=== PATIENT | male | born 1940 | race Caucasian/White ===

== ENCOUNTER → 2016-05-24 | Outpatient (CLI) | payer MEDICARE ==
--- NOTE | 2016-05-24 11:02 | XR ---
EXAMINATION TYPE: XR abdomen 1V DATE OF EXAM: 05/24/2016 10:37 AM CLINICAL HISTORY: Hematuria, kidney stones left side suspected. TECHNIQUE: 2 supine KUB images of the abdomen are obtained. COMPARISON: None. FINDINGS: There is 3-5 small calculi suspected in the left kidney measuring 4 mm or smaller in size. There are 5-10 larger calculi in the right kidney with a elongated calculus measuring 2.5 cm on long axis present. Right-sided phleboliths are noted. Overlying fecal material makes evaluation suboptimal . Scattered calcified nodules are granulomas are seen in both lung bases. There is multilevel spurring in the spine. 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 IMPRESSION: Bilateral nephrolithiasis, right worse than left in size and number, consider CT correlation. 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
== END | disposition home or self-care (01) ==
LOC: RADXRMAIN 10:11
PROVIDERS: ATTEND Urology
DX: N20.0 Calculus of kidney (principal)
CPT/HCPCS: 74000

== ENCOUNTER 2016-10-12 10:42 | Day surgery (SDC) | payer MEDICARE ==
[2016-10-08 11:07] VITALS: BMI 24.3
[~2016-10-12 10:42] MED LIST: ALPRAZolam 0.25 MG TAB PO PRN; ALPRAZolam 0.5 MG TAB PO PRN; ASPIRIN 325 MG TAB PO STA; ATORVASTATIN 80 MG TAB PO STA; NITROGLYCERIN SL TABS 0.4 MG TAB SUBLINGUAL PRN; SODIUM CHLORIDE 0.9% 1,000 ML in EMPTY BAG 1 BAG IV ONE
[2016-10-12 11:27] VITALS: RESP 16; TEMP 97.6
[2016-10-12 11:30] LABS: Anion Gap 13 mmol/L; Blood Urea Nitrogen 26 mg/dL (9-20); Calcium 9.8 mg/dL (8.4-10.2); Carbon Dioxide 23 mmol/L (22-30); Chloride 111 mmol/L (98-107); Glucose 131 mg/dL (74-99); Non-African American GFR(MDRD) >60 (>60 ml/min/1.73 sqM); Potassium 4.5 mmol/L (3.5-5.1); Sodium 147 mmol/L (137-145)
[2016-10-12 11:46] LABS: Basophils % (A) 0 %; CH 31.3; Eosinophils % (A) 0 %; HCT 44.5 % (39.0-53.0); HDW 2.75; HGB 16.1 gm/dL (13.0-17.5); Luc # (Auto) 0.14; Luc % (Auto) 1; Lymphocytes # (A) 2.6 k/uL (1.0-4.8); Lymphocytes % (A) 17 %; MCH 32.5 pg (25.0-35.0); MCHC 36.3 g/dL (31.0-37.0); MCV 89.6 fL (80.0-100.0); Mean Platelet Volume 7.6; Monocytes # (A) 0.6 k/uL (0-1.0); Monocytes % (A) 4 %; Neutrophils # (A) 11.6 k/uL (1.3-7.7); Neutrophils % (A) 77 %; RBC 4.97 m/uL (4.30-5.90); RDW 12.9 % (11.5-15.5); WBC (Perox) 15.72
[2016-10-12] MEDS ORDERED: MIDAZOLAM 2 MG/2 ML VIAL ONE (11:54)
[2016-10-12] MEDS ORDERED: LIDOCAINE 2% INJ 20 MG/ML (20 ML MDV) ONE (11:54)
[2016-10-12] MEDS ORDERED: fentaNYL (PF) 50 MCG/ML 2 ML AMP IV ONE (11:56)
[2016-10-12] MEDS ORDERED: fentaNYL (PF) 50 MCG/ML 2 ML AMP ONE (11:57)
[2016-10-12] MEDS ORDERED: MIDAZOLAM 2 MG/2 ML VIAL IV ONE (11:58)
[2016-10-12] MEDS ORDERED: LIDOCAINE 2% INJ 20 MG/ML SQ ONE (12:01)
[2016-10-12] MEDS ORDERED: IOHEXOL 350 MG/ML 125ML BOTTLE INJ ONE (12:23)
[2016-10-12] MEDS ORDERED: RX INFO: IV CONTRAST WAS GIVEN 1 EACH MISC MISCELLANE PRN (12:36)
[2016-10-12] MEDS ORDERED: SODIUM CHLORIDE 0.9% 1,000 ML IV SCH (12:45)
[2016-10-12] MEDS ORDERED: HYDROcodone/APAP 10-325MG 1 EACH TAB PO ONE (15:15)
[2016-10-12] MEDS ORDERED: HYDROcodone/APAP 10-325MG 1 EACH TAB ONE (15:16)
[2016-10-12 17:23] VITALS: BP 148/82; PULSE 6
--- NOTE | 2016-10-13 10:17 | PCN ---
CARDIAC CATHETERIZATION REPORT Mr. Casarez was referred for cardiac catheterization by Dr. Ramos because of the cardiomyopathy to rule out any underlying significant ischemic heart disease. Patient also has multiple PVCs. PROCEDURE: The right groin was prepped and draped in the usual manner and the skin was infiltrated with 2% Xylocaine. The right femoral artery was entered using Seldinger technique and the #6 Icelandic sheath was placed in. Selective coronary angiography was then performed in multiple projections and the left ventriculography was performed in 30-degree PRETTY projection. The patient tolerated the procedure well. HEMODYNAMICS: The left ventricular end-diastolic pressure is 20 to 24 mmHg prior to angiography. No gradient is noted across the aortic valve. SELECTIVE CORONARY ANGIOGRAPHY Left main coronary artery is normal and patent. LAD is a good caliber blood vessel. There is evidence of calcification noted in the LAD. It gives rise to good size diagonal branch. LAD and its branches are normal. Circumflex coronary artery is small and nondominant. Right coronary artery is mildly diseased without any hemodynamically significant stenosis. Left ventriculography reveals global hypokinesia with an ejection fraction of 30 %. FINAL IMPRESSION: This patient has some coronary artery calcification without any hemodynamically significant stenosis. Left ventriculography reveals ejection fraction of 30% suggestive of nonischemic cardiomyopathy. RECOMMENDATIONS: Maximum medical therapy. MTDD
== END 2016-10-12 17:23 | disposition home or self-care (01) ==
LOC: CATHCVL 10:42
PROVIDERS: ATTEND Internal Medicine Cardiovascular Disease
DX: I25.10 Atherosclerotic heart disease of native coronary artery without angina pectoris (principal); I42.0 Dilated cardiomyopathy; I49.3 Ventricular premature depolarization; R94.39 Abnormal result of other cardiovascular function study; Z79.1 Long term (current) use of non-steroidal anti-inflammatories (NSAID); Z79.82 Long term (current) use of aspirin; Z79.891 Long term (current) use of opiate analgesic; Z79.899 Other long term (current) drug therapy; Z87.891 Personal history of nicotine dependence
CPT/HCPCS: 93458; 80048; 85025; C1760; C1894; C1769; J2001; J2250; J3010; Q9967

== ENCOUNTER → 2016-12-30 | Outpatient (CLI) | payer MEDICARE | END | disposition home or self-care (01) | LOC: LABPAT 15:20 | PROVIDERS: ATTEND Orthopaedic Surgery | DX: Z01.812 Encounter for preprocedural laboratory examination (principal) | CPT/HCPCS: 87070 ==

== ENCOUNTER → 2017-01-17 | Outpatient (CLI) | payer MEDICARE | END | disposition home or self-care (01) | LOC: LABWHC1 08:50 | PROVIDERS: ATTEND Orthopaedic Surgery | DX: Z01.812 Encounter for preprocedural laboratory examination (principal) | CPT/HCPCS: 86850; 86900; 86901 ==

== ENCOUNTER 2017-01-24 07:47 | Inpatient (IN) | payer MEDICARE ==
--- NOTE | 2017-01-23 11:10 | HP ---
HISTORY AND PHYSICAL Surgery is scheduled for 01/24/2017 HISTORY: Bryan Casarez is a 76-year-old patient seen with symptomatic left hip osteoarthritis. After options regarding treatment were discussed with him he elected proceed with direct anterior left total hip arthroplasty. Consent regarding the procedure was obtained. Medical clearance was provided by Dr. York. PAST MEDICAL HISTORY: Osteoarthritis. PAST SURGICAL HISTORY: Cholecystectomy, herniorrhaphy, lumbar laminectomy. DAILY MEDICATIONS: 1. Ibuprofen. 2. Bishop. ALLERGIES: None reported. SOCIAL HISTORY: Patient denies current tobacco use. PHYSICAL EXAMINATION: Evaluation of the left hip there is very limited range of motion with pain, diffuse tenderness about the hip girdle. Positive hip impingement sign. Straight leg raise is negative. Distal neurovascular exam is intact. Left hip radiographs reveal severe osteoarthritic changes. IMPRESSION: Left hip osteoarthritis. PLAN: Direct anterior left total hip arthroplasty. Surgery is 01/24/2017. MMODL / IJN: [id number] /
[~2017-01-24 07:47] MED LIST changes: +ACETAMINOPHEN TAB 500 MG TAB PO ONE; -ALPRAZolam 0.25 MG TAB PO PRN; -ALPRAZolam 0.5 MG TAB PO PRN; -ASPIRIN 325 MG TAB PO STA; -ATORVASTATIN 80 MG TAB PO STA; +HYDROmorphone 0.5 MG/0.5 ML SYRINGE IVP PRN; +LACTATED RINGERS 1,000 ML IV SCH; +MELOXICAM 7.5 MG TAB PO ONE; +MIDAZOLAM 2 MG/2 ML VIAL IV PRN; -NITROGLYCERIN SL TABS 0.4 MG TAB SUBLINGUAL PRN; +ONDANSETRON 4 MG/2 ML VIAL IVP ONE; -SODIUM CHLORIDE 0.9% 1,000 ML in EMPTY BAG 1 BAG IV ONE; +TRANEXAMIC ACID 1,000 MG in SODIUM CHLORIDE 0.9% 100 ML IVPB ONE; +ceFAZolin 2 GM in SODIUM CHLORIDE 0.9% 100 ML IVPB ONE
[2017-01-24] MEDS: DEXAMETHASONE SOD PHOSPHATE 10 MG/ML 1 ML VIAL IV ONE ×2 (08:44→08:45)
[2017-01-24] MEDS ORDERED: ROPIVACAINE 246.25 MG, EPINEPHrine 0.5 MG, KETOROLAC 30 MG, cloNIDine HCL/PF 80 MCG, WA... MISCELLANE ONE ×5 (09:25)
[2017-01-24] MEDS ORDERED: PROPOFOL 10 MG/ML 20 ML VIAL IV ONE (10:12)
[2017-01-24] MEDS ORDERED: TRANEXAMIC ACID 1,000 MG/10 ML VIAL ONE (10:12)
[2017-01-24] MEDS ORDERED: KETAMINE 10 MG/ML 20 ML VIAL ONE (10:12)
[2017-01-24] MEDS ORDERED: fentaNYL (PF) 50 MCG/ML 2 ML AMP ONE (10:12)
[2017-01-24] MEDS ORDERED: SODIUM CHLORIDE 0.9% 100 ML BAG ONE (10:12)
[2017-01-24] MEDS ORDERED: MIDAZOLAM 2 MG/2 ML VIAL ONE (10:12)
[2017-01-24] MEDS ORDERED: diphenhydrAMINE 50 MG/ML 1 ML VIAL ONE (10:12)
[2017-01-24] MEDS ORDERED: GLYCOPYRROLATE 0.2 MG/ML 2 ML VIAL ONE (10:12)
[2017-01-24] MEDS ORDERED: ceFAZolin 3,000 MG in SODIUM CHLORIDE 0.9% IRRIGATIO 3,000 ML IRRIGATION ONE (10:16)
[2017-01-24] MEDS ORDERED: LACTATED RINGERS 1,000 ML IV ONE (11:30)
[2017-01-24] MEDS ORDERED: HYDROcodone/APAP 7.5-325MG 1 EACH TAB PO PRN (12:21)
[2017-01-24] MEDS ORDERED: NALOXONE 0.4 MG/ML 1 ML VIAL IV PRN (12:21)
[2017-01-24] MEDS ORDERED: HYDROmorphone 0.5 MG/0.5 ML SYRINGE IVP PRN ×3 (12:21)
[2017-01-24] MEDS ORDERED: hydrOXYzine PAMOATE 25 MG CAP PO PRN (12:21)
[2017-01-24] MEDS ORDERED: ONDANSETRON 4 MG/2 ML VIAL IVP PRN (12:21)
--- NOTE | 2017-01-24 12:21 | P.OP ---
Date of Procedure: 01/24/17 Preoperative Diagnosis: Left hip osteoarthritis Postoperative Diagnosis: Left hip osteoarthritis Procedure(s) Performed: Direct anterior left total hip arthroplasty Implants: 1. Depuy Corail press-fit femoral stem KA size 15 standard collar 2. Depuy pinnacle 64 mm press-fit acetabular shell 3. Depuy pinnacle polyethylene acetabular liner neutral 36 mm ID 64 mm OD 4. Depuy metallic femoral head 36 mm -2 Anesthesia: local, spinal Surgeon: Paras Echols Bindery Cutter Operator #1: Arthur Mcgregor Estimated Blood Loss (ml): 800 Pathology: other (Femoral head) Condition: stable Disposition: PACU Indications for Procedure: 76-year-old patient seen with symptomatic left hip osteoarthritis. After treatment options were discussed, he elected to proceed with total hip arthroplasty. Operative Findings: See description of procedure Description of Procedure: The patient was taken to the operative suite. Patient underwent a spinal anesthetic by the department of anesthesia. Patient was then transferred to the Coleman table. Patient was given preoperative IV antibiotics and TXA. Both lower extremities were placed in standard leg spars. The hip was then prepped and draped in the normal sterile orthopedic fashion. A standard anterior incision was made beginning 3 cm lateral and 1 cm distal to the ASIS extending 10 cm. Dissection was then carried down through the subcutaneous soft tissues down to the fascia overlying the tensor fascia denise. An incision was now made through the fascia. Careful dissection was taken down exposing the tensor fascia denise muscle. A Cobra retractor was now placed along the medial femoral neck and a second one along the lateral femoral neck. The venous circumflex vessels were now identified, cauterized and clipped. We identified the anterior hip capsule. An incision was made through the hip capsule along the lateral border. Tag sutures were then placed along the anterior capsule and lateral capsule. We then performed a capsulotomy. Retractors were now placed around the femoral neck itself. A Cobra retractor was now placed along the anterior acetabulum. Good exposure was now noted of the femoral head/neck complex. Residual labrum was debrided out. We placed the extremity into 3 turns of fine traction. We were then able to introduce a skid in between the femoral head and acetabulum. A placed a awl into the femoral head. We took 2 turns of traction off the extremity. Rotation was now released. The femoral head was then dislocated without difficulty. Additional releasing was performed of the capsule. The head was then reduced. All traction was released. A femoral neck cut was now made with a sagittal saw. It was completed with an osteotome at the lateral neck area. The femoral head was now removed without difficulty. There was advanced osteoarthritis noted both the femoral head and acetabulum. The extremity was now rotated to 60 of external rotation. It was locked in position. Residual labrum was now debrided out. Serial reaming was performed of the acetabulum. Once we reached the appropriate size and a trial was position and fit nicely. The appropriate size was now chosen opened and made available. The wound was irrigated with pulse lavage mechanical irrigation. It was introduced into the acetabulum without difficulty. The C-arm/fluoroscopy was now brought into the operative field. We made sure we had a true AP pelvic view. We now under direct C-arm/ fluoroscopy introduced into the acetabular component with appropriate version and inclination. It was well seated and stable. The C-arm was pulled back. An appropriate liner was introduced and clicked into position. It was felt to be stable. At this point retractors were removed. The extremity was now placed into 125 external rotation with no traction. The leg was now dropped to the ground and adducted. Appropriate retractors were now positioned along the proximal femur. We also placed our femoral look into position. Additional capsular releasing was performed to gain access to the proximal femur. We now used a box osteotome. A canal finder was now utilized. Serial broaching was now performed until we reached the appropriate size with good overall rotational stability. Appropriate calcar planing was performed. A trial head/ neck was placed into position. The hip was now reduced. The C-arm/fluoroscopy was brought back into the operative field. A spot film was obtained of the nonoperative hip. A spot film was obtained of the trial components. Overlays were performed, we noted good overall alignment and positioning for determining leg length. The C-arm/fluoroscopy was pulled back. Retractors were repositioned and the hip was dislocated. The leg was again taken down to the ground and adducted. Appropriate retractors were repositioned as well as the femoral hook. All trial components were removed. The femoral implant was opened along with the femoral head. The wound was irrigated with pulse lavage mechanical irrigation. The deep soft tissues were infiltrated local analgesic. The femoral implant was introduced with good purchase and fixation noted. The femoral head was introduced with good positioning and fixation noted. Retractors were now removed. The hip was now reduced. There appeared be good positioning of the hip. A spot film was obtained document that. A second gram of TXA was given. Bipolar cautery had been utilized intermittently through the procedure for hemostasis. The wound was irrigated copiously with pulse lavage mechanical irrigation. The fascia was repaired with Vicryl suture. The subcutaneous soft tissues were repaired in layers with Vicryl suture. The skin was approximated with pernio/Dermabond. Sterile dressings were applied. Patient was then awakened, transferred to a bed and taken to recovery in stable condition. Jeremiah FONSECA assisted with the procedure.
--- NOTE | 2017-01-24 12:35 | FL ---
Fluoroscopy HISTORY: Hip replacement 23 seconds fluoroscopy time supplied to the referring clinician. 1 intraoperative C-arm image docume nts the procedure. See dictated report from orthopedic surgery.
--- NOTE | 2017-01-24 12:37 | XR ---
Limited left hip HISTORY: Hip replacement Intraoperative C-arm image documents the procedure.
[2017-01-24 13:11] VITALS: RESP 16
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
[2017-01-24] MEDS: traMADol 50 MG TAB PO SCH ×3 (15:58→21:05)
[2017-01-24] MEDS: HYDROcodone/APAP 7.5-325MG 1 EACH TAB PO PRN ×2 (15:59→23:52)
[2017-01-24] MEDS: SODIUM CHLORIDE 0.9% 1,000 ML IV SCH (16:03)
[2017-01-24 16:25] VITALS: BMI 24.9
[2017-01-24] MEDS: ceFAZolin 2 GM in SODIUM CHLORIDE 0.9% 100 ML IVPB SCH ×2 (18:55→23:52)
[2017-01-24] MEDS ORDERED: METOPROLOL SUCCINATE (ER) 50 MG TAB.ER.24H PO SCH (21:00)
[2017-01-24] MEDS ORDERED: SENNOSIDES-DOCUSATE SODIUM 1 EACH TAB PO SCH (21:00)
[2017-01-24] MEDS ORDERED: METOPROLOL SUCCINATE (ER) 25 MG TAB.ER.24H PO SCH (21:00)
[2017-01-25] MEDS: HYDROcodone/APAP 7.5-325MG 1 EACH TAB PO PRN ×2 (05:15→11:44)
[2017-01-25 07:17] LABS: Basophils % (A) 0 %; CH 32.1; CHCM 34.6; Eosinophils # (A) 0.1 k/uL (0-0.7); Eosinophils % (A) 0 %; HCT 34.1 % (39.0-53.0); HDW 2.79; HGB 11.2 gm/dL (13.0-17.5); Luc % (Auto) 2; Lymphocytes # (A) 2.5 k/uL (1.0-4.8); Lymphocytes % (A) 19 %; MCH 30.8 pg (25.0-35.0); MCV 93.3 fL (80.0-100.0); Monocytes % (A) 7 %; Neutrophils # (A) 9.7 k/uL (1.3-7.7); Neutrophils % (A) 72 %; RBC 3.65 m/uL (4.30-5.90); RDW 13.7 % (11.5-15.5); WBC 13.4 k/uL (3.8-10.6); WBC (Perox) 14.06
[2017-01-25 07:47] LABS: ALT 21 U/L (21-72); AST 26 U/L (17-59); Alkaline Phosphatase 95 U/L (38-126); Anion Gap 7 mmol/L; Blood Urea Nitrogen 21 mg/dL (9-20); Calcium 8.4 mg/dL (8.4-10.2); Carbon Dioxide 21 mmol/L (22-30); Chloride 111 mmol/L (98-107); Glucose 118 mg/dL (74-99); Non-African American GFR(MDRD) >60 (>60 ml/min/1.73 sqM); Potassium 4.2 mmol/L (3.5-5.1); Sodium 139 mmol/L (137-145); Total Bilirubin 0.4 mg/dL (0.2-1.3); Total Protein 5.6 g/dL (6.3-8.2)
[2017-01-25] MEDS: SODIUM CHLORIDE 0.9% 1,000 ML IV SCH (08:45)
[2017-01-25] MEDS: traMADol 50 MG TAB PO SCH ×2 (08:52→12:36)
[2017-01-25] MEDS ORDERED: FAMOTIDINE 20 MG TAB PO SCH (09:00)
[2017-01-25] MEDS ORDERED: ENOXAPARIN 40 MG/0.4 ML SYRINGE SQ SCH (09:00)
[2017-01-25] MEDS ORDERED: MELOXICAM 7.5 MG TAB PO SCH (09:00)
[2017-01-25 10:07] VITALS: BP 127/71; PULSE 78; TEMP 98
--- NOTE | 2017-01-25 11:46 | P.PN ---
Subjective Progress Note Date: 01/25/17 This is a 76-year-old male, patient of Dr. York. He has a known past medical history of hypertension, chronic back pain with previous back surgery and osteoarthritis. Patient underwent a left total hip arthroplasty today with Dr. Echols. He tolerated surgery well with no complications Estimated blood loss 800 mL. Patient sitting in bed comfortably. Pain is tolerable. He denies any chest pain or shortness of breath. Denies any nausea or vomiting. He had a bowel movement prior to surgery. And Connolly catheter is currently in place. We have been consulted for medical management. Patient seen by Dr. York recently in his office at that time the Cozaar was discontinued and patient was told to continue his metoprolol 50 mg at bedtime. 01/25/2017 patient is doing well. Pain is controlled. He has been up and ambulating with physical therapy. He denies any chest pain or shortness breath. Denies any nausea or vomiting. No bowel movement reported yet. Connolly catheter just removed awaiting patient to be up to void. They're anticipating discharge today. Objective - Vital Signs Vital signs: Vital Signs Temp 98.0 F 01/25/17 08:00 Pulse 78 01/25/17 08:00 Resp 16 01/25/17 08:00 BP 127/71 01/25/17 08:00 Pulse Ox 97 01/25/17 08:00 Intake & Output 01/24/17 01/25/17 01/25/17 18:59 06:59 18:59 Intake Total 1601 600 Output Total 975 700 300 Balance 626 -100 -300 Weight 90.718 kg Intake: IV 1601 Intake, IV Titration 600 Amount Sodium Chloride 0.9% 1, 600 000 ml @ 50 mls/hr IV . Q20H [facility] Rx#:[id number] Output: Urine 175 700 300 Uretheral (Connolly) 700 300 Estimated Blood Loss 800 Other: Voiding Method Indwelling Catheter Indwelling Catheter Indwelling Catheter - Exam Head normocephalic Neck supple Lungs clear to auscultation bilaterally no wheezing or crackles Heart regular rate and rhythm S1-S2, no rub or gallop Abdomen is soft nontender nondistended positive bowel sounds no hepatosplenomegaly Extremities no edema. Dressing clean dry and intact on the left hip. Patient is able to wiggle his toes. Neuro alert and orientated to 3 - Labs CBC & Chem 7: 01/25/17 06:56 01/25/17 06:56 Labs: Abnormal Lab Results - Last 24 Hours (Table) 01/25/17 01/25/17 Range/Units 06:56 06:56 WBC 13.4 H (3.8-10.6) k/uL RBC 3.65 L (4.30-5.90) m/uL Hgb 11.2 L (13.0-17.5) gm/dL Hct 34.1 L (39.0-53.0) % Neutrophils # 9.7 H (1.3-7.7) k/uL Chloride 111 H (98-107) mmol/L Carbon Dioxide 21 L (22-30) mmol/L BUN 21 H (9-20) mg/dL Glucose 118 H (74-99) mg/dL Total Protein 5.6 L (6.3-8.2) g/dL Albumin 3.1 L (3.5-5.0) g/dL Assessment and Plan Plan: 1. Osteoarthritis status post left total hip arthroplasty: On Lovenox for DVT prophylaxis. Discharged DVT prophylaxis per orthopedic protocol. Continue current pain control and physical therapy 2. Essential hypertension: Resume metoprolol 50 mg at bedtime 3. Chronic back pain with previous back surgery. Continue with current pain medication 4. Leukocytosis: Likely reactive from surgery. Patient has no evidence of acute infection. No evidence of cellulitis at the incision site. Patient did receive IV steroids during surgery Patient is medically stable for discharge. We'll follow up with Dr. York in 1 week I performed an examination of the patient and discussed their management with the physician Switch Cleaner. I have reviewed the Physician Switch Cleaner's notes and agree with the documented findings and plan of care
--- NOTE | 2017-01-25 12:42 | P.PN ---
Subjective Progress Note Date: 01/25/17 Principal diagnosis: Status post left total hip arthroplasty Patient seen today resting in his hospital bed, his is present at bedside. Patient doing very well at this point, pain is well-controlled. Exam related well with therapy. He denies any chest pain, shortness of breath, fever or chills, nausea vomiting. Objective - Vital Signs Vital signs: Vital Signs Temp 98.0 F 01/25/17 08:00 Pulse 78 01/25/17 08:00 Resp 16 01/25/17 08:00 BP 127/71 01/25/17 08:00 Pulse Ox 97 01/25/17 08:00 Intake & Output 01/24/17 01/25/17 01/25/17 18:59 06:59 18:59 Intake Total 1601 600 Output Total 975 700 300 Balance 626 -100 -300 Weight 90.718 kg Intake: IV 1601 Intake, IV Titration 600 Amount Sodium Chloride 0.9% 1, 600 000 ml @ 50 mls/hr IV . Q20H [facility] Rx#:[id number] Output: Urine 175 700 300 Uretheral (Connolly) 700 300 Estimated Blood Loss 800 Other: Voiding Method Indwelling Catheter Indwelling Catheter Indwelling Catheter - Exam Left lower extremity: Incision is clean, dry, and intact. The prineo tape is in good condition. There is minimal soft tissue swelling and ecchymosis surrounding the medial and lateral aspects of the incision. Calf is soft, no tenderness with palpation. Plantar flexion, dorsiflexion, EHL, FHL are intact. Sensory exam to light touch throughout the extremity is intact, dorsal pedis pulses 2+. - Labs CBC & Chem 7: 01/25/17 06:56 01/25/17 06:56 Labs: Abnormal Lab Results - Last 24 Hours (Table) 01/25/17 01/25/17 Range/Units 06:56 06:56 WBC 13.4 H (3.8-10.6) k/uL RBC 3.65 L (4.30-5.90) m/uL Hgb 11.2 L (13.0-17.5) gm/dL Hct 34.1 L (39.0-53.0) % Neutrophils # 9.7 H (1.3-7.7) k/uL Chloride 111 H (98-107) mmol/L Carbon Dioxide 21 L (22-30) mmol/L BUN 21 H (9-20) mg/dL Glucose 118 H (74-99) mg/dL Total Protein 5.6 L (6.3-8.2) g/dL Albumin 3.1 L (3.5-5.0) g/dL Assessment and Plan Plan: Assessment: 1. Postop day #1 status post left total hip arthroplasty Plan: 1. Pain control, we'll discharge home on oral medication 2. Daily dressing changes/ice and elevate 3. Therapy and nursing after discharge 4. GI and DVT prophylaxis, we'll discharge home on aspirin 325 mg twice a day 5. Medical recommendations 6. Wound care instructions were discussed 7. Patient will be discharged home today Time with Patient: Less than 30
--- NOTE | 2017-01-25 12:43 | P.DS ---
Providers Date of admission: 01/24/17 07:47 Expected date of discharge: 01/25/17 Attending physician: Paras Echols Consults: 01/24/17 12:21 Consult Physician Routine Consulting Provider: Tj Sampson Consult Reason/Comments: Medical management Do you want consulting provider notified?: Yes Primary care physician: [place] [facility] Course: Date of admission: 01/24/2017 Date of discharge: 01/25/2017 Admission diagnosis: Status post left total hip arthroplasty Discharge diagnosis: Same Attending physician: Dr. Echols Surgical procedures: Left total hip arthroplasty Brief history: Patient is a 76-year-old male with a history of progressive primary left posterior arthritis. At this point patient has failed conservative treatment measures and has opted to proceed with a elective left total hip arthroplasty. Hospital course: Details of patient's surgery can be found in operative report. Patient tolerated the procedure well and was subsequently transported to orthopedic floor. Patient's orthopeidc and medical care was provided daily. Patient had daily laboratory tests performed for evaluation of overall blood counts. Patient had daily physical therapy to include strengthening range of motion as well as education with walker ambulation. Patient was treated with Lovenox for their postoperative DVT prophylaxis during their inpatient stay. Patient was noted to have a relatively uneventful postoperative course. Patient reported satisfactory pain control with oral pain medications by postoperative day 0. Patient showed satisfactory progress with physical therapy. Patient moved steadily through the program and had no difficulty meeting the goals by postoperative day 1. Given patient's otherwise satisfactory course and having met physical therapy goals, plan is to discharge patient home on postoperative day 1. Discharge condition/disposition: Patient will be discharged home in stable condition. Discharge medications: Instructions are given on resumption of patient's normal daily medications per primary care recommendation, in addition patient will be prescribed Colace 100 mg, aspirin 325 mg. Discharge instructions: 1. Wound care and infection precautions, keep incision dry and covered while showering, no lotions, creams, moisturizers. No soaking, tubs, pools, hottubs. Do not scrub over the incision. 2. Weight-bear as tolerated with walker / cane until follow-up. 3. Ice and elevate when necessary. Do not exceed 20 minutes per hour with ice pack. 4. Utilize compression sleeve until seen at first follow up appointment. 5. Visiting nursing care. 6. Home physical therapy. 7. Pain meds and anticoagulants per prescription. 8. Pain medication has potential to cause constipation. Increase oral fluid and fiber intake. Contact primary care provider if you have not had a bowel movement within 48 hours after discharge 9. No anti-inflammatory medication until discussed at first post operative visit, this including Motrin, Aleve, Mobic, Diclofenac. 10. Follow up in office at 2 weeks postop with Jeremiah Mcgregor PA-C 11. Follow up with your primary care doctor 7-10 days after discharge. 12. Contact [facility] with any questions, . Procedures: Left total hip arthroplasty Patient Condition at Discharge: Good Plan - Discharge Summary New Discharge Prescriptions: New Aspirin 325 mg PO BID #60 tab Docusate [Colace] 100 mg PO DAILY #30 capsule Continue Metoprolol Succinate [Toprol XL] 25 mg PO HS No Action HYDROcodone/APAP 10-325MG [[place] 10-325] 1 tab PO Q6H PRN PRN Reason: Pain Discharge Medication List HYDROcodone/APAP 10-325MG [[place] 10-325] 1 tab PO Q6H PRN 09/09/15 [History] Metoprolol Succinate [Toprol XL] 25 mg PO HS 01/14/17 [History] Aspirin 325 mg PO BID #60 tab 01/25/17 [Rx] Docusate [Colace] 100 mg PO DAILY #30 capsule 01/25/17 [Rx] Follow up Appointment(s)/Referral(s): Stephanie York DO [Primary Care Provider] - 1 Week Arthur Mcgregor PAC [PHYSICIAN MUSIC LEADER] - 1 Week CLARISSA Visiting Nurse, [NON-STAFF] - Patient Instructions/Handouts: Total Hip Replacement (DC) Activity/Diet/Wound Care/Special Instructions: Orthopedic Discharge Instructions: 1. Wound care and infection precautions, keep incision dry and covered while showering, no lotions, creams, moisturizers. No soaking, pools, hot tubs. Do not scrub over incision. 2. Weight-bear as tolerated with walker / cane until follow-up. 3. Ice and elevate when necessary. Do not exceed 20 minutes per hour with ice pack. 4. Utilize compression sleeve until seen at first follow up appointment. 5. Visiting nursing care. 6. Home physical therapy. 7. Pain meds and anticoagulants per prescription. 8. Pain medication has potential to cause constipation. Increase oral fluid and fiber intake. Contact primary care provider if you have not had a bowel movement within 48 hours after discharge. 9. No anti-inflammatory medication until discussed at first post operative visit, this including Motrin, Aleve, Mobic, Diclofenac 10. Follow up in office at 2 weeks postop with Jeremiah Mcgregor PA-C 11. Follow up with your primary care doctor 7-10 days after discharge. 12. Contact [facility] with any questions, . Discharge Disposition: HOME WITH HOME HEALTH SERVICES
== END 2017-01-25 14:45 | disposition home health service (06) | DRG 470 ==
LOC: 2ORMAIN 07:47 → 3SUR 12:37
PROVIDERS: ADMIT Orthopaedic Surgery; ATTEND Orthopaedic Surgery
PROC: 0SRB02A Replacement of Left Hip Joint with Metal on Polyethylene Synthetic Substitute, Uncemented, Open Approach (ICD-10-PCS; principal; 2017-01-24 10:15)
DX: M16.12 Unilateral primary osteoarthritis, left hip (principal); I10 Essential (primary) hypertension; E78.5 Hyperlipidemia, unspecified; Z79.899 Other long term (current) drug therapy; Z87.891 Personal history of nicotine dependence; M54.9 Dorsalgia, unspecified; G89.29 Other chronic pain; Z79.1 Long term (current) use of non-steroidal anti-inflammatories (NSAID); Z79.891 Long term (current) use of opiate analgesic; Z85.46 Personal history of malignant neoplasm of prostate; Z87.442 Personal history of urinary calculi
CPT/HCPCS: 73501; 80053; 85025; 86850; 86900; 86901; 88300

== ENCOUNTER 2017-01-30 15:50 | Inpatient (IN) | payer MEDICARE ==
--- NOTE | 2017-01-30 16:39 | XR ---
EXAMINATION TYPE: XR Hip Complete LT DATE OF EXAM: 01/30/2017 CLINICAL HISTORY: Left hip replacements surgery 6 days ago with pain and swelling. TECHNIQUE: AP and frog-leg views of left hip are obtained. COMPARISON: None. FINDINGS: Metallic hardware from total left hip arthroplasty is seen and appears satisfactory in alig nment and position. There is evidence of recent surgery with some residual subcutaneous gas noted la terally. IMPRESSION: No acute periprosthetic fracture or dislocation is evident.
[2017-01-30] MEDS ORDERED: MORPHINE SULFATE 2 MG/ML SYRINGE IV STA (16:49)
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
--- NOTE | 2017-01-30 17:41 | US ---
EXAMINATION TYPE: US venous doppler duplex LE LT DATE OF EXAM: 01/30/2017 5:33 PM COMPARISON: NONE CLINICAL HISTORY: Pt had hip replaced Tuesday and has been having pain and swelling since Tuesday. SIDE PERFORMED: Left TECHNIQUE: The lower extremity deep venous system is examined utilizing real time linear array sonog aung with graded compression, doppler sonography and color-flow sonography. VESSELS IMAGED: External Iliac Vein (EIV) Common Femoral Vein Deep Femoral Vein Greater Saphenous Vein * Femoral Vein Popliteal Vein Small Saphenous Vein * Proximal Calf Veins (* superficial vessels) Left Leg: Negative for DVT Grayscale, color doppler, spectral doppler imaging performed of the deep veins of the lower left lowe r extremity. There is normal flow, compressibility, vascular waveforms. IMPRESSION: No ultrasound evidence for acute DVT in the left lower extremity.
[2017-01-30] MEDS ORDERED: MORPHINE SULFATE 2 MG/ML SYRINGE IVP ONE ×2 (19:11)
[2017-01-30 19:19] LABS: Basophils # (A) 0.1 k/uL (0-0.2); Basophils % (A) 1 %; CH 31.1; CHCM 34.4; Eosinophils # (A) 0.4 k/uL (0-0.7); Eosinophils % (A) 4 %; HCT 35.6 % (39.0-53.0); HDW 3.18; HGB 12.1 gm/dL (13.0-17.5); Luc # (Auto) 0.27; Luc % (Auto) 3; Lymphocytes # (A) 2.3 k/uL (1.0-4.8); Lymphocytes % (A) 24 %; MCH 30.8 pg (25.0-35.0); MCHC 33.9 g/dL (31.0-37.0); MCV 90.7 fL (80.0-100.0); Mean Platelet Volume 7.1; Monocytes # (A) 0.7 k/uL (0-1.0); Monocytes % (A) 7 %; Neutrophils # (A) 5.7 k/uL (1.3-7.7); Neutrophils % (A) 61 %; RBC 3.93 m/uL (4.30-5.90); RDW 13.2 % (11.5-15.5); WBC 9.4 k/uL (3.8-10.6); WBC (Perox) 8.89
[2017-01-30] MEDS ORDERED: NALOXONE 0.4 MG/ML 1 ML VIAL IV PRN (19:25)
[2017-01-30 22:22] VITALS: BMI 25.6
[2017-01-31] MEDS: MORPHINE SULFATE 2 MG/ML SYRINGE IV PRN ×3 (00:13→12:04)
[2017-01-31] MEDS: ONDANSETRON 4 MG/2 ML VIAL IVP PRN ×2 (00:20→12:06)
[2017-01-31] MEDS ORDERED: HYDROcodone/APAP 10-325MG 1 EACH TAB PO PRN (16:27)
[2017-01-31] MEDS ORDERED: ACETAMINOPHEN TAB 325 MG TAB PO PRN (16:27)
[2017-01-31] MEDS ORDERED: HYDROmorphone 1 MG/ML 1 ML SYRINGE IM PRN (16:41)
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
[2017-01-31] MEDS: LACTATED RINGERS 1,000 ML IV SCH (16:44)
[2017-01-31] MEDS: hydrOXYzine PAMOATE 25 MG CAP PO PRN ×2 (16:52→22:32)
[2017-01-31] MEDS: HYDROcodone/APAP 10-325MG 1 EACH TAB PO PRN ×2 (16:52→22:31)
[2017-01-31] MEDS: METOPROLOL SUCCINATE (ER) 25 MG TAB.ER.24H PO SCH (17:41)
[2017-01-31] MEDS: SENNOSIDES-DOCUSATE SODIUM 1 EACH TAB PO SCH (20:09)
[2017-02-01] MEDS: HYDROcodone/APAP 10-325MG 1 EACH TAB PO PRN ×4 (03:38→20:03)
[2017-02-01] MEDS: hydrOXYzine PAMOATE 25 MG CAP PO PRN ×5 (03:38→23:05)
[2017-02-01] MEDS: FAMOTIDINE 20 MG TAB PO SCH (07:55)
[2017-02-01] MEDS: METOPROLOL SUCCINATE (ER) 25 MG TAB.ER.24H PO SCH (07:55)
[2017-02-01 07:57] LABS: Basophils # (A) 0.1 k/uL (0-0.2); Basophils % (A) 1 %; CH 31.3; CHCM 33.6; Eosinophils # (A) 0.3 k/uL (0-0.7); Eosinophils % (A) 4 %; HCT 34.5 % (39.0-53.0); HGB 11.2 gm/dL (13.0-17.5); Luc # (Auto) 0.19; Luc % (Auto) 2; Lymphocytes # (A) 1.8 k/uL (1.0-4.8); Lymphocytes % (A) 21 %; MCH 30.3 pg (25.0-35.0); MCHC 32.3 g/dL (31.0-37.0); MCV 93.7 fL (80.0-100.0); Monocytes # (A) 0.5 k/uL (0-1.0); Monocytes % (A) 6 %; Neutrophils # (A) 5.8 k/uL (1.3-7.7); Neutrophils % (A) 67 %; RBC 3.68 m/uL (4.30-5.90); RDW 13.4 % (11.5-15.5); WBC 8.7 k/uL (3.8-10.6)
--- NOTE | 2017-02-01 09:47 | CT ---
EXAMINATION TYPE: CT hip LT wo con DATE OF EXAM: 02/01/2017 COMPARISON: NONE HISTORY: Lt hip pain CT DLP: 721.9 mGycm Automated exposure control for dose reduction was used. FINDINGS: Postsurgical change involving the left hip results in severe soft tissue artifact. Visualized portion s of the pubic rami appear intact. Metallic artifact obscures the soft tissues adjacent to the prosth eses. There does appear to be soft tissue emphysema and small amount of edema or hematoma overlying t he likely surgical site.. Joint space and. Joint space cannot be seen due to the amount of artifact. There is air within the bladder and there appears to be prostate calcifications. IMPRESSION: MARKEDLY LIMITED EXAM DEMONSTRATES SOFT TISSUE EDEMA AND EMPHYSEMA LIKELY RELATED TO PREVIOUS RECENT SURGERY CORRELATE CLINICALLY FOR CONFIRMATION. METAL ARTIFACT OBSCURES THE REGION OF THE LEFT HIP. INCIDENTAL NOTE IS MADE OF AIR WITHIN THE BLADDER WHICH MAY BE RELATED TO HOLGUIN CATHETER INSERTION CO RRELATE CLINICALLY OTHERWISE CONSIDER INFECTIOUS ETIOLOGY..
[2017-02-01] MEDS ORDERED: LACTULOSE 20 GM/30 ML CUP PO ONE (11:14)
[2017-02-01] MEDS ORDERED: methylPREDNISolone SOD SUCCI 125 MG/2 ML VIAL IV STA (11:17)
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
[2017-02-01] MEDS: LACTATED RINGERS 1,000 ML IV SCH (11:55)
[2017-02-01 12:41] LABS: Erythrocyte Sedimentation Rate 34 mm/hr (0-15)
--- NOTE | 2017-02-01 14:24 | P.PN ---
Subjective Progress Note Date: 02/01/17 Principal diagnosis: Left hip pain Patient is seen today resting in his hospital bed, his is present at bedside. Patient notes no significant improvement in his hip pain through the night. We did add a higher oral dose pain medication. Patient had got up with physical therapy and attempted in the walking yesterday. Patient's been evaluated by internal medicine today also. He denies any headaches, lightheadedness, chest pain, shortness of breath, abdominal discomfort, fever chills. He does continue to complain of pain occasionally in the left hip region, he describes more the sharp pain in the left lower leg, along the IT band closer to the left knee. He also complains of some discomfort in the left foot. Objective - Vital Signs Vital signs: Vital Signs Temp 97.1 F L 02/01/17 07:34 Pulse 72 02/01/17 07:34 Resp 17 02/01/17 08:41 BP 125/70 02/01/17 07:34 Pulse Ox 98 02/01/17 07:34 Intake & Output 01/31/17 02/01/17 02/01/17 18:59 06:59 18:59 Intake Total 300 Output Total 650 Balance -350 Intake: Intake, IV Titration 300 Amount Lactated Ringers 1,000 ml 300 @ 30 mls/hr IV .Q24H [facility] Rx#:[id number] Output: Urine 650 Other: Voiding Method Urinal Urinal # Voids 1 1 1 - Exam Left lower extremity: Incision is clean, dry and intact. Minimal ecchymosis present on the medial and lateral aspects of the incision. There is mild soft tissue swelling in the hip region more on the lateral aspect. Logroll maneuver reproduces very minimal pain in the left hip. Hip flexion along with rotation reproduces more pain in the posterior aspect of the leg. He has a very significant area of point tenderness noted at the distal IT band of the left side. No effusion present over the knee. Plantar flexion, dorsiflexion, EHL, FHL are intact, there is weakness with plantar flexion. calf is soft, no tenderness with palpation. Dorsalis pedis pulses 2+. - Labs CBC & Chem 7: 02/01/17 06:54 Labs: Abnormal Lab Results - Last 24 Hours (Table) 02/01/17 02/01/17 Range/Units 06:54 06:54 RBC 3.68 L (4.30-5.90) m/uL Hgb 11.2 L (13.0-17.5) gm/dL Hct 34.5 L (39.0-53.0) % ESR 34 H (0-15) mm/hr C-Reactive Protein 36.5 H (<10.0) mg/L Microbiology - Last 24 Hours (Table) 01/30/17 17:00 Blood Culture - Preliminary Blood No Growth after 24 hours Assessment and Plan Plan: Imaging: Computed tomography scan of the left hip was ordered, no obvious fractures or dislocations were present. Left total hip prosthesis remains intact Assessment: 1. Left hip pain with possible early prosthesis loosening 2. Recent left total hip arthroplasty (01/24/2017) Plan: Labs that were drawn early this morning revealed no obvious infective process. We decided to place the patient on an IV steroid taper, began with 125 mg IV piggyback and then 60 mg IV every 8 hours through the night. Depending on the patient's symptoms tomorrow, we will continue with further workup recommendations Pain control Medical recommendations GI and DVT prophylaxis, subcu medication at this time Physical therapy evaluation and treatment Weight-bear as tolerated, utilize walker Daily dressing changes Further recommendations follow Time with Patient: Less than 30
[2017-02-01] MEDS: methylPREDNISolone SOD SUCCI 125 MG/2 ML VIAL IV SCH ×2 (17:04→23:07)
[2017-02-01] MEDS: SENNOSIDES-DOCUSATE SODIUM 1 EACH TAB PO SCH (20:05)
[2017-02-01] MEDS: MAGNESIUM HYDROXIDE 2,400 MG/10 ML CUP PO PRN (23:05)
[2017-02-02] MEDS: HYDROcodone/APAP 10-325MG 1 EACH TAB PO PRN ×3 (02:42→15:31)
[2017-02-02] MEDS ORDERED: ENOXAPARIN 40 MG/0.4 ML SYRINGE SQ SCH (09:00)
[2017-02-02] MEDS ORDERED: NON-FORMULARY DRUG (Potassium [Potassium] 99 MG) PO SCH (09:00)
[2017-02-02] MEDS: FAMOTIDINE 20 MG TAB PO SCH (09:13)
[2017-02-02] MEDS: METOPROLOL SUCCINATE (ER) 25 MG TAB.ER.24H PO SCH (09:13)
[2017-02-02] MEDS: hydrOXYzine PAMOATE 25 MG CAP PO PRN ×2 (09:14→15:32)
[2017-02-02] MEDS: methylPREDNISolone SOD SUCCI 125 MG/2 ML VIAL IV SCH ×3 (09:14→23:52)
[2017-02-02] MEDS: MAGNESIUM HYDROXIDE 2,400 MG/10 ML CUP PO PRN (11:53)
--- NOTE | 2017-02-02 12:06 | P.PN ---
Subjective Progress Note Date: 02/02/17 Principal diagnosis: Left hip pain Patient is seen today resting in his hospital bed, his is present at bedside. He denies any headaches, lightheadedness, chest pain, shortness of breath, abdominal discomfort, fever chills. Patient continues to have discomfort surrounding the left hip region. He states that the pain in the lower leg, distal to the knee and the foot has improved since starting the stairs yesterday. Objective - Vital Signs Vital signs: Vital Signs Temp 97.8 F 02/02/17 09:07 Pulse 84 02/02/17 07:36 Resp 16 02/02/17 08:00 BP 140/81 02/02/17 07:36 Pulse Ox 95 02/02/17 07:36 Intake & Output 02/01/17 02/02/17 02/02/17 18:59 06:59 18:59 Intake Total 1380 Output Total 675 Balance 705 Intake: Intake, IV Titration 480 Amount Lactated Ringers 1,000 ml 480 @ 30 mls/hr IV .Q24H [facility] Rx#:[id number] Oral 900 Output: Urine 675 Other: Voiding Method Urinal Urinal # Voids 1 3 # Bowel Movements 0 - Exam Left lower extremity: Incision is clean, dry and intact. Minimal ecchymosis present on the medial and lateral aspects of the incision. There is mild soft tissue swelling in the hip region more on the lateral aspect. Logroll maneuver reproduces very minimal pain in the left hip. Hip flexion along with rotation reproduces more pain in the posterior aspect of the leg. No effusion present over the knee. Plantar flexion, dorsiflexion, EHL, FHL are intact, there is weakness with plantar flexion. calf is soft, no tenderness with palpation. Dorsalis pedis pulses 2+. - Labs CBC & Chem 7: 02/01/17 06:54 Labs: Abnormal Lab Results - Last 24 Hours (Table) 02/01/17 Range/Units 06:54 ESR 34 H (0-15) mm/hr Microbiology - Last 24 Hours (Table) 01/30/17 17:00 Blood Culture - Preliminary Blood No Growth after 48 hours Assessment and Plan Plan: Assessment: 1. Left hip pain with possible early prosthesis loosening 2. 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 Recent left total hip arthroplasty (01/24/2017) Plan: No significant improvement with regards to the pain in the left hip. After starting the IV steroids. Patient's radicular symptoms seem to have improved. We will give the patient a full 24 hours on the IV steroids, plan for recheck in the morning. Tentatively we are scheduled for a I&D procedure with possible polyethylene liner exchange versus revision left total hip arthroplasty on 02/03. We were able to discuss the case, including current treatment options with the patient and the family at bedside today Pain control Nothing by mouth after midnight Medical recommendations GI and DVT prophylaxis, subcu medication at this time Physical therapy evaluation and treatment Weight-bear as tolerated, utilize walker Daily dressing changes Further recommendations follow Time with Patient: Less than 30
[2017-02-02] MEDS ORDERED: LACTULOSE 20 GM/30 ML CUP PO ONE (17:21)
--- NOTE | 2017-02-02 17:21 | P.PN ---
Subjective Progress Note Date: 02/02/17 this is a 76-year-old male, patient of Dr. York. He has a known past medical history of hypertension and chronic back pain with previous back surgeries. had a recent left total hip arthroplasty on 01/24/2017. He was discharged home. Patient's reports that about a day or 2 after surgery patient was having difficulty ambulating and having extreme pain. They tried the visiting home nurse recommendations however patient's pain continued become very severe. Patient then came into the hospital yesterday was admitted to the orthopedic service. x-ray of the left hip shows no acute fracture or dislocation.computed tomography scan of the left hip showed soft tissue edema and emphysema likely related to the previous recent surgery. Patient has pain and swelling in that left hip. Also has pain into the left calf down to the left foot. patient denies any fever, chills, sweats. Denies any chest pain or shortness of breath. Denies any nausea or vomiting. Does report constipation states last bowel movement was about 7 days ago. Denies any significant abdominal pain. Denies any difficulty or burning with urination. Patient denies any drainage from the incision site on his left hip. patient does report burning sensation down the left leg. On 02/02/2017 patient is alert and oriented 3 he is still complaining of pain in his left hip area he is complaining of feeling hot flashes with the steroid dose, he is complaining of constipation otherwise he denies any complaints, there is no fever or chills no headache no dizziness no chest pain or shortness of breath no cough no nausea or vomiting no abdominal pain and no urinary symptoms Objective - Vital Signs Vital signs: Vital Signs Temp 97.9 F 02/02/17 15:22 Pulse 97 02/02/17 15:22 Resp 16 02/02/17 15:22 BP 131/74 02/02/17 15:22 Pulse Ox 97 02/02/17 15:22 Intake & Output 02/01/17 02/02/17 02/02/17 18:59 06:59 18:59 Intake Total 1380 240 Output Total 675 Balance 705 240 Intake: IV 240 Lactated Ringers 1,000 ml 240 @ 30 mls/hr IV .Q24H [facility] Rx#:[id number] Intake, IV Titration 480 Amount Lactated Ringers 1,000 ml 480 @ 30 mls/hr IV .Q24H [facility] Rx#:[id number] Oral 900 Output: Urine 675 Other: Voiding Method Urinal Urinal # Voids 1 3 2 # Bowel Movements 0 - Exam In general patient is alert and oriented 3 HEENT head normocephalic and atraumatic Neck is supple no JVD no goiter no lymphadenopathy Chest exam reveals a few scattered crackles bilaterally no wheezing Cardiac exam reveals regular heart sounds S1 and S2 no gallops no murmurs Abdomen is soft nontender no organomegaly with normal bowel sounds Extremity exam reveals no edema no cyanosis or clubbing - Labs CBC & Chem 7: 02/01/17 06:54 Labs: Microbiology - Last 24 Hours (Table) 01/30/17 17:00 Blood Culture - Preliminary Blood No Growth after 48 hours Assessment and Plan Plan: 1. Left hip pain with pain and burning sensation radiating down the left leg to the left foot. Discussed case with orthopedics. They did complete a computed tomography scan of the hip showing soft tissue swelling and emphysematous changes likely related to his recent surgery. Orthopedics have started patient on IV steroids possible nerve involvement. Continue with current pain medications. CRP is also elevated.venous Doppler negative for DVT , management per orthopedic surgery 2. Constipation: Continue stool softener we'll add lactulose 3. Essential hypertension continue metoprolol 4. History of chronic back pain and previous back surgery GI prophylaxis Pepcid and DVT prophylaxis Lovenox
[2017-02-02] MEDS: LACTATED RINGERS 1,000 ML IV SCH (17:33)
[2017-02-02] MEDS: SENNOSIDES-DOCUSATE SODIUM 1 EACH TAB PO SCH (20:02)
[2017-02-02] MEDS: HYDROmorphone 1 MG/ML 1 ML SYRINGE IVP PRN ×2 (20:03→23:55)
[2017-02-03] MEDS: HYDROmorphone 1 MG/ML 1 ML SYRINGE IVP PRN ×3 (05:03→11:37)
[2017-02-03] MEDS: LACTATED RINGERS 1,000 ML IV SCH ×4 (06:50→17:22)
[2017-02-03 07:15] LABS: Basophils % (A) 0 %; CH 30.9; CHCM 33.3; Eosinophils % (A) 0 %; HCT 35.1 % (39.0-53.0); HGB 11.6 gm/dL (13.0-17.5); Luc # (Auto) 0.06; Luc % (Auto) 0; Lymphocytes # (A) 1.4 k/uL (1.0-4.8); Lymphocytes % (A) 8 %; MCH 30.8 pg (25.0-35.0); MCV 93.3 fL (80.0-100.0); Mean Platelet Volume 7.1; Monocytes # (A) 0.7 k/uL (0-1.0); Monocytes % (A) 4 %; Neutrophils # (A) 14.4 k/uL (1.3-7.7); Neutrophils % (A) 87 %; RBC 3.76 m/uL (4.30-5.90); RDW 13.4 % (11.5-15.5); WBC 16.5 k/uL (3.8-10.6)
[2017-02-03 07:40] LABS: ALT 28 U/L (21-72); AST 18 U/L (17-59); Alkaline Phosphatase 93 U/L (38-126); Anion Gap 10 mmol/L; Blood Urea Nitrogen 28 mg/dL (9-20); Calcium 9.1 mg/dL (8.4-10.2); Carbon Dioxide 24 mmol/L (22-30); Chloride 108 mmol/L (98-107); Glucose 209 mg/dL (74-99); Non-African American GFR(MDRD) >60 (>60 ml/min/1.73 sqM); Potassium 4.6 mmol/L (3.5-5.1); Sodium 142 mmol/L (137-145); Total Bilirubin 0.5 mg/dL (0.2-1.3); Total Protein 6.4 g/dL (6.3-8.2)
[2017-02-03] MEDS: METOPROLOL SUCCINATE (ER) 25 MG TAB.ER.24H PO SCH (08:29)
[2017-02-03] MEDS: methylPREDNISolone SOD SUCCI 125 MG/2 ML VIAL IV SCH (08:30)
--- NOTE | 2017-02-03 10:50 | P.PN ---
Subjective Progress Note Date: 02/03/17 this is a 76-year-old male, patient of Dr. York. He has a known past medical history of hypertension and chronic back pain with previous back surgeries. had a recent left total hip arthroplasty on 01/24/2017. He was discharged home. Patient's reports that about a day or 2 after surgery patient was having difficulty ambulating and having extreme pain. They tried the visiting home nurse recommendations however patient's pain continued become very severe. Patient then came into the hospital yesterday was admitted to the orthopedic service. x-ray of the left hip shows no acute fracture or dislocation.computed tomography scan of the left hip showed soft tissue edema and emphysema likely related to the previous recent surgery. Patient has pain and swelling in that left hip. Also has pain into the left calf down to the left foot. 02/03/2017 patient scheduled for or today. Still complaining of left leg pain. Patient still having some burning sensation in the lower part of the left leg. And sharp stabbing pains in the thigh area. He denies any chest pain or shortness breath. Denies any nausea or vomiting. Denies any cough or urinary symptoms. Denies any fever chills or sweats. He did have a small bowel movement this morning. He tries up at 16.5. But he has been receiving IV steroids Objective - Vital Signs Vital signs: Vital Signs Temp 98.5 F 02/03/17 07:08 Pulse 77 02/03/17 07:08 Resp 16 02/03/17 07:08 BP 148/85 02/03/17 07:08 Pulse Ox 95 02/03/17 07:08 Intake & Output 02/02/17 02/03/17 02/03/17 18:59 06:59 18:59 Intake Total 240 480 Output Total 600 Balance 240 -120 Intake: IV 240 Lactated Ringers 1,000 ml 240 @ 30 mls/hr IV .Q24H [facility] Rx#:[id number] Oral 480 Output: Urine 600 Other: Voiding Method Urinal # Voids 2 - Exam Head normocephalic Neck supple Lungs clear to auscultation bilaterally no wheezing or crackles Heart regular rate and rhythm S1-S2, no rub or gallop Abdomen is soft nontender nondistended positive bowel sounds no hepatosplenomegaly Extremities swelling noted around the left hip incision site nontender with palpation. No evidence of cellulitis or drainage from the incision. Some mild bruising noted around incision. Patient is tender with complete palpation of the leg behind the calf all he down into his foot. He does report some sensation loss on that left leg. Dorsalis pedis pulses +2. Neuro alert and orientated to 3 - Labs CBC & Chem 7: 02/03/17 07:03 02/03/17 07:03 Labs: Abnormal Lab Results - Last 24 Hours (Table) 02/03/17 02/03/17 Range/Units 07:03 07:03 WBC 16.5 H (3.8-10.6) k/uL RBC 3.76 L (4.30-5.90) m/uL Hgb 11.6 L (13.0-17.5) gm/dL Hct 35.1 L (39.0-53.0) % Neutrophils # 14.4 H (1.3-7.7) k/uL Chloride 108 H (98-107) mmol/L BUN 28 H (9-20) mg/dL Glucose 209 H (74-99) mg/dL Microbiology - Last 24 Hours (Table) 01/30/17 17:00 Blood Culture - Preliminary Blood No Growth after 72 hours Assessment and Plan Plan: 1. Left hip pain with pain and burning sensation radiating down the left leg to the left foot. Discussed case with orthopedics. They did complete a computed tomography scan of the hip showing soft tissue swelling and emphysematous changes likely related to his recent surgery. Orthopedics have started patient on IV steroids possible nerve involvement. Continue with current pain medications. CRP is also elevated.venous Doppler negative for DVT. Patient scheduled for OR today he had blood cultures remain negative 2. Constipation: Had small bowel movement 3. Essential hypertension continue metoprolol 4. History of chronic back pain and previous back surgery 5. Leukocytosis: Possibly related to IV steroids. Continue to monitor GI prophylaxis Pepcid and DVT prophylaxis Lovenox I performed an examination of the patient and discussed their management with the physician Scallop Dredger. I have reviewed the Physician Scallop Dredger's notes and agree with the documented findings and plan of care
[2017-02-03] MEDS: FAMOTIDINE 20 MG TAB PO SCH (10:55)
[2017-02-03] MEDS: ONDANSETRON 4 MG/2 ML VIAL IVP PRN (13:05)
[2017-02-03] MEDS ORDERED: IV FLUID CONTINUATION 800 ML IV ONE (13:19)
--- NOTE | 2017-02-03 13:55 | P.PN ---
Progress Note - Text Progress Note Date: 02/03/17 Patient continues to complain of pain in the left hip girdle. Patient reports that his symptoms have not improved he notes pain with any attempted rotation of the hip. Incision appears well-healed. There is diffuse tenderness around the hip girdle. There is no obvious erythema. There is no drainage. There continues to be significant tenderness to palpation around the hip girdle as well as along the iliotibial band proximally. There is significant pain with attempted logrolling of the hip. Impression: Left hip pain with history of recent total hip arthroplasty and possibility of infective process versus early component failure Plan: I discussed his issue in detail with both the patient and his and family members. He does not seem to be improving. I discussed at this point the recommendation for incision, irrigation debridement with possible revision. I reviewed the procedure, risks, complications and recovery of in simple layman's terms with both the patient has family. They were agreeable, consent was obtained.
[2017-02-03] MEDS ORDERED: LIDOCAINE 1% INJ 10MG/ML (20 ML MDV) ONE (14:26)
[2017-02-03] MEDS ORDERED: PROPOFOL 10 MG/ML 20 ML VIAL IV ONE (14:26)
[2017-02-03] MEDS ORDERED: SUCCINYLCHOLINE CHLORIDE 100 MG/5 ML SYR IV ONE (14:26)
[2017-02-03] MEDS ORDERED: MIDAZOLAM 2 MG/2 ML VIAL ONE (14:26)
[2017-02-03] MEDS ORDERED: TRANEXAMIC ACID 1,000 MG/10 ML VIAL ONE (14:26)
[2017-02-03] MEDS ORDERED: fentaNYL (PF) 50 MCG/ML 2 ML AMP ONE (14:26)
[2017-02-03] MEDS ORDERED: SODIUM CHLORIDE 0.9% 100 ML BAG ONE (14:26)
[2017-02-03] MEDS ORDERED: SODIUM CHLORIDE 0.9% 50 ML with ceFAZolin 2,000 MG IV ONE ×2 (14:51)
[2017-02-03] MEDS ORDERED: TRANEXAMIC ACID 1,000 MG in SODIUM CHLORIDE 0.9% 100 ML IVPB ONE ×4 (15:30)
[2017-02-03] MEDS ORDERED: TOBRAMYCIN SULFATE 1.2 GM VIAL MISCELLANE ONE (15:30)
[2017-02-03] MEDS ORDERED: ceFAZolin 3,000 MG in SODIUM CHLORIDE 0.9% IRRIGATIO 3,000 ML IRRIGATION ONE (15:39)
[2017-02-03] MEDS ORDERED: HYDROcodone/APAP 7.5-325MG 1 EACH TAB PO PRN (16:25)
[2017-02-03] MEDS ORDERED: HYDROmorphone 0.5 MG/0.5 ML SYRINGE IVP PRN ×2 (16:25)
[2017-02-03] MEDS ORDERED: NALOXONE 0.4 MG/ML 1 ML VIAL IV PRN (16:25)
--- NOTE | 2017-02-03 16:25 | P.OP ---
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 Corail size 18 KA standard collar revision press-fit femoral stem 2. Biolox ceramic femoral head +1.536 mm Anesthesia: EMILEE Surgeon: Paras Echols Retail Salesworker #1: Arthur Mcgregor Estimated Blood Loss (ml): 500 Pathology: none sent Condition: stable Disposition: PACU Indications for Procedure: 76 -year-old patient seen with left hip pain after having undergone total hip arthroplasty. This pain was not improving and we discussed exploration with possible revision total hip arthroplasty. I reviewed the procedure, risks, complications and recovery. Patient was agreeable, consent was obtained. Operative Findings: See description of procedure Description of Procedure: The patient was taken to the operative suite. The patient underwent a general anesthetic by the department of anesthesia. He was transferred to the [place] table. The lower extremities were placed in standard spars. The left hip area was then prepped and draped in the normal sterile orthopedic fashion. An incision was made sharply through skin. Dissection was taken down to subcu soft tissues to the fascia. I immediately noted complete tearing of the fascial repair. The patient was given 1 g TXA. There was blood throughout the area of the iliotibial band tracking distally approximately [address] down the thigh. We opened up the area and placed 2 cobra retractors and evacuated some hematoma within the joint. Cultures were obtained superficially and we did give the patient at this 0.2 g of Kefzol IV. At this point I could not visualize any obvious fractures. The hip was reduced. I now dislocated the hip. A waist a femoral bone hook in position after achieving 125 external rotation. I now lowered the extremity and adductor the extremity. This exposed the femoral head and femur. It appeared stable but on further exploration there was some micromotion rotationally noted of the femur. At this point the femoral head and femur were removed without difficulty. I do not appreciate any fractures through the proximal femur. I took deep cultures. There was no evidence clinically of any infective process at all. I now brought the leg back up x-ray rotated to 60 and placed in traction to evaluate the acetabulum. We thoroughly evaluated the acetabulum and the component was solid with no movement at all. The acetabular shell was solid with no movement at all. I felt that the problem at this point was loosening of the femoral component. We now again we rotated the femur 125 degrees. The bone hook was placed under the proximal femur it was lowered and placed underneath the other summary. We now irrigated the wound out copiously with 3 L of pulse lavage Irrigation. I used Irrisept. I now began serial broaching in a house H actually able to work up to a size 18. I reamed distally for a revision component. I placed a trial size 18 Cor[address] revision component in place. I placed a trial 1.5 36mm head in position. I reduced the hip. We noted good positioning of the components. The C-arm was brought into the operative field carefully evaluating the components. Alignment appeared excellent and leg lengths appear to be grossly equal. At this point the C-arm was pulled back. The hip was dislocated. We again took the leg down underneath the other extremity with appropriate bone hook and retractors. All trial components removed. We again irrigated the wound out copiously. I now introduced our femoral component tapping it down with good fixation noted. There was good rotational stability. It appeared well fixated and well position. We now tapped and are +1.5 ceramic femoral head 36 mm. The hip was then reduced. C- arm was brought into the operative field again confirming good alignment of the components. Spot films were obtained intraoperatively to document that. C-arm was pulled back. We again used Irricept followed by pulse lavage mechanical irrigation. The fascia was repaired with #1 Vicryl. The subcu soft tissues were repaired in layers with 2-0 Vicryl. We used a running subcuticular closure of 30 strata fix followed by pernio and Dermabond. A drain had been placed and correct his Hemovac suction this point. Sterile dressings were applied. The patient was awakened, transferred to a bed and recovery stable condition. Jeremiah FONSECA assisted procedure.
--- NOTE | 2017-02-03 16:30 | FL ---
EXAMINATION TYPE: FL guidance operating room, XR Hip Limited LT DATE OF EXAM: 02/03/2017 COMPARISON: NONE HISTORY: 76-year-old male left hip replacement, anterior approach FINDINGS: Images demonstrating left hip total arthroplasty. FLUOROSCOPY Fluoroscopy time of 7 seconds was used during anterior left hip replacement. 2 image/s document/s th e procedure. IMPRESSION: Intraoperative fluoroscopy as above.
[2017-02-03] MEDS ORDERED: HYDROmorphone 1 MG/ML 1 ML SYRINGE IVP ONE ×6 (16:47→18:02)
[2017-02-03] MEDS ORDERED: LACTATED RINGERS 1,000 ML IV ONE ×2 (17:22)
[2017-02-03] MEDS: HYDROcodone/APAP 7.5-325MG 1 EACH TAB PO PRN (18:43)
[2017-02-03] MEDS: SENNOSIDES-DOCUSATE SODIUM 1 EACH TAB PO SCH (20:18)
[2017-02-03] MEDS: traMADol 50 MG TAB PO SCH ×2 (20:18→23:12)
[2017-02-03] MEDS: ceFAZolin 2 GM in SODIUM CHLORIDE 0.9% 100 ML IVPB SCH (23:11)
[2017-02-04] MEDS: LACTATED RINGERS 1,000 ML IV SCH (03:09)
[2017-02-04] MEDS: HYDROcodone/APAP 7.5-325MG 1 EACH TAB PO PRN ×3 (03:10→19:01)
[2017-02-04] MEDS: hydrOXYzine PAMOATE 25 MG CAP PO PRN ×3 (03:10→19:02)
[2017-02-04] MEDS: HYDROmorphone 0.5 MG/0.5 ML SYRINGE IVP PRN (05:26)
[2017-02-04] MEDS: ONDANSETRON 4 MG/2 ML VIAL IVP PRN (07:00)
[2017-02-04] MEDS: ceFAZolin 2 GM in SODIUM CHLORIDE 0.9% 100 ML IVPB SCH (07:20)
[2017-02-04 07:44] LABS: Basophils % (A) 0 %; CH 32.2; CHCM 33.4; Eosinophils % (A) 0 %; HCT 31.5 % (39.0-53.0); HDW 2.92; HGB 10.3 gm/dL (13.0-17.5); Luc # (Auto) 0.14; Luc % (Auto) 1; Lymphocytes # (A) 2.7 k/uL (1.0-4.8); Lymphocytes % (A) 21 %; MCH 31.6 pg (25.0-35.0); MCHC 32.6 g/dL (31.0-37.0); Mean Platelet Volume 7.7; Monocytes # (A) 0.8 k/uL (0-1.0); Monocytes % (A) 6 %; Neutrophils % (A) 71 %; RBC 3.25 m/uL (4.30-5.90); RDW 14.5 % (11.5-15.5); WBC 12.7 k/uL (3.8-10.6); WBC (Perox) 12.87
[2017-02-04 08:01] LABS: ALT 29 U/L (21-72); AST 24 U/L (17-59); Alkaline Phosphatase 86 U/L (38-126); Anion Gap 7 mmol/L; Blood Urea Nitrogen 27 mg/dL (9-20); Calcium 8.6 mg/dL (8.4-10.2); Carbon Dioxide 27 mmol/L (22-30); Chloride 104 mmol/L (98-107); Glucose 138 mg/dL (74-99); Non-African American GFR(MDRD) >60 (>60 ml/min/1.73 sqM); Potassium 4.7 mmol/L (3.5-5.1); Sodium 138 mmol/L (137-145); Total Bilirubin 0.5 mg/dL (0.2-1.3); Total Protein 5.7 g/dL (6.3-8.2)
[2017-02-04] MEDS: ENOXAPARIN 40 MG/0.4 ML SYRINGE SQ SCH (08:03)
[2017-02-04] MEDS: METOPROLOL SUCCINATE (ER) 25 MG TAB.ER.24H PO SCH (08:03)
[2017-02-04] MEDS: FAMOTIDINE 20 MG TAB PO SCH (08:03)
[2017-02-04] MEDS: traMADol 50 MG TAB PO SCH ×4 (08:04→21:11)
[2017-02-04] MEDS: MELOXICAM 7.5 MG TAB PO SCH (08:04)
[2017-02-04] MEDS: MAGNESIUM HYDROXIDE 2,400 MG/10 ML CUP PO PRN (09:23)
--- NOTE | 2017-02-04 11:48 | P.PN ---
Subjective Progress Note Date: 02/04/17 Principal diagnosis: Status post revision left total hip arthroplasty femoral component Patient is seen today resting in his hospital bed. Patient appears comfortable. Patient's pain is controlled. He states that the left leg is feeling a lot better than it did before surgery. He denies any fevers or chills. He denies any headaches, lightheadedness, chest pain or shortness of breath. Objective - Vital Signs Vital signs: Vital Signs Temp 97.5 F L 02/04/17 07:18 Pulse 74 02/04/17 07:18 Resp 16 02/04/17 08:00 BP 149/79 02/04/17 07:19 Pulse Ox 99 02/04/17 07:18 Intake & Output 02/03/17 02/04/17 02/04/17 18:59 06:59 18:59 Intake Total 2490 750 Output Total 850 1250 500 Balance 1640 -500 -500 Intake: IV 2490 210 Lactated Ringers 1,000 ml 240 210 @ 30 mls/hr IV .Q24H [facility] Rx#:[id number] Intake, IV Titration 100 Amount ceFAZolin 2 gm In Sodium 100 Chloride 0.9% 100 ml @ 100 mls/hr IVPB Q8HR [facility] Rx#:[id number] Oral 440 Output: Drainage 250 Left Hip 250 Urine 350 1000 500 Uretheral ([place]) 1000 500 Estimated Blood Loss 500 Other: Voiding Method Toilet Indwelling Catheter Indwelling Catheter Urinal # Voids 2 - Exam Left lower extremity: Incision is clean, dry and intact. There is notable drainage on the bandage from the drain site. Minimal soft tissue swelling present in the left hip region. Tenderness noted along the distal IT band has improved. No effusion present on the left. Plantar flexion, dorsiflexion, EHL, FHL are intact. Dorsal pedis pulses 2+ - Labs CBC & Chem 7: 02/04/17 07:08 02/04/17 07:08 Labs: Abnormal Lab Results - Last 24 Hours (Table) 02/04/17 02/04/17 Range/Units 07:08 07:08 WBC 12.7 H (3.8-10.6) k/uL RBC 3.25 L (4.30-5.90) m/uL Hgb 10.3 L (13.0-17.5) gm/dL Hct 31.5 L (39.0-53.0) % Neutrophils # 9.0 H (1.3-7.7) k/uL BUN 27 H (9-20) mg/dL Glucose 138 H (74-99) mg/dL Total Protein 5.7 L (6.3-8.2) g/dL Albumin 3.3 L (3.5-5.0) g/dL Microbiology - Last 24 Hours (Table) 02/03/17 16:00 Gram Stain - Preliminary Hip - Left Wound Culture - Preliminary 02/03/17 16:00 Gram Stain - Preliminary Hip - Left Wound Culture - Preliminary 02/03/17 16:00 Anaerobic Culture - Preliminary Hip - Left 02/03/17 16:00 Anaerobic Culture - Preliminary Hip - Left 01/30/17 17:00 Blood Culture - Preliminary Blood No Growth after 96 hours Assessment and Plan Plan: Assessment: 1. Postop day 1 status post left total hip arthroplasty revision femoral component Plan: 1. Pain control, continue use of oral medication 2. Toe-touch weightbearing, utilize walker 3. Daily dressing changes/ice the hip region 4. Medical recommendations 5. GI and DVT prophylaxis, continue subcu medication 6. Likely will keep patient that the weekend with anticipated discharge home on 02/07/2017 Time with Patient: Less than 30
--- NOTE | 2017-02-04 12:38 | P.PN ---
Subjective Progress Note Date: 02/04/17 this is a 76-year-old male, patient of Dr. York. He has a known past medical history of hypertension and chronic back pain with previous back surgeries. had a recent left total hip arthroplasty on 01/24/2017. He was discharged home. Patient's reports that about a day or 2 after surgery patient was having difficulty ambulating and having extreme pain. They tried the visiting home nurse recommendations however patient's pain continued become very severe. Patient then came into the hospital yesterday was admitted to the orthopedic service. x-ray of the left hip shows no acute fracture or dislocation.computed tomography scan of the left hip showed soft tissue edema and emphysema likely related to the previous recent surgery. Patient has pain and swelling in that left hip. Also has pain into the left calf down to the left foot. 02/03/2017 patient scheduled for or today. Still complaining of left leg pain. Patient still having some burning sensation in the lower part of the left leg. And sharp stabbing pains in the thigh area. He denies any chest pain or shortness breath. Denies any nausea or vomiting. Denies any cough or urinary symptoms. Denies any fever chills or sweats. He did have a small bowel movement this morning. He tries up at 16.5. But he has been receiving IV steroids 02/04/17 patient's pain has shown improvement. He has worked with physical therapy. He was able to ambulate. Reports that his pain is tolerable. He denies any chest pain or shortness of breath. Any nausea or vomiting. For catheter just removed this morning. He is passing gas no bowel movement. This post revision of left total hip arthroplasty femoral component only Objective - Vital Signs Vital signs: Vital Signs Temp 97.5 F L 02/04/17 07:18 Pulse 74 02/04/17 07:18 Resp 16 02/04/17 08:00 BP 149/79 02/04/17 07:19 Pulse Ox 99 02/04/17 07:18 Intake & Output 02/03/17 02/04/17 02/04/17 18:59 06:59 18:59 Intake Total 2490 750 Output Total 850 1250 500 Balance 1640 -500 -500 Intake: IV 2490 210 Lactated Ringers 1,000 ml 240 210 @ 30 mls/hr IV .Q24H [facility] Rx#:[id number] Intake, IV Titration 100 Amount ceFAZolin 2 gm In Sodium 100 Chloride 0.9% 100 ml @ 100 mls/hr IVPB Q8HR [facility] Rx#:[id number] Oral 440 Output: Drainage 250 Left Hip 250 Urine 350 1000 500 Uretheral ([place]) 1000 500 Estimated Blood Loss 500 Other: Voiding Method Toilet Indwelling Catheter Indwelling Catheter Urinal # Voids 2 - Exam Head normocephalic Neck supple Lungs clear to auscultation bilaterally no wheezing or crackles Heart regular rate and rhythm S1-S2, no rub or gallop Abdomen is soft nontender nondistended positive bowel sounds no hepatosplenomegaly Extremities decrease in swelling. Incision site clean dry and intact. Patient has patient has left tenderness with palpation of the leg. Neuro alert and orientated to 3 - Labs CBC & Chem 7: 02/04/17 07:08 02/04/17 07:08 Labs: Abnormal Lab Results - Last 24 Hours (Table) 02/04/17 02/04/17 Range/Units 07:08 07:08 WBC 12.7 H (3.8-10.6) k/uL RBC 3.25 L (4.30-5.90) m/uL Hgb 10.3 L (13.0-17.5) gm/dL Hct 31.5 L (39.0-53.0) % Neutrophils # 9.0 H (1.3-7.7) k/uL BUN 27 H (9-20) mg/dL Glucose 138 H (74-99) mg/dL Total Protein 5.7 L (6.3-8.2) g/dL Albumin 3.3 L (3.5-5.0) g/dL Microbiology - Last 24 Hours (Table) 02/03/17 16:00 Gram Stain - Preliminary Hip - Left Wound Culture - Preliminary 02/03/17 16:00 Gram Stain - Preliminary Hip - Left Wound Culture - Preliminary 02/03/17 16:00 Anaerobic Culture - Preliminary Hip - Left 02/03/17 16:00 Anaerobic Culture - Preliminary Hip - Left 01/30/17 17:00 Blood Culture - Preliminary Blood No Growth after 96 hours Assessment and Plan Plan: 1. Left hip pain with recent left total hip arthroplasty. Loose femoral component of the left hip status post revision of left total hip arthroplasty and hematoma evacuation. Estimated blood loss 500 ml. Pain has shown improvement 2. Constipation: Had small bowel movement 3. Essential hypertension continue metoprolol 4. History of chronic back pain and previous back surgery 5. Leukocytosis: IV steroids. White count is trending down. IV steroids discontinued after surgery. 6. Acute blood loss anemia as expected after surgery. start ferrous sulfate 325 mg twice a day GI prophylaxis Pepcid and DVT prophylaxis Lovenox I performed an examination of the patient and discussed their management with the physician Asphalt Plant Worker. I have reviewed the Physician Asphalt Plant Worker's notes and agree with the documented findings and plan of care
--- NOTE | 2017-02-04 16:17 | CDI ---
In responding to this query, please exercise your independent professional judgment. The [facility] Coding Staff and Clinical Documentation Specialists appreciate your assistance in clarifying documentation, maintaining compliance with coding guidelines, accurately documenting patients condition and capturing severity of illness. The fact that a question is asked does not imply that any particular answer is desired or expected. Communication forms are a method of clarifying documentation and are not made part of the Legal Health Record. Thank you in advance for your clarification. Last Revision, May 2016 Eugene Salazar [address] [place] [address] Documentation Clarification Form Date: 02/04/2017 4:02:00 PM From: Emily Symone Admit Date: 02/02/2017 8:06:00 AM Patient Name: Bryan Casarez Visit Number: [id number] Discharge Date: Dr. Paras Echols/Arthur Mcgregor PA-C Left hip pain with loose femoral component is documented in the operative note on 02/03/17. Patients Admitting Diagnosis: left hip pain with history of total hip arthroplasty Post-Operative Diagnosis: Loose femoral component left hip Procedure performed: Revision left total hip arthroplasty femoral component only History/Risk Factors: Osteoarthritis, Clinical Indicators: Status post hip replacement present with complaint of increased left-sided hip pain, swelling and pain since surgery, he denies any injury or trauma. Treatment: Dilaudid IV PRN Revision left total hip arthroplasty In order to accurately reflect this patients severity of illness, please clarify if the post-operative diagnosis is: An expected post-procedural or post-surgical condition Integral to the procedure Inherent to the procedure An unexpected post-procedural or post-surgical condition, related to surgical care, or other medical conditions (specify) Other, please specify Unable to determine Please document in your progress notes and discharge summary in order to capture severity of illness and risk of mortality. Include clinical findings that support your diagnosis. FYI: Press F11 to launch patient chart MTDD
[2017-02-04] MEDS: SENNOSIDES-DOCUSATE SODIUM 1 EACH TAB PO SCH (21:11)
[2017-02-04] MEDS: FERROUS SULFATE 325 MG TAB PO SCH (21:11)
[2017-02-05] MEDS: hydrOXYzine PAMOATE 25 MG CAP PO PRN ×4 (00:50→18:36)
[2017-02-05] MEDS: HYDROcodone/APAP 7.5-325MG 1 EACH TAB PO PRN ×4 (00:51→18:36)
[2017-02-05 06:59] LABS: Basophils % (A) 0 %; CH 30.7; CHCM 33.3; Eosinophils # (A) 0.4 k/uL (0-0.7); Eosinophils % (A) 3 %; HCT 34.1 % (39.0-53.0); HDW 3.06; HGB 11.1 gm/dL (13.0-17.5); Luc % (Auto) 1; Lymphocytes # (A) 2.6 k/uL (1.0-4.8); Lymphocytes % (A) 24 %; MCH 30.1 pg (25.0-35.0); MCHC 32.4 g/dL (31.0-37.0); MCV 92.9 fL (80.0-100.0); Mean Platelet Volume 6.9; Monocytes # (A) 0.7 k/uL (0-1.0); Monocytes % (A) 7 %; Neutrophils # (A) 7.1 k/uL (1.3-7.7); Neutrophils % (A) 65 %; RBC 3.67 m/uL (4.30-5.90); RDW 13.4 % (11.5-15.5); WBC (Perox) 10.38
[2017-02-05 07:09] LABS: ALT 24 U/L (21-72); AST 21 U/L (17-59); Alkaline Phosphatase 89 U/L (38-126); Anion Gap 6 mmol/L; Blood Urea Nitrogen 19 mg/dL (9-20); Calcium 8.4 mg/dL (8.4-10.2); Carbon Dioxide 29 mmol/L (22-30); Chloride 104 mmol/L (98-107); Glucose 122 mg/dL (74-99); Non-African American GFR(MDRD) >60 (>60 ml/min/1.73 sqM); Potassium 4.2 mmol/L (3.5-5.1); Sodium 139 mmol/L (137-145); Total Bilirubin 0.7 mg/dL (0.2-1.3); Total Protein 5.5 g/dL (6.3-8.2)
[2017-02-05] MEDS: ENOXAPARIN 40 MG/0.4 ML SYRINGE SQ SCH (07:31)
[2017-02-05] MEDS: FERROUS SULFATE 325 MG TAB PO SCH ×2 (07:32→20:29)
[2017-02-05] MEDS: MELOXICAM 7.5 MG TAB PO SCH (07:32)
[2017-02-05] MEDS: FAMOTIDINE 20 MG TAB PO SCH (07:32)
[2017-02-05] MEDS: METOPROLOL SUCCINATE (ER) 25 MG TAB.ER.24H PO SCH (07:33)
[2017-02-05] MEDS: traMADol 50 MG TAB PO SCH ×4 (07:38→23:15)
[2017-02-05] MEDS: MAGNESIUM HYDROXIDE 2,400 MG/10 ML CUP PO PRN (07:38)
--- NOTE | 2017-02-05 09:57 | P.PN ---
Subjective Progress Note Date: 02/05/17 Principal diagnosis: Status post revision left total hip arthroplasty femoral component Patient is seen today resting in his hospital bed. Patient appears comfortable. Patient's pain is controlled. He denies any fevers or chills. He denies any headaches, lightheadedness, chest pain or shortness of breath. Objective - Vital Signs Vital signs: Vital Signs Temp 98.2 F 02/05/17 07:00 Pulse 82 02/05/17 07:00 Resp 17 02/05/17 07:00 BP 146/83 02/05/17 07:00 Pulse Ox 97 02/05/17 07:00 Intake & Output 02/04/17 02/05/17 02/05/17 18:59 06:59 18:59 Intake Total 240 Output Total 800 1475 Balance -560 -1475 Intake: IV 240 Lactated Ringers 1,000 ml 240 @ 30 mls/hr IV .Q24H [facility] Rx#:[id number] Output: Urine 800 1475 Uretheral ([place]) 500 Other: Voiding Method Indwelling Catheter Urinal Urinal # Voids 1 - Exam Left lower extremity: Incision is clean, dry and intact. Minimal soft tissue swelling present in the left hip region. Tenderness noted along the distal IT band has improved. No effusion present on the left. Plantar flexion, dorsiflexion, EHL, FHL are intact. Dorsal pedis pulses 2+ - Labs CBC & Chem 7: 02/05/17 06:19 02/05/17 06:19 Labs: Abnormal Lab Results - Last 24 Hours (Table) 02/05/17 02/05/17 Range/Units 06:19 06:19 WBC 11.0 H (3.8-10.6) k/uL RBC 3.67 L (4.30-5.90) m/uL Hgb 11.1 L (13.0-17.5) gm/dL Hct 34.1 L (39.0-53.0) % Glucose 122 H (74-99) mg/dL Total Protein 5.5 L (6.3-8.2) g/dL Albumin 3.1 L (3.5-5.0) g/dL Microbiology - Last 24 Hours (Table) 01/30/17 17:00 Blood Culture - Preliminary Blood No Growth after 120 hours 02/03/17 16:00 Gram Stain - Preliminary Hip - Left Wound Culture - Preliminary 02/03/17 16:00 Gram Stain - Preliminary Hip - Left Wound Culture - Preliminary Assessment and Plan Plan: Assessment: 1. Postop day #2 status post left total hip arthroplasty revision femoral component from unexpected postsurgical condition Plan: 1. Pain control, continue use of oral medication 2. Toe-touch weightbearing, utilize walker 3. Daily dressing changes/ice the hip region 4. Medical recommendations 5. GI and DVT prophylaxis, continue subcu medication 6. Likely discharge to home tomorrow Time with Patient: Less than 30
[2017-02-05] MEDS ORDERED: MAGNESIUM HYDROXIDE 2,400 MG/10 ML CUP PO PRN (14:50)
--- NOTE | 2017-02-05 14:50 | P.PN ---
Subjective Progress Note Date: 02/05/17 this is a 76-year-old male, patient of Dr. York. He has a known past medical history of hypertension and chronic back pain with previous back surgeries. had a recent left total hip arthroplasty on 01/24/2017. He was discharged home. Patient's reports that about a day or 2 after surgery patient was having difficulty ambulating and having extreme pain. They tried the visiting home nurse recommendations however patient's pain continued become very severe. Patient then came into the hospital yesterday was admitted to the orthopedic service. x-ray of the left hip shows no acute fracture or dislocation.computed tomography scan of the left hip showed soft tissue edema and emphysema likely related to the previous recent surgery. Patient has pain and swelling in that left hip. Also has pain into the left calf down to the left foot. patient denies any fever, chills, sweats. Denies any chest pain or shortness of breath. Denies any nausea or vomiting. Does report constipation states last bowel movement was about 7 days ago. Denies any significant abdominal pain. Denies any difficulty or burning with urination. Patient denies any drainage from the incision site on his left hip. patient does report burning sensation down the left leg. On 02/05/2017 patient is alert and oriented still complaining of pain in his left hip area also complaining of back pain and complaining of constipation otherwise denies any other complaints there is no fever or chills no headache no dizziness no chest pain or shortness of breath no nausea or vomiting no abdominal pain and no urinary symptoms. Objective - Vital Signs Vital signs: Vital Signs Temp 98.2 F 02/05/17 07:00 Pulse 82 02/05/17 07:00 Resp 17 02/05/17 07:00 BP 146/83 02/05/17 07:00 Pulse Ox 97 02/05/17 07:00 Intake & Output 02/04/17 02/05/17 02/05/17 18:59 06:59 18:59 Intake Total 240 Output Total 800 1475 Balance -560 -1475 Intake: IV 240 Lactated Ringers 1,000 ml 240 @ 30 mls/hr IV .Q24H [facility] Rx#:[id number] Output: Urine 800 1475 Uretheral ([place]) 500 Other: Voiding Method Indwelling Catheter Urinal Urinal # Voids 1 1 - Exam In general patient is alert and oriented 3 HEENT head normocephalic and atraumatic Neck is supple no JVD no goiter no lymphadenopathy Chest exam reveals a few scattered crackles bilaterally no wheezing Cardiac exam reveals regular heart sounds S1 and S2 no gallops no murmurs Abdomen is soft nontender no organomegaly with normal bowel sounds Extremity exam reveals no edema no cyanosis or clubbing - Labs CBC & Chem 7: 02/05/17 06:19 02/05/17 06:19 Labs: Abnormal Lab Results - Last 24 Hours (Table) 02/05/17 02/05/17 Range/Units 06:19 06:19 WBC 11.0 H (3.8-10.6) k/uL RBC 3.67 L (4.30-5.90) m/uL Hgb 11.1 L (13.0-17.5) gm/dL Hct 34.1 L (39.0-53.0) % Glucose 122 H (74-99) mg/dL Total Protein 5.5 L (6.3-8.2) g/dL Albumin 3.1 L (3.5-5.0) g/dL Microbiology - Last 24 Hours (Table) 01/30/17 17:00 Blood Culture - Preliminary Blood No Growth after 120 hours 02/03/17 16:00 Gram Stain - Preliminary Hip - Left Wound Culture - Preliminary 02/03/17 16:00 Gram Stain - Preliminary Hip - Left Wound Culture - Preliminary Assessment and Plan Plan: 1. Left hip pain with pain and burning sensation radiating down the left leg to the left foot. Discussed case with orthopedics. They did complete a computed tomography scan of the hip showing soft tissue swelling and emphysematous changes likely related to his recent surgery. Orthopedics have started patient on IV steroids possible nerve involvement. Continue with current pain medications. CRP is also elevated.venous Doppler negative for DVT , management per orthopedic surgery 2. Constipation: Continue stool softener we'll add lactulose 3. Essential hypertension continue metoprolol 4. History of chronic back pain and previous back surgery 5. GI prophylaxis Pepcid and DVT prophylaxis Lovenox 6. anemia patient is maintained on iron supplements
[2017-02-05] MEDS: ONDANSETRON 4 MG/2 ML VIAL IVP PRN (18:06)
[2017-02-05] MEDS: HYDROmorphone 0.5 MG/0.5 ML SYRINGE IVP PRN (18:17)
[2017-02-05] MEDS: SENNOSIDES-DOCUSATE SODIUM 1 EACH TAB PO SCH (20:29)
[2017-02-06] MEDS: HYDROcodone/APAP 7.5-325MG 1 EACH TAB PO PRN ×2 (01:57→10:46)
[2017-02-06] MEDS: ONDANSETRON 4 MG/2 ML VIAL IVP PRN ×2 (01:57→23:05)
[2017-02-06] MEDS: HYDROmorphone 0.5 MG/0.5 ML SYRINGE IVP PRN (04:50)
[2017-02-06 07:14] LABS: Basophils % (A) 0 %; CH 31.2; CHCM 32.9; Eosinophils # (A) 0.4 k/uL (0-0.7); Eosinophils % (A) 4 %; HCT 35.4 % (39.0-53.0); HDW 3.07; HGB 11.3 gm/dL (13.0-17.5); Luc # (Auto) 0.09; Luc % (Auto) 1; Lymphocytes % (A) 19 %; MCH 30.4 pg (25.0-35.0); MCHC 31.8 g/dL (31.0-37.0); MCV 95.5 fL (80.0-100.0); Mean Platelet Volume 6.7; Monocytes # (A) 0.6 k/uL (0-1.0); Monocytes % (A) 6 %; Neutrophils # (A) 7.1 k/uL (1.3-7.7); Neutrophils % (A) 70 %; RBC 3.71 m/uL (4.30-5.90); RDW 13.7 % (11.5-15.5); WBC 10.2 k/uL (3.8-10.6); WBC (Perox) 10.34
[2017-02-06 07:37] LABS: ALT 24 U/L (21-72); AST 19 U/L (17-59); Alkaline Phosphatase 89 U/L (38-126); Anion Gap 6 mmol/L; Blood Urea Nitrogen 19 mg/dL (9-20); Calcium 8.5 mg/dL (8.4-10.2); Carbon Dioxide 31 mmol/L (22-30); Chloride 104 mmol/L (98-107); Glucose 128 mg/dL (74-99); Non-African American GFR(MDRD) >60 (>60 ml/min/1.73 sqM); Potassium 4.7 mmol/L (3.5-5.1); Sodium 141 mmol/L (137-145); Total Bilirubin 0.6 mg/dL (0.2-1.3); Total Protein 5.6 g/dL (6.3-8.2)
[2017-02-06] MEDS: traMADol 50 MG TAB PO SCH ×4 (08:14→21:36)
[2017-02-06] MEDS: FAMOTIDINE 20 MG TAB PO SCH (08:15)
[2017-02-06] MEDS: FERROUS SULFATE 325 MG TAB PO SCH ×2 (08:15→21:36)
[2017-02-06] MEDS: MELOXICAM 7.5 MG TAB PO SCH (08:15)
[2017-02-06] MEDS: ENOXAPARIN 40 MG/0.4 ML SYRINGE SQ SCH (08:15)
[2017-02-06] MEDS: MAGNESIUM HYDROXIDE 2,400 MG/10 ML CUP PO PRN (08:15)
[2017-02-06] MEDS: METOPROLOL SUCCINATE (ER) 25 MG TAB.ER.24H PO SCH (08:15)
[2017-02-06] MEDS: LACTATED RINGERS 1,000 ML IV SCH (09:21)
[2017-02-06] MEDS: hydrOXYzine PAMOATE 25 MG CAP PO PRN ×3 (10:46→23:04)
--- NOTE | 2017-02-06 11:45 | P.PN ---
Progress Note - Text Patient is seen lying in bed. Patient continues to report pain in the left hip girdle area radiating all the way down the leg into the calf with some burning sensation in the lower extremity. Patient also reports some left-sided low back pain. Patient reports that his symptoms feel better when he is up and ambulating. Patient reports he has not had a bowel movement since admission. His left hip incision appears well-healed. Gentle logrolling causes no pain. He does have diffuse tenderness along the lateral thigh area as well as the lateral leg area. Homans and Fidel are both negative. His distal neurovascular exam appears intact. His white count has normalized with probable elevation secondary to steroids. Impression: 1. Status post revision left total hip arthroplasty involving the femoral component 2. Left lower extremity radiculopathy Plan: 1. Continue progressive ambulation with physical therapytoe-touch weightbearing left lower extremity 2. Continue medical management 3. Continue pain management
[2017-02-06] MEDS ORDERED: HYDROcodone/APAP 10-325MG 1 EACH TAB PO PRN (11:49)
[2017-02-06] MEDS ORDERED: LACTULOSE 20 GM/30 ML CUP PO ONE (13:25)
--- NOTE | 2017-02-06 13:25 | P.PN ---
Subjective this is a 76-year-old male, patient of Dr. York. He has a known past medical history of hypertension and chronic back pain with previous back surgeries. had a recent left total hip arthroplasty on 01/24/2017. He was discharged home. Patient's reports that about a day or 2 after surgery patient was having difficulty ambulating and having extreme pain. They tried the visiting home nurse recommendations however patient's pain continued become very severe. Patient then came into the hospital yesterday was admitted to the orthopedic service. x-ray of the left hip shows no acute fracture or dislocation.computed tomography scan of the left hip showed soft tissue edema and emphysema likely related to the previous recent surgery. Patient has pain and swelling in that left hip. Also has pain into the left calf down to the left foot. patient denies any fever, chills, sweats. Denies any chest pain or shortness of breath. Denies any nausea or vomiting. Does report constipation states last bowel movement was about 7 days ago. Denies any significant abdominal pain. Denies any difficulty or burning with urination. Patient denies any drainage from the incision site on his left hip. patient does report burning sensation down the left leg. On 02/05/2017 patient is alert and oriented still complaining of pain in his left hip area also complaining of back pain and complaining of constipation otherwise denies any other complaints there is no fever or chills no headache no dizziness no chest pain or shortness of breath no nausea or vomiting no abdominal pain and no urinary symptoms. On 02/06/2017 patient is alert and oriented 3 he reports significant improvement in his pain since yesterday he is still complaining of constipation otherwise he denies any other complaints there is no chest pain or shortness of breath no nausea or vomiting no abdominal pain and no urinary symptoms Objective - Vital Signs Vital signs: Vital Signs Temp 98.1 F 02/06/17 07:33 Pulse 81 02/06/17 07:33 Resp 16 02/06/17 07:45 BP 144/84 02/06/17 07:33 Pulse Ox 100 02/06/17 07:33 Intake & Output 02/05/17 02/06/17 02/06/17 18:59 06:59 18:59 Output Total 700 Balance -700 Output: Urine 700 Other: Voiding Method Urinal Urinal # Voids 1 4 1 - Exam In general patient is alert and oriented 3 HEENT head normocephalic and atraumatic Neck is supple no JVD no goiter no lymphadenopathy Chest exam reveals a few scattered crackles bilaterally no wheezing Cardiac exam reveals regular heart sounds S1 and S2 no gallops no murmurs Abdomen is soft nontender no organomegaly with normal bowel sounds Extremity exam reveals no edema no cyanosis or clubbing - Labs CBC & Chem 7: 02/06/17 06:22 02/06/17 06:22 Labs: Abnormal Lab Results - Last 24 Hours (Table) 02/06/17 02/06/17 Range/Units 06:22 06:22 RBC 3.71 L (4.30-5.90) m/uL Hgb 11.3 L (13.0-17.5) gm/dL Hct 35.4 L (39.0-53.0) % Carbon Dioxide 31 H (22-30) mmol/L Glucose 128 H (74-99) mg/dL Total Protein 5.6 L (6.3-8.2) g/dL Albumin 3.1 L (3.5-5.0) g/dL Microbiology - Last 24 Hours (Table) 02/03/17 16:00 Anaerobic Culture - Preliminary Hip - Left 02/03/17 16:00 Anaerobic Culture - Preliminary Hip - Left 01/30/17 17:00 Blood Culture - Final Blood No Growth after 144 hours 02/03/17 16:00 Gram Stain - Final Hip - Left Wound Culture - Final 02/03/17 16:00 Gram Stain - Final Hip - Left Wound Culture - Final Assessment and Plan Plan: 1. Left hip pain with pain and burning sensation radiating down the left leg to the left foot. Discussed case with orthopedics. They did complete a computed tomography scan of the hip showing soft tissue swelling and emphysematous changes likely related to his recent surgery. Orthopedics have started patient on IV steroids possible nerve involvement. Continue with current pain medications. CRP is also elevated.venous Doppler negative for DVT , management per orthopedic surgery 2. Constipation: Continue stool softener we'll add lactulose 3. Essential hypertension continue metoprolol 4. History of chronic back pain and previous back surgery 5. GI prophylaxis Pepcid and DVT prophylaxis Lovenox 6. anemia patient is maintained on iron supplements On tin U was current management possible discharge to home tomorrow
[2017-02-06] MEDS: HYDROcodone/APAP 10-325MG 1 EACH TAB PO PRN ×2 (16:29→23:04)
[2017-02-06 19:46] VITALS: RESP 16
[2017-02-06] MEDS: SENNOSIDES-DOCUSATE SODIUM 1 EACH TAB PO SCH (21:35)
[2017-02-07] MEDS: HYDROcodone/APAP 10-325MG 1 EACH TAB PO PRN ×2 (04:45→10:53)
[2017-02-07] MEDS: hydrOXYzine PAMOATE 25 MG CAP PO PRN ×2 (04:46→10:53)
[2017-02-07 07:47] VITALS: BP 143/78; PULSE 69; TEMP 98.2
[2017-02-07] MEDS: ENOXAPARIN 40 MG/0.4 ML SYRINGE SQ SCH (08:11)
[2017-02-07] MEDS: FAMOTIDINE 20 MG TAB PO SCH (08:12)
[2017-02-07] MEDS: FERROUS SULFATE 325 MG TAB PO SCH (08:12)
[2017-02-07] MEDS: traMADol 50 MG TAB PO SCH ×2 (08:12→12:20)
[2017-02-07] MEDS: MELOXICAM 7.5 MG TAB PO SCH (08:12)
[2017-02-07] MEDS: METOPROLOL SUCCINATE (ER) 25 MG TAB.ER.24H PO SCH (08:12)
--- NOTE | 2017-02-07 10:10 | P.PN ---
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 Patient appears comfortable. Patient's pain is controlled. He denies any fevers or chills. He denies any headaches, lightheadedness, chest pain or shortness of breath. Objective - Vital Signs Vital signs: Vital Signs Temp 98.2 F 02/07/17 07:00 Pulse 69 02/07/17 07:00 Resp 16 02/07/17 07:00 BP 143/78 02/07/17 07:00 Pulse Ox 98 02/07/17 07:00 Intake & Output 02/06/17 02/07/17 02/07/17 18:59 06:59 18:59 Intake Total 200 Output Total 1 Balance -1 200 Intake: IV 0 Lactated Ringers 1,000 ml 0 @ 30 mls/hr IV .Q24H KI Rx#:[id number] Oral 200 Output: Stool 1 Other: Voiding Method Urinal Toilet Toilet # Voids 1 4 # Bowel Movements 3 - Exam Left lower extremity: Incision is clean, dry and intact. Minimal soft tissue swelling present in the left hip region. Tenderness noted along the distal IT band has improved. No effusion present on the left. Plantar flexion, dorsiflexion, EHL, FHL are intact. Dorsal pedis pulses 2+ - Labs CBC & Chem 7: 02/06/17 06:22 02/06/17 06:22 Assessment and Plan Plan: Assessment: 1. Postop day #4 status post left total hip arthroplasty revision femoral component from unexpected postsurgical condition Plan: 1. Pain control, continue use of oral medication 2. Toe-touch weightbearing, utilize walker 3. Daily dressing changes/ice the hip region 4. Medical recommendations 5. GI and DVT prophylaxis, continue subcu medication 6. We'll discharge home today Time with Patient: Less than 30
--- NOTE | 2017-02-07 10:18 | P.DS ---
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 Echols Surgical procedures: Left total hip arthroplasty revision femoral component only Brief history: Patient is a 76-year-old male who initially presented to the hospital 01/30/2017 with regards to increasing pain in his left hip. Patient underwent a left total hip arthroplasty by Dr. Echols on 01/24/2017. Patient had done. Well initially postoperatively, he was discharged home on postop day 1. By Tuesday of that week, he had noticed increasing pain. By , it had worsened slightly canted the hospital. Patient was initially in the observation unit for initial workup. There is concerns of a possible infection versus exacerbation of chronic low back pain versus hardware failure. Patient was then taken to surgery on 02/03/2017, there is no source of infection, cultures were taken at surgery we received those final cultures showing no infection. We did find the femoral component to be loose and, this was removed and a larger femoral implant was then placed. Hospital course: Details of patient's surgery can be found in operative report. Patient tolerated the procedure well and was subsequently transported to orthopedic floor. Patient's orthopeidc and medical care was provided daily. Patient had daily laboratory tests performed for evaluation of overall blood counts. Patient had daily physical therapy to include strengthening range of motion as well as education with walker ambulation. Patient was treated with Lovenox for their postoperative DVT prophylaxis during their inpatient stay. Patient was noted to have a relatively uneventful postoperative course. Patient reported satisfactory pain control with oral pain medications by postoperative day 0. Patient showed satisfactory progress with physical therapy. Patient moved steadily through the program and had no difficulty meeting the goals by postoperative day 4. Given patient's otherwise satisfactory course and having met physical therapy goals, plan is to discharge patient home on postoperative day 4. Discharge condition/disposition: Patient will be discharged home in stable condition. Discharge medications: Instructions are given on resumption of patient's normal daily medications per primary care recommendation, in addition patient will be prescribed Argonia 10 mg/325 mg, Ultram 50mg, Vistaril 25mg. Discharge instructions: 1. Wound care and infection precautions, keep incision dry and covered while showering, no lotions, creams, moisturizers. No soaking, tubs, pools, hottubs. Do not scrub over the incision. 2. Weight-bear as tolerated with walker / cane until follow-up. 3. Ice and elevate when necessary. Do not exceed 20 minutes per hour with ice pack. 4. Utilize compression sleeve until seen at first follow up appointment. 5. Visiting nursing care. 6. Home physical therapy 7. Pain meds and anticoagulants per prescription. 8. Pain medication has potential to cause constipation. Increase oral fluid and fiber intake. Contact primary care provider if you have not had a bowel movement within 48 hours after discharge 9. No anti-inflammatory medication until discussed at first post operative visit, this including Motrin, Aleve, Mobic, Diclofenac, Aspirin. 10. Follow up in office at 2 weeks postop with Jeremiah Mcgregor PA-C 11. Follow up with your primary care doctor 7-10 days after discharge. 12. Contact [facility] with any questions, . Procedures: Revision left total hip arthroplasty femoral component Patient Condition at Discharge: Stable Plan - Discharge Summary New Discharge Prescriptions: New Hydrocodone/Acetaminophen [Argonia 10-325] 1 each PO Q6H PRN #60 tab PRN Reason: Pain hydrOXYzine PAMOATE [Vistaril] 25 mg PO Q6HR #60 capsule traMADol HCl [Ultram] 50 mg PO Q6H PRN #40 tab PRN Reason: Pain Continue Metoprolol Succinate (ER) [Toprol XL] 25 mg PO DAILY Docusate [Colace] 200 mg PO BID Aspirin 325 mg PO DAILY Potassium 99 mg PO DAILY Discharge Medication List Aspirin 325 mg PO DAILY 01/30/17 [History] Docusate [Colace] 200 mg PO BID 01/30/17 [History] Metoprolol Succinate (ER) [Toprol XL] 25 mg PO DAILY 01/30/17 [History] Potassium 99 mg PO DAILY 01/30/17 [History] Hydrocodone/Acetaminophen [Argonia 10-325] 1 each PO Q6H PRN #60 tab 02/07/17 [Rx] hydrOXYzine PAMOATE [Vistaril] 25 mg PO Q6HR #60 capsule 02/07/17 [Rx] traMADol HCl [Ultram] 50 mg PO Q6H PRN #40 tab 02/07/17 [Rx] Follow up Appointment(s)/Referral(s): Stephanie York DO [Primary Care Provider] - 02/10/17 3:00 pm Arthur Mcgregor PAC [PHYSICIAN [employer]ER] - 02/23/17 1:50 pm [facility] Visiting Nurse, [NON-STAFF] - Activity/Diet/Wound Care/Special Instructions: Orthopedic Discharge Instructions: 1. Wound care and infection precautions, keep incision dry and covered while showering, no lotions, creams, moisturizers. No soaking, pools, hot tubs. Do not scrub over incision. 2. Weight-bear as tolerated with walker / cane until follow-up. 3. Ice and elevate when necessary. Do not exceed 20 minutes per hour with ice pack. 4. Utilize compression sleeve until seen at first follow up appointment. 5. Visiting nursing care. 6. Home physical therapy. 7. Pain meds and anticoagulants per prescription. 8. Pain medication has potential to cause constipation. Increase oral fluid and fiber intake. Contact primary care provider if you have not had a bowel movement within 48 hours after discharge. 9. No anti-inflammatory medication until discussed at first post operative visit, this including Motrin, Aleve, Mobic, Diclofenac 10. Follow up in office at 2 weeks postop with Jeremiah Mcgregor PA-C 11. Follow up with your primary care doctor 7-10 days after discharge. 12. Contact [facility] with any questions, . Discharge Disposition: HOME WITH HOME HEALTH SERVICES
--- NOTE | 2017-02-07 12:28 | P.PN ---
Subjective Progress Note Date: 02/07/17 this is a 76-year-old male, patient of Dr. York. He has a known past medical history of hypertension and chronic back pain with previous back surgeries. had a recent left total hip arthroplasty on 01/24/2017. He was discharged home. Patient's reports that about a day or 2 after surgery patient was having difficulty ambulating and having extreme pain. They tried the visiting home nurse recommendations however patient's pain continued become very severe. Patient then came into the hospital yesterday was admitted to the orthopedic service. x-ray of the left hip shows no acute fracture or dislocation.computed tomography scan of the left hip showed soft tissue edema and emphysema likely related to the previous recent surgery. Patient has pain and swelling in that left hip. Also has pain into the left calf down to the left foot. 02/03/2017 patient scheduled for or today. Still complaining of left leg pain. Patient still having some burning sensation in the lower part of the left leg. And sharp stabbing pains in the thigh area. He denies any chest pain or shortness breath. Denies any nausea or vomiting. Denies any cough or urinary symptoms. Denies any fever chills or sweats. He did have a small bowel movement this morning. He tries up at 16.5. But he has been receiving IV steroids 02/04/17 patient's pain has shown improvement. He has worked with physical therapy. He was able to ambulate. Reports that his pain is tolerable. He denies any chest pain or shortness of breath. Any nausea or vomiting. For catheter just removed this morning. He is passing gas no bowel movement. This post revision of left total hip arthroplasty femoral component only 02/07/2017 patient complained of the episode of right-sided chest pain that is more towards the back. Symptoms did improve with rubbing the back. However he did become short of breath and sweaty. EKG completed showing a normal sinus rhythm with PVCs. Troponin was negative. Symptoms resolved and he has had no further episodes. Patient was seen by orthopedics this morning and they're planning discharge today to home. Patient denies any nausea vomiting. He did have a bowel movement. Denies any urinary symptoms. Objective - Vital Signs Vital signs: Vital Signs Temp 98.2 F 02/07/17 07:00 Pulse 69 02/07/17 07:00 Resp 16 02/07/17 07:00 BP 143/78 02/07/17 07:00 Pulse Ox 98 02/07/17 07:00 Intake & Output 02/06/17 02/07/17 02/07/17 18:59 06:59 18:59 Intake Total 200 Output Total 1 Balance -1 200 Intake: IV 0 Lactated Ringers 1,000 ml 0 @ 30 mls/hr IV .Q24H KI Rx#:[id number] Oral 200 Output: Stool 1 Other: Voiding Method Urinal Toilet Toilet # Voids 1 4 # Bowel Movements 3 - Exam Head normocephalic Neck supple Lungs clear to auscultation bilaterally no wheezing or crackles Heart regular rate and rhythm S1-S2, no rub or gallop Abdomen is soft nontender nondistended positive bowel sounds no hepatosplenomegaly Extremities no edema Neuro alert and orientated to 3 - Labs CBC & Chem 7: 02/06/17 06:22 02/06/17 06:22 Assessment and Plan Plan: 1. Left hip pain with recent left total hip arthroplasty. Loose femoral component of the left hip status post revision of left total hip arthroplasty and hematoma evacuation. Estimated blood loss 500 ml. Pain has shown improvement 2. Constipation: Had small bowel movement 3. Essential hypertension continue metoprolol 4. History of chronic back pain and previous back surgery 5. Leukocytosis: IV steroids. White count is trending down. IV steroids discontinued after surgery. 6. Acute blood loss anemia as expected after surgery. start ferrous sulfate 325 mg twice a day. Hemoglobin is now at 11.3. No need first ferrous sulfate at time of discharge. Plus patient has been having issues with constipation. 7. Episode of chest pain: MD ruled out. Troponins was negative. EKG showed normal sinus rhythm with PVC. Patient's symptoms were mostly related to his back. Symptoms improved after a back massage Patient is medical stable for discharge. He's to continue his home medications. Follow up with his PCP in 1 week. GI prophylaxis Pepcid and DVT prophylaxis Lovenox I performed an examination of the patient and discussed their management with the physician [employer]. I have reviewed the Physician [employer]'s notes and agree with the documented findings and plan of care
== END 2017-02-07 12:45 | disposition home health service (06) | DRG 467 ==
LOC: EC 15:50 → 3SUR 19:25 → OBSVTOIN 02-02 08:06
PROVIDERS: ADMIT Orthopaedic Surgery; ATTEND Orthopaedic Surgery
PROC: 0SPS0JZ Removal of Synthetic Substitute from Left Hip Joint, Femoral Surface, Open Approach (ICD-10-PCS; 2017-02-03)
PROC: 0SRS03A Replacement of Left Hip Joint, Femoral Surface with Ceramic Synthetic Substitute, Uncemented, Open Approach (ICD-10-PCS; principal; 2017-02-03 14:20)
DX: T84.031A Mechanical loosening of internal left hip prosthetic joint, initial encounter (principal); D62 Acute posthemorrhagic anemia; I10 Essential (primary) hypertension; E78.5 Hyperlipidemia, unspecified; R07.89 Other chest pain; T38.0X5A Adverse effect of glucocorticoids and synthetic analogues, initial encounter; D72.829 Elevated white blood cell count, unspecified; G89.18 Other acute postprocedural pain; I49.3 Ventricular premature depolarization; K59.00 Constipation, unspecified; M54.10 Radiculopathy, site unspecified; N40.0 Benign prostatic hyperplasia without lower urinary tract symptoms; F12.90 Cannabis use, unspecified, uncomplicated; K21.9 Gastro-esophageal reflux disease without esophagitis; G89.29 Other chronic pain; H26.9 Unspecified cataract; M19.90 Unspecified osteoarthritis, unspecified site; M54.5 Low back pain; Z79.82 Long term (current) use of aspirin; Z79.899 Other long term (current) drug therapy; Z87.891 Personal history of nicotine dependence; Y79.2 Prosthetic and other implants, materials and accessory orthopedic devices associated with adverse incidents; Y92.9 Unspecified place or not applicable
CPT/HCPCS: 36415; 73501; 73502; 80053; 84484; 85025; 85652; 86140; 86850; 86900; 86901; 87040; 87070; 87075; 87205; 93005; 96374; 96376; 99285

== ENCOUNTER 2017-02-18 19:23 | Inpatient (IN) | payer MEDICARE ==
[2017-02-18 20:22] LABS: Basophils # (A) 0.1 k/uL (0-0.2); Basophils % (A) 1 %; CH 31.4; CHCM 34.5; Eosinophils # (A) 0.1 k/uL (0-0.7); Eosinophils % (A) 1 %; HCT 40.3 % (39.0-53.0); HDW 3.37; HGB 13.5 gm/dL (13.0-17.5); Luc # (Auto) 0.11; Luc % (Auto) 2; Lymphocytes # (A) 1.3 k/uL (1.0-4.8); Lymphocytes % (A) 18 %; MCH 30.5 pg (25.0-35.0); MCHC 33.4 g/dL (31.0-37.0); MCV 91.4 fL (80.0-100.0); Mean Platelet Volume 7.2; Monocytes # (A) 0.5 k/uL (0-1.0); Monocytes % (A) 7 %; Neutrophils % (A) 71 %; RBC 4.41 m/uL (4.30-5.90); RDW 13.6 % (11.5-15.5); WBC 7.1 k/uL (3.8-10.6); WBC (Perox) 6.65
--- NOTE | 2017-02-18 20:47 | XR ---
EXAMINATION TYPE: XR KUB DATE OF EXAM: 02/18/2017 COMPARISON: 05/24/2016 HISTORY: Abdominal pain TECHNIQUE: 2 views FINDINGS: There is no sign of intestinal obstruction or pneumoperitoneum. Fecal pattern is normal. Th ere are apparent multiple calcifications over the right kidney. There is no sign of a mass. There are probably some small calcifications in lower pole of the left kidney. 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 IMPRESSION: Multiple renal calculi mainly on the right side. Nonacute abdomen. No change compared to old exam.
[2017-02-18 20:52] LABS: ALT 28 U/L (21-72); AST 22 U/L (17-59); Alkaline Phosphatase 232 U/L (38-126); Amylase <30 U/L (30-110); Anion Gap 10 mmol/L; Blood Urea Nitrogen 11 mg/dL (9-20); Calcium 9.3 mg/dL (8.4-10.2); Carbon Dioxide 22 mmol/L (22-30); Chloride 109 mmol/L (98-107); Glucose 123 mg/dL (74-99); Non-African American GFR(MDRD) >60 (>60 ml/min/1.73 sqM); Sodium 141 mmol/L (137-145); Total Bilirubin 0.7 mg/dL (0.2-1.3); Total Protein 6.7 g/dL (6.3-8.2)
[2017-02-18 20:53] LABS: Potassium 2.9 mmol/L (3.5-5.1)
[2017-02-18] MEDS ORDERED: POTASSIUM CHLORIDE ER 20 MEQ TAB.ER PO STA (21:56)
[2017-02-18] MEDS ORDERED: HYDROmorphone 1 MG/ML 1 ML SYRINGE IVP STA (22:17)
[2017-02-18] MEDS ORDERED: RX INFO: IV CONTRAST WAS GIVEN 1 EACH MISC MISCELLANE PRN (22:17)
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
[2017-02-19] MEDS ORDERED: NALOXONE 0.4 MG/ML 1 ML VIAL IV PRN (00:35)
[2017-02-19] MEDS ORDERED: ONDANSETRON 4 MG/2 ML VIAL IVP PRN (00:35)
[2017-02-19] MEDS: SODIUM CHLORIDE 0.9% 1,000 ML IV SCH (00:50)
[2017-02-19] MEDS: HYDROmorphone 0.5 MG/0.5 ML SYRINGE IVP PRN ×6 (00:52→22:09)
[2017-02-19 06:12] LABS: Appearance,Urine Clear (Clear); Bilirubin,Urine Negative (Negative); Glucose,Urine (UA) Negative (Negative); Ketones,Urine Negative (Negative); Leukocyte Esterase,Urine Negative (Negative); Mucus,Urine Rare /hpf; Nitrite,Urine Negative (Negative); Particle Count 1840; Protein,Urine 1+ (Negative); RBC,Urine 5 /hpf (0-5); Specific Gravity,Urine >1.050 (1.001-1.035); Squamous Epithelial Cell,Urine <1 /hpf (0-4); UA Billing (MACRO vs. MICRO) MICRO; Urobilinogen,Urine <2.0 mg/dL (<2.0); WBC,Urine 2 /hpf (0-5)
[2017-02-19 08:15] LABS: CH 31.1; CHCM 33.4; HCT 35.9 % (39.0-53.0); HDW 3.38; HGB 11.8 gm/dL (13.0-17.5); MCH 30.7 pg (25.0-35.0); MCHC 32.8 g/dL (31.0-37.0); MCV 93.7 fL (80.0-100.0); Mean Platelet Volume 7.3; RBC 3.83 m/uL (4.30-5.90); RDW 13.8 % (11.5-15.5); WBC 5.6 k/uL (3.8-10.6)
[2017-02-19 08:27] LABS: Anion Gap 10 mmol/L; Blood Urea Nitrogen 14 mg/dL (9-20); Calcium 8.5 mg/dL (8.4-10.2); Carbon Dioxide 24 mmol/L (22-30); Chloride 110 mmol/L (98-107); Glucose 105 mg/dL (74-99); Non-African American GFR(MDRD) >60 (>60 ml/min/1.73 sqM); Potassium 3.3 mmol/L (3.5-5.1); Sodium 144 mmol/L (137-145)
[2017-02-19] MEDS ORDERED: Potassium Replacement Protocol 1 EACH MISC MISCELLANE PRN (09:45)
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
[2017-02-19] MEDS ORDERED: MAGNESIUM CITRATE 296 ML BOTTLE PO ONE (10:15)
[2017-02-19] MEDS: POTASSIUM CHLORIDE 10 MEQ, LIDOCAINE 2% INJ 10 MG in SODIUM CHLORIDE 0.9% 100 ML IV SCH ×2 (11:36→13:17)
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
[2017-02-19] MEDS: LACTULOSE 20 GM/30 ML CUP PO SCH (20:38)
[2017-02-20] MEDS: POTASSIUM CHLORIDE 10 MEQ, LIDOCAINE 2% INJ 10 MG in SODIUM CHLORIDE 0.9% 100 ML IVPB SCH ×6 (01:02→17:58)
[2017-02-20] MEDS: HYDROmorphone 0.5 MG/0.5 ML SYRINGE IVP PRN (02:30)
[2017-02-20 03:54] LABS: Basophils % (A) 0 %; CH 31.2; CHCM 33.3; Eosinophils # (A) 0.1 k/uL (0-0.7); Eosinophils % (A) 1 %; HCT 38.3 % (39.0-53.0); HDW 3.32; HGB 12.5 gm/dL (13.0-17.5); Luc # (Auto) 0.11; Luc % (Auto) 2; Lymphocytes # (A) 1.5 k/uL (1.0-4.8); Lymphocytes % (A) 21 %; MCH 30.8 pg (25.0-35.0); MCHC 32.7 g/dL (31.0-37.0); MCV 94.4 fL (80.0-100.0); Monocytes # (A) 0.6 k/uL (0-1.0); Monocytes % (A) 8 %; Neutrophils % (A) 69 %; RBC 4.06 m/uL (4.30-5.90); RDW 13.8 % (11.5-15.5); WBC 7.3 k/uL (3.8-10.6); WBC (Perox) 6.97
[2017-02-20 03:55] LABS: Anion Gap 11 mmol/L; Blood Urea Nitrogen 12 mg/dL (9-20); Calcium 8.7 mg/dL (8.4-10.2); Carbon Dioxide 21 mmol/L (22-30); Chloride 108 mmol/L (98-107); Glucose 109 mg/dL (74-99); Non-African American GFR(MDRD) >60 (>60 ml/min/1.73 sqM); Potassium 3.4 mmol/L (3.5-5.1); Sodium 140 mmol/L (137-145)
[2017-02-20] MEDS: HYDROmorphone 1 MG/ML 1 ML SYRINGE IVP PRN ×6 (06:07→21:27)
--- NOTE | 2017-02-20 07:42 | XR ---
EXAMINATION TYPE: XR abdomen 2V , 2 VIEWS DATE OF EXAM ORDERED: 02/20/2017 HISTORY: Follow-up abdominal pain. COMPARISON: Previous study dated 02/18/[address] scan of the abdomen of the same date. FINDINGS: There are innumerable granulomata at the lung bases. The abdominal gas pattern is nonspecific with nondistended loops of small large and small bowel throu ghout the abdomen. There are multiple air-fluid levels. There is no evidence of free air. The patient 's renal calculi are obscured on this study. Note is made of a left hip arthroplasty. There are severe degenerative changes in the right hip. IMPRESSION: 1. FINDINGS MOST CONSISTENT WITH GENERALIZED ILEUS. 2. KNOWN RENAL CALCULI ARE NOT DEMONSTRATED ON THIS STUDY. 3. EXTENSIVE GRANULOMATOUS CHANGES WITHIN THE LUNGS.
[2017-02-20] MEDS: LACTULOSE 20 GM/30 ML CUP PO SCH ×2 (08:41→20:24)
--- NOTE | 2017-02-20 09:36 | P.PN ---
Subjective Progress Note Date: 02/20/17 Principal diagnosis: Abdominal pain Patient is feeling better this morning. Apparently last night he was having pain that was in the right flank and right mid abdomen. No hematuria. Multiple loose stools since yesterday. His appetite is improving. Denies rectal bleeding or melena. The is present today. Apparently his last colonoscopy was [address] Cornelius. That was normal. Objective - Vital Signs Vital signs: Vital Signs Temp 97.6 F 02/20/17 07:00 Pulse 70 02/20/17 07:42 Resp 14 02/20/17 07:00 BP 180/86 02/20/17 07:00 Pulse Ox 96 02/20/17 07:00 Intake & Output 02/19/17 02/20/17 02/20/17 19:59 06:59 18:59 Output Total Balance Weight Output: Urine Other: Voiding Method Toilet # Voids # Bowel Movements - Exam Abdomen: Soft, minimal lower abdominal tenderness, no rebound or guarding - Labs CBC & Chem 7: 02/20/17 03:24 02/20/17 03:24 Labs: Abnormal Lab Results - Last 24 Hours (Table) 02/19/17 02/20/17 02/20/17 Range/Units 19:56 03:24 03:24 RBC 4.06 L (4.30-5.90) m/uL Hgb 12.5 L (13.0-17.5) gm/dL Hct 38.3 L (39.0-53.0) % Potassium 3.2 L 3.4 L (3.5-5.1) mmol/L Chloride 108 H (98-107) mmol/L Carbon Dioxide 21 L (22-30) mmol/L Glucose 109 H (74-99) mg/dL Microbiology - Last 24 Hours (Table) 02/19/17 15:45 Stool Culture - Preliminary Stool Assessment and Plan (1) Abdominal pain Narrative/Plan: Increase diet. Continue stool softeners. Etiology the patient's pain at this time remains unclear. Current Visit: Yes Status: Acute Code(s): R10.9 - UNSPECIFIED ABDOMINAL PAIN SNOMED Code(s): 69132086
--- NOTE | 2017-02-20 14:51 | P.PN ---
Subjective Progress Note Date: 02/20/17 Bryan Casarez is a 76 year-old male patient presents to emergency department for complaints of constipation and abdominal pain. The patient states that he has been passing only minimal amounts of liquid stool over the last 9 days. Patient states that he was in to see his primary care physician yesterday who did do an x-ray of his abdomen and told that he was quite constipated. She did give him movantic and encouraged him to do enemas at home however this has not helped. Patient states he has been taking dulcolax over the counter and he did two enemas today without relief of symptoms. Patient states that his abdominal pain comes in waves, feels cramp- like, and becomes severe at times. states that patient sweats and has cried when the pain is at its peak. Patient states that he has been nauseated and did vomit a few times over the last few days. States he has no appetite. He denies any fever or chills. He denies any difficulty urinating. Patient denies any recent rash, shortness breath, chest pain, back pain, numbness, tingling, dizziness, weakness, hematuria, dysuria, urinary urgency, urinary frequency, headache, visual changes , or any other complaints. 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 labs on presentation revealed evidence of hypo-kalemia was potassium of 2.9 also evidence of elevated alkaline phosphatase at 232 Objective - Vital Signs Vital signs: Vital Signs Temp 97.6 F 02/20/17 07:00 Pulse 70 02/20/17 07:42 Resp 14 02/20/17 07:00 BP 180/86 02/20/17 07:00 Pulse Ox 96 02/20/17 07:00 Intake & Output 02/19/17 02/20/17 02/20/17 19:59 06:59 18:59 Intake Total 1000 Output Total Balance 1000 Weight Intake: Intake, IV Titration 600 Amount Potassium Chloride 10 meq 100 Lidocaine 2% Inj 10 mg In Sodium Chloride 0.9% 100 ml @ 100 mls/hr IVPB Q1HR [facility] Rx#:[id number] Potassium Chloride 10 meq 100 Lidocaine 2% Inj 10 mg In Sodium Chloride 0.9% 100 ml @ 100 mls/hr IVPB Q1HR [facility] Rx#:[id number] Sodium Chloride 0.9% 1, 400 000 ml @ 50 mls/hr IV . Q20H [facility] Rx#:[id number] Oral 400 Output: Urine Other: Voiding Method Toilet # Voids 1 # Bowel Movements - Exam In general patient is alert and oriented 3 HEENT head normocephalic and atraumatic Neck is supple no JVD no goiter no lymphadenopathy Chest exam reveals a few scattered rhonchi no wheezing Cardiac exam reveals regular heart sounds S1 and S2 no gallops no murmurs Abdomen is soft with diffuse tenderness no organomegaly, with normal bowel sounds Extremity exam reveals no edema no cyanosis or clubbing - Labs CBC & Chem 7: 02/20/17 03:24 02/20/17 11:59 Labs: Abnormal Lab Results - Last 24 Hours (Table) 02/19/17 02/20/17 02/20/17 Range/Units 19:56 03:24 03:24 RBC 4.06 L (4.30-5.90) m/uL Hgb 12.5 L (13.0-17.5) gm/dL Hct 38.3 L (39.0-53.0) % Potassium 3.2 L 3.4 L (3.5-5.1) mmol/L Chloride 108 H (98-107) mmol/L Carbon Dioxide 21 L (22-30) mmol/L Glucose 109 H (74-99) mg/dL 02/20/17 Range/Units 11:59 RBC (4.30-5.90) m/uL Hgb (13.0-17.5) gm/dL Hct (39.0-53.0) % Potassium 3.2 L (3.5-5.1) mmol/L Chloride (98-107) mmol/L Carbon Dioxide (22-30) mmol/L Glucose (74-99) mg/dL Microbiology - Last 24 Hours (Table) 02/19/17 15:45 Stool Culture - Preliminary Stool Assessment and Plan Plan: #1 Generalized abdominal pain #2 constipation #3 recent admission for 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 diff toxins Continue with IV fluids continue with lactulose Continue was potassium replacement per protocol Will follow in a.m.
[2017-02-20] MEDS: METOPROLOL SUCCINATE (ER) 25 MG TAB.ER.24H PO SCH (17:58)
[2017-02-20] MEDS: ASPIRIN 325 MG TAB PO SCH (17:58)
[2017-02-20] MEDS: SODIUM CHLORIDE 0.9% 1,000 ML IV SCH (18:13)
[2017-02-21] MEDS: HYDROmorphone 1 MG/ML 1 ML SYRINGE IVP PRN ×2 (03:04→07:52)
[2017-02-21 06:31] LABS: Basophils % (A) 0 %; CH 30.8; CHCM 33.4; Eosinophils # (A) 0.1 k/uL (0-0.7); Eosinophils % (A) 1 %; HCT 35.6 % (39.0-53.0); HDW 3.39; HGB 11.5 gm/dL (13.0-17.5); Luc # (Auto) 0.09; Luc % (Auto) 1; Lymphocytes # (A) 1.5 k/uL (1.0-4.8); Lymphocytes % (A) 21 %; MCH 30.1 pg (25.0-35.0); MCHC 32.4 g/dL (31.0-37.0); MCV 92.8 fL (80.0-100.0); Mean Platelet Volume 7.5; Monocytes # (A) 0.6 k/uL (0-1.0); Monocytes % (A) 8 %; Neutrophils # (A) 4.9 k/uL (1.3-7.7); Neutrophils % (A) 69 %; RBC 3.83 m/uL (4.30-5.90); RDW 13.7 % (11.5-15.5); WBC 7.1 k/uL (3.8-10.6); WBC (Perox) 7.41
[2017-02-21 06:50] LABS: ALT 29 U/L (21-72); AST 19 U/L (17-59); Alkaline Phosphatase 178 U/L (38-126); Anion Gap 8 mmol/L; Blood Urea Nitrogen 7 mg/dL (9-20); Calcium 8.3 mg/dL (8.4-10.2); Carbon Dioxide 23 mmol/L (22-30); Chloride 107 mmol/L (98-107); Glucose 107 mg/dL (74-99); Non-African American GFR(MDRD) >60 (>60 ml/min/1.73 sqM); Potassium 3.7 mmol/L (3.5-5.1); Sodium 138 mmol/L (137-145); Total Bilirubin 0.5 mg/dL (0.2-1.3); Total Protein 5.3 g/dL (6.3-8.2)
[2017-02-21] MEDS: LACTULOSE 20 GM/30 ML CUP PO SCH ×3 (07:46→20:05)
[2017-02-21] MEDS: ASPIRIN 325 MG TAB PO SCH (07:46)
[2017-02-21] MEDS: METOPROLOL SUCCINATE (ER) 25 MG TAB.ER.24H PO SCH (07:46)
[2017-02-21] MEDS ORDERED: POTASSIUM CHLORIDE ER 20 MEQ TAB.ER PO ONE ×2 (08:00→20:01)
[2017-02-21] MEDS ORDERED: HYDROcodone/APAP 7.5-325MG 1 EACH TAB PO PRN (09:35)
--- NOTE | 2017-02-21 09:57 | P.PN ---
<Aura Gentile M - Last Filed: 02/21/17 09:28> Subjective Progress Note Date: 02/21/17 76 year old male seen and examined at bedside patient continues to report having intermittent episodes of "abdominal cramping comes in waves reports nausea sensation with no active emesis. Patient states the pain starts in the right lower abdomen radiates across the abdominal wall Patient states has had several watery liquid stool no blood noted patient states the pain has been ongoing for the last several weeks comes in waves Patient reports of difficulty urinating no difficulty. Objective - Vital Signs Vital signs: Vital Signs Temp 98.2 F 02/21/17 02:15 Pulse 85 02/21/17 07:00 Resp 16 02/21/17 07:00 BP 121/75 02/21/17 07:00 Pulse Ox 97 02/21/17 07:00 Intake & Output 02/20/17 02/21/17 02/21/17 18:59 06:59 18:59 Intake Total 1000 2440 Output Total 1200 800 Balance -200 1640 Weight 96.162 kg Intake: Intake, IV Titration 600 1000 Amount Potassium Chloride 10 meq 100 Lidocaine 2% Inj 10 mg In Sodium Chloride 0.9% 100 ml @ 100 mls/hr IVPB Q1HR [facility] Rx#:[id number] Potassium Chloride 10 meq 100 200 Lidocaine 2% Inj 10 mg In Sodium Chloride 0.9% 100 ml @ 100 mls/hr IVPB Q1HR [facility] Rx#:[id number] Sodium Chloride 0.9% 1, 400 800 000 ml @ 50 mls/hr IV . Q20H [facility] Rx#:[id number] Oral 400 1440 Output: Urine 400 Stool 800 800 Other: Voiding Method Toilet Toilet # Voids 1 3 # Bowel Movements 2 - Exam GENERAL APPEARANCE: 76-year-old male patient is alert, oriented, in no acute distress. VITAL SIGNS: Reviewed HEENT: Head is normocephalic and atraumatic. Pupils are equal and reactive. The nares are patent. Oropharynx is clear without lesions. NECK: Supple without lymphadenopathy. Traches midline. HEART: S1, S2. Regular rate and rhythm. Denying chest pain LUNGS: No crackles or wheezes are heard. Adequate air movement bilaterally sats on room air 97% ABDOMEN: Soft, nontender, nondistended states having right flank pain radiating across the abdominal wall frequent watery stools. No peritoneal signs. No palpable organomegaly or masses. No facial grimacing with palpitation to the abdominal wall EXTREMITIES: Normal skin color and turgor. No cyanosis, rash, ulceration, clubbing or edema. Radial pedal pulses are 2/4 bilaterally. NEUROLOGICAL: No focal deficits. Strength and sensation are grossly intact. - Labs CBC & Chem 7: 02/21/17 06:06 02/21/17 06:06 Labs: Abnormal Lab Results - Last 24 Hours (Table) 02/20/17 02/21/17 02/21/17 Range/Units 11:59 06:06 06:06 RBC 3.83 L (4.30-5.90) m/uL Hgb 11.5 L (13.0-17.5) gm/dL Hct 35.6 L (39.0-53.0) % Potassium 3.2 L (3.5-5.1) mmol/L BUN 7 L (9-20) mg/dL Glucose 107 H (74-99) mg/dL Calcium 8.3 L (8.4-10.2) mg/dL Alkaline Phosphatase 178 H (38-126) U/L Total Protein 5.3 L (6.3-8.2) g/dL Albumin 2.9 L (3.5-5.0) g/dL Assessment and Plan Assessment: Assessment and plan Abdominal pain present on admission unclear etiology Continue stool softeners as ordered Increase diet The above impression and plan of care have been discussed and directed by signing physician. Aura Gentile nurse practitioner acting as scribe for signing physician. <Saúl Sandhu - Last Filed: 02/21/17 18:15> Objective - Vital Signs Vital signs: Vital Signs Temp 98.1 F 02/21/17 14:49 Pulse 76 02/21/17 16:00 Resp 16 02/21/17 16:00 BP 150/84 02/21/17 14:49 Pulse Ox 97 02/21/17 07:00 Intake & Output 02/20/17 02/21/17 02/21/17 18:59 06:59 18:59 Intake Total 1000 2440 500 Output Total 1200 800 Balance -200 1640 500 Weight 96.162 kg Intake: IV 500 Sodium Chloride 0.9% 1, 500 000 ml @ 50 mls/hr IV . Q20H [facility] Rx#:[id number] Intake, IV Titration 600 1000 Amount Potassium Chloride 10 meq 100 Lidocaine 2% Inj 10 mg In Sodium Chloride 0.9% 100 ml @ 100 mls/hr IVPB Q1HR [facility] Rx#:[id number] Potassium Chloride 10 meq 100 200 Lidocaine 2% Inj 10 mg In Sodium Chloride 0.9% 100 ml @ 100 mls/hr IVPB Q1HR [facility] Rx#:[id number] Sodium Chloride 0.9% 1, 400 800 000 ml @ 50 mls/hr IV . Q20H [facility] Rx#:[id number] Oral 400 1440 Output: Urine 400 Stool 800 800 Other: Voiding Method Toilet Toilet Toilet # Voids 1 3 3 # Bowel Movements 2 - Labs CBC & Chem 7: 02/21/17 06:06 02/21/17 15:04 Labs: Abnormal Lab Results - Last 24 Hours (Table) 02/21/17 02/21/17 02/21/17 Range/Units 06:06 06:06 15:04 RBC 3.83 L (4.30-5.90) m/uL Hgb 11.5 L (13.0-17.5) gm/dL Hct 35.6 L (39.0-53.0) % Chloride 108 H (98-107) mmol/L BUN 7 L 7 L (9-20) mg/dL Creatinine 0.63 L (0.66-1.25) mg/dL Glucose 107 H 113 H (74-99) mg/dL Calcium 8.3 L (8.4-10.2) mg/dL Alkaline Phosphatase 178 H (38-126) U/L Total Protein 5.3 L (6.3-8.2) g/dL Albumin 2.9 L (3.5-5.0) g/dL Assessment and Plan Assessment: As above. Patient's pain is improved. The pain was in the right flank is resolved. Patient now only has pain in the right upper quadrant which he says is more chronic in nature. He is tolerating his full liquid diet. He wants to go home at this point. His stools are soft in nature. Will advance diet. Anticipate discharge tomorrow. (1) Abdominal pain Current Visit: Yes Status: Acute Code(s): R10.9 - UNSPECIFIED ABDOMINAL PAIN SNOMED Code(s): 95238745
--- NOTE | 2017-02-21 10:16 | P.PN ---
Subjective Progress Note Date: 02/21/17 Bryan Casarez is a 76 year-old male patient presents to emergency department for complaints of constipation and abdominal pain. The patient states that he has been passing only minimal amounts of liquid stool over the last 9 days. Patient states that he was in to see his primary care physician yesterday who did do an x-ray of his abdomen and told that he was quite constipated. She did give him movantic and encouraged him to do enemas at home however this has not helped. Patient states he has been taking dulcolax over the counter and he did two enemas today without relief of symptoms. Patient states that his abdominal pain comes in waves, feels cramp- like, and becomes severe at times. states that patient sweats and has cried when the pain is at its peak. Patient states that he has been nauseated and did vomit a few times over the last few days. States he has no appetite. He denies any fever or chills. He denies any difficulty urinating. Patient denies any recent rash, shortness breath, chest pain, back pain, numbness, tingling, dizziness, weakness, hematuria, dysuria, urinary urgency, urinary frequency, headache, visual changes , or any other complaints. 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 labs on presentation revealed evidence of hypo-kalemia was potassium of 2.9 also evidence of elevated alkaline phosphatase at 232 02/21/2017 patient still reporting abdominal pain. Pain starting in the right lower quadrant radiating up the right side. He reports that the sharp pain. Sometimes is also on the left. Occasional waves of nausea. No actual vomiting. He is having liquidy stools no blood. Denies any difficulty with urinating or any burning with urination. Surgery is following. They've added MiraLAX and stool softeners area patient is also on lactulose. Did receive an enema in the emergency room. IV Dilaudid discontinued today Objective - Vital Signs Vital signs: Vital Signs Temp 98.2 F 02/21/17 02:15 Pulse 85 02/21/17 07:00 Resp 16 02/21/17 07:00 BP 121/75 02/21/17 07:00 Pulse Ox 97 02/21/17 07:00 Intake & Output 02/20/17 02/21/17 02/21/17 18:59 06:59 18:59 Intake Total 1000 2440 Output Total 1200 800 Balance -200 1640 Weight 96.162 kg Intake: Intake, IV Titration 600 1000 Amount Potassium Chloride 10 meq 100 Lidocaine 2% Inj 10 mg In Sodium Chloride 0.9% 100 ml @ 100 mls/hr IVPB Q1HR [facility] Rx#:[id number] Potassium Chloride 10 meq 100 200 Lidocaine 2% Inj 10 mg In Sodium Chloride 0.9% 100 ml @ 100 mls/hr IVPB Q1HR [facility] Rx#:[id number] Sodium Chloride 0.9% 1, 400 800 000 ml @ 50 mls/hr IV . Q20H [facility] Rx#:[id number] Oral 400 1440 Output: Urine 400 Stool 800 800 Other: Voiding Method Toilet Toilet # Voids 1 3 # Bowel Movements 2 - Exam Head normocephalic Neck supple Lungs clear to auscultation bilaterally no wheezing or crackles Heart regular rate and rhythm S1-S2, no rub or gallop Abdomen is soft nontender nondistended positive bowel sounds no hepatosplenomegaly area no facial grimacing with palpation Extremities no edema Neuro alert and orientated to 3 - Labs CBC & Chem 7: 02/21/17 06:06 02/21/17 06:06 Labs: Abnormal Lab Results - Last 24 Hours (Table) 02/20/17 02/21/17 02/21/17 Range/Units 11:59 06:06 06:06 RBC 3.83 L (4.30-5.90) m/uL Hgb 11.5 L (13.0-17.5) gm/dL Hct 35.6 L (39.0-53.0) % Potassium 3.2 L (3.5-5.1) mmol/L BUN 7 L (9-20) mg/dL Glucose 107 H (74-99) mg/dL Calcium 8.3 L (8.4-10.2) mg/dL Alkaline Phosphatase 178 H (38-126) U/L Total Protein 5.3 L (6.3-8.2) g/dL Albumin 2.9 L (3.5-5.0) g/dL Assessment and Plan Plan: 1. Abdominal pain: Exact etiology unclear hospital related to ileus and constipation. Patient now having liquidy stools. Stool for C. diff is negative. Stool cultures pending. Abdominal x-ray showing ileus. Did have a computed tomography scan of the abdomen on admission showing a nonobstructive renal calculi. Mild colonic diverticulosis. 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 Continue Colace, lactulose and MiraLAX 2. Hypokalemia resolved 3. Hypertension: Continue metoprolol 4. Chronic back pain 5. 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 I have reviewed the Physician Rn Heart's notes and agree with the documented findings and plan of care
[2017-02-21] MEDS: NON-FORMULARY DRUG (Naloxegol Oxalate [Movantik] 25 MG) PO SCH (11:45)
[2017-02-21] MEDS: DOCUSATE 100 MG CAP PO SCH ×2 (12:19→20:04)
[2017-02-21] MEDS: HEPARIN SODIUM,PORCINE 5,000 UNIT/ML 1 ML VIAL SQ SCH ×3 (12:19→23:30)
[2017-02-21] MEDS: POLYETHYLENE GLYCOL 3350 17 GM POWD.PACK PO SCH (12:19)
[2017-02-21 15:27] LABS: Anion Gap 7 mmol/L; Blood Urea Nitrogen 7 mg/dL (9-20); Calcium 8.6 mg/dL (8.4-10.2); Carbon Dioxide 24 mmol/L (22-30); Chloride 108 mmol/L (98-107); Glucose 113 mg/dL (74-99); Non-African American GFR(MDRD) >60 (>60 ml/min/1.73 sqM); Potassium 3.9 mmol/L (3.5-5.1); Sodium 139 mmol/L (137-145)
[2017-02-21] MEDS: SODIUM CHLORIDE 0.9% 1,000 ML IV SCH ×2 (16:36→16:37)
[2017-02-21] MEDS: FAMOTIDINE 20 MG TAB PO SCH (20:04)
[2017-02-22 06:59] VITALS: BP 149/89; PULSE 70; RESP 14; TEMP 98.1
[2017-02-22 07:24] LABS: Basophils % (A) 0 %; CHCM 33.1; Eosinophils # (A) 0.1 k/uL (0-0.7); Eosinophils % (A) 2 %; HCT 36.5 % (39.0-53.0); HDW 3.32; HGB 11.6 gm/dL (13.0-17.5); Luc # (Auto) 0.08; Luc % (Auto) 2; Lymphocytes # (A) 1.7 k/uL (1.0-4.8); Lymphocytes % (A) 32 %; MCH 29.9 pg (25.0-35.0); MCHC 31.8 g/dL (31.0-37.0); MCV 94.2 fL (80.0-100.0); Mean Platelet Volume 6.9; Monocytes # (A) 0.3 k/uL (0-1.0); Monocytes % (A) 6 %; Neutrophils # (A) 3.1 k/uL (1.3-7.7); Neutrophils % (A) 59 %; RBC 3.87 m/uL (4.30-5.90); RDW 13.6 % (11.5-15.5); WBC 5.3 k/uL (3.8-10.6); WBC (Perox) 5.54
[2017-02-22] MEDS: ASPIRIN 325 MG TAB PO SCH (09:28)
[2017-02-22] MEDS: METOPROLOL SUCCINATE (ER) 25 MG TAB.ER.24H PO SCH (09:28)
[2017-02-22] MEDS: HEPARIN SODIUM,PORCINE 5,000 UNIT/ML 1 ML VIAL SQ SCH (09:28)
[2017-02-22] MEDS: FAMOTIDINE 20 MG TAB PO SCH (09:28)
[2017-02-22] MEDS: DOCUSATE 100 MG CAP PO SCH (09:30)
[2017-02-22] MEDS ORDERED: LIDOCAINE 1% INJ 10MG/ML (20 ML MDV) ONE (09:33)
[2017-02-22] MEDS: SODIUM CHLORIDE 0.9% 1,000 ML IV SCH (09:34)
[2017-02-22] MEDS: LACTULOSE 20 GM/30 ML CUP PO SCH (09:35)
[2017-02-22] MEDS: NON-FORMULARY DRUG (Naloxegol Oxalate [Movantik] 25 MG) PO SCH (09:35)
[2017-02-22] MEDS: POLYETHYLENE GLYCOL 3350 17 GM POWD.PACK PO SCH (09:35)
--- NOTE | 2017-02-22 10:28 | P.DS ---
Providers Date of admission: 02/21/17 10:59 Expected date of discharge: 02/22/17 Attending physician: Tj Sampson Consults: 02/19/17 00:35 Consult Physician Stat Consulting Provider: Saúl Sandhu Reason/Comments: Abdominal Pain Do you want consulting provider notified?: Yes Primary care physician: [facility] Course: Discharge diagnosis 1. Abdominal pain: Exact etiology unclear hospital related to ileus and constipation. Patient now having liquidy stools. Stool for C. diff is negative. Stool cultures pending. Abdominal x-ray showing ileus. Did have a computed tomography scan of the abdomen on admission showing a nonobstructive renal calculi. Mild colonic diverticulosis. 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 Continue Colace, lactulose and MiraLAX 2. Hypokalemia resolved 3. Hypertension: Continue metoprolol 4. Chronic back pain 5. 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 Will have patient follow-up with endocrinology outpatient. Hospital course Bryan Casarez is a 76 year-old male patient presents to emergency department for complaints of constipation and abdominal pain. The patient states that he has been passing only minimal amounts of liquid stool over the last 9 days. Patient states that he was in to see his primary care physician yesterday who did do an x-ray of his abdomen and told that he was quite constipated. She did give him movantic and encouraged him to do enemas at home however this has not helped. Patient states he has been taking dulcolax over the counter and he did two enemas today without relief of symptoms. Patient states that his abdominal pain comes in waves, feels cramp- like, and becomes severe at times. states that patient sweats and has cried when the pain is at its peak. Patient states that he has been nauseated and did vomit a few times over the last few days. States he has no appetite. He denies any fever or chills. He denies any difficulty urinating. Patient denies any recent rash, shortness breath, chest pain, back pain, numbness, tingling, dizziness, weakness, hematuria, dysuria, urinary urgency, urinary frequency, headache, visual changes , or any other complaints. 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 labs on presentation revealed evidence of hypo-kalemia was potassium of 2.9 also evidence of elevated alkaline phosphatase at 232 Patient seen by surgical service. They added Colace, lactulose and MiraLAX for his constipation. Abdominal x-ray had been showing ileus. With increased and this bowel regimen patient was able to have multiple stools. Bowel movements are becoming more formed. His abdominal pain has resolved. He's tolerated advancement of diet. And he is ready for discharge home today. Encouraged patient to continue the stool softener and MiraLAX. Encouraged him to drink any water and eat fruits and vegetables. Patient will follow-up with his PCP in 1 week. I performed an examination of the patient and discussed their management with the physician Manager Environmental Health And Safety. I have reviewed the Physician Manager Environmental Health And Safety's notes and agree with the documented findings and plan of care Patient Condition at Discharge: Stable Plan - Discharge Summary New Discharge Prescriptions: New Docusate [Colace] 100 mg PO BID #60 cap Polyethylene Glycol 3350 [Miralax] 17 gm PO DAILY #30 powd.pack Continue Metoprolol Succinate (ER) [Toprol XL] 25 mg PO DAILY Aspirin 325 mg PO DAILY Hydrocodone/Acetaminophen [Simms 10-325] 1 each PO Q6H PRN #60 tab PRN Reason: Pain Naloxegol Oxalate [Movantik] 25 mg PO DAILY Discharge Medication List Aspirin 325 mg PO DAILY 01/30/17 [History] Metoprolol Succinate (ER) [Toprol XL] 25 mg PO DAILY 01/30/17 [History] Hydrocodone/Acetaminophen [Simms 10-325] 1 each PO Q6H PRN #60 tab 02/07/17 [Rx] Naloxegol Oxalate [Movantik] 25 mg PO DAILY 02/18/17 [History] Docusate [Colace] 100 mg PO BID #60 cap 02/22/17 [Rx] Polyethylene Glycol 3350 [Miralax] 17 gm PO DAILY #30 powd.pack 02/22/17 [Rx] Follow up Appointment(s)/Referral(s): Stephanie York DO [Primary Care Provider] - 1 Week Bradford Riggins MD [REFERRING] - 2 Weeks Activity/Diet/Wound Care/Special Instructions: Diet: cardiac, high fiber Activity: as tolerated Discharge Disposition: HOME SELF-CARE
== END 2017-02-22 11:20 | disposition home or self-care (01) | DRG 392 ==
LOC: EC 19:23 → 3SUR 02-19 01:13 → OBSVTOIN 02-21 10:59
PROVIDERS: ADMIT Internal Medicine; ATTEND Internal Medicine
DX: K59.00 Constipation, unspecified (principal); K56.7 Ileus, unspecified; M88.88 Osteitis deformans of other bones; I10 Essential (primary) hypertension; E78.5 Hyperlipidemia, unspecified; E87.6 Hypokalemia; G89.29 Other chronic pain; K21.9 Gastro-esophageal reflux disease without esophagitis; K57.30 Diverticulosis of large intestine without perforation or abscess without bleeding; N20.0 Calculus of kidney; N40.0 Benign prostatic hyperplasia without lower urinary tract symptoms; Z79.82 Long term (current) use of aspirin; Z87.891 Personal history of nicotine dependence; Z96.642 Presence of left artificial hip joint
CPT/HCPCS: 36415; 74000; 74020; 74177; 80048; 80053; 81001; 82150; 83690; 84132; 85025; 85027; 87045; 87046; 87324; 96361; 96374; 96376; 99285

== ENCOUNTER → 2018-02-01 | Outpatient (CLI) | payer MEDICARE ==
--- NOTE | 2018-02-01 08:20 | MR ---
EXAMINATION TYPE: MR shoulder LT wo con DATE OF EXAM: 02/01/2018 COMPARISON: None HISTORY: Left shoulder pain TECHNIQUE: Multiplanar, multisequence imaging of the left shoulder is performed without contrast. FINDINGS: There is elevation of the humeral head relative to the glenoid and there is severe arthropathy of the AC joint. Extensive fluid in the subacromial subdeltoid bursa. Atrophy of the supraspinatus and infraspinatus m uscles noted. There is a complete tear of the rotator cuff tendon of the supraspinatus and infraspinatus tendons wi th retraction. Subscapularis tendon is seen distally at its insertion partial tear suggested. The bicipital tendon is seen within the bicipital groove and also noted to be intact with rotator int erval. Inferior glenohumeral ligament is intact. There is intrasubstance signal in the superior labrum sugge stive of tear. Benign-appearing cyst involving the humeral head. There is flattening of the superior lateral margin of the humeral head correlate for history of previ ous trauma or dislocation. Cystic change involving the glenoid likely is post arthritic and there is narrowing of the glenohumeral joint. Small joint effusion is seen. IMPRESSION: 1. Complete tear of the supraspinatus and infraspinatus tendons with retraction. Degree of muscular a trophy of both supraspinatus and infraspinatus muscles. 2. Partial tear insertion subscapularis tendon. 3. AC joint and glenohumeral joint significant arthropathy findings suggestive of superior labral tea r
== END ==
LOC: RADMRIMAIN 07:09
PROVIDERS: ATTEND Orthopaedic Surgery
DX: M75.122 Complete rotator cuff tear or rupture of left shoulder, not specified as traumatic (principal); M62.512 Muscle wasting and atrophy, not elsewhere classified, left shoulder; S46.812A Strain of other muscles, fascia and tendons at shoulder and upper arm level, left arm, initial encounter; M19.012 Primary osteoarthritis, left shoulder

== ENCOUNTER 2018-03-23 05:33 | Day surgery (SDC) | payer MEDICARE ==
[2018-03-22 09:33] VITALS: BMI 24.3
--- NOTE | 2018-03-22 16:57 | HP ---
HISTORY AND PHYSICAL DATE OF SURGERY: 03/23/2018 Bryan Casarez is a 77-year-old patient seen with progressive left shoulder pain. Treatment options were discussed. He elected to proceed with arthroscopy. Consent was obtained. Medical and cardiac clearances were obtained. PAST MEDICAL HISTORY: 1. Hypertension. 2. Coronary artery disease. PAST SURGICAL HISTORY: 1. Total hip arthroplasty. 2. Cholecystectomy. 3. Herniorrhaphy. 4. Back surgery. DAILY MEDICATIONS: 1. Aspirin. 2. Coreg. 3. Entresto. 4. Lexapro. 5. Stevinson. ALLERGIES: NONE REPORTED. SOCIAL HISTORY: Patient denies current tobacco use. PHYSICAL EVALUATION OF HIS LEFT SHOULDER: Flexion is 10 degrees, abduction 20 degrees, external rotation negative 20 degrees. Tenderness along the anterolateral acromion and rotator cuff insertion site. Impingement is positive at 50 degrees. Drop-arm sign is positive. Distal neurovascular exam is intact. RADIOGRAPHS: Radiographs of the left shoulder revealed a type 2 anterior acromion, acromioclavicular joint osteoarthritis and cystic changes of the greater tuberosity. Left shoulder MRI revealed a retracted rotator cuff tear as well as some glenohumeral joint osteoarthritis. IMPRESSION: 1. Left shoulder impingement with rotator cuff tear. 2. Left shoulder osteoarthritis. 3. Hypertension. 4. Chronic opioid use. PLAN: Left shoulder arthroscopy with subacromial decompression, possible arthroscopic rotator cuff repair and debridement. MMODL / IJN: [id number] /
[~2018-03-23 05:33] MED LIST changes: -ACETAMINOPHEN TAB 500 MG TAB PO ONE; -MELOXICAM 7.5 MG TAB PO ONE; -MIDAZOLAM 2 MG/2 ML VIAL IV PRN; +MORPHINE SULFATE 2 MG/ML SYRINGE IV PRN; -ONDANSETRON 4 MG/2 ML VIAL IVP ONE; -TRANEXAMIC ACID 1,000 MG in SODIUM CHLORIDE 0.9% 100 ML IVPB ONE; -ceFAZolin 2 GM in SODIUM CHLORIDE 0.9% 100 ML IVPB ONE; +ceFAZolin IN SWFI 2 GM/20 ML SYRINGE IVP ONE
[2018-03-23] MEDS ORDERED: MIDAZOLAM 2 MG/2 ML VIAL IVP ONE (07:08)
[2018-03-23] MEDS ORDERED: fentaNYL (PF) 50 MCG/ML 2 ML AMP IVP ONE (07:08)
[2018-03-23] MEDS ORDERED: ONDANSETRON 4 MG/2 ML VIAL IVP ONE (07:26)
[2018-03-23] MEDS ORDERED: DEXAMETHASONE SOD PHOS (MDV) 100 MG/10 ML VIAL IVP ONE (07:28)
[2018-03-23] MEDS ORDERED: ePHEDrine SULFATE/0.9% NACL/PF 50 MG/5 ML SYRINGE IV ONE (07:36)
[2018-03-23] MEDS ORDERED: PROPOFOL 10 MG/ML 20 ML VIAL IV ONE (07:36)
[2018-03-23] MEDS ORDERED: SUCCINYLCHOLINE CHLORIDE VIAL 200 MG/10 ML VIAL IV ONE (07:36)
[2018-03-23] MEDS ORDERED: LIDOCAINE 1% INJ 10MG/ML (20 ML MDV) ONE (07:36)
--- NOTE | 2018-03-23 08:31 | P.ONQ ---
Anesthesiology Proc Note - PNB - Peripheral Nerve Block Performed Left Interscalene Single Time Out Performed: Yes Indication: Acute Post-Operative Pain, Analgesia Specifically requested for management of pain by DrAdina: Paras Echols Sedation Type: Sedate with meaningful contact maintained Preparation: Sterile Prep Position: Supine Catheter: None Needle Types: Other (see comment) (Pajunk) Needle Size: 50mm (2") Needle Gauge: 21 Technique: Ultrasound Injectate: 0.5% Ropivacaine (see comment for volume) (20cc) Blood Aspirated: No Pain Paresthesia on Injection Noted: No Resistance on Injection: Normal Events: Uneventful and Well Tolerated
[2018-03-23] MEDS ORDERED: LACTATED RINGERS 1,000 ML IV ONE (09:43)
[2018-03-23 10:08] VITALS: TEMP 98.2
--- NOTE | 2018-03-23 10:08 | P.OP ---
Date of Procedure: 03/23/18 Preoperative Diagnosis: Left shoulder impingement Postoperative Diagnosis: 1. Left shoulder rotator cuff tear 2. Left shoulder impingement 3. Left shoulder acromioclavicular joint osteoarthritis 4. Left shoulder partial long head biceps tendon tear 5. Left shoulder superficial labral tear Procedure(s) Performed: 1. Left shoulder arthroscopic rotator cuff repair 2. Left shoulder arthroscopic subacromial decompression 3. Left shoulder arthroscopic Elizabeth procedure 4. Left shoulder arthroscopic biceps tenotomy 5. Left shoulder arthroscopic debridement labral tear Implants: 3Arthrex swivel lock anchors Anesthesia: GETA, regional (Interscalene block) Surgeon: Paras Echols Naturopath[facility] Oncology Provider #1: Arthur Mcgregor Estimated Blood Loss (ml): 8 Pathology: none sent Condition: stable Disposition: PACU Indications for Procedure: 77-year-old patient seen with progressive left shoulder pain. After treatment options were discussed, he elected to proceed with arthroscopy. Operative Findings: see description of procedure Description of Procedure: Patient underwent an interscalene block by department of anesthesia. The patient was then taken to the operative suite. The patient underwent a general anesthetic by the department of anesthesia. The patient was placed into a lateral position and secured. There was appropriate padding of the bony prominence. Left shoulder was then prepped and draped in normal sterile orthopedic fashion. We placed the extremity in 10 pounds of longitudinal traction. A posterior incision was now made for a posterior working portal site. The trocar and cannula were inserted into the glenohumeral joint. Arthroscopy was initiated. Spinal needle was now inserted anteriorly, to ascertain the anterior working portal site. An incision was now made in that area, a trocar was inserted followed by a probe. There was an obvious massive rotator cuff tear visualized from the glenohumeral joint. There was some partial tearing and hyperemia long head biceps tendon. There was superficial tearing of the anterior and superior labrum. There were grade 1/2 chondromalacia changes of the glenoid fossa. I performed an arthroscopic biceps tenotomy. I debrided the labral tears down to stable tissue. The residual labrum was stable. Instruments now removed from the glenohumeral joint. Utilizing the posterior working portal site, the trocar and cannula were inserted into the subacromial space. Arthroscopy initiated. I made an incision 2 fingerbreadths lateral to the acromion. I introduced my trocar followed by my ArthroCare ablator. I now began ablating thick subacromial bursal tissue, which exposed the undersurface of the anterior acromion. There was diminished subacromial space. There was a very prominent anterior acromion. A motorized bur was introduced and a subacromial decompression was performed. I also excised some osteophytes off the inferior aspect of the distal clavicle. The AC joint was visualized and noted to be fairly arthritic. The motorized bur was introduced in the anterior portal site and a Elizabeth procedure was performed without difficulty, decompressing the AC joint nicely. I turned my attention to the rotator cuff. There was a massive retracted rotator cuff tear. I could not pull it to the footprint. I now began meticulously releasing the tendon. After spending quite a bit of time working on a cells revealed to just make it over the area of the footprint. I now placed one single converging suture centrally. We now passed 6 everted mattress sutures getting good bites a tendon. We now pulled the tendon over the footprint mechanical just barely make it. We punched the central hole and then passed the suture centrally throughout anchor eyelet. The eye was introduced into our pre-punch hole. I held then in position along the branch tension the sutures and introduced anchor. Residual suture limbs were clipped. We performed this process anteriorly and posterior was well. We had a reasonable repair. It was again just barely on the footprint. I injected 1 mL Renue intra-articular. Instruments now removed from the portal sites. All portal sites were approximated with nylon suture. Sterile dressings were applied followed by a shoulder immobilizer. Arthur FONSECA assisted in this complex case. The patient was awakened, transferred to a bed, and taken to recovery in stable condition.
[2018-03-23 11:51] VITALS: BP 145/84; PULSE 75; RESP 20
== END 2018-03-23 12:17 | disposition home or self-care (01) ==
LOC: OR 05:33
PROVIDERS: ATTEND Orthopaedic Surgery
DX: S46.012A Strain of muscle(s) and tendon(s) of the rotator cuff of left shoulder, initial encounter (principal); M75.42 Impingement syndrome of left shoulder; S46.112A Strain of muscle, fascia and tendon of long head of biceps, left arm, initial encounter; S43.492A Other sprain of left shoulder joint, initial encounter; M94.212 Chondromalacia, left shoulder; M19.012 Primary osteoarthritis, left shoulder; I10 Essential (primary) hypertension; I48.91 Unspecified atrial fibrillation; I77.810 Thoracic aortic ectasia; I42.0 Dilated cardiomyopathy; I25.10 Atherosclerotic heart disease of native coronary artery without angina pectoris; G47.33 Obstructive sleep apnea (adult) (pediatric); E78.5 Hyperlipidemia, unspecified; K92.2 Gastrointestinal hemorrhage, unspecified; N40.0 Benign prostatic hyperplasia without lower urinary tract symptoms; K21.9 Gastro-esophageal reflux disease without esophagitis; Z79.891 Long term (current) use of opiate analgesic; Z79.82 Long term (current) use of aspirin; Z98.1 Arthrodesis status; Z96.649 Presence of unspecified artificial hip joint; Z79.899 Other long term (current) drug therapy; Z87.891 Personal history of nicotine dependence; V89.9XXA Person injured in unspecified vehicle accident, initial encounter
CPT/HCPCS: 29827; 29824; 29826; 64415; C1713 ×2; C1765; J2250; J0330; J2405; J2001; J3010; J1100; J2704; J0690

== ENCOUNTER 2020-10-01 07:27 | Inpatient (IN) | payer MEDICARE ==
[2020-10-01] MEDS ORDERED: SODIUM CHLORIDE 0.9% 1,000 ML IV STA ×2 (07:47→09:27)
[2020-10-01] MEDS ORDERED: ONDANSETRON 4 MG/2 ML VIAL IVP STA (07:47)
[2020-10-01] MEDS ORDERED: PANTOPRAZOLE 40 MG/10 ML VIAL IVP STA (07:47)
[2020-10-01] MEDS ORDERED: MORPHINE SULFATE 4 MG/ML SYRINGE IV STA (07:47)
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
[2020-10-01 08:54] LABS: Basophils % (A) 0 %; Eosinophils # (A) 0.1 k/uL (0-0.7); Eosinophils % (A) 0 %; HCT 51.6 % (39.0-53.0); HGB 18.3 gm/dL (13.0-17.5); Lymphocytes # (A) 1.9 k/uL (1.0-4.8); Lymphocytes % (A) 9 %; MCH 32.3 pg (25.0-35.0); MCHC 35.5 g/dL (31.0-37.0); Mean Platelet Volume 7.7; Monocytes # (A) 1.2 k/uL (0-1.0); Monocytes % (A) 6 %; Neutrophils # (A) 17.2 k/uL (1.3-7.7); Neutrophils % (A) 84 %; Platelet Count 234 k/uL (150-450); RBC 5.67 m/uL (4.30-5.90); RDW 12.3 % (11.5-15.5); WBC 20.4 k/uL (3.8-10.6)
[2020-10-01 09:15] LABS: Albumin 5.5 g/dL (3.5-5.0); Calcium 11.2 mg/dL (8.4-10.2); Potassium 3.6 mmol/L (3.5-5.1); Total Bilirubin 1.4 mg/dL (0.2-1.3); Total Protein 8.9 g/dL (6.3-8.2)
[2020-10-01 09:42] LABS: INR 1.1 (<1.2); Partial Thromboplastin Time 23.5 sec (22.0-30.0); Prothrombin Time 11.2 sec (9.0-12.0)
--- NOTE | 2020-10-01 10:19 | CT ---
EXAMINATION TYPE: CT abdomen pelvis w con DATE OF EXAM: 10/01/2020 COMPARISON: CT abdomen and pelvis February 18, 2017 HISTORY: Nausea, vomiting, dark vomit CT DLP: 933.5 mGycm, Automated Exposure Control for Dose Reduction was Utilized. CONTRAST: CT scan of the abdomen and pelvis is performed with oral and with IV Contrast, patient injected with 80 mL of Isovue 300. FINDINGS: LUNG BASES: There are scattered calcified subcentimeter nodules or benign granulomas in the bilateral lung bases. LIVER/GB: Cholecystectomy clips are redemonstrated. Liver is diffusely low dense consistent with diff use fatty infiltration. PANCREAS: Pancreas is severely atrophic except for the head region similar to prior. SPLEEN: No significant abnormality is seen. ADRENALS: No significant abnormality is seen. KIDNEYS: There is worsening calcific burden in the lower pole right kidney. There is large 2.6 cm ca lculus in the right renal pelvis extending to the mid to lower pole calyces on image 59. There are mu ltiple lobulated calculi in the lower pole calyces on the right of varying size and shape. There are 3 calculi lower pole left kidney measuring up to 8 mm in size long axis . There is symmetric cortical medullary uptake seen bilaterally. Excretion identified in the left kidney. No definitive excretion in the right kidney. There is persistent partially exophytic thin-walled 5.2 cm cyst anteriorly upper pole right kidney. There are scattered benign subcentimeter and just over 1.0 cm thin-walled cysts i n both kidneys. There is new moderate upper pole pyelocaliectasis on the right. No left-sided hydrone phrosis. No hydroureter bilaterally. No intraluminal calculi in the bladder. BOWEL: Moderate distention of stomach with air-fluid level. Moderate distention of portions of the du odenal sweep near second and third portion junction. Proximal jejunal loops are not dilated. There is transition into fluid prominent than fluid dilated small bowel loops in the lower abdomen with air-f luid levels. Bowel loops dilated up to 3.8 cm. Some ileal loops in the right lower quadrant are decom pressed. Normal-appearing appendix coronal image 53 from cecum. Fecal material seen in nondistended c olon along the periphery. Diverticula in the left and sigmoid colon. No CT evidence for acute diverti culitis. Abrupt transition from dilated small bowel is felt present in the upper to mid pelvis just r ight of midline seen axial image 74 corresponding to sagittal image 62. Transition best seen on coron al image 49. Focal adhesions at this level strongly suspected. PROSTATE/SEMINAL VESICLES: Suboptimally evaluated due to metallic hip. Likely within normal limits wi th left-sided calcifications. Adjacent right-sided pelvic phleboliths noted. LYMPH NODES: No greater than 1cm abdominal or pelvic lymph nodes are appreciated. OSSEOUS STRUCTURES: Metallic artifact from left hip arthroplasty causes streak artifact limiting eval uation of pelvic structures. Multilevel spurring in the spine. Marked disc space narrowing lumbosacra l junction. Alignment is straightened. Multilevel facet arthropathy causes spinal canal stenosis L4-L 5 and L5-S1 levels. Abnormal bony density extends from inferior sternal in the anterior abdominal wal l midline up to level of umbilicus similar to prior, suspected dystrophic calcification or ossificati on. Advanced degenerative change right hip joint with marked joint space loss, there is [id number] appearance with extensive subchondral cystic change and severe spurring. There is some interval progr ession from prior CT noted. There is persistent sclerosis and fusion of the right sacroiliac joint, t here is abnormal appearance to the right iliac bone with cortical thickening and prominence raising c oncern for underlying Paget's disease. Correlate clinically. OTHER: Mild to moderate calcified plaque in ectatic abdominal aorta extends into iliac branch vessels . 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 IMPRESSION: 1. There is mid to distal small bowel obstruction with transition point in the proximal to mid ileal loops in the upper to mid pelvis just right of midline as detailed above. 2. Worsening calcific burden in both kidneys are prominent in the right kidney with dominant 2.6 cm c alculus without causing moderate to severe upper pole obstructive hydronephrosis or pelvic dilatation .
[2020-10-01] MEDS ORDERED: MORPHINE SULFATE 4 MG/ML SYRINGE IV PRN (10:36)
[2020-10-01] MEDS ORDERED: NALOXONE 0.4 MG/ML 1 ML VIAL IV PRN (10:36)
[2020-10-01] MEDS ORDERED: METOCLOPRAMIDE 5 MG/ML 2 ML VIAL IVP STA (10:40)
[2020-10-01] MEDS: SODIUM CHLORIDE 0.9% 1,000 ML IV SCH ×2 (11:40→20:43)
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
[2020-10-01] MEDS: HYDROmorphone 1 MG/ML 1 ML SYRINGE IVP PRN ×2 (17:14→21:00)
[2020-10-01] MEDS: ONDANSETRON 4 MG/2 ML VIAL IVP PRN (17:14)
[2020-10-01 17:32] LABS: Appearance,Urine Clear (Clear); Bilirubin,Urine Negative (Negative); Blood,Urine Moderate (Negative); Color,Urine Yellow; Glucose,Urine (UA) Negative (Negative); Ketones,Urine Trace (Negative); Leukocyte Esterase,Urine Small (Negative); Mucus,Urine Rare /hpf; Nitrite,Urine Negative (Negative); Protein,Urine 1+ (Negative); RBC,Urine 61 /hpf (0-5); Squamous Epithelial Cell,Urine <1 /hpf (0-4); Urobilinogen,Urine <2.0 mg/dL (<2.0); WBC,Urine 6 /hpf (0-5)
[2020-10-01 18:06] LABS: Specific Gravity,Urine >1.050 (1.001-1.035)
[2020-10-01] MEDS ORDERED: HYDROcodone/APAP 10-325MG 1 EACH TAB PO PRN (23:37)
[2020-10-02] MEDS: HYDROmorphone 1 MG/ML 1 ML SYRINGE IVP PRN ×4 (03:47→20:50)
[2020-10-02] MEDS: ONDANSETRON 4 MG/2 ML VIAL IVP PRN ×3 (03:47→20:51)
[2020-10-02] MEDS: SODIUM CHLORIDE 0.9% 1,000 ML IV SCH ×2 (05:40→13:28)
[2020-10-02 06:19] LABS: Basophils # (A) 0.1 k/uL (0-0.2); Basophils % (A) 1 %; Eosinophils # (A) 0.1 k/uL (0-0.7); Eosinophils % (A) 2 %; HCT 41.7 % (39.0-53.0); Lymphocytes # (A) 1.7 k/uL (1.0-4.8); Lymphocytes % (A) 19 %; MCH 32.7 pg (25.0-35.0); MCV 93.6 fL (80.0-100.0); Mean Platelet Volume 7.7; Monocytes # (A) 0.7 k/uL (0-1.0); Monocytes % (A) 8 %; Neutrophils # (A) 6.2 k/uL (1.3-7.7); Neutrophils % (A) 70 %; Platelet Count 169 k/uL (150-450); RBC 4.45 m/uL (4.30-5.90); RDW 12.6 % (11.5-15.5); WBC 8.8 k/uL (3.8-10.6)
[2020-10-02 06:23] LABS: African American GFR (CKD) >90 (>60 ml/min/1.73 sqM); Anion Gap 4 mmol/L; Blood Urea Nitrogen 32 mg/dL (9-20); Calcium 8.6 mg/dL (8.4-10.2); Carbon Dioxide 37 mmol/L (22-30); Chloride 105 mmol/L (98-107); Glucose 127 mg/dL (74-99); Non-African American GFR(CKD) 84 (>60 ml/min/1.73 sqM); Potassium 3.8 mmol/L (3.5-5.1); Sodium 146 mmol/L (137-145)
[2020-10-02 06:24] LABS: INR 1.1 (<1.2); Prothrombin Time 11.6 sec (9.0-12.0)
[2020-10-02 06:48] LABS: HGB 14.6 gm/dL (13.0-17.5)
[2020-10-02] MEDS: PANTOPRAZOLE 40 MG/10 ML VIAL IV SCH (07:51)
--- NOTE | 2020-10-02 12:46 | P.PN ---
Subjective Progress Note Date: 10/02/20 CHIEF COMPLAINT: Small bowel obstruction HISTORY OF PRESENT ILLNESS: Patient still complaining of abdominal pain. He reports a slight decrease in the pain since admission. He is requiring the IV pain medication. He remains nothing by mouth. He denies any bowel movement or flatus. He has had no further vomiting since being moved up to the floor. Afebrile WBC 20.4 down to 8.8, Hgb 14.6 platelets 169 sodium 146 creatinine has come down to 0.81 Patient seen and examined with Dr. vernon PHYSICAL EXAM: VITAL SIGNS: Reviewed. GENERAL: Well-developed in no acute distress. HEENT: No sclera icterus. Extraocular movements grossly intact. Moist buccal mucosa. Head is atraumatic, normocephalic. ABDOMEN: Soft. Nondistended. Diffuse tenderness but mostly up in the upper abdomen. Old mid abdominal incision scar NEUROLOGIC: Alert and oriented. Cranial nerves II through XII grossly intact. ASSESSMENT: 1. Mid to distal small bowel obstruction 2. History of prior small bowel obstruction treated conservatively 3. History of cholecystectomy 4. History of incisional hernia repair 5. History of pancreatic surgery PLAN: -Recommend treating small bowel obstruction conservatively. No surgical intervention planned for today -Keep patient nothing by mouth except for ice chips -Continue IV fluids -Continue pain medication as needed -Continue Zofran as needed -Encourage patient to ambulate and increase activity -GI prophylaxis Protonix and DVT prophylaxis subcu heparin Physician Sign Builder note has been reviewed by physician. Signing provider agrees with the documented findings, assessment, and plan of care. Objective - Vital Signs Vital signs: Vital Signs Temp 97.5 F L 10/02/20 11:33 Pulse 68 10/02/20 11:33 Resp 14 10/02/20 11:33 BP 142/73 10/02/20 11:33 Pulse Ox 95 10/02/20 11:33 Intake & Output 10/01/20 10/02/20 10/02/20 18:59 06:59 18:59 Output Total 300 Balance -300 Weight 86.183 kg Output: Urine 300 Other: Voiding Method Urinal # Voids 2 - Labs CBC & Chem 7: 10/02/20 05:28 10/02/20 05:28 Labs: Abnormal Lab Results - Last 24 Hours (Table) 06/16/21 06/16/21 06/17/21 Range/Units 15:17 17:10 05:28 Sodium 146 H (137-145) mmol/L Carbon Dioxide 37 H (22-30) mmol/L BUN 32 H (9-20) mg/dL Glucose 127 H (74-99) mg/dL Plasma Lactic Acid Pablo 2.1 H* (0.7-2.0) mmol/L Ur Specific [place] >1.050 H (1.001-1.035) Urine Protein 1+ H (Negative) Urine Ketones Trace H (Negative) Urine Blood Moderate H (Negative) Ur Leukocyte Esterase Small H (Negative) Urine RBC 61 H (0-5) /hpf Urine WBC 6 H (0-5) /hpf Urine Mucus Rare H (None) /hpf
[2020-10-02 14:13] VITALS: BMI 23.7
[2020-10-02] MEDS: HEPARIN SODIUM,PORCINE/PF 5,000 UNIT/0.5 ML SYRINGE SQ SCH (20:46)
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
[2020-10-03] MEDS: HYDROmorphone 1 MG/ML 1 ML SYRINGE IVP PRN ×6 (02:09→20:48)
[2020-10-03] MEDS: SODIUM CHLORIDE 0.9% 1,000 ML IV SCH ×2 (04:22→15:09)
[2020-10-03] MEDS: ONDANSETRON 4 MG/2 ML VIAL IVP PRN (05:31)
[2020-10-03] MEDS: HEPARIN SODIUM,PORCINE/PF 5,000 UNIT/0.5 ML SYRINGE SQ SCH ×2 (08:13→20:49)
[2020-10-03] MEDS: PANTOPRAZOLE 40 MG/10 ML VIAL IV SCH (08:13)
[2020-10-03 09:26] LABS: African American GFR (CKD) 97.8 (60.0-200.0); Anion Gap 9.5 mmol/L (4.00-12.00); BUN/Creat Ratio 36.25 Ratio (12.00-20.00); Calcium 8.2 mg/dL (8.7-10.3); Carbon Dioxide 28.5 mmol/L (21.6-31.8); Non-African American GFR(CKD) 84.4 (60.0-200.0); Potassium 3.4 mmol/L (3.5-5.5)
[2020-10-03] MEDS ORDERED: POTASSIUM CHLORIDE ER 20 MEQ TAB.ER PO STA (11:13)
--- NOTE | 2020-10-03 11:18 | P.PN ---
Subjective Progress Note Date: 10/03/20 CHIEF COMPLAINT: Small bowel obstruction HISTORY OF PRESENT ILLNESS: Patient is complaining of abdominal pain. He reports that he does not feel well. He has had a slight decrease in the pain since admission. He is requiring the IV pain medication. He is nothing by mouth except for ice chips and popsicles. Patient educated to take this and sparingly. He reports is very small amount of gas. Denies any BM. Denies any vomiting. Afebrile WBC normalized yesterday sodium 145 potassium 3.4 creatinine 0.8 Patient seen and examined with Dr. vernon PHYSICAL EXAM: VITAL SIGNS: Reviewed. GENERAL: Well-developed in no acute distress. HEENT: No sclera icterus. Extraocular movements grossly intact. Moist buccal mucosa. Head is atraumatic, normocephalic. ABDOMEN: Soft. Nondistended. Diffuse tenderness but mostly up in the upper abdomen. Old mid abdominal incision scar NEUROLOGIC: Alert and oriented. Cranial nerves II through XII grossly intact. ASSESSMENT: 1. Mid to distal small bowel obstruction 2. History of prior small bowel obstruction treated conservatively 3. History of cholecystectomy 4. History of incisional hernia repair 5. History of pancreatic surgery 6. Hypokalemia PLAN: -Replace patient's potassium -Recommend treating small bowel obstruction conservatively. -Keep patient nothing by mouth except for ice chips and popsicles -Continue IV fluids -Continue pain medication as needed -Continue Zofran as needed -Encourage patient to ambulate and increase activity -GI prophylaxis Protonix and DVT prophylaxis subcu heparin Physician [employer]ground Equipment Erector note has been reviewed by physician. Signing provider agrees with the documented findings, assessment, and plan of care. Objective - Vital Signs Vital signs: Vital Signs Temp 98.0 F 10/03/20 04:26 Pulse 65 10/03/20 04:26 Resp 20 10/03/20 04:26 BP 165/86 10/03/20 04:26 Pulse Ox 97 10/03/20 04:26 Intake & Output 10/02/20 10/03/20 10/03/20 18:59 06:59 18:59 Intake Total 1000 Output Total 350 700 Balance -350 300 Weight 86.183 kg Intake: Intake, IV Titration 1000 Amount Sodium Chloride 0.9% 1, 1000 000 ml @ 100 mls/hr IV . Q10H [facility] Rx#:[id number] Output: Urine 350 700 Other: Voiding Method Urinal - Labs CBC & Chem 7: 10/02/20 05:28 10/03/20 06:10 Labs: Abnormal Lab Results - Last 24 Hours (Table) 10/03/20 Range/Units 06:10 Potassium 3.4 L (3.5-5.5) mmol/L BUN 29.0 H (9.0-27.0) mg/dL BUN/Creatinine Ratio 36.25 H (12.00-20.00) Ratio Calcium 8.2 L (8.7-10.3) mg/dL
[2020-10-03] MEDS ORDERED: Potassium Replacement Protocol 1 EACH MISC MISCELLANE PRN (12:00)
--- NOTE | 2020-10-03 12:07 | P.PN ---
Subjective Progress Note Date: 10/03/20 Bryan Casarez is an 80 yo M with PMH of multiple previous abdominal surgeries, previous small bowel obstruction treated conservatively, peptic ulcer disease with GI bleed, prior history of alcoholism, chronic back pain who presented with a 2 day history of upper abdominal pain with nausea and vomiting. He experience dark tarry vomit and has not had a BM or passed flatus in 2 days. He denies any fever, chills or sweats. Computed tomography scan abdomen and pelvis shows a mid to distal small bowel obstruction with transition point in the proximal to mid ileal loops in the upper and mid pelvis just right of midline. 10/03/2020 Maintained on IV fluid hydration. Continues on conservative treatment as per surgery. Reports positive flatus. Denies abdominal pain, reports tenderness. Tolerating ice chips. No nausea, no vomiting. Ambulating in room, tolerating exertion well. Afebrile, WBC within normal limits as of yesterday. Potassium 3.4, creatinine 0.8. Objective - Vital Signs Vital signs: Vital Signs Temp 98.0 F 10/03/20 04:26 Pulse 65 10/03/20 04:26 Resp 20 10/03/20 04:26 BP 165/86 10/03/20 04:26 Pulse Ox 97 10/03/20 04:26 Intake & Output 10/02/20 10/03/20 10/03/20 18:59 06:59 18:59 Intake Total 1000 Output Total 350 700 Balance -350 300 Weight 86.183 kg Intake: Intake, IV Titration 1000 Amount Sodium Chloride 0.9% 1, 1000 000 ml @ 100 mls/hr IV . Q10H [facility] Rx#:[id number] Output: Urine 350 700 Other: Voiding Method Urinal - Exam General: Sitting up in bed, NAD. Vitals reviewed Eyes: PERRL, EOMI, conjunctiva normal HENT: normocephalic, mucus membranes moist Neck: supple, no JVD Lungs: normal respiratory effort, no wheezes or rales CV: Regular rate and rhythm, no murmur. Peripheral pulses 2+ Abdomen: soft, less Distended. Diffuse tenderness Skin: warm and dry. Neuro: A&Ox3, normal mood and affect - Labs CBC & Chem 7: 10/02/20 05:28 10/03/20 06:10 Labs: Abnormal Lab Results - Last 24 Hours (Table) 10/03/20 Range/Units 06:10 Potassium 3.4 L (3.5-5.5) mmol/L BUN 29.0 H (9.0-27.0) mg/dL BUN/Creatinine Ratio 36.25 H (12.00-20.00) Ratio Calcium 8.2 L (8.7-10.3) mg/dL Assessment and Plan Assessment: (1) Intra-abdominal adhesions Current Visit: Yes Status: Acute Code(s): K66.0 - PERITONEAL ADHESIONS (POSTPROCEDURAL) (POSTINFECTION) SNOMED Code(s): 522103241 (2) Nausea & vomiting Current Visit: Yes Status: Acute Code(s): R11.2 - NAUSEA WITH VOMITING, UNSPECIFIED SNOMED Code(s): 60796752 (3) Small bowel obstruction Current Visit: Yes Status: Acute Code(s): K56.609 - UNSP INTESTNL OBST, UNSP TO PARTIAL VERSUS COMPLETE OBST SNOMED Code(s): 180735313 (4) Abdominal pain Current Visit: No Status: Acute Code(s): R10.9 - UNSPECIFIED ABDOMINAL PAIN SNOMED Code(s): 92533233 (5) Gastritis Current Visit: Yes Status: Acute Code(s): K29.70 - GASTRITIS, UNSPECIFIED, WITHOUT BLEEDING SNOMED Code(s): 9070743 (6) chronic back pain Plan: Continue on current medication regime ,monitoring and symptomatic treatment. Potassium replacement ordered. Conservative treatment as per surgery. Maintain IV fluid hydration. Increase activity as tolerated. Close monitoring of electrolytes, renal function with repeat labs ordered for a.m. The impression and plan of care has been dictated as directed. : I performed a history and examination of this patient, discussed the same with the dictator. I agree with the dictator's note ,documented as a scribe. Any additional findings or plans will be noted.
[2020-10-04] MEDS: SODIUM CHLORIDE 0.9% 1,000 ML IV SCH ×3 (01:09→19:27)
[2020-10-04] MEDS: HYDROmorphone 1 MG/ML 1 ML SYRINGE IVP PRN ×3 (02:21→19:24)
[2020-10-04] MEDS: PANTOPRAZOLE 40 MG/10 ML VIAL IV SCH (07:45)
[2020-10-04] MEDS: HEPARIN SODIUM,PORCINE/PF 5,000 UNIT/0.5 ML SYRINGE SQ SCH ×2 (07:45→20:54)
[2020-10-04 10:08] LABS: African American GFR (CKD) 103.3 (60.0-200.0); Anion Gap 10.3 mmol/L (4.00-12.00); BUN/Creat Ratio 32.86 Ratio (12.00-20.00); Carbon Dioxide 24.7 mmol/L (21.6-31.8); Non-African American GFR(CKD) 89.1 (60.0-200.0); Potassium 3.5 mmol/L (3.5-5.5)
--- NOTE | 2020-10-04 13:06 | P.PN ---
Subjective Progress Note Date: 10/04/20 CHIEF COMPLAINT: Small bowel obstruction HISTORY OF PRESENT ILLNESS: The patient is a 80-year-old male with history of multiple abdominal surgeries presents with bowel obstruction. 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 He is passing some flatus. He reports pain medications barely help. He is resting comfortably in bed. ROS: No fevers or chills. No new chest pain. No productive sputum PHYSICAL EXAM: VITAL SIGNS: Reviewed CONSTITUTIONAL: Well developed and in no acute distress. EYES: Conjuctivae without sclera icterus. Extraocular movements grossly intact. HEAD, EARS, NOSE, THROAT: Moist buccal mucosa. Head is atraumatic, normocephalic. Hears conversational speech. No nasal drainage. Has poor dentition. NECK: No thyroidomegaly. RESPIRATORY: Non-labored respirations and equal bilateral excursions. CARDIOVASCULAR: Palpable 2+ radial pulses. ABDOMEN: Moderate abdominal scarring MUSCULOSKELETAL: No clubbing. No cyanosis. NEUROLOGIC: Cranial nerves II through XII grossly intact. No focal or lateralizing signs. PSYCH: Appropriate affect. Alert and oriented to person, place and time. CLINICAL LABS: Reviewed. Sodium potassium within normal limits. STUDIES: CT of the abdomen pelvis independently reviewed by me demonstrating mildly dilated small bowel loops with dilated stomach on computed tomography sc an present on admission. Surgical changes along the abdominal wall identified. This is my independent interpretation. RADIOLOGY: CT of the abdomen and pelvis demonstrating small bowel obstruction w ith transition point ASSESSMENT: 1. Small bowel obstruction due to adhesions PLAN: 1. Continue conservative management with popsicles and ice chips 2. May benefit from esophageal dilation for stricture Objective - Vital Signs Vital signs: Vital Signs Temp 98.4 F 10/04/20 11:38 Pulse 47 L 10/04/20 11:38 Resp 16 10/04/20 11:38 BP 169/74 10/04/20 11:38 Pulse Ox 96 10/04/20 11:38 Intake & Output 10/03/20 10/04/20 10/04/20 18:59 06:59 18:59 Output Total 325 Balance -325 Weight 86.183 kg Output: Urine 325 Other: Voiding Method Urinal Urinal - Labs CBC & Chem 7: 10/02/20 05:28 10/04/20 04:20 Labs: Abnormal Lab Results - Last 24 Hours (Table) 10/04/20 Range/Units 04:20 Chloride 110 H (96-109) mmol/L BUN/Creatinine Ratio 32.86 H (12.00-20.00) Ratio Calcium 8.0 L (8.7-10.3) mg/dL
[2020-10-04 14:41] LABS: Glucose,Whole Blood 95 mg/dL (75-99)
[2020-10-04] MEDS: amLODIPine 5 MG TAB PO SCH (21:18)
[2020-10-05] MEDS: HYDROmorphone 1 MG/ML 1 ML SYRINGE IVP PRN ×5 (00:07→21:37)
--- NOTE | 2020-10-05 02:37 | PN ---
PROGRESS NOTE DATE OF SERVICE: 10/04/2020 I am covering for Dr. York. HISTORY OF PRESENT ILLNESS: This 80-year-old gentleman was admitted with multiple medical problems, admitted with small-bowel obstruction possibly secondary to adhesions. Surgery is following the patient closely with conservative line of management. No chest pain. No palpitations. No fever. PHYSICAL EXAMINATION: Alert and oriented x3. Pulse 72, blood pressure 159/86, respiration 17, temperature 98 degrees, pulse ox 97% on room air. HEENT: Conjunctivae normal. Oral mucosa moist. NECK: No jugular venous distention. No lymph node enlargement. CARDIOVASCULAR: S1, S2, muffled. No S3, no S4, RESPIRATORY: Diminished breath sounds at the bases. A few scattered rhonchi and crackles. ABDOMEN: Soft, nontender. LEGS: No edema, no swelling. NERVOUS SYSTEM: No focal deficits. LAB: CBC within normal, sodium 140, potassium 3.4. Other labs are noted. ASSESSMENT: 1. Acute small-bowel obstruction possibly secondary to adhesions on conservative line of management. 2. Nausea and vomiting. 3. History of gastritis. 4. Hypertension. 5. Hypokalemia. 6. Hypernatremia. 7. Hypocalcemia. 8. History of GERD. 9. History of DJD. 10.History of cardiomyopathy. 11.History of PVCs. 12.History of diverticular disease. 13.History of obstructive sleep apnea. 14.History of back surgery. 15.History of cardiac catheterization. 16.History of pancreatic surgery in [place]. 17.History of spinal surgery. 18.Depression. 19.NO CODE, NO CPR, NO VENT. RECOMMENDATIONS AND DISCUSSION: In this 80-year-old gentleman who presented with multiple complex medical issues, we will monitor the patient closely, continue the current management. We will continue with symptomatic and conservative line of management per Surgery. Add Norvasc to the current regimen for control of blood pressure. DVT prophylaxis. Further recommendations to follow. Repeat labs. MMODL / IJN: [id number] /
[2020-10-05] MEDS: SODIUM CHLORIDE 0.9% 1,000 ML IV SCH ×2 (05:38→12:06)
[2020-10-05] MEDS: HEPARIN SODIUM,PORCINE/PF 5,000 UNIT/0.5 ML SYRINGE SQ SCH ×2 (08:11→20:37)
[2020-10-05] MEDS: PANTOPRAZOLE 40 MG/10 ML VIAL IV SCH (08:11)
[2020-10-05] MEDS: amLODIPine 5 MG TAB PO SCH (08:11)
[2020-10-05] MEDS: ONDANSETRON 4 MG/2 ML VIAL IVP PRN (08:28)
--- NOTE | 2020-10-05 16:11 | P.PN ---
Subjective Progress Note Date: 10/05/20 CHIEF COMPLAINT: Small bowel obstruction HISTORY OF PRESENT ILLNESS: The patient is a 80-year-old male with history of multiple abdominal surgeries presents with bowel obstruction. He reports not passing flatus today. 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 He still reports abdominal pain. ROS: No fevers or chills. No new chest pain. No productive sputum PHYSICAL EXAM: VITAL SIGNS: Reviewed CONSTITUTIONAL: Well developed and in no acute distress. EYES: Conjuctivae without sclera icterus. Extraocular movements grossly intact. HEAD, EARS, NOSE, THROAT: Moist buccal mucosa. Head is atraumatic, normocephalic. Hears conversational speech. No nasal drainage. Has poor dentition. NECK: No thyroidomegaly. RESPIRATORY: Non-labored respirations and equal bilateral excursions. CARDIOVASCULAR: Palpable 2+ radial pulses. ABDOMEN: No peritonitis. Multiple abdominal scarring. MUSCULOSKELETAL: No clubbing. No cyanosis. Left hand with contracture. NEUROLOGIC: Cranial nerves II through XII grossly intact. No focal or lateralizing signs. PSYCH: Appropriate affect. Alert and oriented to person, place and time. CLINICAL LABS: No new labs ASSESSMENT: 1. Small bowel obstruction due to adhesions PLAN: 1. May benefit from soft tissue dilation to allow for placement of NG tube. 2. Will repeat abdominal x-rays. 3. May benefit from small bowel follow-through Objective - Vital Signs Vital signs: Vital Signs Temp 97.9 F 10/05/20 11:42 Pulse 66 10/05/20 11:42 Resp 16 10/05/20 11:42 BP 167/84 10/05/20 11:42 Pulse Ox 94 L 10/05/20 11:42 Intake & Output 10/04/20 10/05/20 10/05/20 18:59 06:59 18:59 Intake Total 1200 700 Output Total 400 Balance 1200 700 -400 Intake: Intake, IV Titration 1200 700 Amount Sodium Chloride 0.9% 1, 1200 700 000 ml @ 50 mls/hr IV . Q20H KI Rx#:[id number] Output: Urine 400 Other: Voiding Method Urinal Urinal # Voids 2 2 - Labs CBC & Chem 7: 10/02/20 05:28 10/04/20 04:20
--- NOTE | 2020-10-05 19:56 | PN ---
PROGRESS NOTE DATE OF SERVICE: 10/05/2020 I am covering for Dr. York. This 80-year-old gentleman who was admitted with acute small-bowel obstruction possibly secondary adhesions on conservative line of management. No chest pain. No palpitations. No fever. Surgery is following the patient closely. PHYSICAL EXAMINATION: Alert and oriented x3. Pulse 66, blood pressure 161/84, respiration is 16, temperature 97.9, pulse ox 94% on room air. HEENT: Conjunctivae normal. Oral mucosa moist. NECK: No jugular venous distention. No lymph node enlargement. CARDIOVASCULAR: S1, S2, muffled. No S3, no S4, RESPIRATORY: Diminished breath sounds at the bases. A few scattered rhonchi and crackles. ABDOMEN: Soft. Mild diffuse discomfort on palpation. LEGS: No edema, no swelling. NERVOUS SYSTEM: No focal deficits. LABS: Sodium 140, potassium 3.4. ASSESSMENT: 1. Acute small-bowel obstruction possibly secondary to adhesions on conservative line of management. 2. Nausea and vomiting. 3. Abdominal pain. 4. History of gastritis. 5. Hyponatremia. 6. Hypokalemia. 7. Hypertension. 8. Hypocalcemia. 9. History of GERD. 10.History of DJD. 11.History of cardiomyopathy. 12.History of PVCs. 13.History of diverticular disease. 14.History of obstructive sleep apnea. 15.History of back surgery. 16.History of cardiac catheterization. 17.History of pancreatic surgery at [place]. 18.History of spinal surgery. 19.Depression. 20.NO CODE, NO CPR, NO VENT. RECOMMENDATIONS AND DISCUSSION: I recommend to continue current medications, symptomatic treatment. Otherwise, at this time I would recommend continue with pain management, closely follow with Surgery and Dr. York will follow tomorrow. MMODL / IJN: [id number] /
[2020-10-06] MEDS: HYDROmorphone 1 MG/ML 1 ML SYRINGE IVP PRN ×5 (03:48→21:57)
[2020-10-06] MEDS: PANTOPRAZOLE 40 MG/10 ML VIAL IV SCH (07:33)
[2020-10-06] MEDS: amLODIPine 5 MG TAB PO SCH (07:34)
[2020-10-06] MEDS: HEPARIN SODIUM,PORCINE/PF 5,000 UNIT/0.5 ML SYRINGE SQ SCH (07:34)
[2020-10-06 10:13] LABS: African American GFR (CKD) >90 (>60 ml/min/1.73 sqM); Anion Gap 12 mmol/L; Blood Urea Nitrogen 17 mg/dL (9-20); Carbon Dioxide 22 mmol/L (22-30); Chloride 108 mmol/L (98-107); Glucose 78 mg/dL (74-99); Non-African American GFR(CKD) 90 (>60 ml/min/1.73 sqM); Potassium 3.6 mmol/L (3.5-5.1); Sodium 142 mmol/L (137-145)
[2020-10-06] MEDS: DEXTROSE 5%-0.45% NACL 1,000 ML IV SCH ×2 (12:44→19:59)
[2020-10-06] MEDS ORDERED: IV FLUID CONTINUATION 800 ML IV ONE (14:24)
[2020-10-06] MEDS ORDERED: fentaNYL (PF) 50 MCG/ML 2 ML AMP ONE (15:11)
[2020-10-06] MEDS ORDERED: HEPARIN SODIUM,PORCINE 5,000 UNIT/ML 1 ML VIAL ONE (15:11)
[2020-10-06] MEDS ORDERED: MORPHINE SULFATE (PF) 0.3 MG/0.3 ML SYR ONE (15:11)
[2020-10-06] MEDS ORDERED: PROPOFOL 10 MG/ML 20 ML VIAL IV ONE (15:11)
[2020-10-06] MEDS ORDERED: ROCURONIUM 10 MG/ML (5 ML VIAL) IV ONE (15:11)
[2020-10-06] MEDS ORDERED: NEOSTIGMINE 1 MG/ML 10 ML VIAL ONE (15:11)
[2020-10-06] MEDS ORDERED: LIDOCAINE 1% INJ 10MG/ML (20 ML MDV) ONE (15:11)
[2020-10-06] MEDS ORDERED: GLYCOPYRROLATE 0.2 MG/ML 2 ML VIAL ONE (15:11)
[2020-10-06] MEDS ORDERED: SUCCINYLCHOLINE CHLORIDE 100 MG/5 ML SYR IV ONE (15:11)
[2020-10-06] MEDS ORDERED: SODIUM CHLORIDE 0.9% 100 ML with ceFAZolin 2,000 MG IV ONE ×2 (15:48)
--- NOTE | 2020-10-06 16:35 | P.PN ---
Subjective Progress Note Date: 10/06/20 Bryan Casarez is an 80 yo M with PMH of multiple previous abdominal surgeries, previous small bowel obstruction treated conservatively, peptic ulcer disease with GI bleed, prior history of alcoholism, chronic back pain who presented with a 2 day history of upper abdominal pain with nausea and vomiting. He experience dark tarry vomit and has not had a BM or passed flatus in 2 days. He denies any fever, chills or sweats. Computed tomography scan abdomen and pelvis shows a mid to distal small bowel obstruction with transition point in the proximal to mid ileal loops in the upper and mid pelvis just right of midline. 10/03/2020 Maintained on IV fluid hydration. Continues on conservative treatment as per surgery. Reports positive flatus. Denies abdominal pain, reports tenderness. Tolerating ice chips. No nausea, no vomiting. Ambulating in room, tolerating exertion well. Afebrile, WBC within normal limits as of yesterday. Potassium 3.4, creatinine 0.8. 10/06/2020 continues on IV fluid hydration. Complains of persistent significant pain , no nausea or vomiting. No bowel movement. Passed minimal amount of flatus last night.scheduled for small bowel follow-through with possible expl oratory laparotomy today as per surgery. Denies chest pain, palpitations or shortness of breath. Afebrile. Objective - Vital Signs Vital signs: Vital Signs Temp 97.7 F 10/06/20 14:36 Pulse 74 10/06/20 14:36 Resp 14 10/06/20 11:37 BP 150/84 10/06/20 14:36 Pulse Ox 97 10/06/20 14:36 Intake & Output 10/05/20 10/06/20 10/06/20 18:59 06:59 18:59 Intake Total 0 700 200 Output Total 1600 400 350 Balance -1600 300 -150 Weight 86.183 kg Intake: IV 200 Intake, IV Titration 600 Amount Sodium Chloride 0.9% 1, 600 000 ml @ 125 mls/hr IV . Q8H KI Rx#:[id number] Oral 0 100 Output: Urine 1600 400 350 Other: Voiding Method Urinal Urinal Urinal # Voids 1 - Exam General: Sitting up in bed, NAD. Vitals reviewed Eyes: PERRL, EOMI, conjunctiva normal HENT: normocephalic, mucus membranes moist Neck: supple, no JVD Lungs: normal respiratory effort, no wheezes or rales CV: Regular rate and rhythm, no murmur. Peripheral pulses 2+ Abdomen: soft, Distended. Diffuse tenderness Skin: warm and dry. Neuro: A&Ox3, normal mood and affect - Labs CBC & Chem 7: 10/02/20 05:28 10/06/20 09:41 Labs: Abnormal Lab Results - Last 24 Hours (Table) 10/06/20 Range/Units 09:41 Chloride 108 H (98-107) mmol/L Calcium 8.0 L (8.4-10.2) mg/dL Assessment and Plan Assessment: (1) Intra-abdominal adhesions Current Visit: Yes Status: Acute Code(s): K66.0 - PERITONEAL ADHESIONS (POSTPROCEDURAL) (POSTINFECTION) SNOMED Code(s): 972195932 (2) Nausea & vomiting Current Visit: Yes Status: Acute Code(s): R11.2 - NAUSEA WITH VOMITING, UNSPECIFIED SNOMED Code(s): 82336481 (3) Acute Small bowel obstruction secondary to adhesions Current Visit: Yes Status: Acute Code(s): K56.609 - UNSP INTESTNL OBST, UNSP TO PARTIAL VERSUS COMPLETE OBST SNOMED Code(s): 964843627 (4) Abdominal pain Current Visit: No Status: Acute Code(s): R10.9 - UNSPECIFIED ABDOMINAL PAIN SNOMED Code(s): 05086208 (5) Gastritis Current Visit: Yes Status: Acute Code(s): K29.70 - GASTRITIS, UNSPECIFIED, WITHOUT BLEEDING SNOMED Code(s): 7174387 (6) chronic back pain Plan: Continue on current medication regime ,monitoring and symptomatic treatment. Maintained on conservative treatment as per surgery. Patient reports continued persistent pain-not improved. Follow-through, potential exploratory laparotomy as per surgery. Maintain IV fluid hydration. We will adjust IV fluids to D5 with 0.45% saline as patient has had no nutrition, and await surgeries further recommendations. The impression and plan of care has been dictated as directed. : I performed a history and examination of this patient, discussed the same with the dictator. I agree with the dictator's note ,documented as a scribe. Any additional findings or plans will be noted.
[2020-10-06] MEDS ORDERED: LACTATED RINGERS 1,000 ML IV ONE ×3 (16:38→18:00)
[2020-10-06] MEDS ORDERED: NALOXONE 0.4 MG/ML 1 ML VIAL IV PRN (17:01)
[2020-10-06] MEDS ORDERED: ONDANSETRON 4 MG/2 ML VIAL IVP ONE (17:14)
[2020-10-06] MEDS: HYDROmorphone 0.5 MG/0.5 ML SYRINGE IVP ONE ×2 (17:15→17:27)
[2020-10-06] MEDS: HYDROmorphone 1 MG/ML 1 ML SYRINGE IVP ONE ×2 (17:34→17:39)
[2020-10-06] MEDS ORDERED: HYDROmorphone 1 MG/ML 1 ML SYRINGE IVP STA (23:21)
[2020-10-06] MEDS ORDERED: PROMETHAZINE 25 MG TAB PO STA (23:22)
[2020-10-07] MEDS: HYDROmorphone 1 MG/ML 1 ML SYRINGE IVP PRN ×6 (02:30→20:57)
[2020-10-07 06:08] LABS: Basophils % (A) 0 %; Eosinophils % (A) 0 %; HCT 46.2 % (39.0-53.0); HGB 15.3 gm/dL (13.0-17.5); Lymphocytes # (A) 1.1 k/uL (1.0-4.8); Lymphocytes % (A) 7 %; MCH 30.5 pg (25.0-35.0); MCHC 33.1 g/dL (31.0-37.0); MCV 92.2 fL (80.0-100.0); Mean Platelet Volume 7.3; Monocytes # (A) 0.8 k/uL (0-1.0); Monocytes % (A) 5 %; Neutrophils # (A) 13.6 k/uL (1.3-7.7); Neutrophils % (A) 87 %; Platelet Count 230 k/uL (150-450); RBC 5.01 m/uL (4.30-5.90); RDW 13.2 % (11.5-15.5); WBC 15.6 k/uL (3.8-10.6)
[2020-10-07] MEDS: DEXTROSE 5%-0.45% NACL 1,000 ML IV SCH ×3 (06:17→23:19)
[2020-10-07] MEDS: PANTOPRAZOLE 40 MG/10 ML VIAL IV SCH (07:35)
[2020-10-07] MEDS: ENOXAPARIN 40 MG/0.4 ML SYRINGE SQ SCH (07:36)
[2020-10-07] MEDS: amLODIPine 5 MG TAB PO SCH (07:36)
[2020-10-07] MEDS ORDERED: ACETAMINOPHEN IV (For NPO) 1,000 MG in EMPTY BAG 1 BAG IVPB PRN (09:30)
--- NOTE | 2020-10-07 11:11 | P.PN ---
Subjective Progress Note Date: 10/07/20 CHIEF COMPLAINT: Small bowel obstruction HISTORY OF PRESENT ILLNESS: Patient is status post exploratory laparotomy with small bowel resection for small bowel obstruction. Postop day #1. He is complaining of abdominal pain. He denies any nausea or vomiting. Denies any flatus or BM. Afebrile. He had been tachycardic with a heart rate of 118. Heart rate at 5 AM was 53. WBC is up to 15.6. CMP pending Patient is currently nothing by mouth. Patient seen and examined with Dr. vernon PHYSICAL EXAM: VITAL SIGNS: Reviewed. GENERAL: Well-developed in no acute distress. HEENT: No sclera icterus. Extraocular movements grossly intact. Moist buccal mucosa. Head is atraumatic, normocephalic. ABDOMEN: Soft. Nondistended. Diffuse tenderness but mostly up in the upper abdomen. Old mid abdominal incision scar NEUROLOGIC: Alert and oriented. Cranial nerves II through XII grossly intact. ASSESSMENT: 1. Small bowel obstruction status post exploratory laparotomy with small bowel resection 2. History of prior small bowel obstruction treated conservatively 3. History of cholecystectomy 4. History of incisional hernia repair 5. History of pancreatic surgery 6. Hypokalemia resolved PLAN: -Add scheduled IV Tylenol for pain. Add IV Dilaudid 0.5 every 2 hours as needed for pain in addition to Dilaudid 1 mg every 3 hours as needed. And add Toradol 15 mg IV every 6 -Start sips of clear liquids -Patient's urine is dark and concentrated will give a 1 L fluid bolus -Continue IV fluids -Continue pain medication as needed -Continue Zofran as needed -Encourage patient to ambulate -Encourage patient to use incentive spirometer -GI prophylaxis Protonix and DVT prophylaxis subcu heparin Physician Fusing Machine Operator note has been reviewed by physician. Signing provider agrees with the documented findings, assessment, and plan of care. Objective - Vital Signs Vital signs: Vital Signs Temp 98.6 F 10/07/20 05:40 Pulse 53 L 10/07/20 05:40 Resp 20 10/07/20 05:40 BP 140/74 10/07/20 05:40 Pulse Ox 96 10/07/20 05:40 Intake & Output 10/06/20 10/07/20 10/07/20 18:59 06:59 18:59 Intake Total 1600 0 Output Total 800 300 Balance 800 -300 Weight 86.183 kg Intake: IV 1600 Oral 0 0 Output: Urine 550 300 Estimated Blood Loss 250 Other: Voiding Method Urinal Indwelling Catheter Indwelling Catheter # Voids 3 - Labs CBC & Chem 7: 10/07/20 05:08 10/06/20 09:41 Labs: Abnormal Lab Results - Last 24 Hours (Table) 10/07/20 Range/Units 05:08 WBC 15.6 H (3.8-10.6) k/uL Neutrophils # 13.6 H (1.3-7.7) k/uL
[2020-10-07] MEDS ORDERED: SODIUM CHLORIDE 0.9% 1,000 ML IV ONE (12:27)
--- NOTE | 2020-10-07 12:30 | P.OP ---
Date of Procedure: 10/06/20 Preoperative Diagnosis: Small bowel obstruction Postoperative Diagnosis: Small bowel obstruction Abdominal wall calcified mass Procedure(s) Performed: Exploratory laparotomy Excision of calcified abdominal wall mass Lysis of adhesions Small bowel resection Anesthesia: EMILEE Surgeon: Chucky Martinez Estimated Blood Loss (ml): 100 Pathology: other (Small bowel, abdominal wall) Condition: stable Disposition: PACU Description of Procedure: The patient's placed on the operative table in the supine position. He received general anesthesia. His abdomen was prepped and draped in the usual sterile fashion. The patient a calcified abdominal wall mass located in the superior po rtion of his midline scar. The mass was lipoma. Using a left cautery the mass was dissected free and sent to pathology. The mass measured approximately 20 cm x 8 cm x 4 cm the inferior portion of the scar was then opened his left cautery. The Book[place] tract with wound. The patient had dilated proximal small bowel. There were some nondilated loops of small bowel the pelvis. There were adhesions causing obstruction. The adhesions were lysed. At this point at the transition zone was set perform a small bowel resection. The bowel was then transected proximally distally with a GI stapler. And then using a GONZALEZ and TA stapler [id number] functional end-to-end stapled vessels was created. 3-0 GI silk suture was used as a crotch stitch. The abdomen was areas of bleeding seen. The fascia closed with looped #1 PDS suture. Skin was closed linda. Patient top she will was sent to recovery room stable condition.
[2020-10-07] MEDS: ONDANSETRON 4 MG/2 ML VIAL IVP PRN (13:39)
[2020-10-07] MEDS: KETOROLAC 15 MG/ML 1 ML VIAL IVP SCH ×3 (13:39→23:20)
--- NOTE | 2020-10-07 14:16 | P.PN ---
Subjective Progress Note Date: 10/07/20 Bryan Casarez is an 80 yo M with PMH of multiple previous abdominal surgeries, previous small bowel obstruction treated conservatively, peptic ulcer disease with GI bleed, prior history of alcoholism, chronic back pain who presented with a 2 day history of upper abdominal pain with nausea and vomiting. He experience dark tarry vomit and has not had a BM or passed flatus in 2 days. He denies any fever, chills or sweats. Computed tomography scan abdomen and pelvis shows a mid to distal small bowel obstruction with transition point in the proximal to mid ileal loops in the upper and mid pelvis just right of midline. 10/03/2020 Maintained on IV fluid hydration. Continues on conservative treatment as per surgery. Reports positive flatus. Denies abdominal pain, reports tenderness. Tolerating ice chips. No nausea, no vomiting. Ambulating in room, tolerating exertion well. Afebrile, WBC within normal limits as of yesterday. Potassium 3.4, creatinine 0.8. 10/06/2020 continues on IV fluid hydration. Complains of persistent significant pain , no nausea or vomiting. No bowel movement. Passed minimal amount of flatus last night.scheduled for small bowel follow-through with possible expl oratory laparotomy today as per surgery. Denies chest pain, palpitations or shortness of breath. Afebrile. 10/07/2020 Status post exploratory laparotomy with small bowel resection, POD #1.complains of increased abdominal pain. During the night requiring additional Dilaudid as well as Phenergan. Denies flatus or bowel movement. Denies nausea or vomiting. Afebrile, WBC up to 15.6. Hemoglobin 15.3, platelets 230. CMP pending. Denies chest pain, palpitations. Denies shortness of breath. M aintaining O2 sats in the 90s on room air. Heart rate currently 53, tachycardic last night in the 1 teens. Objective - Vital Signs Vital signs: Vital Signs Temp 98.1 F 10/07/20 12:22 Pulse 53 L 10/07/20 12:22 Resp 14 10/07/20 12:22 BP 140/63 10/07/20 12:22 Pulse Ox 92 L 10/07/20 12:22 Intake & Output 10/06/20 10/07/20 10/07/20 18:59 06:59 18:59 Intake Total 1600 0 Output Total 800 300 Balance 800 -300 Weight 86.183 kg Intake: IV 1600 Oral 0 0 Output: Urine 550 300 Estimated Blood Loss 250 Other: Voiding Method Urinal Indwelling Catheter Indwelling Catheter # Voids 3 - Exam General: Sitting up in bed, NAD. Vitals reviewed Eyes: PERRL, EOMI, conjunctiva normal HENT: normocephalic, mucus membranes moist Neck: supple, no JVD Lungs: normal respiratory effort, no wheezes or rales CV: Regular rate and rhythm, no murmur. Peripheral pulses 2+ Abdomen: soft, Distended. Diffuse tenderness Skin: warm and dry. Neuro: A&Ox3, normal mood and affect - Labs CBC & Chem 7: 10/07/20 05:08 10/06/20 09:41 Labs: Abnormal Lab Results - Last 24 Hours (Table) 10/07/20 Range/Units 05:08 WBC 15.6 H (3.8-10.6) k/uL Neutrophils # 13.6 H (1.3-7.7) k/uL Assessment and Plan Assessment: (1) Intra-abdominal adhesions Current Visit: Yes Status: Acute Code(s): K66.0 - PERITONEAL ADHESIONS (POSTPROCEDURAL) (POSTINFECTION) SNOMED Code(s): 098964825 (2) Nausea & vomiting Current Visit: Yes Status: Acute Code(s): R11.2 - NAUSEA WITH VOMITING, UNSPECIFIED SNOMED Code(s): 77158157 (3) Acute Small bowel obstruction secondary to adhesions, status post exploratory laparotomy with small bowel resection, lysis of adhesions, excision of small abdominal mass, pathology pending. Current Visit: Yes Status: Acute Code(s): K56.609 - UNSP INTESTNL OBST, UNSP TO PARTIAL VERSUS COMPLETE OBST SNOMED Code(s): 367130612 (4) Abdominal pain Current Visit: No Status: Acute Code(s): R10.9 - UNSPECIFIED ABDOMINAL PAIN SNOMED Code(s): 21142346 (5) Gastritis Current Visit: Yes Status: Acute Code(s): K29.70 - GASTRITIS, UNSPECIFIED, WITHOUT BLEEDING SNOMED Code(s): 6025877 (6) chronic back pain Plan: Continue on current medication regime ,monitoring and symptomatic treatment. EKG when patient is tachycardic. Patient reports increased abdominal pain. Pain med regimen further adjusted as per surgery. Maintain IV fluid hydration. Aggressive pulmonary toileting with incentive spirometer reinforced.Diet advancement as per surgery. The impression and plan of care has been dictated as directed. : I performed a history and examination of this patient, discussed the same with the dictator. I agree with the dictator's note ,documented as a scribe. Any additional findings or plans will be noted.
[2020-10-07 16:42] LABS: African American GFR (CKD) 93.2 (60.0-200.0); Albumin 3.1 g/dL (3.80-4.90); Albumin/Globulin Ratio 1.72 (1.60-3.17); Anion Gap 15.5 mmol/L (4.00-12.00); BUN/Creat Ratio 21.11 Ratio (12.00-20.00); Carbon Dioxide 19.5 mmol/L (21.6-31.8); Globulin 1.8 g/dL (1.6-3.3); Non-African American GFR(CKD) 80.4 (60.0-200.0); Potassium 3.7 mmol/L (3.5-5.5); Total Bilirubin 0.7 mg/dL (0.3-1.2); Total Protein 4.9 g/dL (6.2-8.2)
[2020-10-07] MEDS: METOCLOPRAMIDE 5 MG/ML 2 ML VIAL IVP PRN (18:06)
[2020-10-08 05:57] LABS: Basophils % (A) 0 %; Eosinophils # (A) 0.1 k/uL (0-0.7); Eosinophils % (A) 0 %; HGB 13.5 gm/dL (13.0-17.5); Lymphocytes # (A) 1.6 k/uL (1.0-4.8); Lymphocytes % (A) 14 %; MCH 31.1 pg (25.0-35.0); MCHC 33.6 g/dL (31.0-37.0); MCV 92.6 fL (80.0-100.0); Mean Platelet Volume 7.6; Monocytes # (A) 0.6 k/uL (0-1.0); Monocytes % (A) 5 %; Neutrophils # (A) 9.4 k/uL (1.3-7.7); Neutrophils % (A) 79 %; Platelet Count 211 k/uL (150-450); RBC 4.32 m/uL (4.30-5.90); RDW 13.5 % (11.5-15.5); WBC 11.8 k/uL (3.8-10.6)
[2020-10-08] MEDS: KETOROLAC 15 MG/ML 1 ML VIAL IVP SCH ×4 (06:15→23:09)
[2020-10-08] MEDS: DEXTROSE 5%-0.45% NACL 1,000 ML IV SCH ×2 (07:43→15:52)
[2020-10-08] MEDS: ENOXAPARIN 40 MG/0.4 ML SYRINGE SQ SCH (07:43)
[2020-10-08] MEDS: PANTOPRAZOLE 40 MG TABLET PO SCH (07:43)
[2020-10-08] MEDS: amLODIPine 5 MG TAB PO SCH (07:43)
[2020-10-08] MEDS: HYDROmorphone 1 MG/ML 1 ML SYRINGE IVP PRN ×4 (08:19→23:10)
--- NOTE | 2020-10-08 11:03 | P.PN ---
Subjective Progress Note Date: 10/08/20 Bryan Casarez is an 80 yo M with PMH of multiple previous abdominal surgeries, previous small bowel obstruction treated conservatively, peptic ulcer disease with GI bleed, prior history of alcoholism, chronic back pain who presented with a 2 day history of upper abdominal pain with nausea and vomiting. He experience dark tarry vomit and has not had a BM or passed flatus in 2 days. He denies any fever, chills or sweats. Computed tomography scan abdomen and pelvis shows a mid to distal small bowel obstruction with transition point in the proximal to mid ileal loops in the upper and mid pelvis just right of midline. 10/03/2020 Maintained on IV fluid hydration. Continues on conservative treatment as per surgery. Reports positive flatus. Denies abdominal pain, reports tenderness. Tolerating ice chips. No nausea, no vomiting. Ambulating in room, tolerating exertion well. Afebrile, WBC within normal limits as of yesterday. Potassium 3.4, creatinine 0.8. 10/06/2020 continues on IV fluid hydration. Complains of persistent significant pain , no nausea or vomiting. No bowel movement. Passed minimal amount of flatus last night.scheduled for small bowel follow-through with possible expl oratory laparotomy today as per surgery. Denies chest pain, palpitations or shortness of breath. Afebrile. 10/07/2020 Status post exploratory laparotomy with small bowel resection, POD #1.complains of increased abdominal pain. During the night requiring additional Dilaudid as well as Phenergan. Denies flatus or bowel movement. Denies nausea or vomiting. Afebrile, WBC up to 15.6. Hemoglobin 15.3, platelets 230. CMP pending. Denies chest pain, palpitations. Denies shortness of breath. M aintaining O2 sats in the 90s on room air. Heart rate currently 53, tachycardic last night in the 1 teens. 10/08/2020 Reports pain better controlled. Afebrile, WBC is trending down, 11.8. Tolerating sips of clear liquid diet with no nausea or vomiting. Audible gurgling, reports he has not been out of bed since surgery. Maintaining O2 sats in the 90s on room air. Heart rates ranging from 45-53 in a patient with history of nonischemic cardiomyopathy. Last EF recorded at 30% in 2017. Denies chest pain, palpitations or shortness of breath. Hemoglobin 13.5, platelets 211. Objective - Vital Signs Vital signs: Vital Signs Temp 98.2 F 10/08/20 05:00 Pulse 49 L 10/08/20 05:00 Resp 20 10/08/20 05:00 BP 129/61 10/08/20 05:00 Pulse Ox 97 10/08/20 05:00 Intake & Output 10/07/20 10/08/20 10/08/20 18:59 06:59 18:59 Intake Total 1000 Output Total 400 Balance -400 1000 Intake: Intake, IV Titration 1000 Amount Dextrose 5%-0.45% NaCl 1, 1000 000 ml @ 125 mls/hr IV . Q8H [facility] Rx#:[id number] Output: Urine 400 Other: Voiding Method Indwelling Catheter Indwelling Catheter Indwelling Catheter - Exam General: Sitting up in bed, NAD. Vitals reviewed Eyes: PERRL, EOMI, conjunctiva normal HENT: normocephalic, mucus membranes moist Neck: supple, no JVD Lungs: normal respiratory effort, bibasilar crackles CV: Regular rate and rhythm, no murmur. Peripheral pulses 2+ Abdomen: soft, Distended. Diffuse tenderness improving Skin: warm and dry. Neuro: A&Ox3, normal mood and affect - Labs CBC & Chem 7: 10/08/20 05:22 10/07/20 05:08 Labs: Abnormal Lab Results - Last 24 Hours (Table) 10/07/20 10/08/20 Range/Units 05:08 05:22 WBC 11.8 H (3.8-10.6) k/uL Neutrophils # 9.4 H (1.3-7.7) k/uL Carbon Dioxide 19.5 L (21.6-31.8) mmol/L Anion Gap 15.50 H (4.00-12.00) mmol/L BUN/Creatinine Ratio 21.11 H (12.00-20.00) Ratio Glucose 246 H (70-110) mg/dL Calcium 8.0 L (8.7-10.3) mg/dL Total Protein 4.9 L (6.2-8.2) g/dL Albumin 3.10 L (3.80-4.90) g/dL Assessment and Plan Assessment: (1) Intra-abdominal adhesions Current Visit: Yes Status: Acute Code(s): K66.0 - PERITONEAL ADHESIONS (POSTPROCEDURAL) (POSTINFECTION) SNOMED Code(s): 405646860 (2) Nausea & vomiting Current Visit: Yes Status: Acute Code(s): R11.2 - NAUSEA WITH VOMITING, UNSPECIFIED SNOMED Code(s): 67122107 (3) Acute Small bowel obstruction secondary to adhesions, status post exploratory laparotomy with small bowel resection, lysis of adhesions, excision of small abdominal mass, pathology pending. Current Visit: Yes Status: Acute Code(s): K56.609 - UNSP INTESTNL OBST, UNSP TO PARTIAL VERSUS COMPLETE OBST SNOMED Code(s): 581300094 (4) Abdominal pain Current Visit: No Status: Acute Code(s): R10.9 - UNSPECIFIED ABDOMINAL PAIN SNOMED Code(s): 43942680 (5) Gastritis Current Visit: Yes Status: Acute Code(s): K29.70 - GASTRITIS, UNSPECIFIED, WITHOUT BLEEDING SNOMED Code(s): 5216435 (6) chronic back pain (7) atelectasis, chest x-ray pending (8) bradycardia, in a patient with history of nonischemic cardiomyopathy . EF 30% noted in 2017 .echo pending Plan: Continue on current medication regime ,monitoring and symptomatic treatment. Increase ambulation with assistance every shift. Up in chair for all meals. Chest x-ray and echo ordered. Aggressive pulmonary toileting with incentive spirometer reinforced.Diet advancement as per surgery. Plan of care discussed with RN. The impression and plan of care has been dictated as directed. : I performed a history and examination of this patient, discussed the same with the dictator. I agree with the dictator's note ,documented as a scribe. Any additional findings or plans will be noted.
--- NOTE | 2020-10-08 13:42 | P.PN ---
Subjective Progress Note Date: 10/08/20 CHIEF COMPLAINT: Small bowel obstruction HISTORY OF PRESENT ILLNESS: Patient is status post exploratory laparotomy with small bowel resection for small bowel obstruction. Postop day #2. He is complaining of abdominal pain but it is better controlled today. He denies any nausea or vomiting. Denies any flatus or BM. Patient reports he has not been out of bed. Afebrile. Patient did have bradycardia during the night as well as 45. Heart rate currently is 91. Medicine service is following. On room air satting at 92%. He is tolerating his sips of clears. White count has come down from 15.6-11.[address] Thomas is covering for Dr. Martinez PHYSICAL EXAM: VITAL SIGNS: Reviewed. GENERAL: Well-developed in no acute distress. HEENT: No sclera icterus. Extraocular movements grossly intact. Moist buccal mucosa. Head is atraumatic, normocephalic. ABDOMEN: Soft. Nondistended. Diffuse tenderness but mostly up in the upper abdomen. Old mid abdominal incision scar NEUROLOGIC: Alert and oriented. Cranial nerves II through XII grossly intact. ASSESSMENT: 1. Small bowel obstruction status post exploratory laparotomy with small bowel resection 2. History of prior small bowel obstruction treated conservatively 3. History of cholecystectomy 4. History of incisional hernia repair 5. History of pancreatic surgery 6. Hypokalemia resolved PLAN: -Continue pain medication as needed -Continue sips of clear liquids -Continue IV fluids -Continue Zofran as needed -Consult PT OT -Have patient up at bedside chair for meals -Encourage patient to ambulate -Encourage patient to use incentive spirometer -GI prophylaxis Protonix and DVT prophylaxis subcu heparin Physician Payroll Tax Specialist note has been reviewed by physician. Signing provider agrees with the documented findings, assessment, and plan of care. Objective - Vital Signs Vital signs: Vital Signs Temp 97.8 F 10/08/20 11:34 Pulse 91 10/08/20 11:34 Resp 20 10/08/20 11:34 BP 103/62 10/08/20 11:34 Pulse Ox 92 L 10/08/20 11:34 Intake & Output 10/07/20 10/08/20 10/08/20 18:59 06:59 18:59 Intake Total 1000 Output Total 400 Balance -400 1000 Weight 86.183 kg Intake: Intake, IV Titration 1000 Amount Dextrose 5%-0.45% NaCl 1, 1000 000 ml @ 125 mls/hr IV . Q8H [facility] Rx#:[id number] Output: Urine 400 Other: Voiding Method Indwelling Catheter Indwelling Catheter Indwelling Catheter - Labs CBC & Chem 7: 10/08/20 05:22 10/07/20 05:08 Labs: Abnormal Lab Results - Last 24 Hours (Table) 10/07/20 10/08/20 Range/Units 05:08 05:22 WBC 11.8 H (3.8-10.6) k/uL Neutrophils # 9.4 H (1.3-7.7) k/uL Carbon Dioxide 19.5 L (21.6-31.8) mmol/L Anion Gap 15.50 H (4.00-12.00) mmol/L BUN/Creatinine Ratio 21.11 H (12.00-20.00) Ratio Glucose 246 H (70-110) mg/dL Calcium 8.0 L (8.7-10.3) mg/dL Total Protein 4.9 L (6.2-8.2) g/dL Albumin 3.10 L (3.80-4.90) g/dL
[2020-10-08 13:48] LABS: Albumin 2.9 g/dL (3.80-4.90); Albumin/Globulin Ratio 1.81 (1.60-3.17); Anion Gap 5.2 mmol/L (4.00-12.00); Carbon Dioxide 23.8 mmol/L (21.6-31.8); Globulin 1.6 g/dL (1.6-3.3); Non-African American GFR(CKD) 70.8 (60.0-200.0); Potassium 3.6 mmol/L (3.5-5.5); Total Bilirubin 0.9 mg/dL (0.3-1.2); Total Protein 4.5 g/dL (6.2-8.2)
--- NOTE | 2020-10-08 14:12 | XR ---
EXAMINATION TYPE: XR chest 2V DATE OF EXAM: 10/08/2020 COMPARISON: CT abdomen and pelvis 10/01/2020 INDICATION: Bibasilar crackles postop TECHNIQUE: Frontal and lateral views of the chest are obtained. FINDINGS: The heart size is normal. The pulmonary vasculature is normal. Some mild atelectasis may be at the right base. Correlate with the ausculatory findings. There are multiple punctate densities scattered throughout the bilateral lungs can be compatible with granulomatous disease such as histoplasmosis. These appear to be calcified within the [id number] on the comparison CT of 10/01/2020. Follow-up is recommended in 3 months to evaluate for stability. Th is should be confirmed as stable over the course of 2 years. IMPRESSION: 1. No acute pulmonary process.
[2020-10-08] MEDS: HYDROmorphone 0.5 MG/0.5 ML SYRINGE IVP PRN (15:26)
[2020-10-09 04:12] LABS: Basophils % (A) 0 %; Eosinophils % (A) 0 %; HCT 33.4 % (39.0-53.0); HGB 11.9 gm/dL (13.0-17.5); Lymphocytes # (A) 0.9 k/uL (1.0-4.8); Lymphocytes % (A) 6 %; MCH 32.1 pg (25.0-35.0); MCHC 35.5 g/dL (31.0-37.0); MCV 90.5 fL (80.0-100.0); Mean Platelet Volume 7.5; Monocytes # (A) 0.5 k/uL (0-1.0); Monocytes % (A) 3 %; Neutrophils # (A) 14.7 k/uL (1.3-7.7); Neutrophils % (A) 91 %; Platelet Count 160 k/uL (150-450); RBC 3.69 m/uL (4.30-5.90); RDW 12.9 % (11.5-15.5); WBC 16.2 k/uL (3.8-10.6)
[2020-10-09] MEDS: DEXTROSE 5%-0.45% NACL 1,000 ML IV SCH ×3 (04:45→08:23)
[2020-10-09] MEDS: KETOROLAC 15 MG/ML 1 ML VIAL IVP SCH ×3 (06:01→17:32)
[2020-10-09] MEDS: HYDROmorphone 1 MG/ML 1 ML SYRINGE IVP PRN ×5 (06:04→22:28)
[2020-10-09] MEDS: ENOXAPARIN 40 MG/0.4 ML SYRINGE SQ SCH (08:24)
[2020-10-09] MEDS: PANTOPRAZOLE 40 MG TABLET PO SCH (08:24)
[2020-10-09] MEDS: ONDANSETRON 4 MG/2 ML VIAL IVP PRN ×2 (08:46→19:06)
[2020-10-09] MEDS: amLODIPine 5 MG TAB PO SCH (08:56)
[2020-10-09 09:45] LABS: African American GFR (CKD) 97.8 (60.0-200.0); Anion Gap 7.6 mmol/L (4.00-12.00); BUN/Creat Ratio 23.75 Ratio (12.00-20.00); Calcium 7.5 mg/dL (8.7-10.3); Carbon Dioxide 22.4 mmol/L (21.6-31.8); Non-African American GFR(CKD) 84.4 (60.0-200.0); Potassium 2.9 mmol/L (3.5-5.5)
--- NOTE | 2020-10-09 10:23 | ECHOF ---
Referral Reason:LV fx MEASUREMENTS -------- HEIGHT: 182.9 cm WEIGHT: 86.2 kg BP: RVIDd: 2.9 cm (< 3.3) IVSd: 1.4 cm (0.6 - 1.1) LVIDd: 4.7 cm (3.9 - 5.3) LVPWd: 1.6 cm (0.6 - 1.1) IVSs: 2.0 cm LVIDs: 2.7 cm LVPWs: 1.6 cm Ao Diam: 4.0 cm (2.0 - 3.7) AV Cusp: 2.0 cm (1.5 - 2.6) MV EXCURSION: 20.130 mm (> 18.000) MV EF SLOPE: 50 mm/s (70 - 150) EPSS: 0.6 cm MV E Aleksandr: 0.80 m/s MV DecT: 190 ms MV A Aleksandr: 1.01 m/s MV E/A Ratio: 0.79 RAP: 5.00 mmHg RVSP: 41.37 mmHg FINDINGS -------- Resting tachycardia (HR>100bpm). This was a technically good study. The left ventricular size is normal. There is mild concentric left ventricular hypertrophy. Overa ll left ventricular systolic function is normal with, an EF between 60 - 65 %. The right ventricle is normal in size. The left atrial size is normal. The right atrial size is normal. There is mild aortic valve sclerosis. There is no evidence of aortic regurgitation. Mild mitral regurgitation is present. Mild tricuspid regurgitation present. There is mild pulmonary hypertension. The right ventricular systolic pressure, as measured by Doppler, is 41.37mmHg. There is no pulmonic regurgitation present. There is no pericardial effusion. CONCLUSIONS -------- 1. The left ventricular size is normal. 2. There is mild concentric left ventricular hypertrophy. 3. Overall left ventricular systolic function is normal with, an EF between 60 - 65 %. 4. The right ventricle is normal in size. 5. The left atrial size is normal. 6. The right atrial size is normal. 7. There is mild aortic valve sclerosis. 8. Mild mitral regurgitation is present. 9. Mild tricuspid regurgitation present. 10. There is mild pulmonary hypertension. 11. The right ventricular systolic pressure, as measured by Doppler, is 41.37mmHg. 12. There is no pericardial effusion. LEAD JAVA PROGRAMMER: Luz Maria Arcos RDCS
[2020-10-09] MEDS: HYDROmorphone 0.5 MG/0.5 ML SYRINGE IVP PRN (10:45)
[2020-10-09] MEDS ORDERED: SODIUM CHLORIDE 0.9% 1,000 ML IV ONE (11:24)
--- NOTE | 2020-10-09 11:48 | P.PN ---
Subjective Progress Note Date: 10/09/20 CHIEF COMPLAINT: Small bowel obstruction HISTORY OF PRESENT ILLNESS: Patient is status post exploratory laparotomy with small bowel resection for small bowel obstruction. Postop day #3. Patient is complaining of increase in his abdominal pain. Reports that his pain is not controlled. Nursing staff unable to give the patient the IV Dilaudid as frequently as prescribed. He is on IV Dilaudid 1 mg every 3 hours as needed for pain with 0.5 mg every 2 hours as needed for breakthrough pain. Also on Toradol scheduled. Patient had a swallow evaluation and her speech therapy which showed incomplete or absent swallow. Patient to drink fluids during the speech evaluation and then proceeded to vomit them up. He had a chest x-ray which is negative. He is still no flatus or BM. White count is up to 16.2. Potassium 2.9. Repeat potassium 3.0 He is not able to ambulate as much as he should due to his arthritis pain and also having some dizziness. Urine is concentrated and dark. Patient had [address] Thomas is covering for Dr. Martinez PHYSICAL EXAM: VITAL SIGNS: Reviewed. GENERAL: Well-developed in no acute distress. HEENT: No sclera icterus. Extraocular movements grossly intact. Moist buccal mucosa. Head is atraumatic, normocephalic. ABDOMEN: Soft. Incisional dressing had shown some blood situation. Otherwise the incision is clean dry and intact. Patient does have abdominal tenderness around incision site. Abdomen is distended. NEUROLOGIC: Alert and oriented. Cranial nerves II through XII grossly intact. ASSESSMENT: 1. Small bowel obstruction status post exploratory laparotomy with small bowel resection 2. History of prior small bowel obstruction treated conservatively 3. History of cholecystectomy 4. History of incisional hernia repair 5. History of pancreatic surgery 6. Hypokalemia PLAN: -Consult pain service for pain management -Give patient 1 L fluid bolus for his concentrated urine -Keep patient nothing by mouth except for ice chips and popsicles -Change IV fluids to 0.9 normal saline with potassium at 125 mL per hour. Pot assium added to fluids to help with the hypokalemia -Continue pain medication as needed -Continue Zofran as needed -Consult PT OT -Have patient up at bedside chair for meals -Encourage patient to ambulate -Encourage patient to use incentive spirometer -GI prophylaxis Protonix and DVT prophylaxis subcu heparin Physician Wood Room Supervisor note has been reviewed by physician. Signing provider agrees with the documented findings, assessment, and plan of care. Objective - Vital Signs Vital signs: Vital Signs Temp 98.9 F 10/09/20 05:00 Pulse 89 10/09/20 05:00 Resp 18 10/09/20 05:00 BP 112/49 10/09/20 05:00 Pulse Ox 91 L 10/09/20 05:00 Intake & Output 10/08/20 10/09/20 10/09/20 18:59 06:59 18:59 Intake Total 1500 1000 Output Total 1000 Balance 1500 0 Weight 86.183 kg Intake: Intake, IV Titration 1500 1000 Amount Dextrose 5%-0.45% NaCl 1, 1500 1000 000 ml @ 125 mls/hr IV . Q8H [facility] Rx#:[id number] Output: Urine 1000 Other: Voiding Method Indwelling Catheter Indwelling Catheter Indwelling Catheter - Labs CBC & Chem 7: 10/09/20 03:21 10/09/20 03:21 Labs: Abnormal Lab Results - Last 24 Hours (Table) 10/08/20 10/09/20 10/09/20 Range/Units 05:22 03:21 03:21 WBC 16.2 H (3.8-10.6) k/uL RBC 3.69 L (4.30-5.90) m/uL Hgb 11.9 L (13.0-17.5) gm/dL Hct 33.4 L (39.0-53.0) % Neutrophils # 14.7 H (1.3-7.7) k/uL Lymphocytes # 0.9 L (1.0-4.8) k/uL Potassium 2.9 L (3.5-5.5) mmol/L Chloride 111 H (96-109) mmol/L BUN/Creatinine Ratio 22.00 H 23.75 H (12.00-20.00) Ratio Glucose 178 H 162 H (70-110) mg/dL Calcium 8.0 L 7.5 L (8.7-10.3) mg/dL Magnesium (1.6-2.3) mg/dL Total Protein 4.5 L (6.2-8.2) g/dL Albumin 2.90 L (3.80-4.90) g/dL 10/09/20 10/09/20 Range/Units 03:21 03:21 WBC (3.8-10.6) k/uL RBC (4.30-5.90) m/uL Hgb (13.0-17.5) gm/dL Hct (39.0-53.0) % Neutrophils # (1.3-7.7) k/uL Lymphocytes # (1.0-4.8) k/uL Potassium 3.0 L (3.5-5.5) mmol/L Chloride (96-109) mmol/L BUN/Creatinine Ratio (12.00-20.00) Ratio Glucose (70-110) mg/dL Calcium (8.7-10.3) mg/dL Magnesium 1.5 L (1.6-2.3) mg/dL Total Protein (6.2-8.2) g/dL Albumin (3.80-4.90) g/dL
[2020-10-09] MEDS: METOCLOPRAMIDE 5 MG/ML 2 ML VIAL IVP PRN (13:52)
[2020-10-09] MEDS: 0.9% NACL WITH KCL 20 MEQ/L 1,000 ML IV SCH ×2 (14:44→23:04)
[2020-10-09] MEDS: MAGNESIUM SULFATE-D5W PMX 1 GM in DEXTROSE/WATER 1 100ML.BAG IVPB SCH ×2 (14:44→17:35)
[2020-10-09] MEDS ORDERED: Magnesium Replacement Protocol 1 EACH MISC MISCELLANE PRN (15:34)
[2020-10-09] MEDS: POTASSIUM CHLORIDE 10 MEQ in WATER FOR INJECTION 1 100ML.BAG IVPB SCH ×6 (15:44→23:59)
--- NOTE | 2020-10-09 16:02 | P.PN ---
Subjective Progress Note Date: 10/09/20 Bryan Casarez is an 80 yo M with PMH of multiple previous abdominal surgeries, previous small bowel obstruction treated conservatively, peptic ulcer disease with GI bleed, prior history of alcoholism, chronic back pain who presented with a 2 day history of upper abdominal pain with nausea and vomiting. He experience dark tarry vomit and has not had a BM or passed flatus in 2 days. He denies any fever, chills or sweats. Computed tomography scan abdomen and pelvis shows a mid to distal small bowel obstruction with transition point in the proximal to mid ileal loops in the upper and mid pelvis just right of midline. 10/03/2020 Maintained on IV fluid hydration. Continues on conservative treatment as per surgery. Reports positive flatus. Denies abdominal pain, reports tenderness. Tolerating ice chips. No nausea, no vomiting. Ambulating in room, tolerating exertion well. Afebrile, WBC within normal limits as of yesterday. Potassium 3.4, creatinine 0.8. 10/06/2020 continues on IV fluid hydration. Complains of persistent significant pain , no nausea or vomiting. No bowel movement. Passed minimal amount of flatus last night.scheduled for small bowel follow-through with possible expl oratory laparotomy today as per surgery. Denies chest pain, palpitations or shortness of breath. Afebrile. 10/07/2020 Status post exploratory laparotomy with small bowel resection, POD #1.complains of increased abdominal pain. During the night requiring additional Dilaudid as well as Phenergan. Denies flatus or bowel movement. Denies nausea or vomiting. Afebrile, WBC up to 15.6. Hemoglobin 15.3, platelets 230. CMP pending. Denies chest pain, palpitations. Denies shortness of breath. M aintaining O2 sats in the 90s on room air. Heart rate currently 53, tachycardic last night in the 1 teens. 10/08/2020 Reports pain better controlled. Afebrile, WBC is trending down, 11.8. Tolerating sips of clear liquid diet with no nausea or vomiting. Audible gurgling, reports he has not been out of bed since surgery. Maintaining O2 sats in the 90s on room air. Heart rates ranging from 45-53 in a patient with history of nonischemic cardiomyopathy. Last EF recorded at 30% in 2017. Denies chest pain, palpitations or shortness of breath. Hemoglobin 13.5, platelets 211. 10/09/2020 reports ongoing abdominal pain with nausea and bloating. Denies passing flatus, but states occasional burping. Denies bowel movement. T-max 100.5, WBC increased to 16.2. Hemoglobin trending down, 11.9, platelets 160. Potassium 3, magnesium 1.5, supplements ordered for both. Denies chest pain, pa lpitations or shortness of breath. O2 saturation worsening on room air, maintaining O2 sats in the low 90s. Chest x-ray yesterday afternoon reporting no acute pulmonary process. Echo reporting mild concentric left ventricular hypertrophy, normal LV function, EF 60-65%, mild pulmonary hypertension. Yesterday evaluated by speech therapy reporting incomplete versus absent swallow, maintained on NPO status overnight with reevaluation this morning. Objective - Vital Signs Vital signs: Vital Signs Temp 98.9 F 10/09/20 05:00 Pulse 89 10/09/20 05:00 Resp 18 10/09/20 05:00 BP 112/49 10/09/20 05:00 Pulse Ox 91 L 10/09/20 05:00 Intake & Output 10/08/20 10/09/20 10/09/20 18:59 06:59 18:59 Intake Total 1500 1000 Output Total 1000 Balance 1500 0 Weight 86.183 kg Intake: Intake, IV Titration 1500 1000 Amount Dextrose 5%-0.45% NaCl 1, 1500 1000 000 ml @ 125 mls/hr IV . Q8H [facility] Rx#:[id number] Output: Urine 1000 Other: Voiding Method Indwelling Catheter Indwelling Catheter - Exam General: Sitting up in bed, NAD. Vitals reviewed Eyes: PERRL, EOMI, conjunctiva normal HENT: normocephalic, mucus membranes dry Neck: supple, no JVD Lungs: normal respiratory effort, bibasilar crackles CV: Regular rate and rhythm, no murmur. Peripheral pulses 2+ Abdomen: soft, Distended. Diffuse tenderness. Hypoactive bowel sounds Skin: warm and dry. Neuro: A&Ox3, normal mood and affect - Labs CBC & Chem 7: 10/09/20 03:21 10/09/20 03:21 Labs: Abnormal Lab Results - Last 24 Hours (Table) 10/08/20 10/09/20 10/09/20 Range/Units 05:22 03:21 03:21 WBC 16.2 H (3.8-10.6) k/uL RBC 3.69 L (4.30-5.90) m/uL Hgb 11.9 L (13.0-17.5) gm/dL Hct 33.4 L (39.0-53.0) % Neutrophils # 14.7 H (1.3-7.7) k/uL Lymphocytes # 0.9 L (1.0-4.8) k/uL Potassium 2.9 L (3.5-5.5) mmol/L Chloride 111 H (96-109) mmol/L BUN/Creatinine Ratio 22.00 H 23.75 H (12.00-20.00) Ratio Glucose 178 H 162 H (70-110) mg/dL Calcium 8.0 L 7.5 L (8.7-10.3) mg/dL Total Protein 4.5 L (6.2-8.2) g/dL Albumin 2.90 L (3.80-4.90) g/dL Assessment and Plan Assessment: (1) Intra-abdominal adhesions Current Visit: Yes Status: Acute Code(s): K66.0 - PERITONEAL ADHESIONS (POSTPROCEDURAL) (POSTINFECTION) SNOMED Code(s): 476060155 (2) Nausea & vomiting Current Visit: Yes Status: Acute Code(s): R11.2 - NAUSEA WITH VOMITING, UNSPECIFIED SNOMED Code(s): 76262118 (3) Acute Small bowel obstruction secondary to adhesions, status post exploratory laparotomy with small bowel resection, lysis of adhesions, excision of small abdominal mass, pathology pending. Current Visit: Yes Status: Acute Code(s): K56.609 - UNSP INTESTNL OBST, UNSP TO PARTIAL VERSUS COMPLETE OBST SNOMED Code(s): 248646166 (4) Abdominal pain Current Visit: No Status: Acute Code(s): R10.9 - UNSPECIFIED ABDOMINAL PAIN SNOMED Code(s): 02142130 (5) Gastritis Current Visit: Yes Status: Acute Code(s): K29.70 - GASTRITIS, UNSPECIFIED, WITHOUT BLEEDING SNOMED Code(s): 4317780 (6) chronic back pain (7) atelectasis, chest x-ray pending (8) bradycardia, in a patient with history of nonischemic cardiomyopathy . EF 30% noted in 2017 .echo now reporting significant improvement with normal LV function, EF 60-65%, mild pulmonary hypertension. Plan: Continue on current medication regime ,monitoring and symptomatic treatment. IV fluid hydration. Electrolyte replacement protocols for both potassium and magnesium ordered. Repeat potassium level at 1600 .T-max 100.5, blood cultures ordered. Calcitonin ordered. Will initiate Zosyn if calcitonin elevated , otherwise a dose of steroids.Aggressive pulmonary toileting with incentive spirometer reinforced.Pain Management as per surgery. Prognosis guarded given multiple medical issues. The impression and plan of care has been dictated as directed. : I performed a history and examination of this patient, discussed the same with the dictator. I agree with the dictator's note ,documented as a scribe. Any additional findings or plans will be noted.
[2020-10-09] MEDS: PIPERACILLIN-TAZOBACTAM 3.375 GM in SODIUM CHLORIDE 0.9% 100 ML IVPB SCH (18:20)
[2020-10-09] MEDS ORDERED: Potassium Replacement Protocol 1 EACH MISC MISCELLANE PRN (22:25)
[2020-10-10] MEDS: HYDROmorphone 1 MG/ML 1 ML SYRINGE IVP PRN ×5 (01:07→23:47)
[2020-10-10] MEDS: HYDROmorphone 0.5 MG/0.5 ML SYRINGE IVP PRN ×2 (03:19→21:27)
[2020-10-10] MEDS: 0.9% NACL WITH KCL 20 MEQ/L 1,000 ML IV SCH ×4 (03:22→19:57)
[2020-10-10] MEDS: KETOROLAC 15 MG/ML 1 ML VIAL IVP SCH ×3 (05:47→12:06)
[2020-10-10 06:24] LABS: Basophils # (A) 0.1 k/uL (0-0.2); Basophils % (A) 0 %; Eosinophils # (A) 0.2 k/uL (0-0.7); Eosinophils % (A) 1 %; HCT 31.9 % (39.0-53.0); HGB 11.2 gm/dL (13.0-17.5); Lymphocytes # (A) 1.4 k/uL (1.0-4.8); Lymphocytes % (A) 5 %; MCHC 35.1 g/dL (31.0-37.0); MCV 91.1 fL (80.0-100.0); Mean Platelet Volume 7.9; Monocytes # (A) 0.7 k/uL (0-1.0); Monocytes % (A) 3 %; Neutrophils # (A) 23.9 k/uL (1.3-7.7); Neutrophils % (A) 91 %; Platelet Count 158 k/uL (150-450); RDW 13.1 % (11.5-15.5); WBC 26.3 k/uL (3.8-10.6)
[2020-10-10 06:36] LABS: African American GFR (CKD) >90 (>60 ml/min/1.73 sqM); Anion Gap 4 mmol/L; Blood Urea Nitrogen 24 mg/dL (9-20); Calcium 8.2 mg/dL (8.4-10.2); Carbon Dioxide 26 mmol/L (22-30); Chloride 110 mmol/L (98-107); Glucose 108 mg/dL (74-99); Magnesium 2.2 mg/dL (1.6-2.3); Non-African American GFR(CKD) 85 (>60 ml/min/1.73 sqM); Potassium 3.5 mmol/L (3.5-5.1); Sodium 140 mmol/L (137-145)
[2020-10-10 06:41] LABS: INR 1.1 (<1.2); Prothrombin Time 11.7 sec (9.0-12.0)
[2020-10-10] MEDS: PANTOPRAZOLE 40 MG TABLET PO SCH (07:12)
[2020-10-10] MEDS: amLODIPine 5 MG TAB PO SCH (07:12)
[2020-10-10] MEDS: ENOXAPARIN 40 MG/0.4 ML SYRINGE SQ SCH (07:26)
[2020-10-10] MEDS: PIPERACILLIN-TAZOBACTAM 3.375 GM in SODIUM CHLORIDE 0.9% 100 ML IVPB SCH ×3 (07:27)
[2020-10-10 12:16] LABS: Ionized Calcium 5.3 mg/dL (4.5-5.3)
[2020-10-10 12:20] LABS: Albumin 2.3 g/dL (3.5-5.0); Phosphorus 1.7 mg/dL (2.5-4.5)
--- NOTE | 2020-10-10 15:29 | P.PN ---
Subjective Progress Note Date: 10/10/20 Bryan Casarez is an 80 yo M with PMH of multiple previous abdominal surgeries, previous small bowel obstruction treated conservatively, peptic ulcer disease with GI bleed, prior history of alcoholism, chronic back pain who presented with a 2 day history of upper abdominal pain with nausea and vomiting. He experience dark tarry vomit and has not had a BM or passed flatus in 2 days. He denies any fever, chills or sweats. Computed tomography scan abdomen and pelvis shows a mid to distal small bowel obstruction with transition point in the proximal to mid ileal loops in the upper and mid pelvis just right of midline. 10/03/2020 Maintained on IV fluid hydration. Continues on conservative treatment as per surgery. Reports positive flatus. Denies abdominal pain, reports tenderness. Tolerating ice chips. No nausea, no vomiting. Ambulating in room, tolerating exertion well. Afebrile, WBC within normal limits as of yesterday. Potassium 3.4, creatinine 0.8. 10/06/2020 continues on IV fluid hydration. Complains of persistent significant pain , no nausea or vomiting. No bowel movement. Passed minimal amount of flatus last night.scheduled for small bowel follow-through with possible expl oratory laparotomy today as per surgery. Denies chest pain, palpitations or shortness of breath. Afebrile. 10/07/2020 Status post exploratory laparotomy with small bowel resection, POD #1.complains of increased abdominal pain. During the night requiring additional Dilaudid as well as Phenergan. Denies flatus or bowel movement. Denies nausea or vomiting. Afebrile, WBC up to 15.6. Hemoglobin 15.3, platelets 230. CMP pending. Denies chest pain, palpitations. Denies shortness of breath. M aintaining O2 sats in the 90s on room air. Heart rate currently 53, tachycardic last night in the 1 teens. 10/08/2020 Reports pain better controlled. Afebrile, WBC is trending down, 11.8. Tolerating sips of clear liquid diet with no nausea or vomiting. Audible gurgling, reports he has not been out of bed since surgery. Maintaining O2 sats in the 90s on room air. Heart rates ranging from 45-53 in a patient with history of nonischemic cardiomyopathy. Last EF recorded at 30% in 2017. Denies chest pain, palpitations or shortness of breath. Hemoglobin 13.5, platelets 211. 10/09/2020 reports ongoing abdominal pain with nausea and bloating. Denies passing flatus, but states occasional burping. Denies bowel movement. T-max 100.5, WBC increased to 16.2. Hemoglobin trending down, 11.9, platelets 160. Potassium 3, magnesium 1.5, supplements ordered for both. Denies chest pain, pa lpitations or shortness of breath. O2 saturation worsening on room air, maintaining O2 sats in the low 90s. Chest x-ray yesterday afternoon reporting no acute pulmonary process. Echo reporting mild concentric left ventricular hypertrophy, normal LV function, EF 60-65%, mild pulmonary hypertension. Yesterday evaluated by speech therapy reporting incomplete versus absent swallow, maintained on NPO status overnight with reevaluation this morning. 10/10/2020 Scheduled for PICC line placement, TPN as per dietary. Denies flatus or bowel movement. Reports an occasional burping, ice chips and popsicles.T-max 100.5, WBC up to 26.3. Preliminary Blood cultures positive for Klebsiella oxytoca. Antibiotics adjusted, now on Rocephin. Positive pain, less tender. States Dilaudid only makes him loopy does not take his pain away. Reports he sat up in the chair yesterday. Minimal ambulation within room.Partial labs pending. Objective - Vital Signs Vital signs: Vital Signs Temp 98.2 F 10/10/20 12:10 Pulse 78 10/10/20 12:10 Resp 16 10/10/20 12:10 BP 121/70 10/10/20 12:10 Pulse Ox 97 10/10/20 12:10 Intake & Output 10/09/20 10/10/20 10/10/20 18:59 06:59 18:59 Intake Total 590 Output Total 600 600 Balance -600 -10 Weight 86.183 kg Intake: Oral 590 Output: Urine 600 600 Other: Voiding Method Indwelling Catheter Indwelling Catheter Indwelling Catheter - Exam General: Sitting up in bed, NAD. Vitals reviewed Eyes: PERRL, EOMI, conjunctiva normal HENT: normocephalic, mucus membranes dry Neck: supple, no JVD Lungs: normal respiratory effort, bibasilar crackles CV: Regular rate and rhythm, no murmur. Peripheral pulses 2+ Abdomen: soft, Distended. Diffuse tenderness, less. Hypoactive bowel sounds Skin: warm and dry. Neuro: A&Ox3, normal mood and affect - Labs CBC & Chem 7: 10/10/20 05:44 10/10/20 05:44 Labs: Abnormal Lab Results - Last 24 Hours (Table) 10/09/20 10/10/20 10/10/20 Range/Units 16:27 05:44 05:44 WBC 26.3 H (3.8-10.6) k/uL RBC 3.50 L (4.30-5.90) m/uL Hgb 11.2 L (13.0-17.5) gm/dL Hct 31.9 L (39.0-53.0) % Neutrophils # 23.9 H (1.3-7.7) k/uL Potassium 3.0 L (3.5-5.1) mmol/L Chloride 110 H (98-107) mmol/L BUN 24 H (9-20) mg/dL Glucose 108 H (74-99) mg/dL Calcium 8.2 L (8.4-10.2) mg/dL Phosphorus (2.5-4.5) mg/dL Albumin (3.5-5.0) g/dL 10/10/20 Range/Units 11:29 WBC (3.8-10.6) k/uL RBC (4.30-5.90) m/uL Hgb (13.0-17.5) gm/dL Hct (39.0-53.0) % Neutrophils # (1.3-7.7) k/uL Potassium (3.5-5.1) mmol/L Chloride (98-107) mmol/L BUN (9-20) mg/dL Glucose (74-99) mg/dL Calcium (8.4-10.2) mg/dL Phosphorus 1.7 L (2.5-4.5) mg/dL Albumin 2.3 L (3.5-5.0) g/dL Microbiology - Last 24 Hours (Table) 10/09/20 15:54 Blood Culture Gram Stain - Preliminary Blood Blood Culture - Preliminary Klebsiella oxytoca 10/09/20 15:54 Blood Culture - Final Blood Assessment and Plan Assessment: (1) Intra-abdominal adhesions Current Visit: Yes Status: Acute Code(s): K66.0 - PERITONEAL ADHESIONS (POSTPROCEDURAL) (POSTINFECTION) SNOMED Code(s): 217187305 (2)Bacteremia with preliminary blood cultures reporting Klebsiella oxytoca, post-op (3) Nausea & vomiting Current Visit: Yes Status: Acute Code(s): R11.2 - NAUSEA WITH VOMITING, UNSPECIFIED SNOMED Code(s): 81744370 (4) Acute Small bowel obstruction secondary to adhesions, status post exploratory laparotomy with small bowel resection, lysis of adhesions, excision of small abdominal mass, pathology pending. Current Visit: Yes Status: Acute Code(s): K56.609 - UNSP INTESTNL OBST, UNSP TO PARTIAL VERSUS COMPLETE OBST SNOMED Code(s): 101806014 (5) Abdominal pain Current Visit: No Status: Acute Code(s): R10.9 - UNSPECIFIED ABDOMINAL PAIN SNOMED Code(s): 88304956 (6) Gastritis Current Visit: Yes Status: Acute Code(s): K29.70 - GASTRITIS, UNSPECIFIED, WITHOUT BLEEDING SNOMED Code(s): 5712441 (7) chronic back pain (8) atelectasis, chest x-ray pending (9) bradycardia, in a patient with history of nonischemic cardiomyopathy . EF 30% noted in 2017 .echo now reporting significant improvement with normal LV function, EF 60-65%, mild pulmonary hypertension. Plan: Continue on current medication regime ,monitoring and symptomatic treatment. Maintain IV fluid hydration. Partial labs pending. Antibiotics changed to Rocephin , infectious disease consulted regarding bacteremia. Encouraged patient to increase ambulation, resistant.PT/OT .Aggressive pulmonary toileting with incentive spirometer reinforced.Pain Management as per pain management services. Prognosis guarded given multiple medical issues. The impression and plan of care has been dictated as directed. : I performed a history and examination of this patient, discussed the same with the dictator. I agree with the dictator's note ,documented as a scribe. Any additional findings or plans will be noted.
[2020-10-10] MEDS: POTASSIUM BICARBONATE/CIT AC 20 MEQ TABLET.EFF NG-TUBE SCH ×2 (16:56→18:05)
--- NOTE | 2020-10-10 18:09 | CONS ---
CONSULTATION DATE OF SERVICE: 10/10/2020 REASON FOR CONSULTATION: Klebsiella bacteremia. HISTORY OF PRESENT ILLNESS: The patient is an 80-year-old male who presented to the hospital about 10 days ago on 10/01/2020 for evaluation of abdominal pain, nausea and vomiting. His symptoms have been going on for 2 days before he presented to the hospital. The patient was evaluated by the ER physician. On arrival to the ER, the patient did have a CT of abdomen and pelvis with evidence of a small-bowel obstruction. Patient was treated conservatively and apparently did not have any improvement. Subsequently the patient was taken to the OR on October 06 in this patient status post exploratory laparotomy with revision with concern of an abdominal wall mass, lysis of adhesions and small-bowel resection. The patient has been afebrile through this hospital stay. However, the patient did spike a fever of 100-100.2 degrees Fahrenheit yesterday morning and yesterday afternoon. For which the patient did have blood cultures done, 1 of them is now showing Klebsiella. The patient was started on Rocephin. The patient also did have a white count which was 16.8 yesterday and is up to 26.3 today. Infectious Disease was consulted for further management of antibiotic therapy. The patient currently denies having any fever or any chills. The patient mentioned overall his abdominal pain has improved and he is able to tolerate some clear liquid diet without any nausea, no vomiting. The patient denies having any bowel movement since the surgery, though. The patient denies having any chest pain or shortness of breath or cough. The patient did have chronic indwelling Connolly catheter since admission, this is mostly morning for urine outflow on monitoring. The patient denies any urinary symptoms before presentation to the hospital. No UA has been done and the patient did have a chest x-ray completed on October 08 was negative for any acute pulmonary process. REVIEW OF SYSTEMS: Positive points have been mentioned in HPI. Rest of systems are negative. PAST MEDICAL HISTORY: Gastroesophageal reflux disease, GI bleed, hyperlipidemia, osteoarthritis, prostate disorder, sleep apnea. PAST SURGICAL HISTORY: Back surgery, cholecystectomy, heart catheterization, hernia repair and ORIF left elbow. SOCIAL HISTORY: Remote history of smoking. No drinking or drug use. FAMILY HISTORY: No pertinent findings noticed. ALLERGIES: No known drug allergies. MEDICATIONS: The patient is currently on Norvasc, Rocephin 2 grams daily. He is on Lovenox, Dilaudid, metoclopramide, Narcan, Zofran, Protonix, K-Lyte, and IV fluid. PHYSICAL EXAMINATION: Blood pressure 121/70 with a pulse of 78, temperature 98.2. He is 97% on room air. General description is an elderly male lying in bed in no distress. No tachypnea or accessory muscles of respiration use. HEENT: Examination shows slight pallor. No scleral icterus. Oral mucous membranes dry. NECK: Trachea central. No thyromegaly. LUNGS unlabored breathing, clear to auscultation anteriorly. No wheeze or crackles. HEART S1, S2. Regular rate and rhythm. ABDOMEN: Soft. Mildly distended. No guarding. No rigidity. EXTREMITIES: No edema of the feet. SKIN: No rash or mass palpable. NEUROLOGIC: The patient is awake, alert, oriented times three. Mood and affect normal. LABS: Hemoglobin 11.2, white count 6.3. The BUN of 24, creatinine 0.79. Blood culture done on the positive. Chest x-ray on October 08 was negative. DIAGNOSTIC IMPRESSION AND PLAN: Patient with Klebsiella bacteremia in this patient who presented to hospital about 10 days ago for nausea, vomiting secondary to small-bowel obstruction. This patient status post laparotomy, lysis of adhesions and small bowel resection. The patient currently did not have significant abdominal symptoms, rather feeling better with possible source catheter associated urinary tract infection. Chest x-ray was negative. PLAN: 1. Blood cultures repeat to document clearance of bacteremia. 2. Rocephin 2 g q.8h to continue. 3. Check urine culture. 4. Remove his Connolly catheter. 5. We will follow on his clinical condition and culture to further adjust medication if needed. Thank you for this consultation. Will follow this patient along with you. MMODL / IJN: [id number] / YASH
--- NOTE | 2020-10-10 19:33 | P.PN ---
Subjective Progress Note Date: 10/10/20 Principal diagnosis: He tolerated liquid diet. No flatus. He is not ambulating. He has occasional pain. Prior to current event, "I can eat anything!" Recommend ambulation. Advance of diet pending flatus. TPN on hold. Objective - Vital Signs Vital signs: Vital Signs Temp 98.2 F 10/10/20 12:10 Pulse 78 10/10/20 12:10 Resp 16 10/10/20 12:10 BP 121/70 10/10/20 12:10 Pulse Ox 97 10/10/20 12:10 Intake & Output 10/10/20 10/10/20 10/11/20 06:59 18:59 06:59 Intake Total 590 1500 Output Total 600 525 Balance -10 975 Weight 86.183 kg Intake: Intake, IV Titration 1500 Amount 0.9% NaCl with KCl 20 Meq 1500 /l 1,000 ml @ 125 mls/hr IV .Q8H [facility] Rx#:[id number] Oral 590 Output: Urine 600 525 Other: Voiding Method Indwelling Catheter Indwelling Catheter - Labs CBC & Chem 7: 10/10/20 05:44 10/10/20 05:44 Labs: Abnormal Lab Results - Last 24 Hours (Table) 10/10/20 10/10/20 10/10/20 Range/Units 05:44 05:44 11:29 WBC 26.3 H (3.8-10.6) k/uL RBC 3.50 L (4.30-5.90) m/uL Hgb 11.2 L (13.0-17.5) gm/dL Hct 31.9 L (39.0-53.0) % Neutrophils # 23.9 H (1.3-7.7) k/uL Chloride 110 H (98-107) mmol/L BUN 24 H (9-20) mg/dL Glucose 108 H (74-99) mg/dL Calcium 8.2 L (8.4-10.2) mg/dL Phosphorus 1.7 L (2.5-4.5) mg/dL Albumin 2.3 L (3.5-5.0) g/dL Microbiology - Last 24 Hours (Table) 10/09/20 15:54 Blood Culture Gram Stain - Preliminary Blood Blood Culture - Preliminary Klebsiella oxytoca 10/09/20 15:54 Blood Culture - Final Blood
[2020-10-10 20:56] LABS: Appearance,Urine Clear (Clear); Bacteria,Urine Rare /hpf; Bilirubin,Urine 1+ (Negative); Blood,Urine Small (Negative); Color,Urine Yellow; Glucose,Urine (UA) Negative (Negative); Ketones,Urine Negative (Negative); Leukocyte Esterase,Urine Large (Negative); Mucus,Urine Rare /hpf; Nitrite,Urine Negative (Negative); Protein,Urine Trace (Negative); RBC,Urine 16 /hpf (0-5); Specific Gravity,Urine 1.021 (1.001-1.035); Squamous Epithelial Cell,Urine <1 /hpf (0-4); WBC,Urine 28 /hpf (0-5)
[2020-10-11] MEDS: HYDROmorphone 1 MG/ML 1 ML SYRINGE IVP PRN ×4 (03:25→22:08)
[2020-10-11] MEDS: 0.9% NACL WITH KCL 20 MEQ/L 1,000 ML IV SCH ×2 (04:07→19:57)
[2020-10-11 05:46] LABS: Basophils % (A) 0 %; Eosinophils # (A) 0.3 k/uL (0-0.7); Eosinophils % (A) 2 %; HCT 32.4 % (39.0-53.0); Lymphocytes # (A) 1.6 k/uL (1.0-4.8); Lymphocytes % (A) 9 %; MCH 31.6 pg (25.0-35.0); MCHC 33.9 g/dL (31.0-37.0); MCV 93.1 fL (80.0-100.0); Mean Platelet Volume 7.7; Monocytes # (A) 0.7 k/uL (0-1.0); Monocytes % (A) 4 %; Neutrophils % (A) 84 %; Platelet Count 170 k/uL (150-450); RBC 3.48 m/uL (4.30-5.90); RDW 13.3 % (11.5-15.5); WBC 17.8 k/uL (3.8-10.6)
[2020-10-11 06:02] LABS: African American GFR (CKD) >90 (>60 ml/min/1.73 sqM); Anion Gap 5 mmol/L; Blood Urea Nitrogen 20 mg/dL (9-20); Carbon Dioxide 25 mmol/L (22-30); Chloride 111 mmol/L (98-107); Glucose 111 mg/dL (74-99); Non-African American GFR(CKD) 89 (>60 ml/min/1.73 sqM); Phosphorus 2.3 mg/dL (2.5-4.5); Potassium 3.7 mmol/L (3.5-5.1); Sodium 141 mmol/L (137-145)
[2020-10-11] MEDS: ENOXAPARIN 40 MG/0.4 ML SYRINGE SQ SCH (08:16)
[2020-10-11] MEDS: amLODIPine 5 MG TAB PO SCH (08:16)
[2020-10-11] MEDS: PANTOPRAZOLE 40 MG TABLET PO SCH (08:16)
[2020-10-11] MEDS ORDERED: Potassium Replacement Protocol 1 EACH MISC MISCELLANE PRN (13:23)
--- NOTE | 2020-10-11 13:53 | P.PN ---
Subjective Progress Note Date: 10/11/20 Principal diagnosis: No emesis. Tolerating clear liquid diet. He is yet to ambulate. No peritonitis. Abdominal pain is improving. He reports "I have rumbling in the stomach" for fl atus. Will advance to full liquid diet. Await bowel function. Objective - Vital Signs Vital signs: Vital Signs Temp 97.7 F 10/11/20 05:00 Pulse 78 10/11/20 08:00 Resp 16 10/11/20 08:00 BP 138/84 10/11/20 05:00 Pulse Ox 95 10/11/20 05:00 Intake & Output 10/10/20 10/11/20 10/11/20 18:59 06:59 18:59 Intake Total 1500 Output Total 525 350 250 Balance 975 -350 -250 Weight 86.183 kg Intake: Intake, IV Titration 1500 Amount 0.9% NaCl with KCl 20 Meq 1500 /l 1,000 ml @ 125 mls/hr IV .Q8H [facility] Rx#:[id number] Output: Urine 525 350 250 Other: Voiding Method Indwelling Catheter Urinal Urinal # Voids 1 1 - Labs CBC & Chem 7: 10/11/20 04:38 10/11/20 04:38 Labs: Abnormal Lab Results - Last 24 Hours (Table) 10/10/20 10/11/20 10/11/20 Range/Units 20:05 04:38 04:38 WBC 17.8 H (3.8-10.6) k/uL RBC 3.48 L (4.30-5.90) m/uL Hgb 11.0 L (13.0-17.5) gm/dL Hct 32.4 L (39.0-53.0) % Neutrophils # 15.0 H (1.3-7.7) k/uL Chloride 111 H (98-107) mmol/L Glucose 111 H (74-99) mg/dL Calcium 8.0 L (8.4-10.2) mg/dL Phosphorus 2.3 L (2.5-4.5) mg/dL C-Reactive Protein 18.0 H (<1.0) mg/dL Urine Protein Trace H (Negative) Urine Blood Small H (Negative) Urine Bilirubin 1+ H (Negative) Ur Leukocyte Esterase Large H (Negative) Urine RBC 16 H (0-5) /hpf Urine WBC 28 H (0-5) /hpf Urine Bacteria Rare H (None) /hpf Urine Mucus Rare H (None) /hpf Microbiology - Last 24 Hours (Table) 10/10/20 20:05 Urine Culture - Preliminary Urine,Voided 10/09/20 15:54 Blood Culture Gram Stain - Preliminary Blood Blood Culture - Preliminary Klebsiella oxytoca
[2020-10-11] MEDS ORDERED: POTASSIUM CHLORIDE ER 20 MEQ TAB.ER PO SCH (14:00)
[2020-10-11 14:44] LABS: Basophils # (A) 0.1 k/uL (0-0.2); Basophils % (A) 0 %; Eosinophils # (A) 0.3 k/uL (0-0.7); Eosinophils % (A) 2 %; HCT 33.3 % (39.0-53.0); HGB 11.7 gm/dL (13.0-17.5); Lymphocytes # (A) 1.5 k/uL (1.0-4.8); Lymphocytes % (A) 9 %; MCH 32.1 pg (25.0-35.0); MCV 91.5 fL (80.0-100.0); Mean Platelet Volume 7.4; Monocytes # (A) 0.7 k/uL (0-1.0); Monocytes % (A) 4 %; Neutrophils # (A) 13.6 k/uL (1.3-7.7); Neutrophils % (A) 84 %; Platelet Count 164 k/uL (150-450); RBC 3.64 m/uL (4.30-5.90); RDW 13.3 % (11.5-15.5); WBC 16.3 k/uL (3.8-10.6)
[2020-10-11] MEDS: ONDANSETRON 4 MG/2 ML VIAL IVP PRN (20:21)
--- NOTE | 2020-10-11 20:49 | PN ---
PROGRESS NOTE DATE OF SERVICE: 10/11/2020. I am covering for Dr. York. HISTORY: This 80-year-old gentleman who was admitted with acute small-bowel obstruction underwent exploratory laparotomy, excision of calcified abdominal wall mass and as well as lysis of adhesions, small bowel resection by Dr. Martinez. The patient is being closely monitored at this time. The patient also had a Klebsiella oxytoca sepsis also. Patient on antibiotics. No chest pain. No palpitations. No fever. PHYSICAL EXAMINATION: Alert and oriented x3. Pulse 77, blood pressure 150/82, respiration 18, temperature 98 degrees, pulse ox 98% on room air. HEENT: Conjunctivae normal. NECK: Supple. No JVD. CARDIOVASCULAR: S1 and S2 normal. LUNGS: Breath sounds diminished at the bases. Scattered rhonchi. ABDOMEN: Soft, status post surgery. EXTREMITIES: Legs are no edema. CENTRAL NERVOUS SYSTEM: No focal deficits. LABS: WBC 16.2, hemoglobin 11.7, sodium 141, potassium 3.7. Cultures are noted. ASSESSMENT: 1. Acute small-bowel obstruction status post exploratory laparotomy and lysis of adhesions, small bowel resection and excision of the calcified abdominal wall mass. 2. Klebsiella oxytoca sepsis. 3. Nausea and vomiting. 4. Abdominal pain. 5. History of gastritis. 6. Hyponatremia. 7. Hypokalemia. 8. Hypertension. 9. Hypocalcemia. 10.History of gastroesophageal reflux disease. 11.History of degenerative joint disease. 12.History of cardiomyopathy. 13.History of PVCs. 14.History of diverticular disease. 15.History of sleep apnea. 16.History of back surgery. 17.History of cardiac catheterization. 18.History of pancreatic surgery at [place]. 19.History of spinal surgery. 20.Depression. 21.No code no CPR no vent. RECOMMENDATIONS: Recommend to continue current management and symptomatic treatment. Continue with antibiotics. Will repeat blood cultures to ensure normalcy at this time, blood and urine cultures. Further recommendations to follow. MMODL / IJN: [id number] /
[2020-10-11] MEDS: HYDROmorphone 0.5 MG/0.5 ML SYRINGE IVP PRN (22:02)
[2020-10-11] MEDS: traZODone HCL 50 MG TAB PO SCH (22:41)
--- NOTE | 2020-10-12 02:16 | PN ---
PROGRESS NOTE DATE OF SERVICE: 10/11/2020. REASON FOR FOLLOWUP: Klebsiella bacteremia, possible urinary source. INTERVAL HISTORY: Patient is afebrile. The patient is breathing comfortably. Denies having any chest pain. No shortness of breath or cough. No abdominal pain. No nausea, vomiting. Connolly catheter has been discontinued and the patient is able to urinate, currently. EXAMINATION: Blood pressure 154/91 with a pulse of 80, temperature 98.5. He is 94% on room air. Description: Is an elderly male, up in the bed, in no distress. Respiratory system: Unlabored breathing, clear to auscultation anteriorly. Heart: S1, S2. Regular rate and rhythm. Abdomen: Soft, no tenderness. LABS: Hemoglobin 11.7, hematocrit 16.3, creatinine 0.70. DIAGNOSTIC IMPRESSION AND PLAN: Patient with Klebsiella bacteremia. Concern likely for catheter infection with culture pending. Patient responded to Rocephin, will continue while waiting for the sensitivity to finalize and monitor clinical course closely. MMODL / IJN: [id number] /
[2020-10-12] MEDS: HYDROmorphone 1 MG/ML 1 ML SYRINGE IVP PRN ×6 (04:00→23:23)
[2020-10-12] MEDS: 0.9% NACL WITH KCL 20 MEQ/L 1,000 ML IV SCH ×2 (04:05→11:49)
[2020-10-12 06:32] LABS: African American GFR (CKD) >90 (>60 ml/min/1.73 sqM); Anion Gap 4 mmol/L; Blood Urea Nitrogen 9 mg/dL (9-20); Carbon Dioxide 28 mmol/L (22-30); Chloride 109 mmol/L (98-107); Glucose 125 mg/dL (74-99); Magnesium 1.8 mg/dL (1.6-2.3); Non-African American GFR(CKD) >90 (>60 ml/min/1.73 sqM); Phosphorus 3.6 mg/dL (2.5-4.5); Potassium 3.1 mmol/L (3.5-5.1); Sodium 141 mmol/L (137-145)
[2020-10-12] MEDS ORDERED: Potassium Replacement Protocol 1 EACH MISC MISCELLANE PRN ×2 (07:04→16:06)
[2020-10-12] MEDS: POTASSIUM CHLORIDE ER 20 MEQ TAB.ER PO SCH ×4 (07:56→17:05)
[2020-10-12] MEDS: amLODIPine 5 MG TAB PO SCH (07:58)
[2020-10-12] MEDS: ENOXAPARIN 40 MG/0.4 ML SYRINGE SQ SCH (07:58)
[2020-10-12] MEDS: PANTOPRAZOLE 40 MG TABLET PO SCH (07:58)
[2020-10-12] MEDS: ONDANSETRON 4 MG/2 ML VIAL IVP PRN (08:13)
[2020-10-12] MEDS: SODIUM CHLORIDE 0.9% 1,000 ML IV SCH (11:53)
--- NOTE | 2020-10-12 15:49 | PN ---
PROGRESS NOTE DATE OF SERVICE: 10/12/2020. I am covering for Dr. York. HISTORY: This 80-year-old gentleman who was admitted after laparotomy and lysis of adhesions, for small-bowel obstruction, is being closely monitored at this time. The patient is complaining of some abdominal pain, which is improving. Patient able to tolerate p.o. diet as well. The patient also had Klebsiella bacteremia. The most recent cultures are negative. PAST MEDICAL HISTORY: Reviewed. PHYSICAL EXAMINATION: Patient is alert, oriented x3. Pulse 76, blood pressure 140/70, respirations 18, temperature 98.2, pulse ox 98% on room air. HEENT: Conjunctivae normal. NECK: No JVD. LUNGS: Breath sounds diminished at the bases. Few rhonchi. No crackles. ABDOMEN: Soft. Mild diffuse distention, status post surgery. No guarding. No rigidity. LEGS: No edema, no swelling. LABS: WBC 16.2, hemoglobin 11.7, potassium 3.1. ASSESSMENT: 1. Acute small-bowel obstruction status post exploratory laparotomy and lysis of adhesions, small bowel resection, excision of the calcified abdominal wall mass. 2. Klebsiella oxytoca sepsis and bacteremia. 3. Nausea, vomiting, present on admission. 4. Abdominal pain. 5. History of gastritis. 6. Hyponatremia. 7. Hypokalemia. 8. Hypertension. 9. Hypocalcemia. 10.Gastroesophageal reflux disease. 11.History of degenerative joint disease. 12.History of cardiomyopathy. 13.History of PVC. 14.History of diverticular disease. 15.History of sleep apnea. 16.History of back surgery. 17.History of cardiac catheterization. 18.History of pancreatic surgery at [place]. 19.History of spinal stenosis. 20.History of depression. 21.No code, no CPR, no vent. RECOMMENDATIONS AND DISCUSSION: I recommend to continue current management and symptomatic treatment. Continue the antibiotics. Repeat cultures. Otherwise supplement potassium and repeat lytes in the morning. Dr. York will follow. MMODL / IJN: [id number] /
[2020-10-12] MEDS: traZODone HCL 50 MG TAB PO SCH (22:34)
--- NOTE | 2020-10-13 00:18 | PN ---
PROGRESS NOTE DATE OF SERVICE: 10/12/2020 REASON FOR FOLLOW UP: Klebsiella bacteremia possibly urinary source. INTERVAL HISTORY: Patient is afebrile. The patient is breathing comfortably. Has been complaining of some abdominal pain off and on, but no vomiting. No chest pain, shortness of breath or cough and no urinary symptoms. PHYSICAL EXAMINATION: Blood pressure 144/82 with a pulse of 80, temperature 98.8. He is 95% on room air. General description is an elderly male lying in bed in no distress. Respiratory system: Unlabored breathing, clear to auscultation anteriorly. Heart S1, S2. Regular rate and rhythm. ABDOMEN: Soft, no tenderness. EXTREMITIES: No edema of the feet. LAB DATA: BUN of 9, creatinine 0.53. CBC was not done today. Blood culture repeat has been negative so far. Urine came back negative. DIAGNOSTIC IMPRESSION AND PLAN: Patient with Klebsiella bacteremia concern for possible urinary source versus abdominal. Blood cultures have been negative. Patient is covered with Rocephin to continue while monitoring clinical course closely. Continue supportive care. MMODL / IJN: [id number] /
[2020-10-13] MEDS: HYDROmorphone 1 MG/ML 1 ML SYRINGE IVP PRN ×3 (04:18→10:15)
[2020-10-13 05:39] LABS: Basophils % (A) 0 %; Eosinophils # (A) 0.3 k/uL (0-0.7); Eosinophils % (A) 2 %; HCT 33.4 % (39.0-53.0); HGB 11.7 gm/dL (13.0-17.5); Lymphocytes # (A) 1.8 k/uL (1.0-4.8); Lymphocytes % (A) 15 %; MCH 31.9 pg (25.0-35.0); MCV 91.1 fL (80.0-100.0); Mean Platelet Volume 7.3; Monocytes # (A) 0.9 k/uL (0-1.0); Monocytes % (A) 8 %; Neutrophils # (A) 8.8 k/uL (1.3-7.7); Neutrophils % (A) 73 %; Platelet Count 206 k/uL (150-450); RBC 3.67 m/uL (4.30-5.90); RDW 13.1 % (11.5-15.5)
[2020-10-13] MEDS: ENOXAPARIN 40 MG/0.4 ML SYRINGE SQ SCH (07:16)
[2020-10-13] MEDS: amLODIPine 5 MG TAB PO SCH (07:16)
[2020-10-13] MEDS: PANTOPRAZOLE 40 MG TABLET PO SCH (07:16)
[2020-10-13 09:28] LABS: Glucose,Whole Blood 184 mg/dL (75-99)
[2020-10-13 09:41] LABS: African American GFR (CKD) 118.6 (60.0-200.0); Anion Gap 7.8 mmol/L (4.00-12.00); Calcium 8.1 mg/dL (8.7-10.3); Carbon Dioxide 30.2 mmol/L (21.6-31.8); Non-African American GFR(CKD) 102.3 (60.0-200.0); Potassium 3.7 mmol/L (3.5-5.5)
[2020-10-13] MEDS: SODIUM CHLORIDE 0.9% 1,000 ML IV SCH (10:20)
[2020-10-13] MEDS ORDERED: NITROGLYCERIN SL TABS 0.4 MG TAB SUBLINGUAL PRN (11:27)
[2020-10-13] MEDS: HYDROcodone/APAP 10-325MG 1 EACH TAB PO PRN ×2 (12:59→20:57)
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
--- NOTE | 2020-10-13 14:00 | P.PN ---
Subjective Progress Note Date: 10/13/20 CHIEF COMPLAINT: Small bowel obstruction HISTORY OF PRESENT ILLNESS: Patient is status post exploratory laparotomy with small bowel resection for small bowel obstruction on 10/06/20. Patient is currently on a full liquid diet. He reports he had a coughing episode while eating his old male. He stated the only was thick and got stuck in his throat. He reports some shortness of breath during that time. Per nursing he had also complained of chest pain. Medicine service had ordered EKG and have put c ardiology on for consult. Patient reports that he is having flatus. He did have a bowel movement yesterday. Denies any nausea or vomiting. He does complain of abdominal pain. He does take [place] at home. His home dose of [place] have been restarted. Afebrile. White count has decreased from 16.3-12 hemoglobin is 11.7 platelets 206 sodium 144 potassium 3.7 creatinine 0.5 troponin 0.016 patient has 1 positive blood culture with Klebsiella oxytoca and gram-negative bacilli. Repeat blood cultures negative. He is followed by infectious disease. Dr. Thomas is covering for Dr. Martinez PHYSICAL EXAM: VITAL SIGNS: Reviewed. GENERAL: Well-developed in no acute distress. HEENT: No sclera icterus. Extraocular movements grossly intact. Moist buccal mucosa. Head is atraumatic, normocephalic. ABDOMEN: Soft. Mildly distended. Mild tenderness around incision site. No erythema. Serosanguineous drainage from incision noted on dressing. NEUROLOGIC: Alert and oriented. Cranial nerves II through XII grossly intact. ASSESSMENT: 1. Small bowel obstruction status post exploratory laparotomy with small bowel resection 2. History of prior small bowel obstruction treated conservatively 3. History of cholecystectomy 4. History of incisional hernia repair 5. History of pancreatic surgery 6. Hypokalemia improved 7. Bacteremia PLAN: -Advance diet to regular -Patient will be reevaluated by speech therapy -Okay to start patient on aspirin 81 mg daily from surgical standpoint -Resume patient's home dose of [place] -Continue pain medication as needed -Continue Zofran as needed -Consult PT OT -Encourage patient to ambulate -Encourage patient to use incentive spirometer -GI prophylaxis Protonix and DVT prophylaxis subcu heparin Physician Curb Builder note has been reviewed by physician. Signing provider agrees with the documented findings, assessment, and plan of care. Objective - Vital Signs Vital signs: Vital Signs Temp 98.4 F 10/13/20 12:06 Pulse 83 10/13/20 12:06 Resp 19 10/13/20 12:06 BP 146/63 10/13/20 12:06 Pulse Ox 94 L 10/13/20 12:06 Intake & Output 10/12/20 10/13/20 10/13/20 18:59 06:59 18:59 Intake Total 1040 Output Total 1175 Balance -135 Intake: Oral 1040 Output: Urine 1175 Other: Voiding Method Urinal Urinal Urinal # Voids 3 - Labs CBC & Chem 7: 10/13/20 04:46 10/13/20 04:46 Labs: Abnormal Lab Results - Last 24 Hours (Table) 10/12/20 10/13/20 10/13/20 Range/Units 14:40 04:46 04:46 WBC 12.0 H (3.8-10.6) k/uL RBC 3.67 L (4.30-5.90) m/uL Hgb 11.7 L (13.0-17.5) gm/dL Hct 33.4 L (39.0-53.0) % Neutrophils # 8.8 H (1.3-7.7) k/uL Potassium 3.2 L (3.5-5.1) mmol/L BUN 5.0 L (9.0-27.0) mg/dL Creatinine 0.5 L (0.6-1.5) mg/dL BUN/Creatinine Ratio 10.00 L (12.00-20.00) Ratio Glucose 132 H (70-110) mg/dL POC Glucose (mg/dL) (75-99) mg/dL Calcium 8.1 L (8.7-10.3) mg/dL 10/13/20 Range/Units 09:23 WBC (3.8-10.6) k/uL RBC (4.30-5.90) m/uL Hgb (13.0-17.5) gm/dL Hct (39.0-53.0) % Neutrophils # (1.3-7.7) k/uL Potassium (3.5-5.1) mmol/L BUN (9.0-27.0) mg/dL Creatinine (0.6-1.5) mg/dL BUN/Creatinine Ratio (12.00-20.00) Ratio Glucose (70-110) mg/dL POC Glucose (mg/dL) 184 H (75-99) mg/dL Calcium (8.7-10.3) mg/dL Microbiology - Last 24 Hours (Table) 10/11/20 14:28 Blood Culture - Preliminary Blood No Growth after 24 hours 10/10/20 20:05 Urine Culture - Final Urine,Voided 10/09/20 15:54 Blood Culture Gram Stain - Final Blood Blood Culture - Final Klebsiella oxytoca Gram Neg Bacilli
[2020-10-13] MEDS: LIDOCAINE 5% PATCH TOPICAL SCH (14:03)
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
--- NOTE | 2020-10-13 15:09 | P.PN ---
Subjective Progress Note Date: 10/13/20 Bryan Casarez is an 80 yo M with PMH of multiple previous abdominal surgeries, previous small bowel obstruction treated conservatively, peptic ulcer disease with GI bleed, prior history of alcoholism, chronic back pain who presented with a 2 day history of upper abdominal pain with nausea and vomiting. He experience dark tarry vomit and has not had a BM or passed flatus in 2 days. He denies any fever, chills or sweats. Computed tomography scan abdomen and pelvis shows a mid to distal small bowel obstruction with transition point in the proximal to mid ileal loops in the upper and mid pelvis just right of midline. 10/03/2020 Maintained on IV fluid hydration. Continues on conservative treatment as per surgery. Reports positive flatus. Denies abdominal pain, reports tenderness. Tolerating ice chips. No nausea, no vomiting. Ambulating in room, tolerating exertion well. Afebrile, WBC within normal limits as of yesterday. Potassium 3.4, creatinine 0.8. 10/06/2020 continues on IV fluid hydration. Complains of persistent significant pain , no nausea or vomiting. No bowel movement. Passed minimal amount of flatus last night.scheduled for small bowel follow-through with possible expl oratory laparotomy today as per surgery. Denies chest pain, palpitations or shortness of breath. Afebrile. 10/07/2020 Status post exploratory laparotomy with small bowel resection, POD #1.complains of increased abdominal pain. During the night requiring additional Dilaudid as well as Phenergan. Denies flatus or bowel movement. Denies nausea or vomiting. Afebrile, WBC up to 15.6. Hemoglobin 15.3, platelets 230. CMP pending. Denies chest pain, palpitations. Denies shortness of breath. M aintaining O2 sats in the 90s on room air. Heart rate currently 53, tachycardic last night in the 1 teens. 10/08/2020 Reports pain better controlled. Afebrile, WBC is trending down, 11.8. Tolerating sips of clear liquid diet with no nausea or vomiting. Audible gurgling, reports he has not been out of bed since surgery. Maintaining O2 sats in the 90s on room air. Heart rates ranging from 45-53 in a patient with history of nonischemic cardiomyopathy. Last EF recorded at 30% in 2017. Denies chest pain, palpitations or shortness of breath. Hemoglobin 13.5, platelets 211. 10/09/2020 reports ongoing abdominal pain with nausea and bloating. Denies passing flatus, but states occasional burping. Denies bowel movement. T-max 100.5, WBC increased to 16.2. Hemoglobin trending down, 11.9, platelets 160. Potassium 3, magnesium 1.5, supplements ordered for both. Denies chest pain, pa lpitations or shortness of breath. O2 saturation worsening on room air, maintaining O2 sats in the low 90s. Chest x-ray yesterday afternoon reporting no acute pulmonary process. Echo reporting mild concentric left ventricular hypertrophy, normal LV function, EF 60-65%, mild pulmonary hypertension. Yesterday evaluated by speech therapy reporting incomplete versus absent swallow, maintained on NPO status overnight with reevaluation this morning. 10/10/2020 Scheduled for PICC line placement, TPN as per dietary. Denies flatus or bowel movement. Reports an occasional burping, ice chips and popsicles.T-max 100.5, WBC up to 26.3. Preliminary Blood cultures positive for Klebsiella oxytoca. Antibiotics adjusted, now on Rocephin. Positive pain, less tender. States Dilaudid only makes him loopy does not take his pain away. Reports he sat up in the chair yesterday. Minimal ambulation within room.Partial labs pending. 10/13/20 tolerating full liquid diet and requesting diet advancement. Abdominal pain improved , no nausea or vomiting. Bowel movement yesterday, passing flatus. Maintained on Rocephin for Klebsiella bacteremia. Preliminary repeat blood cultures negative at 24 hours .Afebrile, WBC down to 12. Objective - Vital Signs Vital signs: Vital Signs Temp 98.4 F 10/13/20 12:06 Pulse 83 10/13/20 12:06 Resp 19 10/13/20 12:06 BP 146/63 10/13/20 12:06 Pulse Ox 94 L 10/13/20 12:06 Intake & Output 10/12/20 10/13/20 10/13/20 18:59 06:59 18:59 Intake Total 1040 Output Total 1175 Balance -135 Weight 86.183 kg Intake: Oral 1040 Output: Urine 1175 Other: Voiding Method Urinal Urinal Urinal # Voids 3 - Exam General: Sitting up at side of bed, NAD. Vitals reviewed Eyes: PERRL, EOMI, conjunctiva normal. HENT: normocephalic, mucus membranes dry Neck: supple, no JVD Lungs: normal respiratory effort, bilateral bases diminished CV: Regular rate and rhythm, no murmur. Peripheral pulses 2+ Abdomen: soft, Distended. Minimal surgical tenderness, Positive bowel sounds Skin: warm and dry. Neuro: A&Ox3, normal mood and affect - Labs CBC & Chem 7: 10/13/20 04:46 10/13/20 04:46 Labs: Abnormal Lab Results - Last 24 Hours (Table) 10/12/20 10/13/20 10/13/20 Range/Units 14:40 04:46 04:46 WBC 12.0 H (3.8-10.6) k/uL RBC 3.67 L (4.30-5.90) m/uL Hgb 11.7 L (13.0-17.5) gm/dL Hct 33.4 L (39.0-53.0) % Neutrophils # 8.8 H (1.3-7.7) k/uL Potassium 3.2 L (3.5-5.1) mmol/L BUN 5.0 L (9.0-27.0) mg/dL Creatinine 0.5 L (0.6-1.5) mg/dL BUN/Creatinine Ratio 10.00 L (12.00-20.00) Ratio Glucose 132 H (70-110) mg/dL POC Glucose (mg/dL) (75-99) mg/dL Calcium 8.1 L (8.7-10.3) mg/dL 10/13/20 Range/Units 09:23 WBC (3.8-10.6) k/uL RBC (4.30-5.90) m/uL Hgb (13.0-17.5) gm/dL Hct (39.0-53.0) % Neutrophils # (1.3-7.7) k/uL Potassium (3.5-5.1) mmol/L BUN (9.0-27.0) mg/dL Creatinine (0.6-1.5) mg/dL BUN/Creatinine Ratio (12.00-20.00) Ratio Glucose (70-110) mg/dL POC Glucose (mg/dL) 184 H (75-99) mg/dL Calcium (8.7-10.3) mg/dL Microbiology - Last 24 Hours (Table) 10/11/20 14:28 Blood Culture - Preliminary Blood No Growth after 24 hours 10/10/20 20:05 Urine Culture - Final Urine,Voided 10/09/20 15:54 Blood Culture Gram Stain - Final Blood Blood Culture - Final Klebsiella oxytoca Gram Neg Bacilli Assessment and Plan Assessment: (1) Intra-abdominal adhesions Current Visit: Yes Status: Acute Code(s): K66.0 - PERITONEAL ADHESIONS (POSTPROCEDURAL) (POSTINFECTION) SNOMED Code(s): 099441903 (2)Bacteremia with preliminary blood cultures reporting Klebsiella oxytoca, post-op. Preliminary repeat cultures negative, etiology unclear. (3) Nausea & vomiting Current Visit: Yes Status: Acute Code(s): R11.2 - NAUSEA WITH VOMITING, UNSPECIFIED SNOMED Code(s): 17324205 (4) Acute Small bowel obstruction secondary to adhesions, status post exploratory laparotomy with small bowel resection, lysis of adhesions, excision of small abdominal mass, pathology pending. Current Visit: Yes Status: Acute Code(s): K56.609 - UNSP INTESTNL OBST, UNSP TO PARTIAL VERSUS COMPLETE OBST SNOMED Code(s): 229245287 (5) Abdominal pain Current Visit: No Status: Acute Code(s): R10.9 - UNSPECIFIED ABDOMINAL PAIN SNOMED Code(s): 20873912 (6) Gastritis Current Visit: Yes Status: Acute Code(s): K29.70 - GASTRITIS, UNSPECIFIED, WITHOUT BLEEDING SNOMED Code(s): 8852309 (7) chronic back pain (8) atelectasis, chest x-ray pending (9) bradycardia, in a patient with history of nonischemic cardiomyopathy . EF 30% noted in 2017 .echo now reporting significant improvement with normal LV function, EF 60-65%, mild pulmonary hypertension. (10) chest pain, workup in progress Plan: Continue on current medication regime ,monitoring and symptomatic treatment. EKG, serial troponins ordered regarding recently complained of midsternal to left sided chest pain 1 hour.Speech re-eval/Diet advancement as per surgery. Antibiotics as per infectious disease. Repeat blood cultures in progress .increase ambulation as tolerated . Further PT evaluation pending.Aggressive pulmonary toileting with incentive spirometer reinforced.discharge planning in progress in the next 24-48 hours pending final DC recommendations and clearance per surgery. The impression and plan of care has been dictated as directed. : I performed a history and examination of this patient, discussed the same with the dictator. I agree with the dictator's note ,documented as a scribe. Any additional findings or plans will be noted.
[2020-10-13] MEDS: NYSTATIN 100,000 UNIT/ML SUSP 500,000 UNIT/5 ML CUP PO SCH ×2 (17:45→20:57)
--- NOTE | 2020-10-13 19:17 | PN ---
PROGRESS NOTE DATE OF SERVICE: 10/13/2020. REASON FOR FOLLOW UP: Klebsiella bacteremia, possible abdominal source. INTERVAL HISTORY: Patient is currently afebrile, has been breathing comfortably. Complaining of some abdominal pain though no chest pain, shortness of breath or cough, no vomiting. EXAMINATION: His blood pressure 146/63, pulse of 83, temperature 98.4. He is 94% on room air. Description is an elderly male up in the chair in no distress. Respiratory system: Unlabored breathing, clear to auscultation anteriorly. Heart S1, S2. Regular rate and rhythm. Abdomen: Soft, no guarding, rigidity. Extremities: Normal feet. LABS: Hemoglobin is 11.4 down to 12. BUN of 5, creatinine 0.5. Blood culture repeat has been negative so far. ASSESSMENT/PLAN: Patient with Klebsiella bacteremia, abdominal gram-negative. Klebsiella is still pending. Patient on Rocephin. Concern for abdominal source. Flagyl will be added and we will monitor clinical course closely. MMODL / IJN: [id number] /
[2020-10-13] MEDS: traZODone HCL 50 MG TAB PO SCH (20:56)
[2020-10-13] MEDS: METOPROLOL TARTRATE 12.5 MG TAB PO SCH (20:57)
[2020-10-13] MEDS: metroNIDAZOLE 500 MG TAB PO SCH (22:09)
[2020-10-14 09:23] LABS: Basophils % (A) 0 %; Eosinophils # (A) 0.2 k/uL (0-0.7); Eosinophils % (A) 2 %; HCT 34.6 % (39.0-53.0); HGB 11.8 gm/dL (13.0-17.5); Lymphocytes % (A) 17 %; MCH 31.3 pg (25.0-35.0); MCHC 34.1 g/dL (31.0-37.0); MCV 91.8 fL (80.0-100.0); Monocytes # (A) 0.7 k/uL (0-1.0); Monocytes % (A) 6 %; Neutrophils # (A) 8.5 k/uL (1.3-7.7); Neutrophils % (A) 73 %; Platelet Count 247 k/uL (150-450); RBC 3.77 m/uL (4.30-5.90); RDW 13.2 % (11.5-15.5); WBC 11.5 k/uL (3.8-10.6)
[2020-10-14] MEDS: SODIUM CHLORIDE 0.9% 1,000 ML IV SCH (09:35)
[2020-10-14] MEDS: NYSTATIN 100,000 UNIT/ML SUSP 500,000 UNIT/5 ML CUP PO SCH ×4 (09:36→23:32)
[2020-10-14] MEDS: METOPROLOL TARTRATE 12.5 MG TAB PO SCH ×2 (09:36→23:29)
[2020-10-14] MEDS: metroNIDAZOLE 500 MG TAB PO SCH ×3 (09:36→23:31)
[2020-10-14] MEDS: PANTOPRAZOLE 40 MG TABLET PO SCH (09:36)
[2020-10-14] MEDS: amLODIPine 5 MG TAB PO SCH (09:36)
[2020-10-14] MEDS: ENOXAPARIN 40 MG/0.4 ML SYRINGE SQ SCH (09:36)
[2020-10-14] MEDS: ASPIRIN 81 MG PO SCH (09:36)
[2020-10-14] MEDS: LIDOCAINE 5% PATCH TOPICAL SCH ×2 (09:37→11:04)
[2020-10-14] MEDS: HYDROcodone/APAP 10-325MG 1 EACH TAB PO PRN ×2 (09:45→23:30)
--- NOTE | 2020-10-14 13:17 | P.PN ---
Subjective Progress Note Date: 10/14/20 CHIEF COMPLAINT: Small bowel obstruction HISTORY OF PRESENT ILLNESS: Patient is status post exploratory laparotomy with small bowel resection for small bowel obstruction on 10/06/20. Patient reporting that his abdominal pain has shown improvement. He is having drainage from the incision site. Discussed case with infectious disease. Dr. Chapa is concerned that possible abdominal source to being to patient's bacteremia. They recommended a repeat computed tomography scan of the abdomen and pelvis. He did have a temp of 99.8. WBC is trending downwards from 12 to 11.5. His last bowel movement was 2 days ago. He is passing gas. Denies any nausea or vomiting. Tolerating regular diet. Patient seen by cardiology regarding chest pain. Patient also seen by pain service the added lidocaine patch. PHYSICAL EXAM: VITAL SIGNS: Reviewed. GENERAL: Well-developed in no acute distress. HEENT: No sclera icterus. Extraocular movements grossly intact. Moist buccal mucosa. Head is atraumatic, normocephalic. ABDOMEN: Soft. Mildly distended. Mild tenderness around incision site. No erythema. Serosanguineous drainage from incision noted on dressing. NEUROLOGIC: Alert and oriented. Cranial nerves II through XII grossly intact. ASSESSMENT: 1. Small bowel obstruction status post exploratory laparotomy with small bowel resection 2. History of prior small bowel obstruction treated conservatively 3. History of cholecystectomy 4. History of incisional hernia repair 5. History of pancreatic surgery 6. Hypokalemia improved 7. Bacteremia 8. Oral thrush patient started on nystatin swish and swallow PLAN: -Patient is not ready for discharge from surgical standpoint -Computed tomography scan abdomen and pelvis with oral contrast ordered -Continue regular diet -Continue pain medication as needed -Encourage patient to ambulate -Encourage patient to use incentive spirometer -GI prophylaxis Protonix and DVT prophylaxis subcu heparin Physician Drum Straightener note has been reviewed by physician. Signing provider agrees with the documented findings, assessment, and plan of care. Objective - Vital Signs Vital signs: Vital Signs Temp 99.2 F 10/14/20 11:59 Pulse 75 10/14/20 11:59 Resp 18 10/14/20 11:59 BP 142/76 10/14/20 11:59 Pulse Ox 96 10/14/20 11:59 Intake & Output 10/13/20 10/14/20 10/14/20 18:59 06:59 18:59 Intake Total 580 1200 240 Output Total 1750 500 Balance -1170 1200 -260 Weight 86.183 kg Intake: Intake, IV Titration 240 Amount Sodium Chloride 0.9% 1, 240 000 ml @ 20 mls/hr IV . Q24H [facility] Rx#:[id number] Oral 580 960 240 Output: Urine 1750 500 Other: Voiding Method Urinal Urinal Toilet Urinal # Voids 3 - Labs CBC & Chem 7: 10/14/20 08:44 10/13/20 04:46 Labs: Abnormal Lab Results - Last 24 Hours (Table) 10/14/20 Range/Units 08:44 WBC 11.5 H (3.8-10.6) k/uL RBC 3.77 L (4.30-5.90) m/uL Hgb 11.8 L (13.0-17.5) gm/dL Hct 34.6 L (39.0-53.0) % Neutrophils # 8.5 H (1.3-7.7) k/uL Microbiology - Last 24 Hours (Table) 10/11/20 14:28 Blood Culture - Preliminary Blood No Growth after 48 hours
[2020-10-14] MEDS: IOPAMIDOL CONTRAST (ORAL USE) VIAL PO PRN ×2 (13:26→14:27)
--- NOTE | 2020-10-14 14:29 | P.PN ---
Subjective This is a pleasant 80-year-old male past medical history significant for dilated cardiomyopathy, obstructive sleep apnea, GERD, BPH, peptic ulcer disease, GI bleed, alcoholism, chronic back pain, frequent PVC, prior small bowel obstruction, cholecystectomy, hernia repair, pancreatic surgery. He used to follow with Dr. Ramos however not has not been seen in the office in 2017 and did not follow up. We have been asked to see in consultation for episode of chest pain. This morning patient had an episode of chest pain while he was sitting and eating breakfast. He stated he started to have midsternal and left- sided chest pain. He states that lasted for about an hour. He describes it as if he cannot take a deep breath. He has associated diaphoresis and shortness of breath. He states that he had no melena or aggravating factors. The chest pain spontaneously stopped by itself. He denies palpitations, weakness, lightheadedness, syncope. He denies symptoms of orthopnea or PND. He is a former smoker, quit in 2006. He denies history of diabetes, hypertension, [place], stroke. Patient not on telemetry at this time. Patient's recorded heart rates bradycardic, most likely not accurate due to patient's frequent PVCs on EKG noted. Patient is admitted with a small bowel obstruction, patient underwent exploratory laparotomy with small bowel resection with Dr. Martinez on 10/02/2020. Patient has been started on TPN for nutritional support. DIAGNOSTICS EKG reveals sinus rhythm, frequent PVCs, heart rate 83, left axis deviation, poor R wave progression. Prior EKG in 2017 with similar findings Last Cardiac Catheterization 2017 which revealed normal coronary arteries and severe LV dysfunction 30%, suggestive nonischemic cardiomyopathy. His Lexiscan stress test 2017 left ventricular ejection fraction 30% Echocardiogram 10/09/2020- left systolic function is normal with an EF between 60-65%, mild mitral regurgitation, mild tricuspid regurgitation, mild pulmonary hypertension. Laboratory reviewed, WBC 12, hemoglobin 11.7, platelets 206, sodium 144, potassium 3.7, BUN 5, serum creatinine 0.5, troponin negative 1 10/14/2020: Patient seen and examined at bedside, with bedside. No acute distress. Patient states that he had no further chest pain episodes. He is alert and oriented 3. Telemetry reviewed patient in sinus rhythm, heart rate in the 70s, he is having less PVCs since starting metoprolol tartrate yesterday. Blood pressure 142/76, heart rate 75, temperature 99.8F oxygen saturations 96% on room air. He is currently being maintained on metoprolol tartrate 12.5 mg twice a day, aspirin 81 mg daily, amlodipine 5 mg daily PHYSICAL EXAMINATION CONSTITUTIONAL: No apparent distress. HEENT: Neck Supple. CHEST EXAMINATION: Lungs are clear to auscultation. No chest wall tenderness is noted on palpation or with deep breathing. HEART EXAMINATION: Regular rate and rhythm. S1, S2 heard. No murmurs, gallops or rub. ABDOMEN: Soft. Positive bowel sounds. EXTREMITIES: 2+ peripheral pulses, no lower extremity edema and no calf tenderness. SKIN: Incisional dressing across abdomen NEUROLOGIC EXAMINATION: Patient is awake, alert and oriented x3. ASSESSMENT Chest pain Small bowel obstruction s/p exploratory laparotomy with small bowel resection with Dr. Martinez on 10/02/2020 History of Nonischemic cardiomyopathy History of Frequent PVCs PLAN -EKG and obtained and reviewed, no evidence of ischemia. Troponin negative x 3. Cardiac telemetry reviewed with less frequent PVCs he is in sinus mechanism HR 70s -Echocardiogram performed on 10/09 with no acute findings, no need to repeat -Continue metoprolol titrate 12.5 mg twice a day and aspirin 81mg daily -Amlodipine 5 mg daily -From a cardiology perspective, patient is stable. On discharge patient should follow-up with Dr. Rae Nurse Practitioner note has been reviewed, I agree with a documented findings and plan of care. Patient was seen and examined. Objective - Vital Signs Vital signs: Vital Signs Temp 99.2 F 10/14/20 11:59 Pulse 75 10/14/20 11:59 Resp 18 10/14/20 11:59 BP 142/76 10/14/20 11:59 Pulse Ox 96 10/14/20 11:59 Intake & Output 10/13/20 10/14/20 10/14/20 18:59 06:59 18:59 Intake Total 580 1200 240 Output Total 1750 500 Balance -1170 1200 -260 Weight 86.183 kg Intake: Intake, IV Titration 240 Amount Sodium Chloride 0.9% 1, 240 000 ml @ 20 mls/hr IV . Q24H [facility] Rx#:[id number] Oral 580 960 240 Output: Urine 1750 500 Other: Voiding Method Urinal Urinal Toilet Urinal # Voids 3 - Labs CBC & Chem 7: 10/14/20 08:44 10/13/20 04:46 Labs: Abnormal Lab Results - Last 24 Hours (Table) 10/14/20 Range/Units 08:44 WBC 11.5 H (3.8-10.6) k/uL RBC 3.77 L (4.30-5.90) m/uL Hgb 11.8 L (13.0-17.5) gm/dL Hct 34.6 L (39.0-53.0) % Neutrophils # 8.5 H (1.3-7.7) k/uL Microbiology - Last 24 Hours (Table) 10/11/20 14:28 Blood Culture - Preliminary Blood No Growth after 48 hours
--- NOTE | 2020-10-14 15:21 | CT ---
EXAMINATION TYPE: CT abdomen pelvis wo con DATE OF EXAM: 10/14/2020 COMPARISON: 10/01/2020 HISTORY: abdominal pain, bacteremia post surgical CT DLP: 653.9 mGycm Examination of the solid and hollow viscera is limited given the lack of contrast. FINDINGS: LUNG BASES: Interval development of right lower lobe atelectasis and pleural effusion. Basilar granul omas again noted. LIVER/GB: The gallbladder is unremarkable. No space-occupying hepatic lesion. PANCREAS: No pancreatic mass identified. No inflammatory process seen. SPLEEN: No evidence for splenomegaly. No intrasplenic lesions seen. ADRENALS: No adrenal nodules identified. No evidence for thickening. KIDNEYS: No evidence for renal mass. Extensive bilateral nephrolithiasis. Renal cystic changes. No hy dronephrosis. BOWEL: Midline skin linda are noted from recent laparotomy. Small amount of fluid is seen within th e small bowel mesentery. There is no evidence for drainable abscess. No evidence for leak is identifi ed. Previously noted obstructive changes have resolved. Small amount of fluid with internal air left upper quadrant image 30 measures 2.5 cm and likely reflects seroma with postoperative change. Lymph nodes: No evidence for adenopathy greater than 1 cm. Abdominal aorta: Atheromatous changes seen. No evidence for aneurysm. Genital organs: No significant abnormality. Other: No significant abnormality. IMPRESSION: 1. Postsurgical changes of recent abdominal laparotomy. No evidence for abscess. Small fluid collecti on left upper quadrant anteriorly with focus of internal air is likely related to recent postoperativ e change and small seroma. Resolution of previously noted distal small bowel obstruction. 2. Extensive nonobstructing nephrolithiasis. Right renal cyst. 3. Right basilar atelectasis and effusion is new.
--- NOTE | 2020-10-14 17:13 | P.PN ---
Subjective Progress Note Date: 10/14/20 Bryan Casarez is an 80 yo M with PMH of multiple previous abdominal surgeries, previous small bowel obstruction treated conservatively, peptic ulcer disease with GI bleed, prior history of alcoholism, chronic back pain who presented with a 2 day history of upper abdominal pain with nausea and vomiting. He experience dark tarry vomit and has not had a BM or passed flatus in 2 days. He denies any fever, chills or sweats. Computed tomography scan abdomen and pelvis shows a mid to distal small bowel obstruction with transition point in the proximal to mid ileal loops in the upper and mid pelvis just right of midline. 10/03/2020 Maintained on IV fluid hydration. Continues on conservative treatment as per surgery. Reports positive flatus. Denies abdominal pain, reports tenderness. Tolerating ice chips. No nausea, no vomiting. Ambulating in room, tolerating exertion well. Afebrile, WBC within normal limits as of yesterday. Potassium 3.4, creatinine 0.8. 10/06/2020 continues on IV fluid hydration. Complains of persistent significant pain , no nausea or vomiting. No bowel movement. Passed minimal amount of flatus last night.scheduled for small bowel follow-through with possible expl oratory laparotomy today as per surgery. Denies chest pain, palpitations or shortness of breath. Afebrile. 10/07/2020 Status post exploratory laparotomy with small bowel resection, POD #1.complains of increased abdominal pain. During the night requiring additional Dilaudid as well as Phenergan. Denies flatus or bowel movement. Denies nausea or vomiting. Afebrile, WBC up to 15.6. Hemoglobin 15.3, platelets 230. CMP pending. Denies chest pain, palpitations. Denies shortness of breath. M aintaining O2 sats in the 90s on room air. Heart rate currently 53, tachycardic last night in the 1 teens. 10/08/2020 Reports pain better controlled. Afebrile, WBC is trending down, 11.8. Tolerating sips of clear liquid diet with no nausea or vomiting. Audible gurgling, reports he has not been out of bed since surgery. Maintaining O2 sats in the 90s on room air. Heart rates ranging from 45-53 in a patient with history of nonischemic cardiomyopathy. Last EF recorded at 30% in 2017. Denies chest pain, palpitations or shortness of breath. Hemoglobin 13.5, platelets 211. 10/09/2020 reports ongoing abdominal pain with nausea and bloating. Denies passing flatus, but states occasional burping. Denies bowel movement. T-max 100.5, WBC increased to 16.2. Hemoglobin trending down, 11.9, platelets 160. Potassium 3, magnesium 1.5, supplements ordered for both. Denies chest pain, pa lpitations or shortness of breath. O2 saturation worsening on room air, maintaining O2 sats in the low 90s. Chest x-ray yesterday afternoon reporting no acute pulmonary process. Echo reporting mild concentric left ventricular hypertrophy, normal LV function, EF 60-65%, mild pulmonary hypertension. Yesterday evaluated by speech therapy reporting incomplete versus absent swallow, maintained on NPO status overnight with reevaluation this morning. 10/10/2020 Scheduled for PICC line placement, TPN as per dietary. Denies flatus or bowel movement. Reports an occasional burping, ice chips and popsicles.T-max 100.5, WBC up to 26.3. Preliminary Blood cultures positive for Klebsiella oxytoca. Antibiotics adjusted, now on Rocephin. Positive pain, less tender. States Dilaudid only makes him loopy does not take his pain away. Reports he sat up in the chair yesterday. Minimal ambulation within room.Partial labs pending. 10/13/20 tolerating full liquid diet and requesting diet advancement. Abdominal pain improved , no nausea or vomiting. Bowel movement yesterday, passing flatus. Maintained on Rocephin for Klebsiella bacteremia. Preliminary repeat blood cultures negative at 24 hours .Afebrile, WBC down to 12. 10/14/2020 evaluated by cardiology yesterday for chest pain, negative troponins 3, with metoprolol initiated. Reports no further chest pain. telemetry normal sinus rhythm.tolerating diet advancement with no nausea or vomiting. Passing flatus, last bowel movement Tuesday. Initially planned for discharge, but patient having incisional site drainage. Repeat CT of abdomen and pelvis ordered. T-max 99.8, WBC improving down to 11.5. Objective - Vital Signs Vital signs: Vital Signs Temp 99.2 F 10/14/20 11:59 Pulse 75 10/14/20 11:59 Resp 18 10/14/20 11:59 BP 142/76 10/14/20 11:59 Pulse Ox 96 10/14/20 11:59 Intake & Output 10/13/20 10/14/20 10/14/20 18:59 06:59 18:59 Intake Total 580 1200 240 Output Total 1750 500 Balance -1170 1200 -260 Weight 86.183 kg Intake: Intake, IV Titration 240 Amount Sodium Chloride 0.9% 1, 240 000 ml @ 20 mls/hr IV . Q24H [facility] Rx#:[id number] Oral 580 960 240 Output: Urine 1750 500 Other: Voiding Method Urinal Urinal Toilet Urinal # Voids 3 - Exam General: Sitting up at side of bed, NAD. Vitals reviewed Eyes: PERRL, EOMI, conjunctiva normal. HENT: normocephalic, mucus membranes dry Neck: supple, no JVD Lungs: normal respiratory effort, bilateral bases diminished CV: Regular rate and rhythm, no murmur. Peripheral pulses 2+ Abdomen: soft, Distended. Minimal surgical tenderness, Positive bowel sounds Skin: warm and dry. Neuro: A&Ox3, normal mood and affect - Labs CBC & Chem 7: 10/14/20 08:44 10/13/20 04:46 Labs: Abnormal Lab Results - Last 24 Hours (Table) 10/14/20 Range/Units 08:44 WBC 11.5 H (3.8-10.6) k/uL RBC 3.77 L (4.30-5.90) m/uL Hgb 11.8 L (13.0-17.5) gm/dL Hct 34.6 L (39.0-53.0) % Neutrophils # 8.5 H (1.3-7.7) k/uL Microbiology - Last 24 Hours (Table) 10/11/20 14:28 Blood Culture - Preliminary Blood No Growth after 72 hours Assessment and Plan Assessment: (1) Intra-abdominal adhesions Current Visit: Yes Status: Acute Code(s): K66.0 - PERITONEAL ADHESIONS (POSTPROCEDURAL) (POSTINFECTION) SNOMED Code(s): 766984433 (2)Bacteremia with preliminary blood cultures reporting Klebsiella oxytoca, post-op. Preliminary repeat cultures negative, etiology possibly abdominal source, incisional site drainage with repeat CT of abdomen and pelvis pending. (3) Nausea & vomiting Current Visit: Yes Status: Acute Code(s): R11.2 - NAUSEA WITH VOMITING, UNSPECIFIED SNOMED Code(s): 78072810 (4) Acute Small bowel obstruction secondary to adhesions, status post exploratory laparotomy with small bowel resection, lysis of adhesions, excision of small abdominal mass, pathology pending. Current Visit: Yes Status: Acute Code(s): K56.609 - UNSP INTESTNL OBST, UNSP TO PARTIAL VERSUS COMPLETE OBST SNOMED Code(s): 751174271 (5) Abdominal pain Current Visit: No Status: Acute Code(s): R10.9 - UNSPECIFIED ABDOMINAL PAIN SNOMED Code(s): 43587945 (6) Gastritis Current Visit: Yes Status: Acute Code(s): K29.70 - GASTRITIS, UNSPECIFIED, WITHOUT BLEEDING SNOMED Code(s): 9741579 (7) chronic back pain (8) atelectasis, chest x-ray pending (9) bradycardia, in a patient with history of nonischemic cardiomyopathy . EF 30% noted in 2017 .echo now reporting significant improvement with normal LV function, EF 60-65%, mild pulmonary hypertension. (10) chest pain, workup in progress (11) oral candidiasis. Plan: Continue on current medication regime ,monitoring and symptomatic treatment. DIscharge placed on hold related to patient having incisional site drainage. Continue on IV antibiotics of Rocephin. Repeat CT of abdomen and pelvis ordered/pending. Increase ambulation as tolerated, aggressive pulmonary toileting with incentive spirometer reinforced. The impression and plan of care has been dictated as directed. : I performed a history and examination of this patient, discussed the same with the dictator. I agree with the dictator's note ,documented as a scribe. Any additional findings or plans will be noted.
[2020-10-14] MEDS: HYDROmorphone 1 MG/ML 1 ML SYRINGE IVP PRN (20:57)
[2020-10-14] MEDS: traZODone HCL 50 MG TAB PO SCH (23:29)
[2020-10-14] MEDS: DOCUSATE 100 MG CAP PO SCH (23:31)
[2020-10-15 06:10] LABS: Basophils # (A) 0.1 k/uL (0-0.2); Basophils % (A) 1 %; Eosinophils # (A) 0.3 k/uL (0-0.7); Eosinophils % (A) 3 %; HCT 33.3 % (39.0-53.0); HGB 11.1 gm/dL (13.0-17.5); Lymphocytes # (A) 2.2 k/uL (1.0-4.8); Lymphocytes % (A) 24 %; MCH 30.9 pg (25.0-35.0); MCHC 33.4 g/dL (31.0-37.0); MCV 92.7 fL (80.0-100.0); Monocytes # (A) 0.6 k/uL (0-1.0); Monocytes % (A) 7 %; Neutrophils % (A) 65 %; Platelet Count 272 k/uL (150-450); WBC 9.3 k/uL (3.8-10.6)
--- NOTE | 2020-10-15 06:26 | PN ---
PROGRESS NOTE DATE OF SERVICE: 10/14/2020 REASON FOR FOLLOW UP: Bacteremia. INTERVAL HISTORY: The patient is afebrile. The patient has been breathing comfortably. Abdominal pain has improved. The patient, however, has noticed some drainage from the upper end of the incision. Denies any chest pain, shortness of breath or cough. No nausea, no vomiting. No diarrhea. PHYSICAL EXAMINATION: Blood pressure 146/60 with a pulse of 82, temperature 98.3, he is 97% on room air. General description is an elderly male lying in bed in no distress. Respiratory system: Unlabored breathing, clear to auscultation anteriorly. Heart S1, S2. Regular rate and rhythm. Abdomen is soft, minimal drainage from the middle part of the incision. Extremities with no edema of the feet. LABS: White count 11.5. DIAGNOSTIC IMPRESSION AND PLAN: Patient with Klebsiella bacteremia with initial concern for UTI, now with urine negative. Concern for possible abdominal source with drainage. CT was requested, which has been completed and did not show any evidence of any abscess. The patient is covered with Rocephin and Flagyl to continue. Will monitor clinical course closely. Family at the bedside. Questions and concerns were answered. MMODL / IJN: [id number] /
[2020-10-15] MEDS: HYDROmorphone 1 MG/ML 1 ML SYRINGE IVP PRN ×4 (07:14→20:41)
[2020-10-15] MEDS: PANTOPRAZOLE 40 MG TABLET PO SCH (07:16)
[2020-10-15] MEDS: NYSTATIN 100,000 UNIT/ML SUSP 500,000 UNIT/5 ML CUP PO SCH ×4 (07:16→20:40)
[2020-10-15] MEDS: DOCUSATE 100 MG CAP PO SCH ×2 (07:16→20:41)
[2020-10-15] MEDS: ASPIRIN 81 MG PO SCH (07:16)
[2020-10-15] MEDS: METOPROLOL TARTRATE 12.5 MG TAB PO SCH ×2 (07:16→20:41)
[2020-10-15] MEDS: ENOXAPARIN 40 MG/0.4 ML SYRINGE SQ SCH (07:16)
[2020-10-15] MEDS: amLODIPine 5 MG TAB PO SCH (07:16)
[2020-10-15] MEDS: metroNIDAZOLE 500 MG TAB PO SCH ×3 (07:16→20:41)
[2020-10-15] MEDS: LIDOCAINE 5% PATCH TOPICAL SCH ×2 (07:29→07:33)
[2020-10-15] MEDS: SODIUM CHLORIDE 0.9% 1,000 ML IV SCH (07:36)
[2020-10-15] MEDS: polyethylene glycoL 3350 17 GM POWD.PACK PO SCH (10:26)
[2020-10-15 10:38] LABS: African American GFR (CKD) 110.1 (60.0-200.0); Anion Gap 10.4 mmol/L (4.00-12.00); BUN/Creat Ratio 16.67 Ratio (12.00-20.00); Carbon Dioxide 28.6 mmol/L (21.6-31.8); Potassium 3.8 mmol/L (3.5-5.5)
[2020-10-15] MEDS: FLUCONAZOLE 150 MG TAB PO SCH (12:15)
--- NOTE | 2020-10-15 13:51 | P.PN ---
Subjective This is a pleasant 80-year-old male past medical history significant for dilated cardiomyopathy, obstructive sleep apnea, GERD, BPH, peptic ulcer disease, GI bleed, alcoholism, chronic back pain, frequent PVC, prior small bowel obstruction, cholecystectomy, hernia repair, pancreatic surgery. He used to follow with Dr. Ramos however not has not been seen in the office in 2017 and did not follow up. We have been asked to see in consultation for episode of chest pain. This morning patient had an episode of chest pain while he was sitting and eating breakfast. He stated he started to have midsternal and left- sided chest pain. He states that lasted for about an hour. He describes it as if he cannot take a deep breath. He has associated diaphoresis and shortness of breath. He states that he had no melena or aggravating factors. The chest pain spontaneously stopped by itself. He denies palpitations, weakness, lightheadedness, syncope. He denies symptoms of orthopnea or PND. He is a former smoker, quit in 2006. He denies history of diabetes, hypertension, OR, stroke. Patient not on telemetry at this time. Patient's recorded heart rates bradycardic, most likely not accurate due to patient's frequent PVCs on EKG noted. Patient is admitted with a small bowel obstruction, patient underwent exploratory laparotomy with small bowel resection with Dr. Martinez on 10/02/2020. Patient has been started on TPN for nutritional support. DIAGNOSTICS EKG reveals sinus rhythm, frequent PVCs, heart rate 83, left axis deviation, poor R wave progression. Prior EKG in 2017 with similar findings Last Cardiac Catheterization 2017 which revealed normal coronary arteries and severe LV dysfunction 30%, suggestive nonischemic cardiomyopathy. His Lexiscan stress test 2017 left ventricular ejection fraction 30% Echocardiogram 10/09/2020- left systolic function is normal with an EF between 60-65%, mild mitral regurgitation, mild tricuspid regurgitation, mild pulmonary hypertension. Laboratory reviewed, WBC 12, hemoglobin 11.7, platelets 206, sodium 144, potassium 3.7, BUN 5, serum creatinine 0.5, troponin negative 1 10/14/2020: Patient seen and examined at bedside, with bedside. No acute distress. Patient states that he had no further chest pain episodes. He is alert and oriented 3. Telemetry reviewed patient in sinus rhythm, heart rate in the 70s, he is having less PVCs since starting metoprolol tartrate yesterday. Blood pressure 142/76, heart rate 75, temperature 99.8F oxygen saturations 96% on room air. He is currently being maintained on metoprolol tartrate 12.5 mg twice a day, aspirin 81 mg daily, amlodipine 5 mg daily 10/15/2020: Patient seen and examined at bedside, no acute distress. at bedside. Pat ient without any further episodes of chest pain or shortness of breath. Laboratory data reviewed patient blood cultures came back positive Klebsiella bacteremia CT abdomen and pelvis was ordered and infectious disease is following. By March patient's blood pressure 120/71, heart rate 73, afebrile, maintaining oxygen saturations 95% on room air. He's currently being maintained, Toprol tartrate 12.5 mg twice a day, aspirin 81 mg daily, amlodipine 5 mg daily. Laboratory data reviewed. PHYSICAL EXAMINATION CONSTITUTIONAL: No apparent distress. HEENT: Neck Supple. CHEST EXAMINATION: Lungs are clear to auscultation. No chest wall tenderness is noted on palpation or with deep breathing. HEART EXAMINATION: Regular rate and rhythm. S1, S2 heard. No murmurs, gallops or rub. ABDOMEN: Soft. Positive bowel sounds. EXTREMITIES: 2+ peripheral pulses, no lower extremity edema and no calf tenderness. SKIN: Incisional dressing across abdomen NEUROLOGIC EXAMINATION: Patient is awake, alert and oriented x3. ASSESSMENT Chest pain Small bowel obstruction s/p exploratory laparotomy with small bowel resection with Dr. Martinez on 10/02/2020 History of Nonischemic cardiomyopathy History of Frequent PVCs PLAN -EKG and obtained and reviewed, no evidence of ischemia. Troponin negative x 3. Cardiac telemetry reviewed with less frequent PVCs he is in sinus mechanism HR 70s -Echocardiogram performed on 10/09 with no acute findings, no need to repeat -Continue metoprolol titrate 12.5 mg twice a day and aspirin 81mg daily -Amlodipine 5 mg daily -From a cardiology perspective, patient is stable. On discharge patient should follow-up with Dr. Rae -We will sign off at this time please reach out for any further questions or concerns. Nurse Practitioner note has been reviewed, I agree with a documented findings and plan of care. Patient was seen and examined. Objective - Vital Signs Vital signs: Vital Signs Temp 97.8 F 10/15/20 11:31 Pulse 73 10/15/20 11:31 Resp 16 10/15/20 11:31 BP 123/71 10/15/20 11:31 Pulse Ox 95 10/15/20 11:31 Intake & Output 10/14/20 10/15/20 10/15/20 18:59 06:59 18:59 Intake Total 1320 120 Output Total 500 700 Balance 820 -580 Intake: Oral 1320 120 Output: Urine 500 700 Other: Voiding Method Toilet Toilet Toilet Urinal Urinal Urinal # Voids 1 - Labs CBC & Chem 7: 10/15/20 05:19 10/15/20 05:19 Labs: Abnormal Lab Results - Last 24 Hours (Table) 10/15/20 10/15/20 Range/Units 05:19 05:19 RBC 3.60 L (4.30-5.90) m/uL Hgb 11.1 L (13.0-17.5) gm/dL Hct 33.3 L (39.0-53.0) % Calcium 8.0 L (8.7-10.3) mg/dL Microbiology - Last 24 Hours (Table) 10/11/20 14:28 Blood Culture - Preliminary Blood No Growth after 72 hours
[2020-10-15] MEDS ORDERED: bisacodyL 10 MG SUPP RECTAL STA (13:59)
--- NOTE | 2020-10-15 14:05 | P.PN ---
Subjective Progress Note Date: 10/15/20 CHIEF COMPLAINT: Small bowel obstruction HISTORY OF PRESENT ILLNESS: Patient is status post exploratory laparotomy with small bowel resection for small bowel obstruction on 10/06/20. Patient is complaining of abdominal pain. He reports it's been about 3-4 days without a bowel movement. He is passing a small amount of flatus. He denies any nausea or vomiting. Pain medications do help with the pain. His white count has normalized at 9.3. He is afebrile. Patient's computed tomography scan abdomen and pelvis shows postsurgical changes of recent abdominal laparotomy. No evidence for abscess. Small fluid collection left upper quadrant anteriorly with focus of internal areas likely related to recent postoperative changes and small seroma. Resolution of previously noted distal small bowel shocks in. Extensive nonobstructing nephrolithiasis. Right basilar atelectasis and effusion is new. Also patient is still complaining of his oral thrush. Medicine service has added Diflucan. They've also added MiraLAX for his constipation. Patient's repeat blood cultures negative PHYSICAL EXAM: VITAL SIGNS: Reviewed. GENERAL: Well-developed in no acute distress. HEENT: No sclera icterus. Extraocular movements grossly intact. Moist buccal mucosa. Head is atraumatic, normocephalic. ABDOMEN: Soft. Mildly distended. Mild tenderness around incision site. No erythema. Purulent drainage from abdominal incision. NEUROLOGIC: Alert and oriented. Cranial nerves II through XII grossly intact. ASSESSMENT: 1. Small bowel obstruction status post exploratory laparotomy with small bowel resection 2. Small seroma noted on CAT scan. No evidence of abscess 3. History of prior small bowel obstruction treated conservatively 4. Bacteremia 5. Oral thrush PLAN: -Dulcolax suppository added for patient's constipation -Antibiotics per ID -Continue regular diet -Continue pain medication as needed -Encourage patient to ambulate -Encourage patient to use incentive spirometer -GI prophylaxis Protonix and DVT prophylaxis subcu heparin Physician Bridge Expert note has been reviewed by physician. Signing provider agrees with the documented findings, assessment, and plan of care. Objective - Vital Signs Vital signs: Vital Signs Temp 97.8 F 10/15/20 11:31 Pulse 73 10/15/20 11:31 Resp 16 10/15/20 11:31 BP 123/71 10/15/20 11:31 Pulse Ox 95 10/15/20 11:31 Intake & Output 10/14/20 10/15/20 10/15/20 18:59 06:59 18:59 Intake Total 1320 120 Output Total 500 700 Balance 820 -580 Intake: Oral 1320 120 Output: Urine 500 700 Other: Voiding Method Toilet Toilet Toilet Urinal Urinal Urinal # Voids 1 - Labs CBC & Chem 7: 10/15/20 05:19 10/15/20 05:19 Labs: Abnormal Lab Results - Last 24 Hours (Table) 10/15/20 10/15/20 Range/Units 05:19 05:19 RBC 3.60 L (4.30-5.90) m/uL Hgb 11.1 L (13.0-17.5) gm/dL Hct 33.3 L (39.0-53.0) % Calcium 8.0 L (8.7-10.3) mg/dL Microbiology - Last 24 Hours (Table) 10/11/20 14:28 Blood Culture - Preliminary Blood No Growth after 72 hours
--- NOTE | 2020-10-15 17:19 | PN ---
PROGRESS NOTE DATE OF SERVICE: 10/15/2020 REASON FOR FOLLOWUP: Klebsiella and gram-negative bacteremia, possible abdominal source. INTERVAL HISTORY: Patient is currently afebrile. The patient is breathing comfortably. The patient denies having any chest pain. No shortness of breath or cough. Occasional abdominal pain. No nausea, vomiting or diarrhea. PHYSICAL EXAMINATION: Blood pressure 123/71. Pulse 73. Temperature 97.8. He is 95% on room air. General description is an elderly male lying in bed in no distress. Respiratory system: Unlabored breathing, clear to auscultation anteriorly. Heart S1, S2 regular rate and rhythm. Abdomen soft, mild distended. No guarding. No rigidity. Extremities: No edema of the feet. LABORATORY DATA: Hemoglobin 11.1, white count 9.3, BUN of 10, creatinine 0.6. Blood culture repeat has been negative so far in this patient with gram negative bacteremia with Klebsiella. Patient is covered with Rocephin and Flagyl to continue. Transition to oral antibiotic on discharge as CT abdomen and pelvis was negative for any abscess and blood culture repeat has been negative. MMODL / IJN: [id number] /
[2020-10-15] MEDS: traZODone HCL 50 MG TAB PO PRN (20:41)
[2020-10-15] MEDS: traZODone HCL 50 MG TAB PO SCH (20:41)
--- NOTE | 2020-10-15 22:11 | P.PN ---
Subjective Progress Note Date: 10/15/20 Bryan Casarez is an 80 yo M with PMH of multiple previous abdominal surgeries, previous small bowel obstruction treated conservatively, peptic ulcer disease with GI bleed, prior history of alcoholism, chronic back pain who presented with a 2 day history of upper abdominal pain with nausea and vomiting. He experience dark tarry vomit and has not had a BM or passed flatus in 2 days. He denies any fever, chills or sweats. Computed tomography scan abdomen and pelvis shows a mid to distal small bowel obstruction with transition point in the proximal to mid ileal loops in the upper and mid pelvis just right of midline. 10/03/2020 Maintained on IV fluid hydration. Continues on conservative treatment as per surgery. Reports positive flatus. Denies abdominal pain, reports tenderness. Tolerating ice chips. No nausea, no vomiting. Ambulating in room, tolerating exertion well. Afebrile, WBC within normal limits as of yesterday. Potassium 3.4, creatinine 0.8. 10/06/2020 continues on IV fluid hydration. Complains of persistent significant pain , no nausea or vomiting. No bowel movement. Passed minimal amount of flatus last night.scheduled for small bowel follow-through with possible expl oratory laparotomy today as per surgery. Denies chest pain, palpitations or shortness of breath. Afebrile. 10/07/2020 Status post exploratory laparotomy with small bowel resection, POD #1.complains of increased abdominal pain. During the night requiring additional Dilaudid as well as Phenergan. Denies flatus or bowel movement. Denies nausea or vomiting. Afebrile, WBC up to 15.6. Hemoglobin 15.3, platelets 230. CMP pending. Denies chest pain, palpitations. Denies shortness of breath. M aintaining O2 sats in the 90s on room air. Heart rate currently 53, tachycardic last night in the 1 teens. 10/08/2020 Reports pain better controlled. Afebrile, WBC is trending down, 11.8. Tolerating sips of clear liquid diet with no nausea or vomiting. Audible gurgling, reports he has not been out of bed since surgery. Maintaining O2 sats in the 90s on room air. Heart rates ranging from 45-53 in a patient with history of nonischemic cardiomyopathy. Last EF recorded at 30% in 2017. Denies chest pain, palpitations or shortness of breath. Hemoglobin 13.5, platelets 211. 10/09/2020 reports ongoing abdominal pain with nausea and bloating. Denies passing flatus, but states occasional burping. Denies bowel movement. T-max 100.5, WBC increased to 16.2. Hemoglobin trending down, 11.9, platelets 160. Potassium 3, magnesium 1.5, supplements ordered for both. Denies chest pain, pa lpitations or shortness of breath. O2 saturation worsening on room air, maintaining O2 sats in the low 90s. Chest x-ray yesterday afternoon reporting no acute pulmonary process. Echo reporting mild concentric left ventricular hypertrophy, normal LV function, EF 60-65%, mild pulmonary hypertension. Yesterday evaluated by speech therapy reporting incomplete versus absent swallow, maintained on NPO status overnight with reevaluation this morning. 10/10/2020 Scheduled for PICC line placement, TPN as per dietary. Denies flatus or bowel movement. Reports an occasional burping, ice chips and popsicles.T-max 100.5, WBC up to 26.3. Preliminary Blood cultures positive for Klebsiella oxytoca. Antibiotics adjusted, now on Rocephin. Positive pain, less tender. States Dilaudid only makes him loopy does not take his pain away. Reports he sat up in the chair yesterday. Minimal ambulation within room.Partial labs pending. 10/13/20 tolerating full liquid diet and requesting diet advancement. Abdominal pain improved , no nausea or vomiting. Bowel movement yesterday, passing flatus. Maintained on Rocephin for Klebsiella bacteremia. Preliminary repeat blood cultures negative at 24 hours .Afebrile, WBC down to 12. 10/14/2020 evaluated by cardiology yesterday for chest pain, negative troponins 3, with metoprolol initiated. Reports no further chest pain. telemetry normal sinus rhythm.tolerating diet advancement with no nausea or vomiting. Passing flatus, last bowel movement Tuesday. Initially planned for discharge, but patient having incisional site drainage. Repeat CT of abdomen and pelvis ordered. T-max 99.8, WBC improving down to 11.5. 10/15/2020 CT of abdomen and pelvis shows postsurgical changes of recent abdominal laparotomy. No evidence for abscess. Small fluid collection left upper quadrant anteriorly with focus of internal areas likely related to recent postoperative changes and small seroma. Resolution of previously noted distal small bowel shocks in. Extensive nonobstructing nephrolithiasis. Right basilar atelectasis and effusion is new. Patient complaining of "increased sharp pain",states "something is very wrong". Reports no bowel movement. Minimal flatus. Denies nausea or vomiting.Complains of thrush despite nystatin swish and swallow. Oral Diflucan added to med regimen. Staff reports abdominal drainage, milky appearance. Cultures ordered. Maintained on Rocephin and Flagyl. Afebrile, T-max 99.2, normal WBC. Repeat blood cultures reporting no growth. Objective - Vital Signs Vital signs: Vital Signs Temp 98.6 F 10/15/20 21:08 Pulse 86 10/15/20 21:08 Resp 15 10/15/20 21:08 BP 103/62 10/15/20 21:08 Pulse Ox 96 10/15/20 21:08 Intake & Output 10/15/20 10/15/20 10/16/20 06:59 18:59 06:59 Intake Total 2450 Output Total 700 Balance 1750 Intake: Intake, IV Titration 210 Amount Sodium Chloride 0.9% 1, 160 000 ml @ 20 mls/hr IV . Q24H [facility] Rx#:[id number] cefTRIAXone 2 gm In 50 Sodium Chloride 0.9% 50 ml @ 100 mls/hr IVPB Q24HR [facility] Rx#:[id number] Oral 2240 Output: Urine 700 Other: Voiding Method Toilet Toilet Urinal Urinal # Voids 4 - Exam General: Sitting up in bed, very upset-reporting increased significant sharp pain, Vitals reviewed. Eyes: PERRL, EOMI, conjunctiva normal. HENT: normocephalic, mucus membranes dry Neck: supple, no JVD Lungs: normal respiratory effort, bilateral bases diminished CV: Regular rate and rhythm, no murmur. Peripheral pulses 2+ Abdomen: soft, Distended. less surgical tenderness, tender right lower quadrant , dressing clean dry and intact, Positive bowel sounds Skin: warm and dry. Neuro: A&Ox3, normal mood and affect - Labs CBC & Chem 7: 10/15/20 05:19 10/15/20 05:19 Labs: Abnormal Lab Results - Last 24 Hours (Table) 10/15/20 10/15/20 Range/Units 05:19 05:19 RBC 3.60 L (4.30-5.90) m/uL Hgb 11.1 L (13.0-17.5) gm/dL Hct 33.3 L (39.0-53.0) % Calcium 8.0 L (8.7-10.3) mg/dL Microbiology - Last 24 Hours (Table) 10/15/20 10:05 Wound Culture - Preliminary Incision 10/15/20 10:05 Anaerobic Culture - Preliminary Incision 10/11/20 14:28 Blood Culture - Preliminary Blood No Growth after 96 hours Assessment and Plan Assessment: (1) Intra-abdominal adhesions Current Visit: Yes Status: Acute Code(s): K66.0 - PERITONEAL ADHESIONS (POSTPROCEDURAL) (POSTINFECTION) SNOMED Code(s): 798154005 (2)Bacteremia with preliminary blood cultures reporting Klebsiella oxytoca, post-op. Preliminary repeat cultures negative, etiology possibly abdominal source, incisional site drainage with repeat CT of abdomen and pelvis pending. (3) Nausea & vomiting Current Visit: Yes Status: Acute Code(s): R11.2 - NAUSEA WITH VOMITING, UNSPECIFIED SNOMED Code(s): 74509519 (4) Acute Small bowel obstruction secondary to adhesions, status post exploratory laparotomy with small bowel resection, lysis of adhesions, excision of small abdominal mass, pathology pending. Current Visit: Yes Status: Acute Code(s): K56.609 - UNSP INTESTNL OBST, UNSP TO PARTIAL VERSUS COMPLETE OBST SNOMED Code(s): 770703121 (5) Abdominal pain Current Visit: No Status: Acute Code(s): R10.9 - UNSPECIFIED ABDOMINAL PAIN SNOMED Code(s): 90033459 (6) Gastritis Current Visit: Yes Status: Acute Code(s): K29.70 - GASTRITIS, UNSPECIFIED, WITHOUT BLEEDING SNOMED Code(s): 8639446 (7) chronic back pain (8) atelectasis, chest x-ray pending (9) bradycardia, in a patient with history of nonischemic cardiomyopathy . EF 30% noted in 2017 .echo now reporting significant improvement with normal LV function, EF 60-65%, mild pulmonary hypertension. (10) chest pain, workup in progress (11) oral candidiasis. Plan: Continue on current medication regime ,monitoring and symptomatic treatment. Wound drainage cultures ordered .MiraLAX and oral Diflucan added to med regimen .maintain Rocephin and Flagyl. Encouraged to increase ambulation as tolerated. Aggressive pulmonary toileting with incentive spirometer reinforced. The impression and plan of care has been dictated as directed. : I performed a history and examination of this patient, discussed the same with the dictator. I agree with the dictator's note ,documented as a scribe. Any additional findings or plans will be noted.
[2020-10-16] MEDS: HYDROmorphone 1 MG/ML 1 ML SYRINGE IVP PRN ×2 (03:17→14:12)
[2020-10-16 06:37] LABS: Basophils # (A) 0.1 k/uL (0-0.2); Basophils % (A) 1 %; Eosinophils # (A) 0.3 k/uL (0-0.7); Eosinophils % (A) 3 %; HCT 33.4 % (39.0-53.0); HGB 11.5 gm/dL (13.0-17.5); Lymphocytes # (A) 2.2 k/uL (1.0-4.8); Lymphocytes % (A) 21 %; MCH 31.9 pg (25.0-35.0); MCHC 34.4 g/dL (31.0-37.0); MCV 92.9 fL (80.0-100.0); Monocytes # (A) 0.5 k/uL (0-1.0); Monocytes % (A) 5 %; Neutrophils # (A) 6.9 k/uL (1.3-7.7); Neutrophils % (A) 69 %; Platelet Count 317 k/uL (150-450); RDW 13.7 % (11.5-15.5)
[2020-10-16] MEDS: HYDROcodone/APAP 10-325MG 1 EACH TAB PO PRN ×2 (08:01→17:13)
[2020-10-16] MEDS: FLUCONAZOLE 150 MG TAB PO SCH (08:02)
[2020-10-16] MEDS: NYSTATIN 100,000 UNIT/ML SUSP 500,000 UNIT/5 ML CUP PO SCH ×4 (08:02→21:40)
[2020-10-16] MEDS: PANTOPRAZOLE 40 MG TABLET PO SCH (10:31)
[2020-10-16] MEDS: metroNIDAZOLE 500 MG TAB PO SCH ×3 (10:31→22:20)
[2020-10-16] MEDS: DOCUSATE 100 MG CAP PO SCH ×2 (10:32→19:28)
[2020-10-16] MEDS: METOPROLOL TARTRATE 12.5 MG TAB PO SCH ×2 (10:32→19:28)
[2020-10-16] MEDS: amLODIPine 5 MG TAB PO SCH (10:32)
[2020-10-16] MEDS: polyethylene glycoL 3350 17 GM POWD.PACK PO SCH (10:32)
[2020-10-16] MEDS: ASPIRIN 81 MG PO SCH (10:32)
[2020-10-16] MEDS: ENOXAPARIN 40 MG/0.4 ML SYRINGE SQ SCH (10:33)
[2020-10-16] MEDS: LIDOCAINE 5% PATCH TOPICAL SCH ×2 (10:42)
[2020-10-16] MEDS: SODIUM CHLORIDE 0.9% 1,000 ML IV SCH (10:43)
[2020-10-16 12:36] LABS: African American GFR (CKD) 110.1 (60.0-200.0); Anion Gap 5.6 mmol/L (4.00-12.00); BUN/Creat Ratio 23.33 Ratio (12.00-20.00); Calcium 8.5 mg/dL (8.7-10.3); Carbon Dioxide 29.4 mmol/L (21.6-31.8); Potassium 4.1 mmol/L (3.5-5.5)
[2020-10-16] MEDS ORDERED: NA PHOS,M-B/NA PHOS,DI-BA 133 ML ENEMA RECTAL ONE (13:15)
--- NOTE | 2020-10-16 14:22 | PN ---
PROGRESS NOTE DATE OF SERVICE: 10/16/2020 REASON FOR FOLLOWUP: Klebsiella bacteremia abdominal source. INTERVAL HISTORY: The patient is afebrile. The patient is breathing comfortably. Abdominal pain is currently controlled. Denies any chest pain, shortness of breath or cough. No nausea. No vomiting or diarrhea. PHYSICAL EXAMINATION: Blood pressure 129/73, pulse of 79, temperature 98.4. He is 97% on room air. General description is an elderly male lying in bed in no distress. Respiratory system: Unlabored breathing. Clear to auscultation anteriorly. Heart S1, S2. Regular rate and rhythm. Abdomen: Soft. Wound is currently dressed. No drainage on the dressing. LABORATORY DATA: Hemoglobin 11.5, white count 10.0. BUN of 10, creatinine 0.6. Abdomen culture showing a Gram-negative bacilli. DIAGNOSTIC IMPRESSION AND PLAN: Patient with Gram-negative bacteremia, source abdominal shows gram-negative bacilli. She did have a CT that did not show any fluid collection though. The patient is covered on Rocephin and Flagyl to continue while waiting for the culture to finalize and monitor clinical course closely. MMODL / IJN: [id number] /
--- NOTE | 2020-10-16 14:56 | P.PN ---
Subjective Progress Note Date: 10/16/20 CHIEF COMPLAINT: Small bowel obstruction HISTORY OF PRESENT ILLNESS: Patient is status post exploratory laparotomy with small bowel resection for small bowel obstruction on 10/06/20. Patient reports as abdominal pain is controlled. He is complaining that he has not had a bowel movement in about 4 days. He had a very tiny BM with a duplex posterior. He is passing gas. Denies any nausea or vomiting. His rash is bothering him and causes him to have difficulty with swallowing. Afebrile. WBC is 10.0 hemoglobin 11.5 platelets 317 wound culture gram-negative bacilli Patient seen and examined with Dr. Martinez PHYSICAL EXAM: VITAL SIGNS: Reviewed. GENERAL: Well-developed in no acute distress. HEENT: No sclera icterus. Extraocular movements grossly intact. Moist buccal mucosa. Head is atraumatic, normocephalic. ABDOMEN: Soft. Mildly distended. Mild tenderness around incision site. No erythema. Purulent drainage from abdominal incision. NEUROLOGIC: Alert and oriented. Cranial nerves II through XII grossly intact. ASSESSMENT: 1. Small bowel obstruction status post exploratory laparotomy with small bowel resection 2. Small seroma noted on CAT scan. No evidence of abscess 3. History of prior small bowel obstruction treated conservatively 4. Bacteremia 5. Oral thrush PLAN: -We'll give patient a Fleet enema for constipation -Downgrade diet to a full liquid due to his oral thrush. Patient having difficulty with the solid foods -Antibiotics per ID -Continue pain medication as needed -Encourage patient to ambulate -Encourage patient to use incentive spirometer -GI prophylaxis Protonix and DVT prophylaxis subcu heparin Physician Grey Washer note has been reviewed by physician. Signing provider agrees with the documented findings, assessment, and plan of care. Objective - Vital Signs Vital signs: Vital Signs Temp 97.6 F 10/16/20 11:10 Pulse 72 10/16/20 11:10 Resp 16 10/16/20 11:10 BP 120/76 10/16/20 11:10 Pulse Ox 97 10/16/20 11:10 Intake & Output 10/15/20 10/16/20 10/16/20 18:59 06:59 18:59 Intake Total 2450 880 Output Total 700 Balance 1750 880 Intake: Intake, IV Titration 210 240 Amount Sodium Chloride 0.9% 1, 160 240 000 ml @ 20 mls/hr IV . Q24H [facility] Rx#:[id number] cefTRIAXone 2 gm In 50 Sodium Chloride 0.9% 50 ml @ 100 mls/hr IVPB Q24HR [facility] Rx#:[id number] Oral 2240 640 Output: Urine 700 Other: Voiding Method Toilet Toilet Urinal Urinal # Voids 4 1 # Bowel Movements 1 - Labs CBC & Chem 7: 10/16/20 06:15 10/16/20 06:15 Labs: Abnormal Lab Results - Last 24 Hours (Table) 10/16/20 10/16/20 Range/Units 06:15 06:15 RBC 3.60 L (4.30-5.90) m/uL Hgb 11.5 L (13.0-17.5) gm/dL Hct 33.4 L (39.0-53.0) % BUN/Creatinine Ratio 23.33 H (12.00-20.00) Ratio Glucose 148 H (70-110) mg/dL Calcium 8.5 L (8.7-10.3) mg/dL Microbiology - Last 24 Hours (Table) 10/15/20 10:05 Gram Stain - Preliminary Incision Wound Culture - Preliminary Gram Neg Bacilli 10/15/20 10:05 Anaerobic Culture - Preliminary Incision 10/11/20 14:28 Blood Culture - Preliminary Blood No Growth after 96 hours
--- NOTE | 2020-10-16 17:44 | P.PN ---
Subjective Progress Note Date: 10/16/20 Bryan Casarez is an 80 yo M with PMH of multiple previous abdominal surgeries, previous small bowel obstruction treated conservatively, peptic ulcer disease with GI bleed, prior history of alcoholism, chronic back pain who presented with a 2 day history of upper abdominal pain with nausea and vomiting. He experience dark tarry vomit and has not had a BM or passed flatus in 2 days. He denies any fever, chills or sweats. Computed tomography scan abdomen and pelvis shows a mid to distal small bowel obstruction with transition point in the proximal to mid ileal loops in the upper and mid pelvis just right of midline. 10/03/2020 Maintained on IV fluid hydration. Continues on conservative treatment as per surgery. Reports positive flatus. Denies abdominal pain, reports tenderness. Tolerating ice chips. No nausea, no vomiting. Ambulating in room, tolerating exertion well. Afebrile, WBC within normal limits as of yesterday. Potassium 3.4, creatinine 0.8. 10/06/2020 continues on IV fluid hydration. Complains of persistent significant pain , no nausea or vomiting. No bowel movement. Passed minimal amount of flatus last night.scheduled for small bowel follow-through with possible expl oratory laparotomy today as per surgery. Denies chest pain, palpitations or shortness of breath. Afebrile. 10/07/2020 Status post exploratory laparotomy with small bowel resection, POD #1.complains of increased abdominal pain. During the night requiring additional Dilaudid as well as Phenergan. Denies flatus or bowel movement. Denies nausea or vomiting. Afebrile, WBC up to 15.6. Hemoglobin 15.3, platelets 230. CMP pending. Denies chest pain, palpitations. Denies shortness of breath. M aintaining O2 sats in the 90s on room air. Heart rate currently 53, tachycardic last night in the 1 teens. 10/08/2020 Reports pain better controlled. Afebrile, WBC is trending down, 11.8. Tolerating sips of clear liquid diet with no nausea or vomiting. Audible gurgling, reports he has not been out of bed since surgery. Maintaining O2 sats in the 90s on room air. Heart rates ranging from 45-53 in a patient with history of nonischemic cardiomyopathy. Last EF recorded at 30% in 2017. Denies chest pain, palpitations or shortness of breath. Hemoglobin 13.5, platelets 211. 10/09/2020 reports ongoing abdominal pain with nausea and bloating. Denies passing flatus, but states occasional burping. Denies bowel movement. T-max 100.5, WBC increased to 16.2. Hemoglobin trending down, 11.9, platelets 160. Potassium 3, magnesium 1.5, supplements ordered for both. Denies chest pain, pa lpitations or shortness of breath. O2 saturation worsening on room air, maintaining O2 sats in the low 90s. Chest x-ray yesterday afternoon reporting no acute pulmonary process. Echo reporting mild concentric left ventricular hypertrophy, normal LV function, EF 60-65%, mild pulmonary hypertension. Yesterday evaluated by speech therapy reporting incomplete versus absent swallow, maintained on NPO status overnight with reevaluation this morning. 10/10/2020 Scheduled for PICC line placement, TPN as per dietary. Denies flatus or bowel movement. Reports an occasional burping, ice chips and popsicles.T-max 100.5, WBC up to 26.3. Preliminary Blood cultures positive for Klebsiella oxytoca. Antibiotics adjusted, now on Rocephin. Positive pain, less tender. States Dilaudid only makes him loopy does not take his pain away. Reports he sat up in the chair yesterday. Minimal ambulation within room.Partial labs pending. 10/13/20 tolerating full liquid diet and requesting diet advancement. Abdominal pain improved , no nausea or vomiting. Bowel movement yesterday, passing flatus. Maintained on Rocephin for Klebsiella bacteremia. Preliminary repeat blood cultures negative at 24 hours .Afebrile, WBC down to 12. 10/14/2020 evaluated by cardiology yesterday for chest pain, negative troponins 3, with metoprolol initiated. Reports no further chest pain. telemetry normal sinus rhythm.tolerating diet advancement with no nausea or vomiting. Passing flatus, last bowel movement Tuesday. Initially planned for discharge, but patient having incisional site drainage. Repeat CT of abdomen and pelvis ordered. T-max 99.8, WBC improving down to 11.5. 10/15/2020 CT of abdomen and pelvis shows postsurgical changes of recent abdominal laparotomy. No evidence for abscess. Small fluid collection left upper quadrant anteriorly with focus of internal areas likely related to recent postoperative changes and small seroma. Resolution of previously noted distal small bowel shocks in. Extensive nonobstructing nephrolithiasis. Right basilar atelectasis and effusion is new. Patient complaining of "increased sharp pain",states "something is very wrong". Reports no bowel movement. Minimal flatus. Denies nausea or vomiting.Complains of thrush despite nystatin swish and swallow. Oral Diflucan added to med regimen. Staff reports abdominal drainage, milky appearance. Cultures ordered. Maintained on Rocephin and Flagyl. Afebrile, T-max 99.2, normal WBC. Repeat blood cultures reporting no growth. 10/16/2020 pain improving, sitting up and shower. Reports small bowel movement yesterday, passing flatus. Denies nausea or vomiting. Complains of throat soreness , continues on nystatin and Diflucan.Continues to have purulent drainage from incision site. Afebrile, normal WBC. Preliminary wound culture is growing gram-negative bacilli. Renal function stable. Denies chest pain, palpitations or shortness of breath. Objective - Vital Signs Vital signs: Vital Signs Temp 97.6 F 10/16/20 11:10 Pulse 72 10/16/20 17:15 Resp 16 10/16/20 17:15 BP 120/76 10/16/20 11:10 Pulse Ox 97 10/16/20 11:10 Intake & Output 10/15/20 10/16/20 10/16/20 18:59 06:59 18:59 Intake Total 2450 880 360 Output Total 700 1200 Balance 1750 880 -840 Intake: Intake, IV Titration 210 240 Amount Sodium Chloride 0.9% 1, 160 240 000 ml @ 20 mls/hr IV . Q24H [facility] Rx#:[id number] cefTRIAXone 2 gm In 50 Sodium Chloride 0.9% 50 ml @ 100 mls/hr IVPB Q24HR [facility] Rx#:[id number] Oral 2240 640 360 Output: Urine 700 1200 Other: Voiding Method Toilet Toilet Urinal Urinal # Voids 4 1 # Bowel Movements 1 1 - Exam General: Sitting up, in shower, NAD,Vitals reviewed. Eyes: PERRL, EOMI, conjunctiva normal. HENT: normocephalic, mucus membranes dry Neck: supple, no JVD Lungs: normal respiratory effort, bilateral bases diminished CV: Regular rate and rhythm, no murmur. Peripheral pulses 2+ Abdomen: soft, Distended. less surgical tenderness, less tender right lower quadrant , dressing clean dry and intact, Positive bowel sounds Skin: warm and dry. Neuro: A&Ox3, normal mood and affect - Labs CBC & Chem 7: 10/16/20 06:15 10/16/20 06:15 Labs: Abnormal Lab Results - Last 24 Hours (Table) 10/16/20 10/16/20 Range/Units 06:15 06:15 RBC 3.60 L (4.30-5.90) m/uL Hgb 11.5 L (13.0-17.5) gm/dL Hct 33.4 L (39.0-53.0) % BUN/Creatinine Ratio 23.33 H (12.00-20.00) Ratio Glucose 148 H (70-110) mg/dL Calcium 8.5 L (8.7-10.3) mg/dL Microbiology - Last 24 Hours (Table) 10/11/20 14:28 Blood Culture - Preliminary Blood No Growth after 120 hours 10/15/20 10:05 Gram Stain - Preliminary Incision Wound Culture - Preliminary Gram Neg Bacilli 10/15/20 10:05 Anaerobic Culture - Preliminary Incision Assessment and Plan Assessment: (1) Intra-abdominal adhesions Current Visit: Yes Status: Acute Code(s): K66.0 - PERITONEAL ADHESIONS (POSTPROCEDURAL) (POSTINFECTION) SNOMED Code(s): 304145140 (2)Bacteremia with preliminary blood cultures reporting Klebsiella oxytoca, post-op. Preliminary repeat cultures negative, etiology possibly abdominal peewee rce, incisional site purulent drainage, preliminary wound culture reporting gram-negative bacilli. (3) Nausea & vomiting Current Visit: Yes Status: Acute Code(s): R11.2 - NAUSEA WITH VOMITING, UN SPECIFIED SNOMED Code(s): 55650256 (4) Acute Small bowel obstruction secondary to adhesions, status post exploratory laparotomy with small bowel resection, lysis of adhesions, excision of small abdominal mass, pathology pending. Current Visit: Yes Status: Acute Code(s): K56.609 - UNSP INTESTNL OBST, UNSP TO PARTIAL VERSUS COMPLETE OBST SNOMED Code(s): 588984766 (5) Abdominal pain Current Visit: No Status: Acute Code(s): R10.9 - UNSPECIFIED ABDOMINAL PAIN SNOMED Code(s): 42048862 (6) Gastritis Current Visit: Yes Status: Acute Code(s): K29.70 - GASTRITIS, UNSPECIFIED, WITHOUT BLEEDING SNOMED Code(s): 7309768 (7) chronic back pain (8) atelectasis, chest x-ray pending (9) bradycardia, in a patient with history of nonischemic cardiomyopathy . EF 30% noted in 2017 .echo now reporting significant improvement with normal LV function, EF 60-65%, mild pulmonary hypertension. (10) chest pain, workup in progress (11) oral candidiasis. Plan: Continue on current medication regime ,monitoring and symptomatic treatment. IV antibiotics as per ID, cultures finalizing. Pain management adjusted with Dilaudid IV push for breakthrough pain only .Aggressive pulmonary toileting with incentive spirometer reinforced. The impression and plan of care has been dictated as directed. : I performed a history and examination of this patient, discussed the same with the dictator. I agree with the dictator's note ,documented as a scribe. Any additional findings or plans will be noted.
[2020-10-16] MEDS: traZODone HCL 50 MG TAB PO SCH (21:40)
[2020-10-16] MEDS: HYDROmorphone 0.5 MG/0.5 ML SYRINGE IVP PRN (21:46)
[2020-10-17] MEDS: metroNIDAZOLE 500 MG TAB PO SCH ×3 (08:47→21:06)
[2020-10-17] MEDS: METOPROLOL TARTRATE 12.5 MG TAB PO SCH ×2 (08:47→21:06)
[2020-10-17] MEDS: DOCUSATE 100 MG CAP PO SCH ×2 (08:47→21:06)
[2020-10-17] MEDS: PANTOPRAZOLE 40 MG TABLET PO SCH (08:47)
[2020-10-17] MEDS: ASPIRIN 81 MG PO SCH (08:47)
[2020-10-17] MEDS: amLODIPine 5 MG TAB PO SCH (08:48)
[2020-10-17] MEDS: polyethylene glycoL 3350 17 GM POWD.PACK PO SCH (08:50)
[2020-10-17] MEDS: FLUCONAZOLE 150 MG TAB PO SCH (08:50)
[2020-10-17] MEDS: SODIUM CHLORIDE 0.9% 1,000 ML IV SCH (08:51)
[2020-10-17] MEDS: NYSTATIN 100,000 UNIT/ML SUSP 500,000 UNIT/5 ML CUP PO SCH ×4 (08:51→22:28)
[2020-10-17] MEDS: ENOXAPARIN 40 MG/0.4 ML SYRINGE SQ SCH (08:52)
[2020-10-17] MEDS: LIDOCAINE 5% PATCH TOPICAL SCH ×2 (08:59→09:00)
[2020-10-17] MEDS: METOCLOPRAMIDE 5 MG/ML 2 ML VIAL IVP PRN (09:00)
[2020-10-17] MEDS ORDERED: NA PHOS,M-B/NA PHOS,DI-BA 133 ML ENEMA RECTAL ONE (13:10)
[2020-10-17] MEDS ORDERED: polyethylene glycoL 3350 17 GM POWD.PACK PO SCH (13:15)
--- NOTE | 2020-10-17 15:13 | CDI ---
Documentation Clarification Form Date: 10/17/2020 02:41:01 PM From: Tanya Jackson RN CCDS Admit Date: 10/01/2020 10:26:00 AM Patient Name: Bryan Casarez Visit Number: [id number] Discharge Date: ATTENTION: The Clinical Documentation Specialists (CDI) and [facility] Coding Staff appreciate your assistance in clarifying documentation. Please respond to the clarification below the line at the bottom and electronically sign. The CDI & [facility] Coding staff will review the response and follow-up if needed. Please note: Queries are made part of the Legal Health Record. If you have any questions, please contact the author of this message via ITS. Dr. Gael York Sepsis is documented medicine progress notes, 10/11 & , but is not noted in subsequent documentation. Clarification is requested. History/Risk Factors: 80-year-old male presents to the ED with a two-day history of abdominal pain and no bowel movement in two days. Medical History: Multiple abdominal surgeries and previous small bowel obstruction treated conservatively. Diverticular disease and ileus. H&P 10/02 Clinical Indicators: Labs:10/09 Wbc 16.2; 10/10 26.3 VSS: 10/09 B/P 112/65, HR 99, Temp 100.0 F Oral, RR 20, SpO2 93% ra Blood Culture: 10/12 Klebsiella oxytoca, Gram Negative Bacilli Klebsiella oxytoca sepsis and bacteremia Medicine progress note 10/12. Bacteremia with preliminary blood cultures reporting Klebsiella oxytoca, post op. Preliminary repeat cultures negative, etiology possibly abdominal source, incisional site purulent drainage preliminary wound culture reporting gram negative bacilli. Medicine progress note 10/16. Treatment: 10/09 Piperacillin Sod/Tazobactam Sod 3.375gm Q8HR d/c 09/09. 10/10 Ceftriaxone Sodium 2gm IVPB Q24HR to current. 10/13 Flagyl 500mg PO TID to current. Fluids: 10/09 0.9NS 1L IV Fluid Bolus x 1. Please clarify if the Sepsis is: [ ] Sepsis confirmed, remains under treatment [ ] Sepsis confirmed, resolved [ ] Sepsis ruled out [ ] Other condition, please specify [ ] Unable to determine (Template Last Revised: June 2020) Sepsis confirmed, remains under treatment MTDD
--- NOTE | 2020-10-17 15:36 | P.PN ---
Progress Note - Text Progress Note Date: 10/17/20 The patient is doing better. He has had multiple bowel movements. On exam vital signs are stable. Abdomen soft. Patient will have his diet advanced to regular diet.
--- NOTE | 2020-10-17 17:52 | P.PN ---
Subjective Progress Note Date: 10/17/20 Bryan Casarez is an 80 yo M with PMH of multiple previous abdominal surgeries, previous small bowel obstruction treated conservatively, peptic ulcer disease with GI bleed, prior history of alcoholism, chronic back pain who presented with a 2 day history of upper abdominal pain with nausea and vomiting. He experience dark tarry vomit and has not had a BM or passed flatus in 2 days. He denies any fever, chills or sweats. Computed tomography scan abdomen and pelvis shows a mid to distal small bowel obstruction with transition point in the proximal to mid ileal loops in the upper and mid pelvis just right of midline. 10/03/2020 Maintained on IV fluid hydration. Continues on conservative treatment as per surgery. Reports positive flatus. Denies abdominal pain, reports tenderness. Tolerating ice chips. No nausea, no vomiting. Ambulating in room, tolerating exertion well. Afebrile, WBC within normal limits as of yesterday. Potassium 3.4, creatinine 0.8. 10/06/2020 continues on IV fluid hydration. Complains of persistent significant pain , no nausea or vomiting. No bowel movement. Passed minimal amount of flatus last night.scheduled for small bowel follow-through with possible expl oratory laparotomy today as per surgery. Denies chest pain, palpitations or shortness of breath. Afebrile. 10/07/2020 Status post exploratory laparotomy with small bowel resection, POD #1.complains of increased abdominal pain. During the night requiring additional Dilaudid as well as Phenergan. Denies flatus or bowel movement. Denies nausea or vomiting. Afebrile, WBC up to 15.6. Hemoglobin 15.3, platelets 230. CMP pending. Denies chest pain, palpitations. Denies shortness of breath. M aintaining O2 sats in the 90s on room air. Heart rate currently 53, tachycardic last night in the 1 teens. 10/08/2020 Reports pain better controlled. Afebrile, WBC is trending down, 11.8. Tolerating sips of clear liquid diet with no nausea or vomiting. Audible gurgling, reports he has not been out of bed since surgery. Maintaining O2 sats in the 90s on room air. Heart rates ranging from 45-53 in a patient with history of nonischemic cardiomyopathy. Last EF recorded at 30% in 2017. Denies chest pain, palpitations or shortness of breath. Hemoglobin 13.5, platelets 211. 10/09/2020 reports ongoing abdominal pain with nausea and bloating. Denies passing flatus, but states occasional burping. Denies bowel movement. T-max 100.5, WBC increased to 16.2. Hemoglobin trending down, 11.9, platelets 160. Potassium 3, magnesium 1.5, supplements ordered for both. Denies chest pain, pa lpitations or shortness of breath. O2 saturation worsening on room air, maintaining O2 sats in the low 90s. Chest x-ray yesterday afternoon reporting no acute pulmonary process. Echo reporting mild concentric left ventricular hypertrophy, normal LV function, EF 60-65%, mild pulmonary hypertension. Yesterday evaluated by speech therapy reporting incomplete versus absent swallow, maintained on NPO status overnight with reevaluation this morning. 10/10/2020 Scheduled for PICC line placement, TPN as per dietary. Denies flatus or bowel movement. Reports an occasional burping, ice chips and popsicles.T-max 100.5, WBC up to 26.3. Preliminary Blood cultures positive for Klebsiella oxytoca. Antibiotics adjusted, now on Rocephin. Positive pain, less tender. States Dilaudid only makes him loopy does not take his pain away. Reports he sat up in the chair yesterday. Minimal ambulation within room.Partial labs pending. 10/13/20 tolerating full liquid diet and requesting diet advancement. Abdominal pain improved , no nausea or vomiting. Bowel movement yesterday, passing flatus. Maintained on Rocephin for Klebsiella bacteremia. Preliminary repeat blood cultures negative at 24 hours .Afebrile, WBC down to 12. 10/14/2020 evaluated by cardiology yesterday for chest pain, negative troponins 3, with metoprolol initiated. Reports no further chest pain. telemetry normal sinus rhythm.tolerating diet advancement with no nausea or vomiting. Passing flatus, last bowel movement Tuesday. Initially planned for discharge, but patient having incisional site drainage. Repeat CT of abdomen and pelvis ordered. T-max 99.8, WBC improving down to 11.5. 10/15/2020 CT of abdomen and pelvis shows postsurgical changes of recent abdominal laparotomy. No evidence for abscess. Small fluid collection left upper quadrant anteriorly with focus of internal areas likely related to recent postoperative changes and small seroma. Resolution of previously noted distal small bowel shocks in. Extensive nonobstructing nephrolithiasis. Right basilar atelectasis and effusion is new. Patient complaining of "increased sharp pain",states "something is very wrong". Reports no bowel movement. Minimal flatus. Denies nausea or vomiting.Complains of thrush despite nystatin swish and swallow. Oral Diflucan added to med regimen. Staff reports abdominal drainage, milky appearance. Cultures ordered. Maintained on Rocephin and Flagyl. Afebrile, T-max 99.2, normal WBC. Repeat blood cultures reporting no growth. 10/16/2020 pain improving, sitting up and shower. Reports small bowel movement yesterday, passing flatus. Denies nausea or vomiting. Complains of throat soreness , continues on nystatin and Diflucan.Continues to have purulent drainage from incision site. Afebrile, normal WBC. Preliminary wound culture is growing gram-negative bacilli. Renal function stable. Denies chest pain, palpitations or shortness of breath. 10/17/2020 maintained on IV antibiotics as per ID.Wound culture reporting Enterobacter Clocae. Anaerobic pending. Reporting minimal bowel movement last night. Denies nausea or vomiting. Reports mouth/throat improved-asking for diet advancement. Abdominal pain improved. Afebrile, normal WBC. Objective - Vital Signs Vital signs: Vital Signs Temp 98.0 F 10/17/20 12:43 Pulse 88 10/17/20 12:43 Resp 20 10/17/20 12:43 BP 113/69 10/17/20 12:43 Pulse Ox 99 10/17/20 12:43 Intake & Output 10/16/20 10/17/20 10/17/20 18:59 06:59 18:59 Intake Total 360 Output Total 1200 Balance -840 Intake: Oral 360 Output: Urine 1200 Other: Voiding Method Toilet Toilet Toilet Urinal Urinal Urinal # Voids 1 # Bowel Movements 1 1 2 - Exam General: Sitting up at side of bed, NAD,Vitals reviewed. Eyes: PERRL, EOMI, conjunctiva normal. HENT: normocephalic, mucus membranes moist Lungs: normal respiratory effort, bilateral bases diminished CV: Regular rate and rhythm, no murmur. Peripheral pulses 2+ Abdomen: soft, Distended. less surgical tenderness, dressing clean dry and inta ct, Positive bowel sounds Skin: warm and dry. Neuro: A&Ox3, normal mood and affect - Labs CBC & Chem 7: 10/16/20 06:15 10/16/20 06:15 Labs: Microbiology - Last 24 Hours (Table) 10/11/20 14:28 Blood Culture - Final Blood No Growth after 144 hours 10/15/20 10:05 Anaerobic Culture - Preliminary Incision 10/15/20 10:05 Gram Stain - Final Incision Wound Culture - Final Enterobacter cloacae Assessment and Plan Assessment: (1) Intra-abdominal adhesions Current Visit: Yes Status: Acute Code(s): K66.0 - PERITONEAL ADHESIONS (POSTPROCEDURAL) (POSTINFECTION) SNOMED Code(s): 678521032 (2)Bacteremia with preliminary blood cultures reporting Klebsiella oxytoca, post-op. Preliminary repeat cultures negative, etiology possibly abdominal source, incisional site purulent drainage, preliminary wound culture reporting gram-negative bacilli. (3) Nausea & vomiting Current Visit: Yes Status: Acute Code(s): R11.2 - NAUSEA WITH VOMITING, UNSPECIFIED SNOMED Code(s): 45057878 (4) Acute Small bowel obstruction secondary to adhesions, status post exploratory laparotomy with small bowel resection, lysis of adhesions, excision of small abdominal mass, pathology pending. Current Visit: Yes Status: Acute Code(s): K56.609 - UNSP INTESTNL OBST, UNSP TO PARTIAL VERSUS COMPLETE OBST SNOMED Code(s): 162640427 (5) Abdominal pain Current Visit: No Status: Acute Code(s): R10.9 - UNSPECIFIED ABDOMINAL PAIN SNOMED Code(s): 39883660 (6) Gastritis Current Visit: Yes Status: Acute Code(s): K29.70 - GASTRITIS, UNSPECIFIED, WITHOUT BLEEDING SNOMED Code(s): 3628918 (7) chronic back pain (8) atelectasis, chest x-ray pending (9) bradycardia, in a patient with history of nonischemic cardiomyopathy . EF 30% noted in 2017 .echo now reporting significant improvement with normal LV function, EF 60-65%, mild pulmonary hypertension. (10) chest pain, workup in progress (11) oral candidiasis. Plan: Continue on current medication regime ,monitoring and symptomatic treatment. Increase MiraLAX to every 6 hours until bowel movement, then resume daily. IV antibiotics as per ID. Aggressive pulmonary toileting with incentive spirometer reinforced. Discharge planning in progress for tomorrow pending finalizing of cultures. The impression and plan of care has been dictated as directed. : I performed a history and examination of this patient, discussed the same with the dictator. I agree with the dictator's note ,documented as a scribe. Any additional findings or plans will be noted.
[2020-10-17] MEDS: traZODone HCL 50 MG TAB PO PRN (21:06)
[2020-10-17] MEDS: traZODone HCL 50 MG TAB PO SCH (21:06)
[2020-10-17] MEDS: HYDROmorphone 0.5 MG/0.5 ML SYRINGE IVP PRN (21:06)
[2020-10-18] MEDS: CEFEPIME 2 GM in SODIUM CHLORIDE 0.9% 100 ML IVPB SCH ×2 (00:34→09:09)
--- NOTE | 2020-10-18 06:51 | PN ---
PROGRESS NOTE DATE OF SERVICE: 10/17/2020 REASON FOR FOLLOW UP: Gram-negative bacteremia and abdominal wound infection. INTERVAL HISTORY: The patient is afebrile. The patient is breathing comfortably. Has been complaining of abdominal pain off and on and complaining of more drainage from his abdominal wound. The patient denies having any chest pain or shortness of breath or cough. PHYSICAL EXAMINATION: Blood pressure 152/72 with a pulse of 99, temperature 98, he is 95% on room air. General description is an elderly male lying in bed in no distress. Respiratory system: Unlabored breathing, clear to auscultation anteriorly. Heart S1, S2. Regular rate and rhythm. Abdomen is soft, no tenderness. No guarding or rigidity. LABS: Hemoglobin is 11.5, white count 10, BUN of 14, creatinine 0.6. The local culture now showing Enterobacter. DIAGNOSTIC IMPRESSION AND PLAN: Patient with Gram-negative bacteremia with Klebsiella, now with abdominal wound infection and those cultures showing Enterobacter. Antibiotic will be adjusted to cefepime for better coverage of the Enterobacter. Continue Flagyl. Discontinue the Rocephin. Prognosis remains to be guarded. MMODL / IJN: [id number] /
[2020-10-18] MEDS ORDERED: polyethylene glycoL 3350 17 GM POWD.PACK PO SCH (09:00)
[2020-10-18] MEDS: METOPROLOL TARTRATE 12.5 MG TAB PO SCH (09:07)
[2020-10-18] MEDS: amLODIPine 5 MG TAB PO SCH (09:07)
[2020-10-18] MEDS: HYDROcodone/APAP 10-325MG 1 EACH TAB PO PRN (09:07)
[2020-10-18] MEDS: PANTOPRAZOLE 40 MG TABLET PO SCH (09:07)
[2020-10-18] MEDS: ASPIRIN 81 MG PO SCH (09:07)
[2020-10-18] MEDS: DOCUSATE 100 MG CAP PO SCH (09:07)
[2020-10-18] MEDS: metroNIDAZOLE 500 MG TAB PO SCH (09:08)
[2020-10-18] MEDS: NYSTATIN 100,000 UNIT/ML SUSP 500,000 UNIT/5 ML CUP PO SCH ×2 (09:08→14:38)
[2020-10-18] MEDS: LIDOCAINE 5% PATCH TOPICAL SCH ×2 (09:10→09:11)
[2020-10-18] MEDS: ENOXAPARIN 40 MG/0.4 ML SYRINGE SQ SCH (09:10)
[2020-10-18] MEDS: FLUCONAZOLE 150 MG TAB PO SCH (10:30)
[2020-10-18] MEDS: SODIUM CHLORIDE 0.9% 1,000 ML IV SCH (10:31)
[2020-10-18 12:26] VITALS: BP 113/68; PULSE 77; RESP 18; TEMP 98
--- NOTE | 2020-10-18 13:15 | P.PN ---
Progress Note - Text Progress Note Date: 10/18/20 The patient feels well. He wishes to be discharged home. On exam vital signs are stable. Abdomen soft. There is small amount of drainage from the superior portion of the incision with linda removed. The Status post exploratory laparotomy with small bowel resection. Patient will be discharged home per medicine today. He'll follow-up the office 1 week. The family will provide local wound care.
--- NOTE | 2020-10-18 14:47 | PN ---
PROGRESS NOTE DATE OF SERVICE: 10/18/2020 REASON FOR FOLLOWUP: Klebsiella bacteremia secondary to abdominal source. INTERVAL HISTORY: The patient is afebrile. The patient is feeling better. Patient's abdominal pain has much improved. Has been tolerating his diet. Overall drainage from the upper end of the incision has improved and the patient wants to go home. PHYSICAL EXAMINATION: Blood pressure 113/68 with a pulse of 77, temperature 98, he is 95% on room air. General description is an elderly male lying in bed in no distress. Respiratory system: Unlabored breathing, clear to auscultation anteriorly. Heart S1, S2. Regular rate and rhythm. Abdomen is soft. Overall drainage has decreased. LABS: No new labs have been obtained. His white count was normal at 10.0 on 10/16. Abdominal culture did show Enterobacter sensitive to Ceftin. DIAGNOSTIC IMPRESSION AND PLAN: Patient with Gram-negative bacteremia. Repeat blood cultures have been negative. Source is likely abdominal with abdominal wound infection and dehiscence post surgery. CT was negative for any drainable abscess. The patient is insisting on going home. Antibiotic switched to oral Ceftin and Flagyl for 10 days. Prescription sent to the pharmacy. Close outpatient followup. Family at the bedside. Questions were answered. If the patient develops any abdominal pain or develops any fever, he needs to come back to the hospital right away. MMODL / IJN: [id number] /
--- NOTE | 2020-10-18 14:47 | P.DS ---
Providers Date of admission: 10/01/20 10:26 Expected date of discharge: 10/18/20 Attending physician: Gael York MD Consults: 10/01/20 15:07 Consult Physician Routine Consulting Provider: Chucky Martinez Consult Reason/Comments: SBO Do you want consulting provider notified?: Already Contacted 10/09/20 11:28 Consult to Anesthesia Stat Consulting Provider: Anesthesia,Services Consult Reason/Comments: pain management 10/10/20 10:57 Consult Physician Routine Consulting Provider: Gem Chapa Consult Reason/Comments: bacteremia Do you want consulting provider notified?: Yes 10/13/20 10:13 Consult Physician Urgent Consulting Provider: Francy Rod Consult Reason/Comments: chest pain Do you want consulting provider notified?: Yes Primary care physician: Stephanie York Patient Condition at Discharge: Fair Plan - Discharge Summary Discharge Rx Participant: No New Discharge Prescriptions: New Aspirin 81 mg PO DAILY #0 chew amLODIPine [Norvasc] 5 mg PO DAILY #30 tab Ciprofloxacin HCl [Cipro] 500 mg PO Q12H 10 Days #20 tab polyethylene glycoL 3350 [Miralax] 17 gm PO DAILY 30 Days #30 powd.pack Metoprolol Tartrate [Lopressor] 12.5 mg PO BID #60 tab metroNIDAZOLE [Flagyl] 500 mg PO Q8HR #30 tab Pantoprazole [Protonix] 40 mg PO DAILY 30 Days #30 tablet.dr Continue HYDROcodone/APAP 10-325MG [Sterling 10-325] 1 tab PO Q6H PRN PRN Reason: Pain Celecoxib [CeleBREX] 200 mg PO DAILY Discontinued Ibuprofen [Motrin Ib] 400 mg PO Q8H PRN PRN Reason: Pain Discharge Medication List Celecoxib [CeleBREX] 200 mg PO DAILY 10/01/20 [History] HYDROcodone/APAP 10-325MG [Sterling 10-325] 1 tab PO Q6H PRN 10/01/20 [History] Aspirin 81 mg PO DAILY #0 chew 10/14/20 [Rx] Metoprolol Tartrate [Lopressor] 12.5 mg PO BID #60 tab 10/14/20 [Rx] amLODIPine [Norvasc] 5 mg PO DAILY #30 tab 10/14/20 [Rx] Ciprofloxacin HCl [Cipro] 500 mg PO Q12H 10 Days #20 tab 10/18/20 [Rx] Pantoprazole [Protonix] 40 mg PO DAILY 30 Days #30 tablet. 10/18/20 [Rx] metroNIDAZOLE [Flagyl] 500 mg PO Q8HR #30 tab 10/18/20 [Rx] polyethylene glycoL 3350 [Miralax] 17 gm PO DAILY 30 Days #30 powd.pack 10/18/20 [Rx] Follow up Appointment(s)/Referral(s): Stephanie York DO [Primary Care Provider] - 3 Days Neeta Rae MD [STAFF PHYSICIAN] - 2 Weeks Chucky Martinez MD [STAFF PHYSICIAN] - 1 Week Activity/Diet/Wound Care/Special Instructions: Pending final DC recommendations and clearance from both surgery and ID. Discharge Disposition: HOME SELF-CARE
--- NOTE | 2020-10-18 15:24 | P.DS ---
Providers Date of admission: 10/01/20 10:26 Expected date of discharge: 10/18/20 Attending physician: Gael York MD Consults: 10/01/20 15:07 Consult Physician Routine Consulting Provider: Chucky Martinez Consult Reason/Comments: SBO Do you want consulting provider notified?: Already Contacted 10/09/20 11:28 Consult to Anesthesia Stat Consulting Provider: Anesthesia,Services Consult Reason/Comments: pain management 10/10/20 10:57 Consult Physician Routine Consulting Provider: Gem Chapa Consult Reason/Comments: bacteremia Do you want consulting provider notified?: Yes 10/13/20 10:13 Consult Physician Urgent Consulting Provider: Francy Rod Consult Reason/Comments: chest pain Do you want consulting provider notified?: Yes Primary care physician: Stephaniedinora DennisJaylen [facility] Course: Mr. Casarez is an 80-year-old male with a past medical history of multiple previous abdominal surgeries, as previous small bowel obstruction treated conservatively, peptic ulcer disease or GI bleed, alcoholism, chronic back pain presented to the hospital with 2 day history of upper abdominal pain with nausea and vomiting. Patient had a CAT scan of the abdomen and pelvis showing a mild to distal small bowel obstruction with transition point in the proximal to mid ear loops in the upper and mid pelvis just right of midline. So patient was maintained on conservative therapy initially as per surgery recommendations. Eventually patient had exploratory laparotomy done on 10/06/[address] Martinez for excision of calcified abdominal wall mass, lysis of adhesion and small bowel resection. Patient had a prolonged recovery so he was placed on TPN. Eventually patient had blood cultures that are positive for Klebsiella and ID Dr. Chapa followed the patient for antibiotic stewardship. Eventually patient had a repeat CAT scan of the abdomen and pelvis on 10/15/2020 with no evidence of abscess he was maintained on ceftriaxone and Flagyl and also received oral Diflucan. Patient had wound cultures growing Enterobacter, so the patient was started on cefepime and continued on Flagyl. On 10/18/2020- patient was seen by me at bedside for the first time. He is comf ortably sitting in bed appears to be in no acute distress. Patient had 2-3 bowel movements yesterday and does not complain of any abdominal pain. Patient insists on going home today. He denies having any fevers chills or rigors. Denies having any abdominal pain nausea vomiting or diarrhea. No chest pain or palpitations. He denies having any dysuria or hematuria. Patient was seen by surgical services Dr. Domingo Mcclure and he was cleared by him to be discharged. I spoke with Dr. Chapa who changed the antibiotics to ciprofloxacin and Flagyl, and cleared him for discharge. So the patient is being discharged home under the care of his daughter. Vital Signs Temp 98.1 F 10/18/20 05:00 Pulse 86 10/18/20 08:35 Resp 16 10/18/20 08:35 BP 105/66 10/18/20 05:00 Pulse Ox 97 10/18/20 05:00 Intake & Output 10/17/20 10/18/20 10/18/20 18:59 06:59 18:59 Intake Total 50 1410 Balance 50 1410 Intake: Intake, IV Titration 50 100 Amount Cefepime 2 gm In Sodium 100 Chloride 0.9% 100 ml @ 25 mls/hr IVPB Q8HR KI Rx# :[id number] cefTRIAXone 2 gm In 50 Sodium Chloride 0.9% 50 ml @ 100 mls/hr IVPB Q24HR KI Rx#:[id number] Oral 1310 Other: Voiding Method Toilet Toilet Urinal Urinal # Voids 1 # Bowel Movements 2 1 - Exam General: Sitting up at side of bed, NAD,Vitals reviewed. Eyes: PERRL, EOMI, conjunctiva normal. HENT: normocephalic, mucus membranes moist Lungs: normal respiratory effort, bilateral bases diminished CV: Regular rate and rhythm, no murmur. Peripheral pulses 2+ Abdomen: soft, Distended. less surgical tenderness, dressing clean dry and intact, Positive bowel sounds Skin: warm and dry. Neuro: A&Ox3, normal mood and affect - Labs CBC & Chem 7: 10/16/20 06:15 10/16/20 06:15 Labs: Microbiology - Last 24 Hours (Table) 10/11/20 14:28 Blood Culture - Final Blood No Growth after 144 hours 10/15/20 10:05 Anaerobic Culture - Preliminary Incision 10/15/20 10:05 Gram Stain - Final Incision Wound Culture - Final Enterobacter cloacae DISCHARGE DIAGNOSIS Acute small bowel obstruction secondary to adhesions status post exploratory laparotomy, lysis of adhesions, excision of small abdominal mass, pathology pending Gram-negative bacteremia Abdominal wall wound infection Gastritis Chronic low back pain Atelectasis Bradycardia History of nonischemic cardiomyopathy EF 30% in 2017, repeat echo showing LV 60- 65% Hyperlipidemia hypertension Oral hui sepsis Status post TPN PLAN/ follow-up: Patient has been cleared by surgery and ID to be discharged home today. Patient's daughter at bedside and willing to provide necessary care for him. So the patient is being discharged home on antibiotic course to be completed. He is also advised to follow-up with his PCP Dr. York in 3-4 da ys, also advised follow-up with surgery Dr. Morrison and cardiology Dr. Rae in 1-2 weeks. So the patient is discharged home in fair condition. More than 45 minutes spent towards the discharge of the patient Patient Condition at Discharge: Fair Plan - Discharge Summary Discharge Rx Participant: No New Discharge Prescriptions: New Aspirin 81 mg PO DAILY #0 chew amLODIPine [Norvasc] 5 mg PO DAILY #30 tab Ciprofloxacin HCl [Cipro] 500 mg PO Q12H 10 Days #20 tab polyethylene glycoL 3350 [Miralax] 17 gm PO DAILY 30 Days #30 powd.pack Metoprolol Tartrate [Lopressor] 12.5 mg PO BID #60 tab metroNIDAZOLE [Flagyl] 500 mg PO Q8HR #30 tab Pantoprazole [Protonix] 40 mg PO DAILY 30 Days #[address] Seay HYDROcodone/APAP 10-325MG [[place] 10-325] 1 tab PO Q6H PRN PRN Reason: Pain Celecoxib [CeleBREX] 200 mg PO DAILY Discontinued Ibuprofen [Motrin Ib] 400 mg PO Q8H PRN PRN Reason: Pain Discharge Medication List Celecoxib [CeleBREX] 200 mg PO DAILY 10/01/20 [History] HYDROcodone/APAP 10-325MG [[place] 10-325] 1 tab PO Q6H PRN 10/01/20 [History] Aspirin 81 mg PO DAILY #0 chew 10/14/20 [Rx] Metoprolol Tartrate [Lopressor] 12.5 mg PO BID #60 tab 10/14/20 [Rx] amLODIPine [Norvasc] 5 mg PO DAILY #30 tab 10/14/20 [Rx] Ciprofloxacin HCl [Cipro] 500 mg PO Q12H 10 Days #20 tab 10/18/20 [Rx] Pantoprazole [Protonix] 40 mg PO DAILY 30 Days #30 tablet. 10/18/20 [Rx] metroNIDAZOLE [Flagyl] 500 mg PO Q8HR #30 tab 10/18/20 [Rx] polyethylene glycoL 3350 [Miralax] 17 gm PO DAILY 30 Days #30 powd.pack 10/18/20 [Rx] Follow up Appointment(s)/Referral(s): Stephanie York DO [Primary Care Provider] - 3 Days Neeta Rae MD [STAFF PHYSICIAN] - 2 Weeks Chucky Martinez MD [STAFF PHYSICIAN] - 1 Week Patient Instructions/Handouts: Ciprofloxacin (By mouth), Metoprolol (By mouth), Metronidazole (By mouth), Pantoprazole (By mouth), Polyethylene Glycol 3350 (By mouth), Bowel Obstruction (DC) Activity/Diet/Wound Care/Special Instructions: Pending final DC recommendations and clearance from both surgery and ID. OK per Dr. Martinez and . Diet as tolerated Activity Limited until seen by Dr. Discharge Disposition: HOME SELF-CARE
--- NOTE | 2020-10-22 08:23 | CDI ---
Documentation Clarification Form Date: 10/22/2020 07:43:59 AM From: Tanya Jackson RN CCDS Admit Date: 10/01/2020 10:26:00 AM Patient Name: Bryan Casarez Visit Number: [id number] Discharge Date: 10/18/2020 04:35:00 PM ATTENTION: The Clinical Documentation Specialists (CDI) and [facility] Coding Staff appreciate your assistance in clarifying documentation. Please respond to the clarification below the line at the bottom and electronically sign. The CDI & [facility] Coding staff will review the response and follow-up if needed. Please note: Queries are made part of the Legal Health Record. If you have any questions, please contact the author of this message via ITS. Dr. Chucky Martinez, There is documentation of wound dehiscence,10/18, ID progress note. Additional clarification is requested. History/Risk Factors: 80-year-old male presented to the ED with two-day history of upper abdominal pain with nausea and vomiting. Medical History: Multiple abdominal surgeries, small bowel obstruction with conservative treatment and PUD. Clinical Indicators: Source is likely abdominal with abdominal wound infection and dehiscence post- surgery. 10/18 ID progress note. Procedure Performed: Exploratory Laparotomy, Excision of calcified abdominal wall mass. Lysis of adhesions and small bowel resection. 10/06 Procedure note. Incision - Gram Stain Final; Wound Culture Final: Enterobacter cloacae.10/17 Treatment: 10/15 Wound culture; 10/16 ABD Pad; Gauze/Sponge. 10/18 10/18 Cefepime 2gm IVPB Q8HR; 10/13- 10/18 Flagyl 500mg PO TID; 10/13 10/18 Oral Nutritional Supplement TID. ID Consult see above. Can you please clarify depth of dehiscence? [x ] External (superficial) [ ] Internal (deep) [ ] Other, please specify [ ] Unable to determine (Template Last Revised: June 2020) MTDD
== END 2020-10-18 16:35 | disposition home or self-care (01) | DRG 329 ==
LOC: EC 07:27 → 5NMEDONC 10:26
PROVIDERS: ADMIT Family Medicine; ATTEND Family Medicine
PROC: 0DN80ZZ Release Small Intestine, Open Approach (ICD-10-PCS; principal; 2020-10-07)
PROC: 0DB80ZZ Excision of Small Intestine, Open Approach (ICD-10-PCS; principal; 2020-10-07)
PROC: 0WBF0ZZ Excision of Abdominal Wall, Open Approach (ICD-10-PCS; principal; 2020-10-07)
DX: K56.50 Intestinal adhesions [bands], unspecified as to partial versus complete obstruction (principal); A41.59 Other Gram-negative sepsis; E87.0 Hyperosmolality and hypernatremia; B37.0 Candidal stomatitis; I42.0 Dilated cardiomyopathy; J98.11 Atelectasis; T81.49XA Infection following a procedure, other surgical site, initial encounter; T81.31XA Disruption of external operation (surgical) wound, not elsewhere classified, initial encounter; I27.20 Pulmonary hypertension, unspecified; E83.51 Hypocalcemia; K22.2 Esophageal obstruction; N20.0 Calculus of kidney; F10.21 Alcohol dependence, in remission; Z66 Do not resuscitate; Z20.822 Contact with and (suspected) exposure to COVID-19; G89.4 Chronic pain syndrome; E87.6 Hypokalemia; I10 Essential (primary) hypertension; E78.5 Hyperlipidemia, unspecified; I49.3 Ventricular premature depolarization; I08.1 Rheumatic disorders of both mitral and tricuspid valves; K29.70 Gastritis, unspecified, without bleeding; M54.5 Low back pain; G47.33 Obstructive sleep apnea (adult) (pediatric); K57.90 Diverticulosis of intestine, part unspecified, without perforation or abscess without bleeding; K21.9 Gastro-esophageal reflux disease without esophagitis; M48.00 Spinal stenosis, site unspecified; N40.0 Benign prostatic hyperplasia without lower urinary tract symptoms; H26.9 Unspecified cataract; M54.9 Dorsalgia, unspecified; M19.90 Unspecified osteoarthritis, unspecified site; Z79.1 Long term (current) use of non-steroidal anti-inflammatories (NSAID); Z87.891 Personal history of nicotine dependence; Z90.49 Acquired absence of other specified parts of digestive tract; Z87.19 Personal history of other diseases of the digestive system; Z98.41 Cataract extraction status, right eye; Z87.442 Personal history of urinary calculi; Z87.39 Personal history of other diseases of the musculoskeletal system and connective tissue; Z96.642 Presence of left artificial hip joint; Z96.1 Presence of intraocular lens; Z98.1 Arthrodesis status; Z87.81 Personal history of (healed) traumatic fracture; Z86.59 Personal history of other mental and behavioral disorders; Z87.11 Personal history of peptic ulcer disease; Z98.890 Other specified postprocedural states; Y83.8 Other surgical procedures as the cause of abnormal reaction of the patient, or of later complication, without mention of misadventure at the time of the procedure; Z80.0 Family history of malignant neoplasm of digestive organs; Z80.1 Family history of malignant neoplasm of trachea, bronchus and lung
CPT/HCPCS: 36415; 71046; 74176; 74177; 80048; 80053; 81001; 82040; 82150; 82330; 83605; 83690; 83735; 84100; 84132; 84145; 84443; 84478; 84484; 85025; 85610; 85730; 86140; 86850; 86900; 86901; 87040; 87070; 87075; 87077; 87086; 87186; 87205; 87635; 88305; 88307; 88311; 93005; 93306; 94760; 96361; 96374; 96375; 99285

== ENCOUNTER 2021-06-01 09:25 | Inpatient (IN) | payer MEDICARE ==
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
[2021-06-01 12:50] LABS: Basophils # (A) 0.1 k/uL (0-0.2); Basophils % (A) 1 %; Eosinophils # (A) 0.3 k/uL (0-0.7); Eosinophils % (A) 4 %; HCT 22.4 % (39.0-53.0); Lymphocytes # (A) 2.6 k/uL (1.0-4.8); Lymphocytes % (A) 31 %; MCH 32.3 pg (25.0-35.0); MCHC 34.1 g/dL (31.0-37.0); MCV 94.7 fL (80.0-100.0); Mean Platelet Volume 8.1; Monocytes # (A) 0.4 k/uL (0-1.0); Monocytes % (A) 5 %; Neutrophils % (A) 58 %; Platelet Count 204 k/uL (150-450); RBC 2.36 m/uL (4.30-5.90); RDW 14.7 % (11.5-15.5); WBC 8.5 k/uL (3.8-10.6)
[2021-06-01 12:53] LABS: HGB 7.6 gm/dL (13.0-17.5)
[2021-06-01 13:02] LABS: ALT 11 U/L (4-49); AST 18 U/L (17-59); African American GFR (CKD) >90 (>60 ml/min/1.73 sqM); Albumin 3.3 g/dL (3.5-5.0); Alkaline Phosphatase 77 U/L (38-126); Anion Gap 7 mmol/L; Blood Urea Nitrogen 33 mg/dL (9-20); C Reactive Protein <0.5 mg/dL (<1.0); Calcium 8.7 mg/dL (8.4-10.2); Carbon Dioxide 25 mmol/L (22-30); Chloride 110 mmol/L (98-107); Glucose 109 mg/dL (74-99); Non-African American GFR(CKD) 89 (>60 ml/min/1.73 sqM); Potassium 4.4 mmol/L (3.5-5.1); Sodium 142 mmol/L (137-145); Total Bilirubin 0.3 mg/dL (0.2-1.3); Total Protein 5.6 g/dL (6.3-8.2)
[2021-06-01] MEDS ORDERED: ACETAMINOPHEN TAB 325 MG TAB PO PRN ×2 (13:33→15:13)
[2021-06-01] MEDS ORDERED: NALOXONE 0.4 MG/ML 1 ML VIAL IV PRN ×2 (13:33→15:05)
[2021-06-01] MEDS ORDERED: oxyCODONE-APAP 5-325MG 1 EACH TAB PO PRN (13:33)
[2021-06-01] MEDS ORDERED: MELATONIN 3 MG TABLET PO PRN (13:33)
[2021-06-01] MEDS ORDERED: PANTOPRAZOLE 40 MG/10 ML VIAL IVP SCH (13:45)
[2021-06-01] MEDS ORDERED: SODIUM CHLORIDE 0.9% 1,000 ML IV SCH (13:45)
[2021-06-01] MEDS ORDERED: ONDANSETRON 4 MG/2 ML VIAL IVP PRN (13:53)
[2021-06-01] MEDS ORDERED: MORPHINE SULFATE 2 MG/ML SYRINGE IM STA (13:58)
[2021-06-01] MEDS ORDERED: HYDROmorphone 0.5 MG/0.5 ML SYRINGE IVP STA (14:26)
[2021-06-01 15:12] LABS: HCT 21.3 % (39.0-53.0); HGB 7.3 gm/dL (13.0-17.5); MCH 32.2 pg (25.0-35.0); MCHC 34.1 g/dL (31.0-37.0); MCV 94.2 fL (80.0-100.0); Mean Platelet Volume 7.9; Platelet Count 194 k/uL (150-450); Poikilocytosis Slight; RBC 2.26 m/uL (4.30-5.90); RDW 15.4 % (11.5-15.5)
[2021-06-01] MEDS ORDERED: HYDROmorphone 0.5 MG/0.5 ML SYRINGE IVP PRN (15:13)
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
[2021-06-01] MEDS: SODIUM CHLORIDE 0.9% 1,000 ML IV SCH (16:54)
[2021-06-01] MEDS: HYDROmorphone 1 MG/ML 1 ML SYRINGE IVP PRN ×2 (17:17→20:31)
--- NOTE | 2021-06-01 19:12 | NM ---
EXAMINATION TYPE: NM GI bleeding DATE OF EXAM: 06/01/2021 HISTORY: GI bleeding COMPARISON: NONE Following administration of 3 ml PYP 24.8 mCi Tc 99m Sodium Pertechnete. Immediate images post inject ion. FINDINGS: Normal tracer activity is seen in the blood pool of the abdominal aorta, common iliac arteries, femor al arteries, liver, and spleen on all of the interval images. Later images show accumulation of trace r in the urinary bladder, which is consistent with excreted tracer. No abnormal tracer uptake is pres ent outside the blood pool that would be consistent with an active GI bleed. IMPRESSION: The examination fails to demonstrate any evidence of active GI bleeding.
[2021-06-02] MEDS: HYDROmorphone 1 MG/ML 1 ML SYRINGE IVP PRN ×4 (00:19→21:03)
[2021-06-02 00:48] LABS: HCT 21.6 % (39.0-53.0); HGB 7.3 gm/dL (13.0-17.5); Hypochromasia Slight; MCH 32.8 pg (25.0-35.0); MCHC 33.9 g/dL (31.0-37.0); MCV 96.7 fL (80.0-100.0); Mean Platelet Volume 7.9; Platelet Count 225 k/uL (150-450); Poikilocytosis Slight; RBC 2.23 m/uL (4.30-5.90); RDW 14.9 % (11.5-15.5); WBC 9.9 k/uL (3.8-10.6)
[2021-06-02] MEDS: PANTOPRAZOLE 40 MG TABLET PO SCH (06:24)
[2021-06-02] MEDS: SODIUM CHLORIDE 0.9% 1,000 ML IV SCH ×2 (06:24→20:56)
[2021-06-02 06:33] LABS: Basophils # (A) 0.1 k/uL (0-0.2); Basophils % (A) 1 %; Eosinophils # (A) 0.3 k/uL (0-0.7); Eosinophils % (A) 5 %; Hypochromasia Slight; Lymphocytes % (A) 32 %; MCH 32.1 pg (25.0-35.0); MCHC 33.3 g/dL (31.0-37.0); MCV 96.4 fL (80.0-100.0); Mean Platelet Volume 7.6; Monocytes # (A) 0.4 k/uL (0-1.0); Monocytes % (A) 6 %; Neutrophils # (A) 3.6 k/uL (1.3-7.7); Neutrophils % (A) 55 %; Platelet Count 185 k/uL (150-450); Poikilocytosis Slight; RBC 1.94 m/uL (4.30-5.90); RDW 14.6 % (11.5-15.5); WBC 6.4 k/uL (3.8-10.6)
[2021-06-02 06:46] LABS: HCT 18.7 % (39.0-53.0); HGB 6.2 gm/dL (13.0-17.5)
--- NOTE | 2021-06-02 13:34 | P.PN ---
Subjective Progress Note Date: 06/02/21 CHIEF COMPLAINT: GI bleed HISTORY OF PRESENT ILLNESS: Patient has had no further bowel movements or blood in his stools. Tagged RBC scan was negative. Hemoglobin did drop from 7.3-6.2 he is receiving a unit of blood. He does have dizziness and lightheadedness when he stands. Denies any nausea or vomiting. Denies any abdominal pain. Afebrile. PHYSICAL EXAM: VITAL SIGNS: Reviewed. GENERAL: Well-developed in no acute distress. HEENT: No sclera icterus. Extraocular movements grossly intact. Moist buccal mucosa. Head is atraumatic, normocephalic. ABDOMEN: Soft. Nondistended. Nontender. NEUROLOGIC: Alert and oriented. Cranial nerves II through XII grossly intact. ASSESSMENT: 1. Acute GI bleed likely secondary to diverticular bleed 2. Acute blood loss anemia status post blood transfusion PLAN: -Agree with blood transfusion -Continue to observe -Start clear liquid diet -Continue to monitor for any signs or symptoms of bleeding -Continue to monitor hemoglobin Physician Professor Of Journalism note has been reviewed by physician. Signing provider agrees with the documented findings, assessment, and plan of care. Objective - Vital Signs Vital signs: Vital Signs Temp 97.8 F 06/02/21 12:18 Pulse 72 06/02/21 12:18 Resp 16 06/02/21 12:18 BP 138/72 06/02/21 12:18 Pulse Ox 99 06/02/21 11:45 Intake & Output 06/01/21 06/02/21 06/02/21 18:59 06:59 18:59 Intake Total 818 Output Total 400 Balance 418 Weight 78.925 kg 78.925 kg Intake: Oral 540 Blood Product 278 Rc Pheresis As-3 Unit 278 [id number] Output: Urine 400 Other: Voiding Method Toilet Toilet # Voids 1 1 - Labs CBC & Chem 7: 06/02/21 05:46 06/01/21 12:17 Labs: Abnormal Lab Results - Last 24 Hours (Table) 06/01/21 06/01/21 06/02/21 Range/Units 12:18 14:52 00:21 RBC 2.26 L 2.23 L (4.30-5.90) m/uL Hgb 7.3 L 7.3 L (13.0-17.5) gm/dL Hct 21.3 L 21.6 L (39.0-53.0) % Crossmatch See Detail 06/02/21 Range/Units 05:46 RBC 1.94 L (4.30-5.90) m/uL Hgb 6.2 L* (13.0-17.5) gm/dL Hct 18.7 L* (39.0-53.0) % Crossmatch
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
[2021-06-03] MEDS: HYDROmorphone 1 MG/ML 1 ML SYRINGE IVP PRN ×5 (03:31→21:52)
[2021-06-03] MEDS: PANTOPRAZOLE 40 MG TABLET PO SCH (06:36)
[2021-06-03 07:40] LABS: Hypochromasia Slight; MCH 32.3 pg (25.0-35.0); MCHC 33.4 g/dL (31.0-37.0); MCV 96.7 fL (80.0-100.0); Mean Platelet Volume 7.7; Platelet Count 183 k/uL (150-450); Poikilocytosis Slight; RBC 1.93 m/uL (4.30-5.90); RDW 14.7 % (11.5-15.5); WBC 6.7 k/uL (3.8-10.6)
[2021-06-03 07:42] LABS: HCT 18.7 % (39.0-53.0); HGB 6.2 gm/dL (13.0-17.5)
[2021-06-03] MEDS: SODIUM CHLORIDE 0.9% 1,000 ML IV SCH (08:28)
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
--- NOTE | 2021-06-03 12:45 | XR ---
EXAMINATION TYPE: XR Hip Complete RT DATE OF EXAM: 06/03/2021 CLINICAL HISTORY: Right hip pain TECHNIQUE: AP and frogleg views of the right hip are obtained. COMPARISON: CTA abdomen and pelvis 8 days ago. FINDINGS: There is advanced degenerative change in the right hip with [id number] formation, there is loss of spherical shape to the right femoral head. Extensive subchondral cystic change and bony re -formation is seen in the acetabulum and the femoral head. Osseous structures are demineralized. Find ings correlated with recent CT. IMPRESSION: As above
--- NOTE | 2021-06-03 15:23 | P.PN ---
Subjective Progress Note Date: 06/03/21 CHIEF COMPLAINT: GI bleed HISTORY OF PRESENT ILLNESS: Patient has had no further bowel movements or bleed ing. Tagged RBC scan was negative. He denies any abdominal pain. Hemoglobin is still 6.2 this morning. He is receiving another unit of blood. Currently on a clear liquid diet. Patient seen and examined with Dr. vernon PHYSICAL EXAM: VITAL SIGNS: Reviewed. GENERAL: Well-developed in no acute distress. HEENT: No sclera icterus. Extraocular movements grossly intact. Moist buccal mucosa. Head is atraumatic, normocephalic. ABDOMEN: Soft. Nondistended. Nontender. NEUROLOGIC: Alert and oriented. Cranial nerves II through XII grossly intact. ASSESSMENT: 1. Acute GI bleed possibly secondary to diverticular bleed. But since patient does remain anemic will proceed with EGD to evaluate for possible upper GI bleed source 2. Acute blood loss anemia status post blood transfusion PLAN: -Patient scheduled for EGD tomorrow for further evaluation of anemia -Nothing by mouth after midnight Physician Professor Of Graphic Design note has been reviewed by physician. Signing provider agrees with the documented findings, assessment, and plan of care. Objective - Vital Signs Vital signs: Vital Signs Temp 97.9 F 06/03/21 10:50 Pulse 76 06/03/21 10:50 Resp 18 06/03/21 10:50 BP 118/62 06/03/21 10:50 Pulse Ox 98 06/03/21 10:50 Intake & Output 06/02/21 06/03/21 06/03/21 18:59 06:59 18:59 Intake Total 2558 620 Output Total 400 Balance 2158 620 Intake: Intake, IV Titration 900 Amount Sodium Chloride 0.9% 1, 900 000 ml @ 75 mls/hr IV . [id number] [facility] Rx#:[id number] Oral 1080 620 Blood Product 578 0 Rc Pheresis 2 As3 Unit 0 [id number] Rc Pheresis As-3 Unit 278 [id number] Output: Urine 400 Other: Voiding Method Toilet Toilet # Voids 3 - Labs CBC & Chem 7: 06/03/21 06:50 06/01/21 12:17 Labs: Abnormal Lab Results - Last 24 Hours (Table) 06/01/21 06/03/21 Range/Units 12:18 06:50 RBC 1.93 L (4.30-5.90) m/uL Hgb 6.2 L* (13.0-17.5) gm/dL Hct 18.7 L* (39.0-53.0) % Crossmatch See Detail
[2021-06-03] MEDS: HYDROcodone/APAP 5-325MG 1 EACH TAB PO PRN (17:07)
[2021-06-04 00:42] LABS: Glucose,Whole Blood 139 mg/dL (75-99)
[2021-06-04] MEDS: HYDROmorphone 1 MG/ML 1 ML SYRINGE IVP PRN ×6 (00:50→23:38)
[2021-06-04] MEDS: SODIUM CHLORIDE 0.9% 1,000 ML IV SCH ×2 (05:43→18:30)
[2021-06-04] MEDS: PANTOPRAZOLE 40 MG TABLET PO SCH (05:46)
[2021-06-04] MEDS ORDERED: PROPOFOL 10 MG/ML 20 ML VIAL IV ONE (08:02)
[2021-06-04 08:06] LABS: HCT 20.1 % (39.0-53.0); Hypochromasia Moderate; MCH 31.4 pg (25.0-35.0); MCHC 32.6 g/dL (31.0-37.0); MCV 96.5 fL (80.0-100.0); Mean Platelet Volume 7.8; Platelet Count 175 k/uL (150-450); Poikilocytosis Moderate; RBC 2.09 m/uL (4.30-5.90); RDW 15.2 % (11.5-15.5); WBC 4.9 k/uL (3.8-10.6)
[2021-06-04] MEDS ORDERED: IV FLUID CONTINUATION 1,000 ML IV ONE ×2 (08:06)
[2021-06-04 08:11] LABS: HGB 6.6 gm/dL (13.0-17.5)
[2021-06-04 08:23] LABS: African American GFR (CKD) >90 (>60 ml/min/1.73 sqM); Anion Gap 2 mmol/L; Blood Urea Nitrogen 18 mg/dL (9-20); Carbon Dioxide 23 mmol/L (22-30); Chloride 111 mmol/L (98-107); Glucose 110 mg/dL (74-99); Non-African American GFR(CKD) >90 (>60 ml/min/1.73 sqM); Potassium 3.5 mmol/L (3.5-5.1); Sodium 136 mmol/L (137-145)
--- NOTE | 2021-06-04 08:38 | P.OP ---
Date of Procedure: 06/04/21 Preoperative Diagnosis: GI bleed Postoperative Diagnosis: Mild antral gastritis No evidence of bleeding Procedure(s) Performed: EGD Anesthesia: MAC Surgeon: Chucky Martinez Pathology: none sent Condition: stable Disposition: PACU Description of Procedure: The patient's placed on the endoscopy table in the lateral position. He received IV sedation. The gastro-/oropharynx passed in the esophagus into the stomach. Scope was placed through the pylorus. The first and second portion of duodenum appeared normal. The scope was then brought back the antrum this appeared normal. There is very minimal antral gastritis. The scope was unretroflexed and remainder of the stomach appeared normal. The GE junction was at 40 cm. The distal esophagus appeared normal. The proximal esophagus channel. There is no evidence of any GI bleed. There is no significant gastritis or duodenitis or peptic ulcer disease. His presumed patient's bleeding from a lower GI source
[2021-06-04] MEDS: polyethylene glycoL 3350 17 GM POWD.PACK PO SCH (12:21)
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
--- NOTE | 2021-06-04 15:50 | P.PN ---
Subjective Progress Note Date: 06/04/21 This is an 81-year-old gentleman with past medical history of GERD, alcohol abuse, hx abdominal surgery , SBO , recently hospitalized with similar presentation -discharged on 05/29/2021 status post EGD and colonoscopy reporting antral gastritis, diverticulosis with suspected diverticular bleed, presented to the ER with ongoing/recurrent rectal bleeding, increased lightheadedness, fatigue. Reports multiple stools yesterday- dark, cloudy as well as bright red. Denies NSAID use since last admission. Denies nausea vomiting or diarrhea. Denies abdominal pain. Hemoglobin at discharge on 05/29/2019 to 8.4, crit admission 7.6 and currently down to 6.2 resumed one unit packed RBCs. Denies chest pain, palpitations or shortness of breath. Maintaining O2 sats in the high 90s on room air. Tagged RBC completed, reporting no evidence of active GI bleed. 06/03/2021 to receive 1 unit of packed RBCs yesterday with hemoglobin continuing at 6.2 today. Another unit of packed RBCs ordered. Patient denies any further bowel movements in the last 3 days. Denies abdominal pain. Complains of persistent worsening chronic right hip pain, not improved with pain management. Afebrile, vital signs stable, no tachycardia, maintaining O2 sats of 100% on room air. 2received 1 unit of packed RBCs yesterday, currently hemoglobin 6.6. maintained on gentle IV fluid hydration.Completed a repeat EGD this morning, reporting mild antral gastritis with no evidence of bleeding. Patient does have mild mid epigastric and left lower quadrant tenderness to palpation. Reports no bowel movement in 3 or 4 days.complains of extreme right hip pain.discussed patient requiring hip surgery which currently is not an option at this time- possibly might be able to arrange ultrasound-guided steroid injection for temporary relief via orthopedic surgeryor pain management service. Objective - Vital Signs Vital signs: Vital Signs Temp 97.9 F 06/04/21 04:12 Pulse 104 H 06/04/21 12:39 Resp 18 06/04/21 12:39 BP 132/70 06/04/21 12:39 Pulse Ox 100 06/04/21 12:39 Intake & Output 06/03/21 06/04/21 06/04/21 18:59 06:59 18:59 Intake Total 1256 220 Balance 1256 220 Intake: IV 100 Oral 980 120 Blood Product 276 Rc Pheresis 2 As3 Unit 276 [id number] Other: Voiding Method Toilet Toilet # Voids 2 1 - Exam General: Sitting up in bed, NAD. Vitals reviewed Eyes: PERRL, EOMI, conjunctiva normal HENT: normocephalic, mucus membranes moist Neck: supple, no JVD Lungs: normal respiratory effort, no wheezes or rales CV: Regular rate and rhythm, no murmur. Peripheral pulses 2+ Abdomen: soft, nondistended, no organomegaly, tender midepigastric and left lower quadrant to palpation Lymph: no cervical or axillary LAD Skin: warm and dry. Neuro: A&Ox3, normal mood and affect - Labs CBC & Chem 7: 06/04/21 07:29 06/04/21 07:29 Labs: Abnormal Lab Results - Last 24 Hours (Table) 06/01/21 06/04/21 06/04/21 Range/Units 12:18 00:38 07:29 RBC 2.09 L (4.30-5.90) m/uL Hgb 6.6 L* (13.0-17.5) gm/dL Hct 20.1 L (39.0-53.0) % Sodium (137-145) mmol/L Chloride (98-107) mmol/L Creatinine (0.66-1.25) mg/dL Glucose (74-99) mg/dL POC Glucose (mg/dL) 139 H (75-99) mg/dL Calcium (8.4-10.2) mg/dL Crossmatch See Detail 06/04/21 Range/Units 07:29 RBC (4.30-5.90) m/uL Hgb (13.0-17.5) gm/dL Hct (39.0-53.0) % Sodium 136 L (137-145) mmol/L Chloride 111 H (98-107) mmol/L Creatinine 0.63 L (0.66-1.25) mg/dL Glucose 110 H (74-99) mg/dL POC Glucose (mg/dL) (75-99) mg/dL Calcium 8.0 L (8.4-10.2) mg/dL Crossmatch Assessment and Plan Assessment: Recurrent rectal bleed, acute blood loss anemia, status post 2 unit packed RBCs Recently hospitalized with Acute GI bleed, status post EGD and colonoscopy antral gastritis, diverticulosis; suspect diverticular bleed. Chronic Bilateral hip pain, greatest on the right secondary to osteoarthritis ;history of left hip repair Plan: Continue on current medication regime ,monitoring and symptomatic treatment. repeat hemoglobin this afternoon for potential transfusion.close monitoring of coags.with repeat labs ordered for am. patient complains of uncontrollable right hip pain, discussed outpatient arranging hip surgery; at this time, patient is not medically stable to proceed with hip surgery.Pain management-patient complains of severe uncontrolled right hip pain-suggested possible right hip steroid injection under fluoroscopy as per orthopedic surgery or pain management service,to provide for temporary relief until patient is able to proceed with hip surgery.MiraLAX ordered for constipation. The impression and plan of care has been dictated as directed. : I performed a history and examination of this patient, discussed the same with the dictator. I agree with the dictator's note ,documented as a scribe. Any additional findings or plans will be noted.
[2021-06-04 16:12] LABS: Hypochromasia Slight; MCHC 32.5 g/dL (31.0-37.0); MCV 95.2 fL (80.0-100.0); Mean Platelet Volume 7.8; Platelet Count 174 k/uL (150-450); Poikilocytosis Moderate; RBC 1.99 m/uL (4.30-5.90); RDW 15.5 % (11.5-15.5); WBC 4.9 k/uL (3.8-10.6)
[2021-06-04 16:16] LABS: HCT 18.9 % (39.0-53.0); HGB 6.2 gm/dL (13.0-17.5)
[2021-06-05] MEDS: SODIUM CHLORIDE 0.9% 1,000 ML IV SCH ×2 (04:54→12:08)
[2021-06-05] MEDS: HYDROmorphone 1 MG/ML 1 ML SYRINGE IVP PRN ×3 (05:43→23:35)
[2021-06-05] MEDS: PANTOPRAZOLE 40 MG TABLET PO SCH (05:44)
[2021-06-05 07:41] LABS: Anisocytosis Slight; Basophils % (A) 1 %; Eosinophils # (A) 0.2 k/uL (0-0.7); Eosinophils % (A) 3 %; HCT 22.6 % (39.0-53.0); HGB 7.4 gm/dL (13.0-17.5); Hypochromasia Moderate; Lymphocytes # (A) 1.5 k/uL (1.0-4.8); Lymphocytes % (A) 21 %; MCH 30.5 pg (25.0-35.0); MCHC 32.7 g/dL (31.0-37.0); MCV 93.3 fL (80.0-100.0); Mean Platelet Volume 7.7; Monocytes # (A) 0.4 k/uL (0-1.0); Monocytes % (A) 5 %; Neutrophils # (A) 4.9 k/uL (1.3-7.7); Neutrophils % (A) 69 %; Platelet Count 210 k/uL (150-450); Poikilocytosis Moderate; RBC 2.43 m/uL (4.30-5.90); RDW 16.2 % (11.5-15.5); WBC 7.1 k/uL (3.8-10.6)
[2021-06-05] MEDS: polyethylene glycoL 3350 17 GM POWD.PACK PO SCH (08:44)
[2021-06-05] MEDS: HYDROcodone/APAP 5-325MG 1 EACH TAB PO PRN (08:45)
--- NOTE | 2021-06-05 09:15 | P.PN ---
Progress Note - Text Progress Note Date: 06/05/21 Patient's complaining of right hip pain. He denies any abdominal pain. Vital signs are stable. Abdomen soft. Anemia related to GI bleed. His presumed patient is having intermittent diverticular bleeding. She'll be observed currently.
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
[2021-06-05] MEDS: SENNOSIDES-DOCUSATE SODIUM 1 EACH TAB PO SCH ×2 (12:07→19:50)
--- NOTE | 2021-06-05 15:01 | P.PN ---
Subjective Progress Note Date: 06/05/21 This is an 81-year-old gentleman with past medical history of GERD, alcohol abuse, hx abdominal surgery , SBO , recently hospitalized with similar presentation -discharged on 05/29/2021 status post EGD and colonoscopy reporting antral gastritis, diverticulosis with suspected diverticular bleed, presented to the ER with ongoing/recurrent rectal bleeding, increased lightheadedness, fatigue. Reports multiple stools yesterday- dark, cloudy as well as bright red. Denies NSAID use since last admission. Denies nausea vomiting or diarrhea. Denies abdominal pain. Hemoglobin at discharge on 05/29/2019 to 8.4, crit admission 7.6 and currently down to 6.2 resumed one unit packed RBCs. Denies chest pain, palpitations or shortness of breath. Maintaining O2 sats in the high 90s on room air. Tagged RBC completed, reporting no evidence of active GI bleed. 06/03/2021 to receive 1 unit of packed RBCs yesterday with hemoglobin continuing at 6.2 today. Another unit of packed RBCs ordered. Patient denies any further bowel movements in the last 3 days. Denies abdominal pain. Complains of persistent worsening chronic right hip pain, not improved with pain management. Afebrile, vital signs stable, no tachycardia, maintaining O2 sats of 100% on room air. 2received 1 unit of packed RBCs yesterday, currently hemoglobin 6.6. maintained on gentle IV fluid hydration.Completed a repeat EGD this morning, reporting mild antral gastritis with no evidence of bleeding. Patient does have mild mid epigastric and left lower quadrant tenderness to palpation. Reports no bowel movement in 3 or 4 days.complains of extreme right hip pain.discussed patient requiring hip surgery which currently is not an option at this time- possibly might be able to arrange ultrasound-guided steroid injection for temporary relief via orthopedic surgeryor pain management service. 06/05/2021 hemoglobin decreased further yesterday afternoon to 6.2, received another unit of packed RBCs. Hemoglobin this morning 7.4, platelets 210. Denies abdominal pain. Complains of constipation, no bowel movement with Deepthi AX. Continues to complain of right hip pain, discussed steroid injection under fluoroscopy and patient is in agreement with. Pain management consult in place, recommendations pending. Denies chest pain, palpitations or shortness of breath. Objective - Vital Signs Vital signs: Vital Signs Temp 98.4 F 06/05/21 01:26 Pulse 82 06/05/21 01:26 Resp 18 06/05/21 01:26 BP 122/75 06/05/21 01:26 Pulse Ox 95 06/05/21 01:26 Intake & Output 06/04/21 06/05/21 06/05/21 18:59 06:59 18:59 Intake Total 570 310 Balance 570 310 Intake: IV 100 Oral 470 Blood Product 310 Rc As-1 Unit 310 [id number] Other: Voiding Method Toilet Toilet # Voids 3 - Exam General: Sitting up in bed, NAD. Vitals reviewed Eyes: PERRL, EOMI, conjunctiva normal HENT: normocephalic, mucus membranes moist Lungs: normal respiratory effort, no wheezes or rales CV: Regular rate and rhythm, no murmur. Peripheral pulses 2+ Abdomen: soft, nondistended, no organomegaly, nontender, positive bowel sounds Skin: warm and dry. Neuro: A&Ox3, normal mood and affect - Labs CBC & Chem 7: 06/05/21 06:49 06/04/21 07:29 Labs: Abnormal Lab Results - Last 24 Hours (Table) 06/01/21 06/04/21 06/04/21 Range/Units 12:18 07:29 07:29 RBC 2.09 L (4.30-5.90) m/uL Hgb 6.6 L* (13.0-17.5) gm/dL Hct 20.1 L (39.0-53.0) % RDW (11.5-15.5) % Sodium 136 L (137-145) mmol/L Chloride 111 H (98-107) mmol/L Creatinine 0.63 L (0.66-1.25) mg/dL Glucose 110 H (74-99) mg/dL Calcium 8.0 L (8.4-10.2) mg/dL Crossmatch See Detail 06/04/21 06/04/21 06/05/21 Range/Units 15:23 17:12 06:49 RBC 1.99 L 2.43 L (4.30-5.90) m/uL Hgb 6.2 L* 7.4 L (13.0-17.5) gm/dL Hct 18.9 L* 22.6 L (39.0-53.0) % RDW 16.2 H (11.5-15.5) % Sodium (137-145) mmol/L Chloride (98-107) mmol/L Creatinine (0.66-1.25) mg/dL Glucose (74-99) mg/dL Calcium (8.4-10.2) mg/dL Crossmatch See Detail Assessment and Plan Assessment: Recurrent rectal bleed, acute blood loss anemia, status post 2 unit packed RBCs Recently hospitalized with Acute GI bleed, status post EGD and colonoscopy antral gastritis, diverticulosis; suspect diverticular bleed. Chronic Bilateral hip pain, greatest on the right secondary to osteoarthritis ;history of left hip repair Plan: Continue on current medication regime ,monitoring and symptomatic treatment. Maintain close monitoring of coags.with repeat labs ordered for am. Pain management-patient complains of severe uncontrolled right hip pain- suggested possible right hip steroid injection under fluoroscopy as per pain management service,to provide for temporary relief until patient is able to proceed with hip surgery.Senokot S added to med regime in addition to MiraLAX for constipation. The impression and plan of care has been dictated as directed. : I performed a history and examination of this patient, discussed the same with the dictator. I agree with the dictator's note ,documented as a scribe. Any additional findings or plans will be noted.
[2021-06-05] MEDS: HYDROcodone/APAP 10-325MG 1 EACH TAB PO PRN (18:33)
[2021-06-06] MEDS: HYDROmorphone 1 MG/ML 1 ML SYRINGE IVP PRN (03:42)
[2021-06-06] MEDS: SODIUM CHLORIDE 0.9% 1,000 ML IV SCH ×2 (05:54→17:38)
[2021-06-06] MEDS: PANTOPRAZOLE 40 MG TABLET PO SCH (05:55)
[2021-06-06 07:54] LABS: African American GFR (CKD) >90 (>60 ml/min/1.73 sqM); Anion Gap 2 mmol/L; Blood Urea Nitrogen 15 mg/dL (9-20); Calcium 8.1 mg/dL (8.4-10.2); Carbon Dioxide 27 mmol/L (22-30); Chloride 110 mmol/L (98-107); Glucose 102 mg/dL (74-99); Non-African American GFR(CKD) >90 (>60 ml/min/1.73 sqM); Potassium 3.8 mmol/L (3.5-5.1); Sodium 139 mmol/L (137-145)
[2021-06-06 07:57] LABS: Basophils % (A) 1 %; Eosinophils # (A) 0.3 k/uL (0-0.7); Eosinophils % (A) 5 %; HGB 8.4 gm/dL (13.0-17.5); Hypochromasia Moderate; Lymphocytes # (A) 1.4 k/uL (1.0-4.8); Lymphocytes % (A) 26 %; MCH 30.5 pg (25.0-35.0); MCHC 32.2 g/dL (31.0-37.0); MCV 94.6 fL (80.0-100.0); Mean Platelet Volume 7.8; Monocytes # (A) 0.3 k/uL (0-1.0); Monocytes % (A) 5 %; Neutrophils # (A) 3.4 k/uL (1.3-7.7); Neutrophils % (A) 62 %; Platelet Count 198 k/uL (150-450); Poikilocytosis Moderate; RBC 2.75 m/uL (4.30-5.90); RDW 15.6 % (11.5-15.5); WBC 5.4 k/uL (3.8-10.6)
[2021-06-06] MEDS: SENNOSIDES-DOCUSATE SODIUM 1 EACH TAB PO SCH ×2 (08:44→19:45)
[2021-06-06] MEDS: HYDROcodone/APAP 10-325MG 1 EACH TAB PO PRN ×4 (08:44→23:17)
[2021-06-06] MEDS: polyethylene glycoL 3350 17 GM POWD.PACK PO SCH (08:44)
--- NOTE | 2021-06-06 10:10 | P.PN ---
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 Patient knows that he should not take apoprotein anymore because of GI bleed. He had recent EGD and colonoscopy and diverticular disease is suspected. Patient today is with no abdominal pain. Hemoglobin is a stable at 8.4 after 3 units of blood transfusion. He remains on Protonix oral daily and normal saline at 75, we will lower the rate to 50 ml/h Objective - Vital Signs Vital signs: Vital Signs Temp 98.9 F 06/06/21 08:00 Pulse 84 06/06/21 08:00 Resp 18 06/06/21 08:00 BP 136/84 06/06/21 08:00 Pulse Ox 100 06/06/21 08:00 Intake & Output 06/05/21 06/06/21 06/06/21 18:59 06:59 18:59 Intake Total 420 240 120 Balance 420 240 120 Intake: Oral 420 240 120 Other: Voiding Method Toilet Toilet Toilet # Voids 1 3 - Exam GENERAL: The patient is alert and oriented x3, not in any acute distress. Well developed, well nourished. HEENT: Pupils are round and equally reacting to light. EOMI. No scleral icterus. No conjunctival pallor. Normocephalic, atraumatic. No pharyngeal erythema. No thyromegaly. CARDIOVASCULAR: S1 and S2 present. No murmurs, rubs, or gallops. PULMONARY: Chest is clear to auscultation, no wheezing or crackles. ABDOMEN: Soft, nontender, nondistended, normoactive bowel sounds. No palpable organomegaly. MUSCULOSKELETAL: No joint swelling or deformity. EXTREMITIES: No cyanosis, clubbing, or pedal edema. NEUROLOGICAL: Gross neurological examination did not reveal any focal deficits. SKIN: No rashes. no petechiae. - Labs CBC & Chem 7: 06/06/21 06:58 06/06/21 06:58 Labs: Abnormal Lab Results - Last 24 Hours (Table) 06/06/21 06/06/21 Range/Units 06:58 06:58 RBC 2.75 L (4.30-5.90) m/uL Hgb 8.4 L (13.0-17.5) gm/dL Hct 26.0 L (39.0-53.0) % RDW 15.6 H (11.5-15.5) % Chloride 110 H (98-107) mmol/L Glucose 102 H (74-99) mg/dL Calcium 8.1 L (8.4-10.2) mg/dL Assessment and Plan Assessment: Recurrent rectal bleed, acute blood loss anemia, status post 3 unit packed RBCs Recently hospitalized with Acute GI bleed, status post EGD and colonoscopy antral gastritis, diverticulosis; suspect diverticular bleed. Chronic Bilateral hip pain, greatest on the right secondary to osteoarthritis ;history of left hip repair Plan: This is a pleasant 81 is MALE who presents with GI bleed. Continue with Protonix and gentle hydration, monitor hemoglobin Surgery team on the case Orthopedic team cleared the patient for his severe osteoarthritis, patient might need hip replacement surgery evaluation as an outpatient. Labs and medication were reviewed.. Continue same treatment. Continue with symptomatic treatment. Resume home medication. Monitor lytes and vitals. DVT and GI prophylaxis. Further recommendationsas per clinical course of the patient DVT prophylaxis: No heparin in view of GI bleed GI Prophylaxis: Ppi Prognosis is guarded
--- NOTE | 2021-06-06 16:29 | P.PN ---
Subjective Progress Note Date: 06/06/21 CHIEF COMPLAINT: Gastrointestinal bleeding HISTORY OF PRESENT ILLNESS: The patient is a 81-year-old male admitted for gastrointestinal bleeding. He had EGD 06/04/21 demonstrating gastritis. He had prior colonoscopy on 05/28/2021 with presence of diverticulosis. No recent bowel movements. He is resting comfortably. ROS: No recent bowel movements documented. No fevers or chills. PHYSICAL EXAM: VITAL SIGNS: Reviewed CONSTITUTIONAL: Well developed and in no acute distress. EYES: Conjuctivae without sclera icterus. Extraocular movements grossly intact. HEAD, EARS, NOSE, THROAT: Moist buccal mucosa. Head is atraumatic, normocephalic. Hears conversational speech. No nasal drainage. RESPIRATORY: Non-labored respirations and equal bilateral excursions. CARDIOVASCULAR: Palpable 2+ radial pulses. ABDOMEN: No peritonitis. MUSCULOSKELETAL: No gross deformity of the lower extremities noted. No clubbing. No cyanosis. SKIN: Good skin turgor. Well perfused. NEUROLOGIC: Cranial nerves II through XII grossly intact. No focal or lateralizing signs. PSYCH: Appropriate affect. CLINICAL LABS: Reviewed. Hemoglobin of 7.4-8.4. WBC normal 5.4. ASSESSMENT: 1. Gastrointestinal bleeding 2. Diverticulosis PLAN: 1. Conservative management for GI bleed at this time Objective - Vital Signs Vital signs: Vital Signs Temp 98.9 F 06/06/21 08:00 Pulse 84 06/06/21 08:00 Resp 18 06/06/21 08:00 BP 136/84 06/06/21 08:00 Pulse Ox 100 06/06/21 08:00 Intake & Output 06/05/21 06/06/21 06/06/21 18:59 06:59 18:59 Intake Total 420 240 120 Balance 420 240 120 Intake: Oral 420 240 120 Other: Voiding Method Toilet Toilet Toilet # Voids 1 3 - Labs CBC & Chem 7: 06/06/21 06:58 06/06/21 06:58 Labs: Abnormal Lab Results - Last 24 Hours (Table) 06/06/21 06/06/21 Range/Units 06:58 06:58 RBC 2.75 L (4.30-5.90) m/uL Hgb 8.4 L (13.0-17.5) gm/dL Hct 26.0 L (39.0-53.0) % RDW 15.6 H (11.5-15.5) % Chloride 110 H (98-107) mmol/L Glucose 102 H (74-99) mg/dL Calcium 8.1 L (8.4-10.2) mg/dL
[2021-06-07] MEDS: HYDROmorphone 1 MG/ML 1 ML SYRINGE IVP PRN ×2 (00:43→17:38)
[2021-06-07] MEDS: HYDROcodone/APAP 10-325MG 1 EACH TAB PO PRN ×3 (05:07→22:22)
[2021-06-07] MEDS: PANTOPRAZOLE 40 MG TABLET PO SCH (06:27)
[2021-06-07] MEDS: SENNOSIDES-DOCUSATE SODIUM 1 EACH TAB PO SCH (06:28)
[2021-06-07] MEDS: polyethylene glycoL 3350 17 GM POWD.PACK PO SCH (06:28)
[2021-06-07 07:11] LABS: Basophils % (A) 0 %; Eosinophils # (A) 0.3 k/uL (0-0.7); Eosinophils % (A) 6 %; HCT 23.6 % (39.0-53.0); HGB 7.6 gm/dL (13.0-17.5); Hypochromasia Marked; Lymphocytes # (A) 1.8 k/uL (1.0-4.8); Lymphocytes % (A) 29 %; MCH 30.8 pg (25.0-35.0); MCHC 32.1 g/dL (31.0-37.0); MCV 95.8 fL (80.0-100.0); Mean Platelet Volume 7.4; Monocytes # (A) 0.4 k/uL (0-1.0); Monocytes % (A) 6 %; Neutrophils # (A) 3.4 k/uL (1.3-7.7); Neutrophils % (A) 58 %; Platelet Count 238 k/uL (150-450); Poikilocytosis Moderate; RBC 2.47 m/uL (4.30-5.90); RDW 15.4 % (11.5-15.5)
[2021-06-07] MEDS ORDERED: SENNOSIDES 8.6 MG TAB PO STA (10:50)
--- NOTE | 2021-06-07 10:55 | P.PN ---
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 Patient knows that he should not take apoprotein anymore because of GI bleed. He had recent EGD and colonoscopy and diverticular disease is suspected. Patient today is with no abdominal pain. Hemoglobin is a stable at 8.4 after 3 units of blood transfusion. He remains on Protonix oral daily and normal saline at 75, we will lower the rate to 50 ml/h 06/07/2021 Patient with no more evidence of GI bleed. No chest pain but still complaining of from right hip pain and constipation. Hemodynamically stable. Hemoglobin 7.6. He remains on by mouth Protonix daily and normal saline 50 mL/h. Surgery team recommended conservative management Objective - Vital Signs Vital signs: Vital Signs Temp 97.7 F 06/07/21 08:13 Pulse 77 06/07/21 08:13 Resp 20 06/07/21 08:13 BP 130/66 06/07/21 08:13 Pulse Ox 100 06/07/21 08:13 Intake & Output 06/06/21 06/07/21 06/07/21 18:59 06:59 18:59 Intake Total 480 Balance 480 Intake: Oral 480 Other: Voiding Method Toilet Toilet # Voids 3 2 # Bowel Movements 0 # Emeses 0 - Exam GENERAL: The patient is alert and oriented x3, not in any acute distress. Well developed, well nourished. HEENT: Pupils are round and equally reacting to light. EOMI. No scleral icterus. No conjunctival pallor. Normocephalic, atraumatic. No pharyngeal erythema. No thyromegaly. CARDIOVASCULAR: S1 and S2 present. No murmurs, rubs, or gallops. PULMONARY: Chest is clear to auscultation, no wheezing or crackles. ABDOMEN: Soft, nontender, nondistended, normoactive bowel sounds. No palpable organomegaly. MUSCULOSKELETAL: No joint swelling or deformity. EXTREMITIES: No cyanosis, clubbing, or pedal edema. NEUROLOGICAL: Gross neurological examination did not reveal any focal deficits. SKIN: No rashes. no petechiae. - Labs CBC & Chem 7: 06/07/21 06:08 06/06/21 06:58 Labs: Abnormal Lab Results - Last 24 Hours (Table) 06/07/21 Range/Units 06:08 RBC 2.47 L (4.30-5.90) m/uL Hgb 7.6 L (13.0-17.5) gm/dL Hct 23.6 L (39.0-53.0) % Assessment and Plan Assessment: Recurrent rectal bleed, acute blood loss anemia, status post 3 unit packed RBCs Recently hospitalized with Acute GI bleed, status post EGD and colonoscopy antral gastritis, diverticulosis; suspect diverticular bleed. Chronic Bilateral hip pain, greatest on the right secondary to osteoarthritis ;history of left hip repair Plan: This is a pleasant 81 is MALE who presents with GI bleed. Continue with Protonix and gentle hydration, monitor hemoglobin Surgery team on the case Orthopedic team cleared the patient for his severe osteoarthritis, patient might need hip replacement surgery evaluation as an outpatient. Labs and medication were reviewed.. Continue same treatment. Continue with symptomatic treatment. Resume home medication. Monitor lytes and vitals. DVT and GI prophylaxis. Further recommendationsas per clinical course of the patient DVT prophylaxis: No heparin in view of GI bleed GI Prophylaxis: Ppi Prognosis is guarded
[2021-06-07] MEDS: SODIUM CHLORIDE 0.9% 1,000 ML IV SCH (11:19)
[2021-06-07] MEDS: DOCUSATE 100 MG CAP PO SCH ×2 (12:11→20:13)
[2021-06-07] MEDS: CAPSAICIN 0.025% CREAM 60 GM TUBE TOPICAL SCH ×3 (13:28→20:13)
--- NOTE | 2021-06-07 16:06 | P.PN ---
Subjective Progress Note Date: 06/07/21 CHIEF COMPLAINT: Gastrointestinal bleeding HISTORY OF PRESENT ILLNESS: The patient is a 81-year-old male admitted for gastrointestinal bleeding. He had EGD 06/04/21 demonstrating gastritis. He had prior colonoscopy on 05/28/2021 with presence of diverticulosis. No new episodes of moderate GI bleeding overnight. He is ambulating. ROS: No recent bowel movements documented. No fevers or chills. PHYSICAL EXAM: VITAL SIGNS: Reviewed CONSTITUTIONAL: Well developed and in no acute distress. EYES: Conjuctivae without sclera icterus. Extraocular movements grossly intact. HEAD, EARS, NOSE, THROAT: Moist buccal mucosa. Head is atraumatic, normocephalic. Hears conversational speech. No nasal drainage. RESPIRATORY: Non-labored respirations and equal bilateral excursions. CARDIOVASCULAR: 2+ radial pulses. ABDOMEN: No peritonitis MUSCULOSKELETAL: No gross deformity of the lower extremities noted. No clubbing. No cyanosis. SKIN: Good skin turgor. Well perfused. NEUROLOGIC: Cranial nerves II through XII grossly intact. No focal or lateralizing signs. PSYCH: Appropriate affect. CLINICAL LABS: Reviewed. Hemoglobin of 7.4-8.4, now 7.6, anemia. ASSESSMENT: 1. Gastrointestinal bleeding 2. Diverticulosis 3. Acute blood loss anemia PLAN: 1. Transfused as needed for symptomatic anemia. 2. Conservative management at this time. Objective - Vital Signs Vital signs: Vital Signs Temp 98.1 F 06/07/21 12:00 Pulse 66 06/07/21 12:00 Resp 20 06/07/21 12:00 BP 125/63 06/07/21 12:00 Pulse Ox 100 06/07/21 12:00 Intake & Output 06/06/21 06/07/21 06/07/21 18:59 06:59 18:59 Intake Total 480 Balance 480 Intake: Oral 480 Other: Voiding Method Toilet Toilet # Voids 3 2 # Bowel Movements 0 # Emeses 0 - Labs CBC & Chem 7: 06/07/21 06:08 06/06/21 06:58 Labs: Abnormal Lab Results - Last 24 Hours (Table) 06/07/21 Range/Units 06:08 RBC 2.47 L (4.30-5.90) m/uL Hgb 7.6 L (13.0-17.5) gm/dL Hct 23.6 L (39.0-53.0) % Assessment and Plan (1) Diverticulosis of large intestine with hemorrhage Current Visit: Yes Status: Acute Code(s): K57.31 - DVRTCLOS OF LG INT W/O PERFORATION OR ABSCESS W BLEEDING SNOMED Code(s): 060258447 (2) Gastrointestinal bleeding Current Visit: Yes Status: Acute Code(s): K92.2 - GASTROINTESTINAL HEMORRHAGE, UNSPECIFIED SNOMED Code(s): 72171103 (3) Hematochezia Current Visit: Yes Status: Acute Code(s): K92.1 - MELENA SNOMED Code(s): 437871800
[2021-06-07] MEDS: SENNOSIDES 8.6 MG TAB PO SCH (20:12)
[2021-06-08] MEDS: HYDROmorphone 1 MG/ML 1 ML SYRINGE IVP PRN ×3 (02:09→23:21)
[2021-06-08] MEDS: PANTOPRAZOLE 40 MG TABLET PO SCH (06:08)
[2021-06-08] MEDS: HYDROcodone/APAP 10-325MG 1 EACH TAB PO PRN ×3 (06:08→21:37)
[2021-06-08 08:25] LABS: Basophils % (A) 0 %; Eosinophils # (A) 0.4 k/uL (0-0.7); Eosinophils % (A) 6 %; HCT 22.2 % (39.0-53.0); HGB 7.1 gm/dL (13.0-17.5); Hypochromasia Marked; Lymphocytes # (A) 1.8 k/uL (1.0-4.8); Lymphocytes % (A) 32 %; MCH 30.6 pg (25.0-35.0); MCHC 32.1 g/dL (31.0-37.0); MCV 95.3 fL (80.0-100.0); Mean Platelet Volume 7.8; Monocytes # (A) 0.4 k/uL (0-1.0); Monocytes % (A) 7 %; Neutrophils % (A) 53 %; Platelet Count 237 k/uL (150-450); Poikilocytosis Moderate; RBC 2.32 m/uL (4.30-5.90); RDW 15.1 % (11.5-15.5); WBC 5.6 k/uL (3.8-10.6)
[2021-06-08] MEDS: polyethylene glycoL 3350 17 GM POWD.PACK PO SCH (08:34)
[2021-06-08] MEDS: DOCUSATE 100 MG CAP PO SCH ×2 (08:34→19:57)
[2021-06-08] MEDS: SODIUM CHLORIDE 0.9% 1,000 ML IV SCH (08:35)
[2021-06-08] MEDS: CAPSAICIN 0.025% CREAM 60 GM TUBE TOPICAL SCH ×4 (08:35→19:59)
--- NOTE | 2021-06-08 13:31 | P.PN ---
Subjective Progress Note Date: 06/08/21 CHIEF COMPLAINT: GI bleed HISTORY OF PRESENT ILLNESS: Patient has reports 2 small black bowel movements. Denies any abdominal pain. EGD had revealed evidence of mild antral gastritis. No evidence of bleeding. Afebrile. WBC is 5.6 hemoglobin 7.6 down to 7.1 and platelets 237 Patient seen and examined with Dr. vernon PHYSICAL EXAM: VITAL SIGNS: Reviewed. GENERAL: Well-developed in no acute distress. HEENT: No sclera icterus. Extraocular movements grossly intact. Moist buccal mucosa. Head is atraumatic, normocephalic. ABDOMEN: Soft. Nondistended. Nontender. NEUROLOGIC: Alert and oriented. Cranial nerves II through XII grossly intact. ASSESSMENT: 1. Acute GI bleed 2. Acute blood loss anemia secondary to GI bleed 3. Diverticulosis PLAN: -We'll consult GI service for small bowel video capsule endoscopy -Nothing by mouth after midnight -bottle of mag citrate to be given tonight -Continue to monitor hemoglobin -Continue to monitor signs and symptoms of bleeding -Continue PPI -Continue supportive care Physician Body Recall Instructor note has been reviewed by physician. Signing provider agrees with the documented findings, assessment, and plan of care. Objective - Vital Signs Vital signs: Vital Signs Temp 97.1 F L 06/08/21 11:36 Pulse 78 06/08/21 11:36 Resp 18 06/08/21 11:36 BP 119/67 06/08/21 11:36 Pulse Ox 100 06/08/21 11:36 Intake & Output 06/07/21 06/08/21 06/08/21 18:59 06:59 18:59 Intake Total 660 250 Balance 660 250 Intake: IV 10 Invasive Line 2 10 Oral 660 240 Other: Voiding Method Toilet Toilet # Voids 3 2 1 # Bowel Movements 1 1 - Labs CBC & Chem 7: 06/08/21 06:52 06/06/21 06:58 Labs: Abnormal Lab Results - Last 24 Hours (Table) 06/08/21 Range/Units 06:52 RBC 2.32 L (4.30-5.90) m/uL Hgb 7.1 L (13.0-17.5) gm/dL Hct 22.2 L (39.0-53.0) %
[2021-06-08] MEDS ORDERED: MAGNESIUM CITRATE 296 ML BOTTLE PO ONE ×2 (15:30→17:30)
[2021-06-08] MEDS: SENNOSIDES 8.6 MG TAB PO SCH (19:57)
[2021-06-09] MEDS: HYDROcodone/APAP 10-325MG 1 EACH TAB PO PRN ×3 (03:17→21:28)
[2021-06-09] MEDS: SODIUM CHLORIDE 0.9% 1,000 ML IV SCH ×2 (06:33→23:08)
[2021-06-09] MEDS: PANTOPRAZOLE 40 MG TABLET PO SCH (06:34)
[2021-06-09] MEDS: HYDROmorphone 1 MG/ML 1 ML SYRINGE IVP PRN ×4 (06:39→23:07)
[2021-06-09 07:28] LABS: HCT 22.6 % (39.0-53.0); HGB 7.2 gm/dL (13.0-17.5); Hypochromasia Marked; MCH 30.6 pg (25.0-35.0); MCHC 32.1 g/dL (31.0-37.0); MCV 95.4 fL (80.0-100.0); Mean Platelet Volume 7.4; Platelet Count 240 k/uL (150-450); Poikilocytosis Moderate; RBC 2.36 m/uL (4.30-5.90); RDW 14.6 % (11.5-15.5); WBC 5.1 k/uL (3.8-10.6)
[2021-06-09] MEDS ORDERED: SIMETHICONE 40 MG/0.6 ML DROPS 2,000 MG/30 ML BOTTLE PO ONE (07:34)
--- NOTE | 2021-06-09 08:37 | P.PN ---
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 Patient knows that he should not take apoprotein anymore because of GI bleed. He had recent EGD and colonoscopy and diverticular disease is suspected. Patient today is with no abdominal pain. Hemoglobin is a stable at 8.4 after 3 units of blood transfusion. He remains on Protonix oral daily and normal saline at 75, we will lower the rate to 50 ml/h 06/07/2021 Patient with no more evidence of GI bleed. No chest pain but still complaining of from right hip pain and constipation. Hemodynamically stable. Hemoglobin 7.6. He remains on by mouth Protonix daily and normal saline 50 mL/h. Surgery team recommended conservative management 06/08/2021 Pt remains hemodynamically stable, he had two small black BM today. Hgb stable at 7.1. He denies abdominal pain, vertigo. Continues to complain of hip pain. Objective - Vital Signs Vital signs: Vital Signs Temp 97.6 F 06/09/21 03:50 Pulse 76 06/09/21 03:50 Resp 18 06/09/21 03:50 BP 106/59 06/09/21 03:50 Pulse Ox 100 06/09/21 03:50 Intake & Output 06/08/21 06/09/21 06/09/21 18:59 06:59 18:59 Intake Total 610 160 Balance 610 160 Intake: IV 10 10 0.9 10 Invasive Line 2 10 Intake, IV Titration 150 Amount Sodium Chloride 0.9% 1, 150 000 ml @ 50 mls/hr IV . Q20H [facility] Rx#:[id number] Oral 600 Other: Voiding Method Toilet Toilet # Voids 1 1 # Bowel Movements 1 1 - Exam Gen: well developed, NAD CV: RRR, no murmur Lungs: CTAB Abd: soft, nontender, non distended - Labs CBC & Chem 7: 06/09/21 06:37 06/06/21 06:58 Labs: Abnormal Lab Results - Last 24 Hours (Table) 06/09/21 Range/Units 06:37 RBC 2.36 L (4.30-5.90) m/uL Hgb 7.2 L (13.0-17.5) gm/dL Hct 22.6 L (39.0-53.0) % Assessment and Plan Plan: Continue with present management, follow Hgb, AM labs. Surgery following and GI consulted plan for capsule endoscopy
[2021-06-09] MEDS: CAPSAICIN 0.025% CREAM 60 GM TUBE TOPICAL SCH ×4 (09:01→20:04)
--- NOTE | 2021-06-09 14:17 | P.PN ---
Subjective Progress Note Date: 06/09/21 This is an 81-year-old gentleman with past medical history of GERD, alcohol abuse, hx abdominal surgery , SBO , recently hospitalized with similar presentation -discharged on 05/29/2021 status post EGD and colonoscopy reporting antral gastritis, diverticulosis with suspected diverticular bleed, presented to the ER with ongoing/recurrent rectal bleeding, increased lightheadedness, fatigue. Reports multiple stools yesterday- dark, cloudy as well as bright red. Denies NSAID use since last admission. Denies nausea vomiting or diarrhea. Denies abdominal pain. Hemoglobin at discharge on 05/29/2019 to 8.4, crit admission 7.6 and currently down to 6.2 resumed one unit packed RBCs. Denies chest pain, palpitations or shortness of breath. Maintaining O2 sats in the high 90s on room air. Tagged RBC completed, reporting no evidence of active GI bleed. 06/03/2021 to receive 1 unit of packed RBCs yesterday with hemoglobin continuing at 6.2 today. Another unit of packed RBCs ordered. Patient denies any further bowel movements in the last 3 days. Denies abdominal pain. Complains of persistent worsening chronic right hip pain, not improved with pain management. Afebrile, vital signs stable, no tachycardia, maintaining O2 sats of 100% on room air. 2received 1 unit of packed RBCs yesterday, currently hemoglobin 6.6. maintained on gentle IV fluid hydration.Completed a repeat EGD this morning, reporting mild antral gastritis with no evidence of bleeding. Patient does have mild mid epigastric and left lower quadrant tenderness to palpation. Reports no bowel movement in 3 or 4 days.complains of extreme right hip pain.discussed patient requiring hip surgery which currently is not an option at this time- possibly might be able to arrange ultrasound-guided steroid injection for temporary relief via orthopedic surgeryor pain management service. 06/05/2021 hemoglobin decreased further yesterday afternoon to 6.2, received another unit of packed RBCs. Hemoglobin this morning 7.4, platelets 210. Denies abdominal pain. Complains of constipation, no bowel movement with Deepthi AX. Continues to complain of right hip pain, discussed steroid injection under fluoroscopy and patient is in agreement with. Pain management consult in place, recommendations pending. Denies chest pain, palpitations or shortness of breath. 06/09/2021 hemoglobin currently 7.2, has not required any blood transfusions since . Reports 3 small black bowel movements yesterday and one large black bowel movement this morning. Evaluated by GI with recommendations noted and appreciated. Currently undergoing capsule Endoscopy Study. Denies abdominal pain. Denies lightheadedness, dizziness or focal deficits. Denies chest pain, palpitations or shortness of breath. Reports hip pain present but currently better. Objective - Vital Signs Vital signs: Vital Signs Temp 97.6 F 06/09/21 03:50 Pulse 76 06/09/21 03:50 Resp 18 06/09/21 03:50 BP 106/59 06/09/21 03:50 Pulse Ox 100 06/09/21 03:50 Intake & Output 06/08/21 06/09/21 06/09/21 18:59 06:59 18:59 Intake Total 610 160 Balance 610 160 Intake: IV 10 10 0.9 10 Invasive Line 2 10 Intake, IV Titration 150 Amount Sodium Chloride 0.9% 1, 150 000 ml @ 50 mls/hr IV . Q20H [facility] Rx#:[id number] Oral 600 Other: Voiding Method Toilet Toilet # Voids 1 1 # Bowel Movements 1 1 - Exam General: Sitting up in bed, NAD. Vitals reviewed Eyes: PERRL, EOMI, conjunctiva normal HENT: normocephalic Lungs: normal respiratory effort, no wheezes or rales CV: Regular rate and rhythm, no murmur. Peripheral pulses 2+ Abdomen: soft, nondistended, no organomegaly, nontender, positive bowel sounds Skin: warm and dry. Neuro: A&Ox3, normal mood and affect - Labs CBC & Chem 7: 06/09/21 06:37 06/06/21 06:58 Labs: Abnormal Lab Results - Last 24 Hours (Table) 06/09/21 Range/Units 06:37 RBC 2.36 L (4.30-5.90) m/uL Hgb 7.2 L (13.0-17.5) gm/dL Hct 22.6 L (39.0-53.0) % Assessment and Plan Assessment: Recurrent rectal bleed, acute blood loss anemia, status post 2 unit packed RBCs Recently hospitalized with Acute GI bleed, status post EGD and colonoscopy antral gastritis, diverticulosis; suspect diverticular bleed. Chronic Bilateral hip pain, greatest on the right secondary to osteoarthritis ;history of left hip repair Plan: Continue on current medication regime ,monitoring and symptomatic treatment. Capsule study in progress. Maintain close monitoring of coags.with repeat labs ordered for am. Follow closely with GI. Discharge planning in progress pending capsule study results, GI clearance. The impression and plan of care has been dictated as directed. : I performed a history and examination of this patient, discussed the same with the dictator. I agree with the dictator's note ,documented as a scribe. Any additional findings or plans will be noted.
[2021-06-09] MEDS: polyethylene glycoL 3350 17 GM POWD.PACK PO SCH (14:42)
[2021-06-09] MEDS: DOCUSATE 100 MG CAP PO SCH ×2 (14:42→20:02)
[2021-06-09 14:48] VITALS: BMI 21.7
--- NOTE | 2021-06-09 15:22 | P.PN ---
Subjective Progress Note Date: 06/09/21 CHIEF COMPLAINT: GI bleed HISTORY OF PRESENT ILLNESS: Patient has reports 2 small black bowel movements. Denies any abdominal pain. EGD had revealed evidence of mild antral gastritis. No evidence of bleeding. Afebrile. Hemoglobin 7.2 patient undergoing capsule endoscopy Patient seen and examined with Dr. vernon PHYSICAL EXAM: VITAL SIGNS: Reviewed. GENERAL: Well-developed in no acute distress. HEENT: No sclera icterus. Extraocular movements grossly intact. Moist buccal mucosa. Head is atraumatic, normocephalic. ABDOMEN: Soft. Nondistended. Nontender. NEUROLOGIC: Alert and oriented. Cranial nerves II through XII grossly intact. ASSESSMENT: 1. Acute GI bleed 2. Acute blood loss anemia secondary to GI bleed 3. Diverticulosis PLAN: -Patient undergoing small bowel video capsule endoscopy. GI on consult. -Continue to monitor hemoglobin -Continue to monitor signs and symptoms of bleeding -Continue PPI -Continue supportive care Physician Forensic Accountant note has been reviewed by physician. Signing provider agrees with the documented findings, assessment, and plan of care. Objective - Vital Signs Vital signs: Vital Signs Temp 97.6 F 06/09/21 03:50 Pulse 76 06/09/21 03:50 Resp 18 06/09/21 03:50 BP 106/59 06/09/21 03:50 Pulse Ox 100 06/09/21 03:50 Intake & Output 06/08/21 06/09/21 06/09/21 18:59 06:59 18:59 Intake Total 610 160 420 Balance 610 160 420 Weight 78.925 kg Intake: IV 10 10 0.9 10 Invasive Line 2 10 Intake, IV Titration 150 Amount Sodium Chloride 0.9% 1, 150 000 ml @ 50 mls/hr IV . Q20H [facility] Rx#:[id number] Oral 600 420 Other: Voiding Method Toilet Toilet # Voids 1 1 3 # Bowel Movements 1 1 - Labs CBC & Chem 7: 06/09/21 06:37 06/06/21 06:58 Labs: Abnormal Lab Results - Last 24 Hours (Table) 06/09/21 Range/Units 06:37 RBC 2.36 L (4.30-5.90) m/uL Hgb 7.2 L (13.0-17.5) gm/dL Hct 22.6 L (39.0-53.0) %
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
[2021-06-09] MEDS: SENNOSIDES 8.6 MG TAB PO SCH (20:02)
[2021-06-10] MEDS: HYDROmorphone 1 MG/ML 1 ML SYRINGE IVP PRN ×4 (02:47→20:30)
[2021-06-10] MEDS: PANTOPRAZOLE 40 MG TABLET PO SCH (06:09)
[2021-06-10] MEDS: HYDROcodone/APAP 10-325MG 1 EACH TAB PO PRN ×3 (06:09→23:46)
--- NOTE | 2021-06-10 08:35 | P.PN ---
Subjective Progress Note Date: 06/10/21 Principal diagnosis: Anemia, melena Patient was seen and examined as a follow-up for anemia and melena. He states he had 6-7 loose bowel movements yesterday evening which he states are dark, but states not as dark as they had been. He denies any abdominal pain, nausea, or vomiting. He has been afebrile. Small bowel video capsule endoscopy showed no evidence of any bleeds. No old blood or fresh blood seen. Objective - Vital Signs Vital signs: Vital Signs Temp 98.0 F 06/10/21 03:08 Pulse 91 06/10/21 03:08 Resp 18 06/10/21 03:08 BP 121/64 06/10/21 03:08 Pulse Ox 100 06/10/21 03:08 Intake & Output 06/09/21 06/10/21 06/10/21 18:59 06:59 18:59 Intake Total 540 400 Balance 540 400 Weight 78.925 kg Intake: IV 400 0.9 400 Oral 540 Other: Voiding Method Toilet Toilet # Voids 3 2 # Bowel Movements 1 - Exam General appearance: The patient is alert, oriented, appears in no acute distre ss. HET: Head is normocephalic and atraumatic. Conjunctiva pink. Sclera anicteric. Neck: Supple without lymphadenopathy. Abdomen: Soft, nontender, nondistended with bowel sounds. No guarding or rigidity. Extremities: Normal skin color and turgor. No pedal edema Skin: No rashes, no jaundice Neurological: No focal deficits. Alert and oriented -3. - Labs CBC & Chem 7: 06/10/21 08:30 06/06/21 06:58 Assessment and Plan (1) Gastrointestinal bleeding Narrative/Plan: 81-year-old male who was hospitalized recently for GI bleed and underwent an EGD and colonoscopy with Dr. Martinez on 05/28/2021 with findings of antral gastritis and diverticulosis no evidence of active bleed. He presented back to the hospital on 06/01/2021 with continued black dark stools. States he's been having dark stools for last 10 days duration. He did has no associated abdominal pain, nausea or vomiting. He did undergo another EGD on 06/04/2021 that showed mild antral gastritis again no active bleeding seen. He had attacked RPC that showed no active bleeding. Today he underwent a small bowel video capsule endoscopy. Possible etiologies include AVM, diverticular bleed, or other possible etiologies. Will await small bowel capsule endoscopy study. Patient may have a heart healthy diet. Current Visit: Yes Status: Acute Code(s): K92.2 - GASTROINTESTINAL HEMORRHAGE, UNSPECIFIED SNOMED Code(s): 16677068 Plan: 1. Continue symptomatic and supportive care 2. Heart healthy diet 3. Continue daily CBC, transfuse according to protocol 4. Continue to monitor for signs and symptoms of GI bleed. If patient continues to have black stools and drop in hemoglobin likely will proceed with push enteroscopy. Thank you for this consultation, we will continue to follow. Dr. Woody Starks I agree with the dictator's note, documented as a scribe by Brooke Cervantes.
[2021-06-10] MEDS: DOCUSATE 100 MG CAP PO SCH ×2 (08:36→22:12)
[2021-06-10] MEDS: CAPSAICIN 0.025% CREAM 60 GM TUBE TOPICAL SCH ×4 (08:37→22:12)
[2021-06-10] MEDS: polyethylene glycoL 3350 17 GM POWD.PACK PO SCH (08:46)
[2021-06-10 09:21] LABS: Basophils % (A) 0 %; Eosinophils # (A) 0.3 k/uL (0-0.7); Eosinophils % (A) 4 %; HCT 21.9 % (39.0-53.0); Hypochromasia Marked; Lymphocytes # (A) 1.2 k/uL (1.0-4.8); Lymphocytes % (A) 19 %; MCH 29.5 pg (25.0-35.0); MCHC 30.8 g/dL (31.0-37.0); MCV 95.6 fL (80.0-100.0); Mean Platelet Volume 7.7; Monocytes # (A) 0.3 k/uL (0-1.0); Monocytes % (A) 5 %; Neutrophils # (A) 4.3 k/uL (1.3-7.7); Neutrophils % (A) 71 %; Platelet Count 263 k/uL (150-450); Poikilocytosis Moderate; RBC 2.29 m/uL (4.30-5.90); RDW 14.6 % (11.5-15.5)
[2021-06-10 09:26] LABS: HGB 6.7 gm/dL (13.0-17.5)
--- NOTE | 2021-06-10 10:36 | P.PN ---
Subjective Progress Note Date: 06/10/21 This is an 81-year-old gentleman with past medical history of GERD, alcohol abuse, hx abdominal surgery , SBO , recently hospitalized with similar presentation -discharged on 05/29/2021 status post EGD and colonoscopy reporting antral gastritis, diverticulosis with suspected diverticular bleed, presented to the ER with ongoing/recurrent rectal bleeding, increased lightheadedness, fatigue. Reports multiple stools yesterday- dark, cloudy as well as bright red. Denies NSAID use since last admission. Denies nausea vomiting or diarrhea. Denies abdominal pain. Hemoglobin at discharge on 05/29/2019 to 8.4, crit admission 7.6 and currently down to 6.2 resumed one unit packed RBCs. Denies chest pain, palpitations or shortness of breath. Maintaining O2 sats in the high 90s on room air. Tagged RBC completed, reporting no evidence of active GI bleed. 06/03/2021 to receive 1 unit of packed RBCs yesterday with hemoglobin continuing at 6.2 today. Another unit of packed RBCs ordered. Patient denies any further bowel movements in the last 3 days. Denies abdominal pain. Complains of persistent worsening chronic right hip pain, not improved with pain management. Afebrile, vital signs stable, no tachycardia, maintaining O2 sats of 100% on room air. 2received 1 unit of packed RBCs yesterday, currently hemoglobin 6.6. maintained on gentle IV fluid hydration.Completed a repeat EGD this morning, reporting mild antral gastritis with no evidence of bleeding. Patient does have mild mid epigastric and left lower quadrant tenderness to palpation. Reports no bowel movement in 3 or 4 days.complains of extreme right hip pain.discussed patient requiring hip surgery which currently is not an option at this time- possibly might be able to arrange ultrasound-guided steroid injection for temporary relief via orthopedic surgeryor pain management service. 06/05/2021 hemoglobin decreased further yesterday afternoon to 6.2, received another unit of packed RBCs. Hemoglobin this morning 7.4, platelets 210. Denies abdominal pain. Complains of constipation, no bowel movement with Deepthi AX. Continues to complain of right hip pain, discussed steroid injection under fluoroscopy and patient is in agreement with. Pain management consult in place, recommendations pending. Denies chest pain, palpitations or shortness of breath. 06/09/2021 hemoglobin currently 7.2, has not required any blood transfusions since . Reports 3 small black bowel movements yesterday and one large black bowel movement this morning. Evaluated by GI with recommendations noted and appreciated. Currently undergoing capsule Endoscopy Study. Denies abdominal pain. Denies lightheadedness, dizziness or focal deficits. Denies chest pain, palpitations or shortness of breath. Reports hip pain present but currently better. 06/10/2021 patient continues to have multiple small black stools last night. Hemoglobin this morning decreased to 6.7. Completed Endoscopy Study, Results Pending. Denies nausea vomiting. Denies abdominal pain. Denies chest pain, palpitations or shortness of breath. Complains of ongoing chronic hip pain. Objective - Vital Signs Vital signs: Vital Signs Temp 97.7 F 06/10/21 07:55 Pulse 83 06/10/21 07:55 Resp 17 06/10/21 07:55 BP 115/52 06/10/21 07:55 Pulse Ox 98 06/10/21 07:55 Intake & Output 06/09/21 06/10/21 06/10/21 18:59 06:59 18:59 Intake Total 540 400 Balance 540 400 Weight 78.925 kg Intake: IV 400 0.9 400 Oral 540 Other: Voiding Method Toilet Toilet # Voids 3 2 # Bowel Movements 1 - Exam General: Sitting up in bed, NAD. Vitals reviewed Eyes: PERRL, EOMI, conjunctiva normal, oral mucosa moist HENT: normocephalic Lungs: normal respiratory effort, no wheezes or rales CV: Regular rate and rhythm, no murmur. Peripheral pulses 2+ Abdomen: soft, nondistended, no organomegaly, nontender, positive bowel sounds Skin: warm and dry. Neuro: A&Ox3, normal mood and affect - Labs CBC & Chem 7: 06/10/21 08:30 06/06/21 06:58 Labs: Abnormal Lab Results - Last 24 Hours (Table) 06/10/21 Range/Units 08:30 RBC 2.29 L (4.30-5.90) m/uL Hgb 6.7 L* (13.0-17.5) gm/dL Hct 21.9 L (39.0-53.0) % MCHC 30.8 L (31.0-37.0) g/dL Assessment and Plan Assessment: Recurrent rectal bleed, acute blood loss anemia, status post transfusion of multiple units of RBCs Recently hospitalized with Acute GI bleed, status post EGD and colonoscopy antral gastritis, diverticulosis; suspect diverticular bleed. Chronic Bilateral hip pain, greatest on the right secondary to osteoarthritis ;history of left hip repair Plan: Continue on current medication regime ,monitoring and symptomatic treatment. Endoscopy capsule study results pending GI review. Transfuse 1 unit of packed RBCs .Maintain close monitoring of coags.with repeat labs ordered for am. The impression and plan of care has been dictated as directed. : I performed a history and examination of this patient, discussed the same with the dictator. I agree with the dictator's note ,documented as a scribe. Any additional findings or plans will be noted.
--- NOTE | 2021-06-10 11:45 | P.PN ---
Subjective Progress Note Date: 06/10/21 CHIEF COMPLAINT: GI bleed HISTORY OF PRESENT ILLNESS: Patient's video capsule endoscopy results are pendi ng. Patient denies any abdominal pain. He did have some dark stools yesterday. EGD had revealed evidence of mild antral gastritis. No evidence of bleeding. Afebrile. Hemoglobin down to 6.7 Patient seen and examined with Dr. vernon PHYSICAL EXAM: VITAL SIGNS: Reviewed. GENERAL: Well-developed in no acute distress. HEENT: No sclera icterus. Extraocular movements grossly intact. Moist buccal mucosa. Head is atraumatic, normocephalic. ABDOMEN: Soft. Nondistended. Nontender. NEUROLOGIC: Alert and oriented. Cranial nerves II through XII grossly intact. ASSESSMENT: 1. Acute GI bleed 2. Acute blood loss anemia secondary to GI bleed 3. Diverticulosis PLAN: -Awaiting capsule endoscopy results -Agree with blood transfusion -Continue to monitor hemoglobin -Continue to monitor signs and symptoms of bleeding -Continue PPI -Continue supportive care Physician Secondary English Teacher note has been reviewed by physician. Signing provider agrees with the documented findings, assessment, and plan of care. Objective - Vital Signs Vital signs: Vital Signs Temp 97.7 F 06/10/21 07:55 Pulse 83 06/10/21 08:00 Resp 17 06/10/21 08:00 BP 115/52 06/10/21 07:55 Pulse Ox 98 06/10/21 07:55 Intake & Output 06/09/21 06/10/21 06/10/21 18:59 06:59 18:59 Intake Total 540 400 Balance 540 400 Weight 78.925 kg Intake: IV 400 0.9 400 Oral 540 Other: Voiding Method Toilet Toilet Toilet # Voids 3 2 # Bowel Movements 1 - Labs CBC & Chem 7: 06/10/21 08:30 06/06/21 06:58 Labs: Abnormal Lab Results - Last 24 Hours (Table) 06/10/21 06/10/21 Range/Units 08:30 10:33 RBC 2.29 L (4.30-5.90) m/uL Hgb 6.7 L* (13.0-17.5) gm/dL Hct 21.9 L (39.0-53.0) % MCHC 30.8 L (31.0-37.0) g/dL Crossmatch See Detail
--- NOTE | 2021-06-10 17:19 | XR ---
RESULT: HISTORY: back pain TECHNIQUE: 3 views of the lumbar spine were obtained. COMPARISON: None. FINDINGS: There is no acute fracture or subluxation of the lumbar spine. The vertebral body heights are grossly preserved. There is moderate L5-S1 and mild L4 S1 disc height narrowing. There is moderate to severe facet arthropathy in the lower lumbar spine. Alignment is grossly maintained. IMPRESSION: Degenerative changes without acute abnormality.
[2021-06-10] MEDS: SODIUM CHLORIDE 0.9% 1,000 ML IV SCH (22:12)
[2021-06-10] MEDS: SENNOSIDES 8.6 MG TAB PO SCH (22:12)
[2021-06-11] MEDS: HYDROmorphone 1 MG/ML 1 ML SYRINGE IVP PRN ×5 (02:30→23:20)
[2021-06-11] MEDS: SODIUM CHLORIDE 0.9% 1,000 ML IV SCH ×2 (02:32→23:21)
[2021-06-11] MEDS: PANTOPRAZOLE 40 MG TABLET PO SCH (05:59)
[2021-06-11 08:07] LABS: Basophils % (A) 0 %; Eosinophils # (A) 0.3 k/uL (0-0.7); Eosinophils % (A) 6 %; HCT 21.8 % (39.0-53.0); Hypochromasia Marked; Lymphocytes # (A) 1.7 k/uL (1.0-4.8); Lymphocytes % (A) 35 %; MCH 29.1 pg (25.0-35.0); MCHC 30.9 g/dL (31.0-37.0); MCV 94.4 fL (80.0-100.0); Mean Platelet Volume 8.2; Monocytes # (A) 0.3 k/uL (0-1.0); Monocytes % (A) 7 %; Neutrophils # (A) 2.4 k/uL (1.3-7.7); Neutrophils % (A) 50 %; Platelet Count 227 k/uL (150-450); Poikilocytosis Moderate; RBC 2.31 m/uL (4.30-5.90); RDW 14.3 % (11.5-15.5); WBC 4.8 k/uL (3.8-10.6)
[2021-06-11 08:13] LABS: HGB 6.7 gm/dL (13.0-17.5)
[2021-06-11 08:17] LABS: African American GFR (CKD) >90 (>60 ml/min/1.73 sqM); Anion Gap 1 mmol/L; Blood Urea Nitrogen 14 mg/dL (9-20); Calcium 8.4 mg/dL (8.4-10.2); Carbon Dioxide 27 mmol/L (22-30); Chloride 110 mmol/L (98-107); Glucose 122 mg/dL (74-99); Non-African American GFR(CKD) >90 (>60 ml/min/1.73 sqM); Potassium 4.1 mmol/L (3.5-5.1); Sodium 138 mmol/L (137-145)
[2021-06-11] MEDS: DOCUSATE 100 MG CAP PO SCH ×2 (08:55→21:00)
[2021-06-11] MEDS: polyethylene glycoL 3350 17 GM POWD.PACK PO SCH (08:56)
[2021-06-11] MEDS: CAPSAICIN 0.025% CREAM 60 GM TUBE TOPICAL SCH ×4 (08:56→20:59)
[2021-06-11] MEDS ORDERED: FUROSEMIDE 10 MG/ML 2 ML VIAL IV PRN (09:06)
[2021-06-11] MEDS ORDERED: PEG 3350-NA SULF,BICARB,CL/KCL 4,000 ML BOTTLE PO ONE (10:15)
[2021-06-11] MEDS: HYDROcodone/APAP 10-325MG 1 EACH TAB PO PRN ×2 (11:17→16:31)
--- NOTE | 2021-06-11 12:50 | P.PN ---
Subjective Progress Note Date: 06/11/21 This is an 81-year-old gentleman with past medical history of GERD, alcohol abuse, hx abdominal surgery , SBO , recently hospitalized with similar presentation -discharged on 05/29/2021 status post EGD and colonoscopy reporting antral gastritis, diverticulosis with suspected diverticular bleed, presented to the ER with ongoing/recurrent rectal bleeding, increased lightheadedness, fatigue. Reports multiple stools yesterday- dark, cloudy as well as bright red. Denies NSAID use since last admission. Denies nausea vomiting or diarrhea. Denies abdominal pain. Hemoglobin at discharge on 05/29/2019 to 8.4, crit admission 7.6 and currently down to 6.2 resumed one unit packed RBCs. Denies chest pain, palpitations or shortness of breath. Maintaining O2 sats in the high 90s on room air. Tagged RBC completed, reporting no evidence of active GI bleed. 06/03/2021 to receive 1 unit of packed RBCs yesterday with hemoglobin continuing at 6.2 today. Another unit of packed RBCs ordered. Patient denies any further bowel movements in the last 3 days. Denies abdominal pain. Complains of persistent worsening chronic right hip pain, not improved with pain management. Afebrile, vital signs stable, no tachycardia, maintaining O2 sats of 100% on room air. 2received 1 unit of packed RBCs yesterday, currently hemoglobin 6.6. maintained on gentle IV fluid hydration.Completed a repeat EGD this morning, reporting mild antral gastritis with no evidence of bleeding. Patient does have mild mid epigastric and left lower quadrant tenderness to palpation. Reports no bowel movement in 3 or 4 days.complains of extreme right hip pain.discussed patient requiring hip surgery which currently is not an option at this time- possibly might be able to arrange ultrasound-guided steroid injection for temporary relief via orthopedic surgeryor pain management service. 06/05/2021 hemoglobin decreased further yesterday afternoon to 6.2, received another unit of packed RBCs. Hemoglobin this morning 7.4, platelets 210. Denies abdominal pain. Complains of constipation, no bowel movement with Deepthi AX. Continues to complain of right hip pain, discussed steroid injection under fluoroscopy and patient is in agreement with. Pain management consult in place, recommendations pending. Denies chest pain, palpitations or shortness of breath. 06/09/2021 hemoglobin currently 7.2, has not required any blood transfusions since . Reports 3 small black bowel movements yesterday and one large black bowel movement this morning. Evaluated by GI with recommendations noted and appreciated. Currently undergoing capsule Endoscopy Study. Denies abdominal pain. Denies lightheadedness, dizziness or focal deficits. Denies chest pain, palpitations or shortness of breath. Reports hip pain present but currently better. 06/10/2021 patient continues to have multiple small black stools last night. Hemoglobin this morning decreased to 6.7. Completed Endoscopy Study, Results Pending. Denies nausea vomiting. Denies abdominal pain. Denies chest pain, palpitations or shortness of breath. Complains of ongoing chronic hip pain. 06/10/2021 hemoglobin remained to 6.7, patient's symptomatic, complains of lightheadedness, dizziness, weakness. Capsule study reported as negative ,scheduled for push enteroscopy/colonoscopy tomorrow. Denies abdominal pain. Hip pain currently controlled but complaining of burning back sensation. Denies chest pain, palpitations or increased shortness of breath. Objective - Vital Signs Vital signs: Vital Signs Temp 97.9 F 06/11/21 08:00 Pulse 90 06/11/21 08:00 Resp 18 06/11/21 08:00 BP 114/71 06/11/21 08:00 Pulse Ox 99 06/11/21 08:00 Intake & Output 06/10/21 06/11/21 06/11/21 18:59 06:59 18:59 Intake Total 400 980 360 Balance 400 980 360 Intake: Intake, IV Titration 400 200 Amount Sodium Chloride 0.9% 1, 400 200 000 ml @ 50 mls/hr IV . Q20H [facility] Rx#:[id number] Oral 780 360 Other: Voiding Method Toilet Toilet Toilet # Voids 4 3 1 # Bowel Movements 0 - Exam General: Alert and oriented 3 ,Sitting up in bed, NAD. Vitals reviewed Eyes: PERRL, EOMI, conjunctiva normal, oral mucosa moist HENT: normocephalic Lungs: normal respiratory effort, no wheezes or rales CV: Regular rate and rhythm, no murmur. Peripheral pulses 2+ Abdomen: soft, nondistended, no organomegaly, nontender, positive bowel sounds Skin: warm and dry. Neuro: Cranial nerves II through XII grossly intact. - Labs CBC & Chem 7: 06/11/21 07:46 06/11/21 07:46 Labs: Abnormal Lab Results - Last 24 Hours (Table) 06/10/21 06/10/21 06/11/21 Range/Units 08:30 10:33 07:46 RBC 2.29 L 2.31 L (4.30-5.90) m/uL Hgb 6.7 L* 6.7 L* (13.0-17.5) gm/dL Hct 21.9 L 21.8 L (39.0-53.0) % MCHC 30.8 L 30.9 L (31.0-37.0) g/dL Chloride (98-107) mmol/L Glucose (74-99) mg/dL Crossmatch See Detail 06/11/21 Range/Units 07:46 RBC (4.30-5.90) m/uL Hgb (13.0-17.5) gm/dL Hct (39.0-53.0) % MCHC (31.0-37.0) g/dL Chloride 110 H (98-107) mmol/L Glucose 122 H (74-99) mg/dL Crossmatch Assessment and Plan Assessment: Recurrent rectal bleed, acute blood loss anemia, status post transfusion of mu ltiple units of RBCs Recently hospitalized with Acute GI bleed, status post EGD and colonoscopy antral gastritis, diverticulosis; suspect diverticular bleed. Chronic Bilateral hip pain, greatest on the right secondary to osteoarthritis ;history of left hip repair Plan: Continue on current medication regime ,monitoring and symptomatic treatment. Patient did not receive 1 unit packed RBCs yesterday, and lab notified that patient is to receive 1 unit of packed RBCs regarding his symptomatic anemia.push enteroscopy/colonoscopy scheduled for tomorrow .Maintain close monitoring of coags.with repeat labs ordered for am. The impression and plan of care has been dictated as directed. : I performed a history and examination of this patient, discussed the same with the dictator. I agree with the dictator's note ,documented as a scribe. Any additional findings or plans will be noted.
--- NOTE | 2021-06-11 14:03 | P.PN ---
Subjective Progress Note Date: 06/11/21 Principal diagnosis: Anemia, melena Patient was seen and examined as a follow-up for anemia and melena. Patient states he continues to have black loose stool. He states today he is feeling much weaker. Had a repeat hemoglobin this morning of 6.7. Yesterday 1 unit of PRBC transfusion was ordered however he did not meet protocol for blood transfusion. Will try again today. He denies any abdominal pain, nausea, or vomiting. Objective - Vital Signs Vital signs: Vital Signs Temp 97.9 F 06/11/21 08:00 Pulse 90 06/11/21 08:00 Resp 18 06/11/21 08:00 BP 114/71 06/11/21 08:00 Pulse Ox 99 06/11/21 08:00 Intake & Output 06/10/21 06/11/21 06/11/21 18:59 06:59 18:59 Intake Total 400 980 360 Balance 400 980 360 Intake: Intake, IV Titration 400 200 Amount Sodium Chloride 0.9% 1, 400 200 000 ml @ 50 mls/hr IV . Q20H [facility] Rx#:[id number] Oral 780 360 Other: Voiding Method Toilet Toilet Toilet # Voids 4 3 1 # Bowel Movements 0 - Exam General appearance: The patient is alert, oriented, appears in no acute distress. HET: Head is normocephalic and atraumatic. Conjunctiva pink. Sclera anicteric. Neck: Supple without lymphadenopathy. Abdomen: Soft, nontender, nondistended with bowel sounds. No guarding or rigidity. Extremities: Normal skin color and turgor. No pedal edema Skin: No rashes, no jaundice Neurological: No focal deficits. Alert and oriented -3. - Labs CBC & Chem 7: 06/11/21 07:46 06/11/21 07:46 Labs: Abnormal Lab Results - Last 24 Hours (Table) 06/10/21 06/11/21 06/11/21 Range/Units 10:33 07:46 07:46 RBC 2.31 L (4.30-5.90) m/uL Hgb 6.7 L* (13.0-17.5) gm/dL Hct 21.8 L (39.0-53.0) % MCHC 30.9 L (31.0-37.0) g/dL Chloride 110 H (98-107) mmol/L Glucose 122 H (74-99) mg/dL Crossmatch See Detail Assessment and Plan (1) Gastrointestinal bleeding Narrative/Plan: 81-year-old male who was hospitalized recently for GI bleed and underwent an EGD and colonoscopy with Dr. Martinez on 05/28/2021 with findings of antral gastritis and diverticulosis no evidence of active bleed. He presented back to the hospital on 06/01/2021 with continued black dark stools. States he's been having dark stools for last 10 days duration. He did has no associated abdominal pain, nausea or vomiting. He did undergo another EGD on 06/04/2021 that showed mild antral gastritis again no active bleeding seen. He had attacked RPC that showed no active bleeding. Today he underwent a small bowel video capsule endoscopy. Possible etiologies include AVM, diverticular bleed, or other possible etiologies. Will await small bowel capsule endoscopy study. Patient may have a heart healthy diet. We will proceed with EGD with push enteroscopy and colonoscopy tomorrow Current Visit: Yes Status: Acute Code(s): K92.2 - GASTROINTESTINAL HEMORRHAGE, UNSPECIFIED SNOMED Code(s): 47051766 Plan: 1. Continue symptomatic and supportive care 2. Clear liquid diet, nothing by mouth after midnight 3. Continue daily CBC, transfuse 1 unit PRBC 4. We'll plan on EGD with push enteroscopy, colonoscopy tomorrow. Patient is agreeable with plan. 5. Start bowel prep this afternoon Thank you for this consultation, we will continue to follow. Dr. Woody Starks I agree with the dictator's note, documented as a scribe by Brooke Cervantes.
--- NOTE | 2021-06-11 14:42 | P.PN ---
Subjective Progress Note Date: 06/11/21 CHIEF COMPLAINT: GI bleed HISTORY OF PRESENT ILLNESS: Patient completed a small bowel capsule endoscopy. On per nursing staffand results noted. Patient still having black stools. Hemoglobin remains at 6.7 and he is receiving a unit of blood today. He did not meet criteria for the blood transfusion yesterday. GI service has patient scheduled for EGD with push enteroscopy and colonoscopy for tomorrow. Patient seen and examined with Dr. vernon PHYSICAL EXAM: VITAL SIGNS: Reviewed. GENERAL: Well-developed in no acute distress. HEENT: No sclera icterus. Extraocular movements grossly intact. Moist buccal mucosa. Head is atraumatic, normocephalic. ABDOMEN: Soft. Nondistended. Nontender. NEUROLOGIC: Alert and oriented. Cranial nerves II through XII grossly intact. ASSESSMENT: 1. Acute GI bleed 2. Acute blood loss anemia secondary to GI bleed 3. Diverticulosis PLAN: -patient scheduled for EGD with push enteroscopy and colonoscopy for tomorrow with GI service -Agree with blood transfusion -Continue to monitor hemoglobin -Continue to monitor signs and symptoms of bleeding -Continue PPI -Continue supportive care Physician Banking Services Advisor note has been reviewed by physician. Signing provider agrees with the documented findings, assessment, and plan of care. Objective - Vital Signs Vital signs: Vital Signs Temp 98.0 F 06/11/21 11:23 Pulse 90 06/11/21 14:00 Resp 17 06/11/21 14:00 BP 150/83 06/11/21 11:23 Pulse Ox 100 06/11/21 11:23 Intake & Output 06/10/21 06/11/21 06/11/21 18:59 06:59 18:59 Intake Total 400 980 670 Balance 400 980 670 Intake: Intake, IV Titration 400 200 Amount Sodium Chloride 0.9% 1, 400 200 000 ml @ 50 mls/hr IV . Q20H [facility] Rx#:[id number] Oral 780 360 Blood Product 310 Rc As-1 Unit 310 [id number] Other: Voiding Method Toilet Toilet Toilet # Voids 4 3 1 # Bowel Movements 0 - Labs CBC & Chem 7: 06/11/21 07:46 06/11/21 07:46 Labs: Abnormal Lab Results - Last 24 Hours (Table) 06/10/21 06/11/21 06/11/21 Range/Units 10:33 07:46 07:46 RBC 2.31 L (4.30-5.90) m/uL Hgb 6.7 L* (13.0-17.5) gm/dL Hct 21.8 L (39.0-53.0) % MCHC 30.9 L (31.0-37.0) g/dL Chloride 110 H (98-107) mmol/L Glucose 122 H (74-99) mg/dL Crossmatch See Detail
[2021-06-11] MEDS: SENNOSIDES 8.6 MG TAB PO SCH (20:58)
[2021-06-12] MEDS: HYDROmorphone 1 MG/ML 1 ML SYRINGE IVP PRN ×5 (03:09→23:36)
[2021-06-12] MEDS: PANTOPRAZOLE 40 MG TABLET PO SCH (04:27)
[2021-06-12] MEDS ORDERED: PROPOFOL 10 MG/ML 20 ML VIAL IV ONE (08:46)
[2021-06-12] MEDS ORDERED: fentaNYL (PF) 50 MCG/ML 2 ML AMP ONE (08:46)
[2021-06-12] MEDS ORDERED: IV FLUID CONTINUATION 1,000 ML IV ONE ×3 (08:46)
[2021-06-12] MEDS ORDERED: MIDAZOLAM 2 MG/2 ML VIAL ONE (08:46)
[2021-06-12 08:54] LABS: HCT 25.6 % (39.0-53.0); Hypochromasia Marked; MCH 29.2 pg (25.0-35.0); MCHC 31.1 g/dL (31.0-37.0); MCV 93.8 fL (80.0-100.0); Mean Platelet Volume 7.6; Platelet Count 250 k/uL (150-450); Poikilocytosis Moderate; RBC 2.73 m/uL (4.30-5.90); RDW 14.4 % (11.5-15.5)
[2021-06-12] MEDS ORDERED: SODIUM CHLORIDE 0.9% 500 ML 500 ML IV ONE (09:10)
[2021-06-12 09:15] LABS: African American GFR (CKD) >90 (>60 ml/min/1.73 sqM); Anion Gap 4 mmol/L; Blood Urea Nitrogen 10 mg/dL (9-20); Calcium 8.7 mg/dL (8.4-10.2); Carbon Dioxide 28 mmol/L (22-30); Chloride 105 mmol/L (98-107); Glucose 107 mg/dL (74-99); Non-African American GFR(CKD) >90 (>60 ml/min/1.73 sqM); Potassium 4.5 mmol/L (3.5-5.1); Sodium 137 mmol/L (137-145)
--- NOTE | 2021-06-12 09:20 | P.PCN ---
Date of Procedure: 06/12/21 Procedure(s) Performed: Brief history: Patient is a pleasant 81-year-old white male admitted the hospital with recurrent GI bleed. He presented with multiple episodes of black tarry stools. He was in the hospital ago and underwent an upper endoscopy as well as colonoscopy by Dr. Mandel that was unremarkable. He was discharged home and readmitted a week later with black tarry stools and dropped hemoglobin to 6 g/dL requiring total of 4 units of PRBC transition during this hospitalization. He had repeat upper endoscopy that was unremarkable. Subsequently a small bowel capsule endoscopy 3 days ago that was unremarkable. He continued to have persistent black tarry stools almost on a daily basis and asked hemoglobin was 6.5 g yesterday. Hence he scheduled for repeat EGD/small bowel enteroscopy and colonoscopy to evaluate further Procedure performed: Esophagogastroduodenoscopy /small bowel enteroscopy with argon plasma coagulation Colonoscopy to the descending colon and procedure terminated secondary to poor prep Preoperative diagnosis: Recurrent obscure GI bleed Anesthesia: MAC Procedure: After informed consent was obtained from the patient was brought into the endoscopy unit and IV sedation was administered by anesthesia under continuous monitoring. Initially upper endoscopy was done. The Olympus GF 160 video endoscope was inserted inserted into the mouth and esophagus intubated without any difficulty and was gradually advanced into the stomach and duodenum and into the proximal jejunum carefully examined. The proximal jejunum at 30 cm from ligament of Treitz there was a nonbleeding angiectasia that was cauterized using a argon plasma. The bulb and second and third and fourth part of the duodenum appeared normal. The scope was then withdrawn into the stomach adequately insufflated with air and upon careful examination the antrum and body, cardia and fundus appeared normal. The scope was then withdrawn into the esophagus. The GE junction was located at 40 cm to the incisors. Small hiatal hernia noted. It appeared regular with no erythema erosions or ulcerations. Rest of the esophagus appeared normal. Patient tolerated the procedure well. At this time the patient continued to remain sedation. Initial digital rectal examination was normal. Olympus CF 160 video colonoscope was then inserted into the rectum and gradually advanced to the descending colon, and this point the prep was extremely poor and I could not visualize any part of the colon. I tried to irrigate the colon thoroughly and try to advance scope further but there was solid stool that was encountered. Despite attempts at irrigation I was not able to continue the procedure and hence the procedure was terminated. The visualized portions of the descending sigmoid colon and rectum appeared normal. Diverticulosis was seen. Retroflexion was performed in the rectum and no lesions were noted. Patient tolerated the procedure well. Impression: 1. 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 Colonoscopy up the descending colon has significantly poor prep and hence procedure terminated Recommendations: Findings of this examination were discussed with the patient. At this time will continue to monitor CBC on a daily basis. Transfuse if the hemoglobin is less than 6.5 g/dL. If he has further drop in hemoglobin will consider repeat colonoscopy early next week.
[2021-06-12] MEDS: HYDROcodone/APAP 10-325MG 1 EACH TAB PO PRN ×3 (09:53→23:35)
[2021-06-12] MEDS: polyethylene glycoL 3350 17 GM POWD.PACK PO SCH (09:55)
[2021-06-12] MEDS: DOCUSATE 100 MG CAP PO SCH ×2 (09:55→20:55)
[2021-06-12] MEDS: CAPSAICIN 0.025% CREAM 60 GM TUBE TOPICAL SCH ×4 (09:56→21:54)
--- NOTE | 2021-06-12 13:11 | P.PN ---
Subjective Progress Note Date: 06/12/21 CHIEF COMPLAINT: GI bleed HISTORY OF PRESENT ILLNESS: Patient sitting in bed comfortably. Denies any abd ominal pain. Reports that his stools are more brown than black in color. He is status post EGD and small bowel enteroscopy with argon plasma coagulation and colonoscopy with GI service. Colonoscopy had poor Bowel prep and was terminated. Results showed evidence of a small nonbleeding jejunal angiectasia from the ligament of treats status post argon plasma coagulation and evidence of small hiatal hernia. Hemoglobin is now up from 6.7 to 8.0 after 1 unit of blood. PHYSICAL EXAM: VITAL SIGNS: Reviewed. GENERAL: Well-developed in no acute distress. HEENT: No sclera icterus. Extraocular movements grossly intact. Moist buccal mucosa. Head is atraumatic, normocephalic. ABDOMEN: Soft. Nondistended. Nontender. NEUROLOGIC: Alert and oriented. Cranial nerves II through XII grossly intact. ASSESSMENT: 1. Acute GI bleed 2. Acute blood loss anemia secondary to GI bleed 3. Diverticulosis PLAN: -Continue to monitor hemoglobin -Continue to monitor signs and symptoms of bleeding -Continue PPI -Continue supportive care Physician Pvc Loader note has been reviewed by physician. Signing provider agrees with the documented findings, assessment, and plan of care. Objective - Vital Signs Vital signs: Vital Signs Temp 98 F 06/12/21 09:51 Pulse 77 06/12/21 09:51 Resp 18 06/12/21 09:51 BP 141/64 06/12/21 09:51 Pulse Ox 96 06/12/21 09:51 Intake & Output 06/11/21 06/12/21 06/12/21 18:59 06:59 18:59 Intake Total 1390 800 Balance 1390 800 Intake: IV 800 Oral 1080 Blood Product 310 Rc As-1 Unit 310 [id number] Other: Voiding Method Toilet Toilet # Voids 3 1 # Bowel Movements 1 - Labs CBC & Chem 7: 06/12/21 08:20 06/12/21 08:20 Labs: Abnormal Lab Results - Last 24 Hours (Table) 06/10/21 06/12/21 06/12/21 Range/Units 10:33 08:20 08:20 RBC 2.73 L (4.30-5.90) m/uL Hgb 8.0 L (13.0-17.5) gm/dL Hct 25.6 L (39.0-53.0) % Creatinine 0.65 L (0.66-1.25) mg/dL Glucose 107 H (74-99) mg/dL Crossmatch See Detail
--- NOTE | 2021-06-12 14:49 | P.PN ---
Subjective Progress Note Date: 06/12/21 This is an 81-year-old gentleman with past medical history of GERD, alcohol abuse, hx abdominal surgery , SBO , recently hospitalized with similar presentation -discharged on 05/29/2021 status post EGD and colonoscopy reporting antral gastritis, diverticulosis with suspected diverticular bleed, presented to the ER with ongoing/recurrent rectal bleeding, increased lightheadedness, fatigue. Reports multiple stools yesterday- dark, cloudy as well as bright red. Denies NSAID use since last admission. Denies nausea vomiting or diarrhea. Denies abdominal pain. Hemoglobin at discharge on 05/29/2019 to 8.4, crit admission 7.6 and currently down to 6.2 resumed one unit packed RBCs. Denies chest pain, palpitations or shortness of breath. Maintaining O2 sats in the high 90s on room air. Tagged RBC completed, reporting no evidence of active GI bleed. 06/03/2021 to receive 1 unit of packed RBCs yesterday with hemoglobin continuing at 6.2 today. Another unit of packed RBCs ordered. Patient denies any further bowel movements in the last 3 days. Denies abdominal pain. Complains of persistent worsening chronic right hip pain, not improved with pain management. Afebrile, vital signs stable, no tachycardia, maintaining O2 sats of 100% on room air. 2received 1 unit of packed RBCs yesterday, currently hemoglobin 6.6. maintained on gentle IV fluid hydration.Completed a repeat EGD this morning, reporting mild antral gastritis with no evidence of bleeding. Patient does have mild mid epigastric and left lower quadrant tenderness to palpation. Reports no bowel movement in 3 or 4 days.complains of extreme right hip pain.discussed patient requiring hip surgery which currently is not an option at this time- possibly might be able to arrange ultrasound-guided steroid injection for temporary relief via orthopedic surgeryor pain management service. 06/05/2021 hemoglobin decreased further yesterday afternoon to 6.2, received another unit of packed RBCs. Hemoglobin this morning 7.4, platelets 210. Denies abdominal pain. Complains of constipation, no bowel movement with Deepthi AX. Continues to complain of right hip pain, discussed steroid injection under fluoroscopy and patient is in agreement with. Pain management consult in place, recommendations pending. Denies chest pain, palpitations or shortness of breath. 06/09/2021 hemoglobin currently 7.2, has not required any blood transfusions since . Reports 3 small black bowel movements yesterday and one large black bowel movement this morning. Evaluated by GI with recommendations noted and appreciated. Currently undergoing capsule Endoscopy Study. Denies abdominal pain. Denies lightheadedness, dizziness or focal deficits. Denies chest pain, palpitations or shortness of breath. Reports hip pain present but currently better. 06/10/2021 patient continues to have multiple small black stools last night. Hemoglobin this morning decreased to 6.7. Completed Endoscopy Study, Results Pending. Denies nausea vomiting. Denies abdominal pain. Denies chest pain, palpitations or shortness of breath. Complains of ongoing chronic hip pain. 06/11/2021 hemoglobin remained to 6.7, patient's symptomatic, complains of lightheadedness, dizziness, weakness. Capsule study reported as negative ,scheduled for push enteroscopy/colonoscopy tomorrow. Denies abdominal pain. Hip pain currently controlled but complaining of burning back sensation. Denies chest pain, palpitations or increased shortness of breath. 06/12/2021 NPO, on stretcher heading down to endoscopy for EGD/small bowel enteroscopy and colonoscopy. Denies chest pain, palpitations or shortness of breath. Labs pending. Vital signs stable, and he O2 sats in the high 90s on room air. Objective - Vital Signs Vital signs: Vital Signs Temp 98 F 06/12/21 09:51 Pulse 77 06/12/21 09:51 Resp 18 06/12/21 09:51 BP 141/64 06/12/21 09:51 Pulse Ox 96 06/12/21 09:51 Intake & Output 06/11/21 06/12/21 06/12/21 18:59 06:59 18:59 Intake Total 1390 800 Balance 1390 800 Intake: IV 800 Oral 1080 Blood Product 310 Rc As-1 Unit 310 [id number] Other: Voiding Method Toilet Toilet # Voids 3 1 # Bowel Movements 1 - Exam General: Alert and oriented 3 ,Sitting up on stretcher, NAD. Vitals reviewed Eyes: PERRL, EOMI, conjunctiva normal, oral mucosa dry HENT: normocephalic Lungs: normal respiratory effort, no wheezes or rales CV: Regular rate and rhythm, no murmur. Peripheral pulses 2+ Abdomen: soft, nondistended, no organomegaly, nontender, positive bowel sounds Skin: warm and dry. Neuro: Cranial nerves II through XII grossly intact. - Labs CBC & Chem 7: 06/12/21 08:20 06/12/21 08:20 Labs: Abnormal Lab Results - Last 24 Hours (Table) 06/12/21 06/12/21 Range/Units 08:20 08:20 RBC 2.73 L (4.30-5.90) m/uL Hgb 8.0 L (13.0-17.5) gm/dL Hct 25.6 L (39.0-53.0) % Creatinine 0.65 L (0.66-1.25) mg/dL Glucose 107 H (74-99) mg/dL Assessment and Plan Assessment: Recurrent rectal bleed, acute blood loss anemia, status post transfusion of multiple units of RBCs Recently hospitalized with Acute GI bleed, status post EGD and colonoscopy antral gastritis, diverticulosis; suspect diverticular bleed. Chronic Bilateral hip pain, greatest on the right secondary to osteoarthritis ;history of left hip repair Plan: Continue on current medication regime ,monitoring and symptomatic treatment. EGD/SB enteroscopy/colonoscopy pending.Maintain PPI. close monitoring of coags.with repeat labs ordered for am. Discharge planning in progress. The impression and plan of care has been dictated as directed. : I performed a history and examination of this patient, discussed the same with the dictator. I agree with the dictator's note ,documented as a scribe. Any additional findings or plans will be noted.
[2021-06-12] MEDS: SENNOSIDES 8.6 MG TAB PO SCH (20:55)
[2021-06-13 01:44] VITALS: RESP 18
[2021-06-13] MEDS: HYDROmorphone 1 MG/ML 1 ML SYRINGE IVP PRN ×2 (03:21→06:09)
[2021-06-13] MEDS: HYDROcodone/APAP 10-325MG 1 EACH TAB PO PRN ×2 (06:10→12:35)
[2021-06-13] MEDS: PANTOPRAZOLE 40 MG TABLET PO SCH (06:10)
[2021-06-13] MEDS: DOCUSATE 100 MG CAP PO SCH (08:26)
[2021-06-13] MEDS: CAPSAICIN 0.025% CREAM 60 GM TUBE TOPICAL SCH ×2 (08:27→12:40)
[2021-06-13] MEDS: polyethylene glycoL 3350 17 GM POWD.PACK PO SCH (08:44)
--- NOTE | 2021-06-13 10:50 | P.PN ---
Subjective Progress Note Date: 06/13/21 Principal diagnosis: GI bleed Patient doing well today. No pain. No further bleeding. He is quite anxious to go home. Hemoglobin 8.0 yesterday. Objective - Vital Signs Vital signs: Vital Signs Temp 98.2 F 06/12/21 20:00 Pulse 83 06/13/21 04:00 Resp 18 06/13/21 04:00 BP 131/67 06/13/21 04:00 Pulse Ox 99 06/13/21 04:00 Intake & Output 06/12/21 06/13/21 06/13/21 18:59 06:59 18:59 Intake Total 1300 970 Balance 1300 970 Intake: IV 800 Oral 500 970 Other: Voiding Method Toilet # Voids 1 1 - Exam Abdomen: Soft, nontender, nondistended - Labs CBC & Chem 7: 06/12/21 08:20 06/12/21 08:20 Assessment and Plan (1) Gastrointestinal bleeding Narrative/Plan: Patient doing well at this time. Continue diet as tolerated. May discharge from our point of view. Current Visit: Yes Status: Acute Code(s): K92.2 - GASTROINTESTINAL HEMORRHAG E, UNSPECIFIED SNOMED Code(s): 88943449
[2021-06-13 13:20] LABS: Basophils % (A) 1 %; Eosinophils # (A) 0.3 k/uL (0-0.7); Eosinophils % (A) 5 %; HCT 25.9 % (39.0-53.0); HGB 7.9 gm/dL (13.0-17.5); Hypochromasia Marked; Lymphocytes # (A) 1.6 k/uL (1.0-4.8); Lymphocytes % (A) 32 %; MCH 28.7 pg (25.0-35.0); MCHC 30.6 g/dL (31.0-37.0); MCV 93.8 fL (80.0-100.0); Mean Platelet Volume 7.8; Monocytes # (A) 0.3 k/uL (0-1.0); Monocytes % (A) 7 %; Neutrophils # (A) 2.7 k/uL (1.3-7.7); Neutrophils % (A) 53 %; Platelet Count 251 k/uL (150-450); Poikilocytosis Moderate; RBC 2.76 m/uL (4.30-5.90); RDW 14.7 % (11.5-15.5)
[2021-06-13 15:48] VITALS: TEMP 98
[2021-06-13 15:49] VITALS: BP 116/74; PULSE 77
== END 2021-06-13 17:06 | disposition home or self-care (01) | DRG 378 ==
LOC: EC 09:25 → 5NMEDONC 13:45 → 3SCARD 20:40 → OBSVTOIN 06-03 09:18
PROVIDERS: ADMIT Family Medicine; ATTEND Family Medicine
PROC: 30233N1 Transfusion of Nonautologous Red Blood Cells into Peripheral Vein, Percutaneous Approach (ICD-10-PCS; 2021-06-02)
PROC: 0DJ08ZZ Inspection of Upper Intestinal Tract, Via Natural or Artificial Opening Endoscopic (ICD-10-PCS; principal; 2021-06-04 08:45)
PROC: 0DJ07ZZ Inspection of Upper Intestinal Tract, Via Natural or Artificial Opening (ICD-10-PCS; 2021-06-09)
PROC: 0DJD8ZZ Inspection of Lower Intestinal Tract, Via Natural or Artificial Opening Endoscopic (ICD-10-PCS; 2021-06-12 13:35)
PROC: 0D5A8ZZ Destruction of Jejunum, Via Natural or Artificial Opening Endoscopic (ICD-10-PCS; 2021-06-12 13:35)
DX: K57.31 Diverticulosis of large intestine without perforation or abscess with bleeding (principal); D62 Acute posthemorrhagic anemia; I42.9 Cardiomyopathy, unspecified; G89.4 Chronic pain syndrome; K29.70 Gastritis, unspecified, without bleeding; K44.9 Diaphragmatic hernia without obstruction or gangrene; K59.00 Constipation, unspecified; M16.11 Unilateral primary osteoarthritis, right hip; Z79.1 Long term (current) use of non-steroidal anti-inflammatories (NSAID); Z79.899 Other long term (current) drug therapy; I99.8 Other disorder of circulatory system; M54.9 Dorsalgia, unspecified; F10.11 Alcohol abuse, in remission; N40.0 Benign prostatic hyperplasia without lower urinary tract symptoms; K21.9 Gastro-esophageal reflux disease without esophagitis; Z80.1 Family history of malignant neoplasm of trachea, bronchus and lung; Z87.11 Personal history of peptic ulcer disease; Z87.891 Personal history of nicotine dependence; Z98.41 Cataract extraction status, right eye; Z96.1 Presence of intraocular lens; Z96.642 Presence of left artificial hip joint; Z98.1 Arthrodesis status; Z90.49 Acquired absence of other specified parts of digestive tract; Z20.822 Contact with and (suspected) exposure to COVID-19; Z87.19 Personal history of other diseases of the digestive system; Z53.09 Procedure and treatment not carried out because of other contraindication
CPT/HCPCS: 36415; 43235; 43255; 45330; 72100; 73502; 78278; 80048; 80053; 85025; 85027; 85730; 86140; 86850; 86900; 86901; 86920; 87635; 91110; 93005; 99285

== ENCOUNTER → 2021-07-20 | Outpatient (CLI) | payer MEDICARE | END | disposition home or self-care (01) | LOC: LABPAT 08:09 | PROVIDERS: ATTEND Orthopaedic Surgery | DX: Z01.812 Encounter for preprocedural laboratory examination (principal); Z22.322 Carrier or suspected carrier of Methicillin resistant Staphylococcus aureus; M16.11 Unilateral primary osteoarthritis, right hip | CPT/HCPCS: 87070 ==

== ENCOUNTER 2021-07-27 08:10 | Day surgery (SDC) | payer MEDICARE ==
[2021-07-24 11:39] VITALS: BMI 22.2
--- NOTE | 2021-07-26 12:33 | HP ---
HISTORY AND PHYSICAL DATE OF SURGERY: 07/27/2021 Bryan Casarez is an 81-year-old patient seen with symptomatic right hip osteoarthritis. We discussed options for treatment. He elected to proceed with direct anterior right total hip arthroplasty. Consent was obtained. Preoperative medical clearance was provided by Dr. Stephanie York. PAST MEDICAL HISTORY: Gastroesophageal reflux disease, chronic back pain. PAST SURGICAL HISTORY: Left total hip arthroplasty, cholecystectomy, shoulder arthroscopy, bowel resection. DAILY MEDICATIONS: [place], Protonix. ALLERGIES: NONE. SOCIAL HISTORY: He denies tobacco use. PHYSICAL EVALUATION OF THE RIGHT HIP: He has very limited range of motion with severe pain and diffuse tenderness about the hip girdle. Positive hip impingement sign. Straight-leg raise negative. His distal neurovascular exam is intact. Radiographs of the right hip reveal severe osteoarthritic changes. IMPRESSION: 1. Right hip osteoarthritis. 2. Gastroesophageal reflux disease. PLAN: Direct anterior right total hip arthroplasty. MMODL / IJN: [id number] /
[~2021-07-27 08:10] MED LIST changes: +ACETAMINOPHEN TAB 500 MG TAB PO PRN; +DEXAMETHASONE SOD PHOSPHATE 4 MG/ML 1 ML VIAL IV ONE; -HYDROmorphone 0.5 MG/0.5 ML SYRINGE IVP PRN; -LACTATED RINGERS 1,000 ML IV SCH; +MELOXICAM 7.5 MG TAB PO PRN; +MIDAZOLAM 2 MG/2 ML VIAL IV PRN; -MORPHINE SULFATE 2 MG/ML SYRINGE IV PRN; +ONDANSETRON 4 MG/2 ML VIAL IVP ONE; +TRANEXAMIC ACID IN NACL,ISO-OS 1,000 MG in SALINE 1 100ML.BAG IVPB PRN; -ceFAZolin IN SWFI 2 GM/20 ML SYRINGE IVP ONE
[2021-07-27] MEDS: LACTATED RINGERS 1,000 ML IV SCH (09:22)
[2021-07-27 09:28] LABS: Anisocytosis Slight; Basophils # (A) 0.1 k/uL (0-0.2); Basophils % (A) 1 %; Eosinophils # (A) 0.2 k/uL (0-0.7); Eosinophils % (A) 3 %; HCT 31.8 % (39.0-53.0); HGB 9.2 gm/dL (13.0-17.5); Hypochromasia Marked; Lymphocytes # (A) 2.4 k/uL (1.0-4.8); Lymphocytes % (A) 34 %; Mean Platelet Volume 7.6; Microcytosis Slight; Monocytes # (A) 0.5 k/uL (0-1.0); Monocytes % (A) 6 %; Neutrophils # (A) 3.8 k/uL (1.3-7.7); Neutrophils % (A) 53 %; Platelet Count 238 k/uL (150-450); Poikilocytosis Moderate; RBC 4.02 m/uL (4.30-5.90); RDW 16.8 % (11.5-15.5); WBC 7.1 k/uL (3.8-10.6)
[2021-07-27 09:38] LABS: MCV 79.1 fL (80.0-100.0)
[2021-07-27] MEDS ORDERED: TRANEXAMIC ACID IN NACL,ISO-OS 1,000 MG/100 ML BAG ONE (10:19)
[2021-07-27] MEDS ORDERED: MIDAZOLAM 2 MG/2 ML VIAL ONE (10:19)
[2021-07-27] MEDS ORDERED: PROPOFOL 10 MG/ML 20 ML VIAL IV ONE (10:19)
[2021-07-27] MEDS ORDERED: BUPIVACAINE (PF) 0.5% 30 ML VIAL SQ ONE (10:22)
[2021-07-27] MEDS ORDERED: ceFAZolin 1,000 MG in SODIUM CHLORIDE 0.9% 1,000 ML IRRIGATION ONE (10:59)
[2021-07-27] MEDS ORDERED: traMADol 50 MG TAB PO PRN (12:06)
[2021-07-27] MEDS ORDERED: MAGNESIUM HYDROXIDE 2,400 MG/10 ML CUP PO PRN (12:06)
[2021-07-27] MEDS ORDERED: HYDROmorphone 0.5 MG/0.5 ML SYRINGE IVP PRN (12:06)
[2021-07-27] MEDS ORDERED: ONDANSETRON 4 MG/2 ML VIAL IVP PRN (12:06)
[2021-07-27] MEDS ORDERED: NALOXONE 0.4 MG/ML 1 ML VIAL IV PRN (12:06)
--- NOTE | 2021-07-27 12:13 | P.OP ---
Date of Procedure: 07/27/21 Preoperative Diagnosis: Right hip osteoarthritis Postoperative Diagnosis: Right hip osteoarthritis Procedure(s) Performed: Direct anterior right total hip arthroplasty Implants: 1. Depuy Corail KA standard collar size 16 press-fit femoral stem 2. Depuy pinnacle multi hole 66 mm press-fit acetabular shell 3. Depuy pinnacle neutral polyethylene acetabular liner 36 mm ID 66 mm OD 4. Biolox delta ceramic femoral head +5 36 mm Anesthesia: local, spinal Surgeon: Paras Echols Movie Theater Manager #1: Mustapha Hobson Estimated Blood Loss (ml): 125 Pathology: other (Femoral head) Condition: stable Disposition: PACU Indications for Procedure: 81-year-old patient seen with symptomatic right hip osteoarthritis. After treatment options were discussed, he elected to proceed with direct anterior right total hip arthroplasty. Operative Findings: See description of procedure Description of Procedure: The patient was taken to the operative suite. Patient underwent a spinal anesthetic by the department of anesthesia. Patient was then transferred to the [place] table. Patient was given preoperative IV antibiotics and TXA. Both lower extremities were placed in standard leg spars. The hip was then prepped and draped in the normal sterile orthopedic fashion. A standard anterior incision was made beginning 3 cm lateral and 1 cm distal to the ASIS extending 10 cm. Dissection was then carried down through the subcutaneous soft tissues down to the fascia overlying the tensor fascia denise. An incision was now made through the fascia. Careful dissection was taken down exposing the tensor fascia denise muscle. A Cobra retractor was now placed along the medial femoral neck and a second one along the lateral femoral neck. The venous circumflex vessels were now identified, cauterized and clipped. We identified the anterior hip capsule. An incision was made through the hip capsule along the lateral border. I performed a partial anterior capsulectomy. Retractors were now placed around the femoral neck itself. A femoral neck cut was now made with a sagittal saw. It was completed with an osteotome at the lateral neck area. The femoral head was now removed without difficulty. The extremity was now rotated to 60 of external rotation. It was locked in position. Residual labrum was now debrided out. Serial reaming was performed of the acetabulum while Mustapha FONSECA assisted holding an anterior retractor for exposure. Once we reached the appropriate size and a trial was position and fit nicely. The appropriate size was now chosen opened and made available. It was introduced into the acetabulum without difficulty. The C-arm/fluoroscopy was now brought into the operative field. We made sure we had a true AP pelvic view. We now under direct C-arm/fluoroscopy introduced into the acetabular component with appropriate version and inclination. I held the cup in appropriate position while Mustapha FONSECA used a mallet to seat the acetabular component. I noted the component now to be well seated and stable. Acetabular cup introduce her was removed. The C-arm was pulled back. An appropriate liner was introduced and clicked into position. It was felt to be stable. At this point retractors were removed. The extremity was now placed into 130 external rotation with no traction. The leg was now dropped to the ground and adducted. Appropriate retractors were now positioned along the proximal femur. We also placed our femoral look into position. Additional capsular releasing was performed to gain access to the proximal femur. We now used a box osteotome. A canal finder was now utilized. Serial broaching was now performed with the assistance of Mustapha FONSECA tapping the broaches down with a mallet while held the broach in appropriate rotation and position. This was done until we reached the appropriate size with good overall rotational stability. Appropriate calcar planing was performed. A trial head/neck was placed into position. The hip was now reduced. The C- arm/fluoroscopy was brought back into the operative field. I obtained an AP pelvis demonstrating adequate ligament alignment. The trial components appeared appropriately sized and appropriately positioned. The C-arm/fluoroscopy was pulled back. Retractors were repositioned and the hip was dislocated. The leg was again taken down to the ground and adducted. Appropriate retractors were repositioned as well as the femoral hook. All trial components were removed. The femoral implant was opened along with the femoral head. The femoral implant was introduced on the appropriate handle into our pre-broached area. I held the component position while Mustapha FONSECA used a mallet to seat the femoral component. The femoral component was now noted to be well seated and stable.. The femoral head was introduced with good positioning and fixation noted. Retractors were now removed. The hip was now reduced. There appeared be good positioning of the hip confirmed on intraoperative fluoroscopy. Spot films were obtained to document this. A second gram of TXA was given. The deep and superficial soft tissues were infiltrated with local analgesic. Bipolar cautery had been utilized intermittently through the procedure for hemostasis. The wound was irrigated copiously with pulse lavage mechanical irrigation. The fascia was repaired with Vicryl suture. The subcutaneous soft tissues were repaired in layers with Vicryl suture. The skin was approximated with pernio/Dermabond. Sterile dressings were applied. Patient was then awakened, transferred to a bed and taken to recovery in stable condition. Mustapha FONSECA assisted with the complex procedure.
[2021-07-27] MEDS: HYDROmorphone 0.5 MG/0.5 ML SYRINGE IVP PRN ×4 (12:49→14:46)
--- NOTE | 2021-07-27 13:29 | FL ---
EXAMINATION TYPE: FL guidance operating room DATE OF EXAM: 07/27/2021 HISTORY: Fluoroscopy time 11 seconds of fluoroscopy provided. IMPRESSION: 1. Fluoroscopy time.
[2021-07-27 14:39] LABS: Anisocytosis Slight; Basophils % (A) 0 %; Eosinophils % (A) 0 %; HCT 31.1 % (39.0-53.0); HGB 9.2 gm/dL (13.0-17.5); Hypochromasia Marked; Lymphocytes # (A) 0.8 k/uL (1.0-4.8); Lymphocytes % (A) 9 %; MCH 23.5 pg (25.0-35.0); MCHC 29.5 g/dL (31.0-37.0); MCV 79.7 fL (80.0-100.0); Mean Platelet Volume 7.6; Microcytosis Slight; Monocytes # (A) 0.1 k/uL (0-1.0); Monocytes % (A) 2 %; Neutrophils # (A) 8.2 k/uL (1.3-7.7); Neutrophils % (A) 89 %; Platelet Count 247 k/uL (150-450); Poikilocytosis Moderate; RBC 3.91 m/uL (4.30-5.90); WBC 9.2 k/uL (3.8-10.6)
[2021-07-27] MEDS: HYDROmorphone 1 MG/ML 1 ML SYRINGE IVP PRN ×2 (15:51→22:47)
--- NOTE | 2021-07-27 17:17 | XR ---
EXAMINATION TYPE: XR Hip Limited RT DATE OF EXAM: 07/27/2021 CLINICAL HISTORY: Right hip replacement TECHNIQUE: Fluoroscopic-guided surgery. COMPARISON: X-ray dated 07/08/2021 FINDINGS: Fluoroscopic guidance was provided during the procedure. A total of 11 seconds of fluorosc opic time was utilized during the procedure and 2 spot images were acquired. IMPRESSION: As Above.
[2021-07-27] MEDS: FERROUS SULFATE 325 MG TAB PO SCH (18:22)
[2021-07-27] MEDS: HYDROcodone/APAP 10-325MG 1 EACH TAB PO PRN (18:26)
[2021-07-27] MEDS ORDERED: SENNOSIDES-DOCUSATE SODIUM 1 EACH TAB PO SCH (21:00)
[2021-07-28] MEDS: HYDROcodone/APAP 10-325MG 1 EACH TAB PO PRN ×2 (03:38→08:43)
[2021-07-28] MEDS: LACTATED RINGERS 1,000 ML IV SCH (04:26)
[2021-07-28 06:49] LABS: Anisocytosis Slight; Basophils % (A) 0 %; Eosinophils % (A) 0 %; Hypochromasia Marked; Lymphocytes # (A) 1.6 k/uL (1.0-4.8); Lymphocytes % (A) 19 %; MCH 22.8 pg (25.0-35.0); MCHC 28.8 g/dL (31.0-37.0); MCV 79.2 fL (80.0-100.0); Mean Platelet Volume 8.5; Microcytosis Slight; Monocytes # (A) 0.6 k/uL (0-1.0); Monocytes % (A) 7 %; Neutrophils # (A) 6.1 k/uL (1.3-7.7); Neutrophils % (A) 72 %; Platelet Count 181 k/uL (150-450); Poikilocytosis Moderate; RBC 3.28 m/uL (4.30-5.90); WBC 8.5 k/uL (3.8-10.6)
[2021-07-28 07:27] LABS: HGB 7.5 gm/dL (13.0-17.5)
--- NOTE | 2021-07-28 08:45 | P.PN ---
Subjective Progress Note Date: 07/28/21 Principal diagnosis: Status post direct anterior right total hip arthroplasty Patient was evaluated today at bedside, he is actually up and ambulating to the restroom. He states he has some general ice achiness in the right lower extremity. States that both legs feel quite stiff today. He does notice improvement in the overall pain in the right hip region. He denies any acute events overnight. He currently denies any headaches, lightheadedness, chest pain or shortness of breath. Objective - Vital Signs Vital signs: Vital Signs Temp 97.8 F 07/28/21 05:00 Pulse 75 07/28/21 05:00 Resp 16 07/28/21 05:00 BP 114/64 07/28/21 05:00 Pulse Ox 97 07/28/21 05:00 Intake & Output 07/27/21 07/28/21 07/28/21 18:59 06:59 18:59 Intake Total 901 50 Output Total 125 Balance 776 50 Weight 79.2 kg Intake: IV 851 Intake, IV Titration 50 50 Amount ceFAZolin 2 gm In Sodium 50 Chloride 0.9% 50 ml @ 100 mls/hr IVPB ONCE PRN Rx# :[id number] ceFAZolin 2 gm In Sodium 50 Chloride 0.9% 50 ml @ 100 mls/hr IVPB Q8H [facility] Rx#: [id number] Output: Estimated Blood Loss 125 Other: Voiding Method Toilet # Voids 400 3 - Exam Right lower extremity: Incision is clean, dry, and intact. The foam dressing is in good condition. There is minimal soft tissue swelling and ecchymosis surrounding the medial and lateral aspects of the incision. Calf is soft, no tenderness with palpation. Plantar flexion, dorsiflexion, EHL, FHL are intact. Sensory exam to light touch throughout the extremity is intact, dorsal pedis pulses 2+. - Labs CBC & Chem 7: 07/28/21 06:16 Labs: Abnormal Lab Results - Last 24 Hours (Table) 07/27/21 07/27/21 07/28/21 Range/Units 09:00 14:20 06:16 RBC 4.02 L 3.91 L 3.28 L (4.30-5.90) m/uL Hgb 9.2 L 9.2 L 7.5 L D (13.0-17.5) gm/dL Hct 31.8 L 31.1 L 26.0 L (39.0-53.0) % MCV 79.1 L D 79.7 L 79.2 L (80.0-100.0) fL MCH 23.0 L 23.5 L 22.8 L (25.0-35.0) pg MCHC 29.0 L 29.5 L 28.8 L (31.0-37.0) g/dL RDW 16.8 H 17.0 H 17.0 H (11.5-15.5) % Neutrophils # 8.2 H (1.3-7.7) k/uL Lymphocytes # 0.8 L (1.0-4.8) k/uL Assessment and Plan Assessment: Postoperative day #1 status post total hip arthroplasty, direct anterior approach Anemia Plan: Pain control, patient is prescribed [place] 10 mg/325 mg from his primary care provider, we'll resume this after discharge DVT prophylaxis, aspirin 81 mg twice a day for 30 days Wound care instructions were discussed with patient, this including icing and elevating lower showering instructions Encourage incentive spirometer Home health care, this including nursing and therapy after discharge Medical recommendations Discharge planning: Anticipate discharge home today Time with Patient: Less than 30
[2021-07-28] MEDS ORDERED: ENOXAPARIN 40 MG/0.4 ML SYRINGE SQ SCH (09:00)
[2021-07-28] MEDS ORDERED: FAMOTIDINE 20 MG TAB PO SCH (09:00)
[2021-07-28] MEDS: HYDROmorphone 1 MG/ML 1 ML SYRINGE IVP PRN (09:23)
[2021-07-28] MEDS: FERROUS SULFATE 325 MG TAB PO SCH (09:26)
[2021-07-28 12:26] VITALS: BP 123/68; PULSE 85; RESP 16; TEMP 98.5
== END 2021-07-28 12:52 | disposition home health service (06) ==
LOC: OR 08:10 → 5NMEDONC 12:34 → OR 07-28 12:52
PROVIDERS: ATTEND Orthopaedic Surgery
DX: M16.11 Unilateral primary osteoarthritis, right hip (principal); K21.9 Gastro-esophageal reflux disease without esophagitis; G89.29 Other chronic pain; M54.89 Other dorsalgia; Z90.49 Acquired absence of other specified parts of digestive tract; Z98.890 Other specified postprocedural states; Z79.891 Long term (current) use of opiate analgesic; Z79.899 Other long term (current) drug therapy; N40.0 Benign prostatic hyperplasia without lower urinary tract symptoms; I42.9 Cardiomyopathy, unspecified; J44.9 Chronic obstructive pulmonary disease, unspecified; Z87.442 Personal history of urinary calculi; F17.200 Nicotine dependence, unspecified, uncomplicated
CPT/HCPCS: 97162; 86900; 86901; 84484; 85025 ×2; 86850; 88300; 73501; 27130; C1776; J2250; J1100; J0690 ×3; J2405; J1650; J1170 ×3; J2704

== ENCOUNTER 2021-08-12 14:10 | Emergency (ER) | payer MEDICARE ==
[2021-08-12 14:20] VITALS: TEMP 98.1
[2021-08-12] MEDS ORDERED: PANTOPRAZOLE 40 MG/10 ML VIAL IVP STA (15:54)
[2021-08-12] MEDS ORDERED: SODIUM CHLORIDE 0.9% 1,000 ML IV STA (15:54)
[2021-08-12 15:58] LABS: Anisocytosis Moderate; HCT 31.2 % (39.0-53.0); Hypochromasia Marked; MCH 26.6 pg (25.0-35.0); MCHC 30.1 g/dL (31.0-37.0); Mean Platelet Volume 7.8; Microcytosis Slight; RBC 3.54 m/uL (4.30-5.90); RDW 22.7 % (11.5-15.5); WBC 18.4 k/uL (3.8-10.6)
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
[2021-08-12 16:10] LABS: African American GFR (CKD) >90 (>60 ml/min/1.73 sqM); Anion Gap 11 mmol/L; Blood Urea Nitrogen 43 mg/dL (9-20); Calcium 9.5 mg/dL (8.4-10.2); Carbon Dioxide 24 mmol/L (22-30); Chloride 108 mmol/L (98-107); Glucose 142 mg/dL (74-99); Magnesium 1.9 mg/dL (1.6-2.3); Non-African American GFR(CKD) 89 (>60 ml/min/1.73 sqM); Potassium 4.5 mmol/L (3.5-5.1); Sodium 143 mmol/L (137-145)
[2021-08-12 16:18] LABS: Prothrombin Time 10.8 sec (9.0-12.0)
[2021-08-12 16:23] LABS: Partial Thromboplastin Time 21.1 sec (22.0-30.0)
[2021-08-12] MEDS ORDERED: oxyCODONE-APAP 10-325MG 1 EACH TAB PO STA (16:26)
[2021-08-12 16:42] LABS: HGB 9.4 gm/dL (13.0-17.5); MCV 88.2 fL (80.0-100.0); Platelet Count 434 k/uL (150-450)
[2021-08-12 17:31] LABS: Band Neutrophils % 1 %; Eosinophils # (M) 0.18 k/uL (0-0.7); Lymphocytes # (M) 0.74 k/uL (1.0-4.8); Monocytes # (M) 0.74 k/uL (0-1.0); Neutrophils % (M) 90 %; Nucleated Red Blood Cells 0 /100 WBC (0-0); Total Cells Counted 100
[2021-08-12 17:32] LABS: Ovalocytes Present; Poikilocytosis (M) Present
[2021-08-12 19:07] VITALS: BP 127/76; PULSE 78; RESP 16
== END 2021-08-12 19:07 | disposition home or self-care (01) ==
LOC: EC 14:10
DX: K92.2 Gastrointestinal hemorrhage, unspecified (principal); R55 Syncope and collapse; D72.829 Elevated white blood cell count, unspecified; M19.90 Unspecified osteoarthritis, unspecified site; Z20.822 Contact with and (suspected) exposure to COVID-19; Z87.891 Personal history of nicotine dependence
CPT/HCPCS: 36415; 93005; 80048; 83735; 84443; 84484; 85025; 85610; 85730; 82272; 87636; 99284; 96374; 96361; C9113

== ENCOUNTER → 2021-11-02 | Outpatient (CLI) | payer MEDICARE ==
--- NOTE | 2021-11-02 16:33 | XR ---
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 TECHNIQUE: One radiographic view of the abdomen was obtained. FINDINGS: There are bilateral hip prostheses with hardware intact. There is multilevel disc degenerat ion changes throughout the visualized spine. Multiple renal calculi are redemonstrated when comparing to prior CT. The sacroiliac joints demonstrate degenerative changes bilaterally. Multiple calcified granulomas are seen within the lungs. Pelvic fullness are present. No evidence of fracture. IMPRESSION: Mild degeneration changes of the sacroiliac joints which could be seen in setting of ankylosing spond ylitis.
--- NOTE | 2021-11-03 05:33 | MR ---
EXAMINATION TYPE: MR osman/lskristina wo con DATE OF EXAM: 11/02/2021 COMPARISON: None HISTORY: Back pain for many years that travels down right and left legs Multiplanar multi echo imaging of the thoracic and lumbar spine without contrast. The thoracic vertebrae have normal alignment. Disc spaces are fairly normal. There is C5-6 fusion tommy dieudonne. There is large anterior osteophyte formation at C4-5 and C5-6 and C6-7. The thoracic disc space s are fairly normal. Thoracic spinal cord shows normal signal pattern. No edema. No evidence of thora cic paraspinal mass. Posterior elements are intact. No thoracic disc herniation. The lumbar vertebrae have normal alignment. There is narrowing of the disc spaces from L3 to S1. Ther e is hypertrophic facet arthropathy at L3-4 and L4-5 with lateral recess stenosis. There is an obliqu e defect through the anterior aspect of the L5 vertebral body. This is consistent with an old fractur e. No significant loss of height. There is bone edema on both sides of the fracture line. There is so me minimal neural foraminal narrowing from L3 to S1 due to disc space narrowing and facet arthropathy . IMPRESSION: Negative MRI scan of the thoracic spine. No fracture. No thoracic spinal stenosis. There is oblique fracture through the anterior L5 vertebral body which is a change compared to the CT scan of 05/26/2021. There is fluid at the fracture line and edema on both sides of the fracture in the vertebral body. There is spondylotic changes in the lower lumbar spine with mild neural foraminal na rrowing and lateral recess stenosis. There is more noticeable facet arthropathy at L4-5 on the left s [place] with lateral recess stenosis.
== END | disposition home or self-care (01) ==
LOC: RADMRIMAIN 14:45
PROVIDERS: ATTEND Orthopaedic Surgery
DX: S32.058A Other fracture of fifth lumbar vertebra, initial encounter for closed fracture (principal); M47.26 Other spondylosis with radiculopathy, lumbar region; M53.3 Sacrococcygeal disorders, not elsewhere classified
CPT/HCPCS: 72146; 72148; 74018

== ENCOUNTER → 2021-11-05 | Outpatient (CLI) | payer MEDICARE ==
--- NOTE | 2021-11-05 08:29 | CT ---
EXAMINATION TYPE: CT lumbar spine wo con CT DLP: 798 mGycm, Automated exposure control for dose reduction was used. DATE OF EXAM: 11/05/2021 7:56 AM COMPARISON: CT abdomen pelvis 10/14/2020. MRI lumbar spine 11/02/2021. 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 Soft tissue and bone windows in coronal and sagittal planes were obtained and reviewed. 3-D ref ormats of the bones were created on a separate workstation and submitted for review. FINDINGS: Alignment: There are 5 lumbar type vertebral bodies within normal alignment. Bone: Interval development of fracture line through the L5 vertebral body superior and anterior endpl ates with gas in the fracture line. This is new from prior to 05/26/2021. Multilevel disc degeneration changes with osteophyte formation. There is degeneration changes of the sacroiliac joints bilaterally with ankylosis of the joint on the right. Discs: T12-L1: No spinal canal or neural foraminal stenosis is identified. L1-L2: Disc bulging, osteophyte and facet joint arthropathy without significant spinal canal stenosis . There is moderate to severe left and mild right neural foraminal stenosis. L2-L3: Disc bulging, osteophyte and facet joint arthropathy with mild spinal canal and mild bilateral neural foraminal stenosis. L3-L4: Disc bulging, osteophyte and facet joint arthropathy with moderate to severe spinal canal and mild bilateral neural foraminal stenosis. L4-L5: Disc bulging, osteophyte and facet joint arthropathy result in moderate to severe spinal canal stenosis. The neural foramen are moderately narrowed on the right and mildly narrowed on the left . L5-S1: Disc bulging, osteophyte and facet joint arthropathy without significant spinal canal or ne ural foraminal stenosis. Other: Mild atherosclerosis of the arterial vasculature. IMPRESSION: 1. New from 05/26/2021 fracture line extending through the L5 vertebrae anterior and inferior endplates . 2. 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 3. Multilevel disc degeneration changes with spinal canal stenosis worse at L4-L5 secondary to #1. Ad ditionally, moderate severe left L1-L2, moderate right L4-L5 neural foraminal stenosis secondary to d egeneration changes.
== END | disposition home or self-care (01) ==
LOC: RADCTMAIN 07:28
PROVIDERS: ATTEND Orthopaedic Surgery
DX: S32.059A Unspecified fracture of fifth lumbar vertebra, initial encounter for closed fracture (principal); M51.26 Other intervertebral disc displacement, lumbar region; M48.061 Spinal stenosis, lumbar region without neurogenic claudication; M99.73 Connective tissue and disc stenosis of intervertebral foramina of lumbar region
CPT/HCPCS: 72131

== ENCOUNTER → 2022-01-01 | Outpatient (CLI) | payer MEDICARE | END | disposition home or self-care (01) | LOC: LABPAT 12:53 | PROVIDERS: ATTEND Orthopaedic Surgery | DX: Z01.812 Encounter for preprocedural laboratory examination (principal); Z22.322 Carrier or suspected carrier of Methicillin resistant Staphylococcus aureus | CPT/HCPCS: 86850; 86900; 86901; 87070 ==

== ENCOUNTER → 2022-01-06 | Outpatient (CLI) | payer MEDICARE ==
--- NOTE | 2022-01-06 08:54 | CT ---
EXAMINATION TYPE: CT lumbar spine wo con DATE OF EXAM: 01/06/2022 COMPARISON: 11/05/2021 HISTORY: Injury to unspecified body region, low back pain CT DLP: 697.6 mGycm CONTRAST: None TECHNIQUE: CT of the lumbar spine is performed on a spiral scan at 3 mm thick sections. Reconstructed images are performed in the coronal and sagittal planes. FINDINGS: Multilevel facet degenerative changes are present through the lumbar spine. T12-L1: No focal disc herniation or significant disc bulge is evident. No spinal canal stenosis or neural foraminal stenosis is present. L1-L2: No focal disc herniation or significant disc bulge is evident. No spinal canal stenosis or n eural foraminal stenosis is present L2-L3: There may be some mild disc bulge with anterior thecal sac contact. No AP spinal canal stenosi s present. Facet hypertrophy and ligamentum flavum laxity are present L3-L4: Disc bulge with residual disc has mild anterior thecal sac flattening. Facet hypertrophy and l igamentum flavum laxity with congenitally short pedicles contributing to spinal canal stenosis at thi s level. Mild to moderate bilateral foraminal stenosis is present. L4-5: Facet hypertrophy is present. Minimal anterior grade 1 spondylolisthesis of L4 anteriorly on L5 is present. Suspected fracture line through the L5 superior endplate remains stable. Vacuum phenomen on is present. Spinal canal stenosis is present. Lateral recess stenosis is present. L5-S1: There is loss of disc at this level. No focal disc herniation or significant disc bulge is gemini dent. Facet hypertrophy is present. Vertebral alignment appears straightened. Note is made of some minimal bulge of the inferior abdomina l aorta with an AP diameter of 3.0 cm in sagittal plane. Note is made of bilateral nonobstructing yesica al stones. IMPRESSION: 1. 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 2. Facet hypertrophy L4-5 contributing to spinal canal stenosis. 3 old fracture through the superior endplate L5
== END | disposition home or self-care (01) ==
LOC: RADCTMAIN 06:40
PROVIDERS: ATTEND Orthopaedic Surgery
DX: T14.8XXA Other injury of unspecified body region, initial encounter (principal); M48.061 Spinal stenosis, lumbar region without neurogenic claudication; M47.816 Spondylosis without myelopathy or radiculopathy, lumbar region
CPT/HCPCS: 72131

== ENCOUNTER 2022-01-08 10:14 | Inpatient (IN) | payer MEDICARE ==
[2022-01-05 13:51] VITALS: BMI 21.7
[~2022-01-08 10:14] MED LIST changes: -ACETAMINOPHEN TAB 500 MG TAB PO PRN; +GABAPENTIN 300 MG CAP PO PRN; +HYDROmorphone 0.5 MG/0.5 ML SYRINGE IVP PRN; -MELOXICAM 7.5 MG TAB PO PRN
[2022-01-08] MEDS: LIDOCAINE 1% (10MG/ML) FOR IV START INTRADERMA PRN ×2 (11:05→11:25)
[2022-01-08] MEDS: LACTATED RINGERS 1,000 ML IV SCH ×2 (11:05→11:25)
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
[2022-01-08] MEDS ORDERED: ACETAMINOPHEN TAB 500 MG TAB ONE (12:47)
[2022-01-08] MEDS ORDERED: LIDOCAINE 2% INJ 20 MG/ML (2 ML VIAL) ONE (15:29)
[2022-01-08] MEDS ORDERED: ETOMIDATE 2 MG/ML 10 ML VIAL ONE (15:29)
[2022-01-08] MEDS ORDERED: PHENYLEPHRINE-0.9% NACL SYG 1,000 MCG/10 ML SYRINGE ONE (15:29)
[2022-01-08] MEDS ORDERED: fentaNYL (PF) 50 MCG/ML 2 ML AMP ONE (15:29)
[2022-01-08] MEDS ORDERED: SUCCINYLCHOLINE CHLORIDE 200 MG/10 ML VIAL IV ONE (15:29)
[2022-01-08] MEDS ORDERED: PROPOFOL 10 MG/ML 20 ML VIAL IV ONE (15:29)
[2022-01-08] MEDS ORDERED: TRANEXAMIC ACID IN NACL,ISO-OS 1,000 MG/100 ML BAG ONE (15:29)
[2022-01-08] MEDS ORDERED: ROCURONIUM 10 MG/ML (5 ML VIAL) IV ONE (15:29)
[2022-01-08] MEDS ORDERED: MIDAZOLAM 2 MG/2 ML VIAL ONE (15:29)
[2022-01-08] MEDS ORDERED: THROMBIN (BOVINE) 5,000 UNIT VIAL TOPICAL ONE (16:24)
[2022-01-08] MEDS ORDERED: BUPIVACAINE (PF) 0.25% 30 ML VIAL SQ ONE (16:24)
[2022-01-08] MEDS ORDERED: GELATIN SPONGE,ABSORB (SMALL) 1 EACH SPONGE TOPICAL ONE (16:25)
[2022-01-08] MEDS ORDERED: GENTAMICIN 80 MG in SODIUM CHLORIDE 0.9% 500 ML 3,000 ML IRRIGATION ONE (16:25)
[2022-01-08] MEDS ORDERED: ceFAZolin 3,000 MG in SODIUM CHLORIDE 0.9% IRRIGATIO 3,000 ML IRRIGATION ONE (16:25)
[2022-01-08] MEDS ORDERED: LACTATED RINGERS 1,000 ML IV ONE ×2 (17:15)
[2022-01-08] MEDS ORDERED: VANCOMYCIN 1,000 MG VIAL MISCELLANE ONE (19:04)
--- NOTE | 2022-01-08 19:42 | XR ---
Fluoroscopy History: PDLF 5 IMAGES; FT: 29 SECONDS
[2022-01-08] MEDS ORDERED: ONDANSETRON 4 MG/2 ML VIAL IVP PRN (19:46)
[2022-01-08] MEDS ORDERED: CYCLOBENZAPRINE 5 MG TAB PO PRN (19:46)
[2022-01-08] MEDS ORDERED: HYDROmorphone 1 MG/ML 1 ML SYRINGE IVP PRN (19:46)
[2022-01-08] MEDS ORDERED: MAGNESIUM HYDROXIDE 2,400 MG/10 ML CUP PO PRN (19:46)
[2022-01-08] MEDS ORDERED: SENNOSIDES-DOCUSATE SODIUM 1 EACH TAB PO PRN (19:46)
[2022-01-08] MEDS ORDERED: bisacodyL 10 MG SUPP RECTAL PRN (19:46)
[2022-01-08] MEDS ORDERED: HYDROcodone/APAP 5-325MG 1 EACH TAB PO PRN (19:46)
[2022-01-08] MEDS ORDERED: MAG HYDROX/AL HYDROX/SIMETH 30 ML CUP PO PRN (19:46)
[2022-01-08] MEDS ORDERED: HYDROmorphone 0.5 MG/0.5 ML SYRINGE IVP ONE ×2 (20:13→20:45)
[2022-01-08 20:23] LABS: Anisocytosis Slight; HCT 41.6 % (39.0-53.0); HGB 13.1 gm/dL (13.0-17.5); MCH 28.6 pg (25.0-35.0); MCHC 31.5 g/dL (31.0-37.0); MCV 90.9 fL (80.0-100.0); Mean Platelet Volume 7.8; Platelet Count 167 k/uL (150-450); RBC 4.57 m/uL (4.30-5.90); RDW 16.1 % (11.5-15.5)
[2022-01-08] MEDS ORDERED: HYDROmorphone 1 MG/ML 1 ML SYRINGE IVP ONE (20:23)
[2022-01-08] MEDS ORDERED: MEPERIDINE 50 MG/ML SYRINGE IVP ONE (20:45)
--- NOTE | 2022-01-08 22:31 | CT ---
EXAMINATION TYPE: CT lumbar spine wo con DATE OF EXAM: 01/08/2022 COMPARISON: 11/05/2021 HISTORY: Post OP CT DLP: 1135.6 mGycm Automated exposure control for dose reduction was used. Images obtained from L1 to S1 vertebra with no contrast. There are rods and screws fusing posteriorly the lumbar spine from L3 to S1 vertebra. There is bone c ement in the S1 and L3 vertebral bodies. Vertebra have normal alignment. Exam limited by metal artifa ct. There is no paraspinal mass. There is drainage catheter posteriorly at the L3-4 level. There is l aminectomy defect in the lower lumbar spine. There is oblique fracture through the anterior aspect of the L5 vertebral body. Fracture not changed in position compared to old exam. IMPRESSION: Postsurgical changes with laminectomy defect and posterior fusion surgery. No definite complicating p rocess seen.
[2022-01-08] MEDS: GABAPENTIN 100 MG CAP PO SCH (22:34)
[2022-01-09] MEDS: 0.9% NACL WITH KCL 20 MEQ/L 1,000 ML IV SCH ×2 (01:49→12:14)
[2022-01-09] MEDS: ACETAMINOPHEN TAB 325 MG TAB PO SCH ×4 (01:50→16:55)
[2022-01-09] MEDS: HYDROmorphone 0.5 MG/0.5 ML SYRINGE IVP PRN ×3 (05:08→21:23)
[2022-01-09] MEDS: GABAPENTIN 100 MG CAP PO SCH ×3 (08:28→21:13)
[2022-01-09] MEDS: METOPROLOL TARTRATE 25 MG TAB PO SCH ×2 (08:28→21:13)
[2022-01-09] MEDS: HYDROcodone/APAP 10-325MG 1 EACH TAB PO PRN ×2 (08:30→16:51)
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
[2022-01-09 09:16] LABS: Basophils # (A) 0.04 X 10*3/uL (0.00-0.10); Basophils % (A) 0.3 %; Eosinophils # (A) 0.03 X 10*3/uL (0.04-0.35); Eosinophils % (A) 0.2 %; HCT 34.6 % (39.6-50.0); HGB 11.4 g/dL (13.0-17.0); Immature Grans, Automated 0.6 %; Lymphocytes # (A) 1.91 X 10*3/uL (0.90-5.00); Lymphocytes % (A) 15.1 %; MCH 29.1 pg (27.0-32.0); MCHC 32.9 g/dL (32.0-37.0); MCV 88.3 fL (80.0-97.0); Mean Platelet Volume 10.5 fL (9.5-12.2); Monocytes # (A) 1.01 X 10*3/uL (0.20-1.00); NRBC Per 100 WBC 0 /100 WBCS (0.0-0.0); Neutrophils # (A) 9.58 X 10*3/uL (1.80-7.70); Neutrophils % (A) 75.8 %; Platelet Count 174 X 10*3/uL (140-440); RBC 3.92 X 10*6/uL (4.40-5.60); RDW 16.2 % (11.5-14.5); WBC 12.65 X 10*3/uL (4.50-10.00)
[2022-01-09 09:28] LABS: African American GFR (CKD) 101.2 (60.0-200.0); Anion Gap 10.7 mmol/L (10.00-18.00); BUN/Creat Ratio 24.9 Ratio (12.00-20.00); Calcium 8.6 mg/dL (8.7-10.3); Carbon Dioxide 25.3 mmol/L (20.0-27.5); Non-African American GFR(CKD) 87.3 (60.0-200.0); Potassium 4.6 mmol/L (3.5-5.5)
--- NOTE | 2022-01-09 11:27 | P.PN ---
Subjective Progress Note Date: 01/09/22 Principal diagnosis: status post L3 to S1 decompression with stabilized fusion Patient evaluated today at bedside, he is resting in his hospital bed. Patient appears to be in no acute distress. Patient was actually up and moving last night after surgery and multiple times morning. He is had about 300+ cc drain output. He does complain a little bit today of right lower extremity numbness that extends from the mid thigh past the knee into the calf. He states that he had this similar symptoms on the left side prior to surgery but these are much improved. Patient denies any numbness or tingling of the genitalia region or perineal region. He denies any loss of bowel or bladder function at this time. Denies any headaches, lightheadedness, chest pain or shortness of breath. He is having some generalized pain in his back at this time Objective - Vital Signs Vital signs: Vital Signs Temp 97.6 F 01/09/22 05:33 Pulse 80 01/09/22 08:00 Resp 18 01/09/22 08:00 BP 150/65 01/09/22 05:33 Pulse Ox 97 01/09/22 05:33 FiO2 Intake & Output 01/08/22 01/09/22 01/09/22 18:59 06:59 18:59 Intake Total 2652 200 Output Total 2100 560 Balance 2652 -1900 -560 Weight 79.4 kg Intake: IV 2652 0 Oral 200 Output: Drainage 200 160 Back 200 160 Urine 800 400 Uretheral (Connolly) 200 Estimated Blood Loss 1100 - Exam Gen: AOx3, NAD VSS stable at this time Integument: Postoperative dressing in good position and condition, no obvious spotting or obvious drainage. Drain has moderate output is serosanguineous material Palpation: Mild tenderness with palpation to the lumbar paraspinal region ROM: Full range of motion in all major muscle groups of the bilateral upper and lower extremities, no focal deficits appreciated Sensory Exam: Senory exam to light touch is intact C5-T1 Senosry exam to light touch is intact L2-S1, he does demonstrate diminished sensation to light touch on the anterior, lateral aspect of the upper thigh and calf region on the right lower extremity Motor: 55 strength appreciated in the bilateral upper extremities with shoulder abduction, shoulder elevation, elbow extension, elbow flexion, wrist extension, wrist flexion, field scout 55 strength appreciated in the bilateral lower extremities with, knee extension, knee flexion, plantar flexion, dorsiflexion, EHL, FHL, 45 strength appreciated the left lower extremity with hip flexion Reflexes: 2/4 in all UE and LE Negative Veronica's bilaterally. Negative Babinski bilaterally Negative clonus bilaterally - Labs CBC & Chem 7: 01/09/22 05:41 01/09/22 05:41 Labs: Abnormal Lab Results - Last 24 Hours (Table) 01/08/22 01/09/22 01/09/22 Range/Units 20:07 05:41 05:41 WBC 12.65 H (4.50-10.00) X 10*3/uL RBC 3.92 L (4.40-5.60) X 10*6/uL Hgb 11.4 L (13.0-17.0) g/dL Hct 34.6 L (39.6-50.0) % RDW 16.1 H 16.2 H (11.5-15.5) % Immature Gran # 0.08 H (0.00-0.04) X 10*3/uL Neutrophils # 9.58 H (1.80-7.70) X 10*3/uL Monocytes # 1.01 H (0.20-1.00) X 10*3/uL Eosinophils # 0.03 L (0.04-0.35) X 10*3/uL BUN/Creatinine Ratio 24.90 H (12.00-20.00) Ratio Glucose 120 H (70-110) mg/dL Calcium 8.6 L (8.7-10.3) mg/dL Assessment and Plan Assessment: Postoperative day $1 status post L3-S1 decompression with stabilize fusion Right lower extremity paresthesias Other medical comorbidities Plan: With regards to the extremity paresthesias on the right side, I believe this is related to patient activity and position, we will continue to monitor. I have discussed this is issue with my attending Dr. Dupree Pain control, continue with use of oral medication and IV as needed Multiple stool softeners have been ordered, please utilize the patient has history of constipation with narcotics DVT prophylaxis, mechanical at this time, this to include SCDs and compression stockings Wound care, continue to monitor her surgical dressing along with drain Encourage incentive spirometer Weight-bear as tolerated, patient did mention he has a brace that he has been waiting to get delivered. Recommend use of this brace when up and ambulating. Recommend use of a walker. PT/OT evaluation Other medical field representative and recommendations Discharge planning: Anticipate discharge in the next 1-2 days Time with Patient: Less than 30
[2022-01-09 12:44] LABS: HGB 10.8 gm/dL (13.0-17.5); MCH 28.4 pg (25.0-35.0); MCHC 31.9 g/dL (31.0-37.0); MCV 88.9 fL (80.0-100.0); Mean Platelet Volume 8.7; Platelet Count 165 k/uL (150-450); RBC 3.82 m/uL (4.30-5.90); RDW 15.9 % (11.5-15.5)
[2022-01-09 12:45] LABS: ALT 14 U/L (4-49); AST 25 U/L (17-59); African American GFR (CKD) >90 (>60 ml/min/1.73 sqM); Albumin 3.4 g/dL (3.5-5.0); Albumin/Globulin Ratio 1.7; Alkaline Phosphatase 126 U/L (38-126); Anion Gap 8 mmol/L; Blood Urea Nitrogen 20 mg/dL (9-20); Calcium 8.4 mg/dL (8.4-10.2); Carbon Dioxide 27 mmol/L (22-30); Chloride 104 mmol/L (98-107); Glucose 174 mg/dL (74-99); Magnesium 1.9 mg/dL (1.6-2.3); Non-African American GFR(CKD) >90 (>60 ml/min/1.73 sqM); Potassium 4.4 mmol/L (3.5-5.1); Sodium 139 mmol/L (137-145); Total Bilirubin 0.7 mg/dL (0.2-1.3); Total Protein 5.4 g/dL (6.3-8.2)
[2022-01-09] MEDS: DEXAMETHASONE SOD PHOSPHATE 4 MG/ML 1 ML VIAL IVP SCH ×2 (13:29→18:03)
[2022-01-10] MEDS: DEXAMETHASONE SOD PHOSPHATE 4 MG/ML 1 ML VIAL IVP SCH ×4 (00:08→17:41)
[2022-01-10] MEDS: ACETAMINOPHEN TAB 325 MG TAB PO SCH ×4 (00:08→16:50)
[2022-01-10] MEDS: HYDROcodone/APAP 10-325MG 1 EACH TAB PO PRN ×4 (01:57→19:21)
[2022-01-10] MEDS: LACTATED RINGERS 1,000 ML IV SCH ×2 (06:05→23:09)
[2022-01-10] MEDS: 0.9% NACL WITH KCL 20 MEQ/L 1,000 ML IV SCH ×3 (07:09→23:09)
[2022-01-10] MEDS: HYDROmorphone 0.5 MG/0.5 ML SYRINGE IVP PRN ×3 (07:43→21:12)
[2022-01-10] MEDS: METOPROLOL TARTRATE 25 MG TAB PO SCH ×2 (07:44→21:12)
[2022-01-10] MEDS: GABAPENTIN 100 MG CAP PO SCH ×3 (07:44→21:12)
--- NOTE | 2022-01-10 09:59 | P.PN ---
Subjective Progress Note Date: 01/10/22 Principal diagnosis: status post L3 to S1 decompression with stabilized fusion Patient evaluated today at bedside, he is resting in his hospital bed. Patient states that the numbness in the right lower extremity is almost completely resolved. He states is painful today with ambulation. Discussed with nursing prior to seeing the patient, the drain output had slowed quite a bit since yesterday evening. He denies any loss of bowel or bladder function at this time. Denies any headaches, lightheadedness, chest pain or shortness of breath. He is having some generalized pain in his back at this time Objective - Vital Signs Vital signs: Vital Signs Temp 97.8 F 01/10/22 05:00 Pulse 73 01/10/22 05:00 Resp 18 01/10/22 05:00 BP 142/78 01/10/22 05:00 Pulse Ox 99 01/10/22 05:00 FiO2 Intake & Output 01/09/22 01/10/22 01/10/22 18:59 06:59 18:59 Intake Total 50 500 Output Total 1000 1540 Balance -950 -1040 Intake: Intake, IV Titration 50 Amount ceFAZolin 2 gm In Sodium 50 Chloride 0.9% 50 ml @ 100 mls/hr IVPB Q8HR [facility] Rx# :[id number] Oral 500 Output: Drainage 400 240 Back 400 240 Urine 600 1300 Uretheral (Connolly) 200 Other: Voiding Method Urinal Urinal Urinal # Voids 2 # Bowel Movements 0 - Exam Gen: AOx3, NAD VSS stable at this time Integument: Postoperative dressing in good position and condition, no obvious spotting or obvious drainage. Minimal serosanguineous drainage output noted Palpation: Mild tenderness with palpation to the lumbar paraspinal region ROM: Full range of motion in all major muscle groups of the bilateral upper and lower extremities, no focal deficits appreciated Sensory Exam: Senory exam to light touch is intact C5-T1 Senosry exam to light touch is intact L2-S1, he does demonstrate diminished sensation to light touch on the anterior, lateral aspect of the upper thigh and calf region on the right lower extremity Motor: 55 strength appreciated in the bilateral upper extremities with shoulder abduction, shoulder elevation, elbow extension, elbow flexion, wrist extension, wrist flexion, charter pilot 55 strength appreciated in the bilateral lower extremities with, knee extension, knee flexion, plantar flexion, dorsiflexion, EHL, FHL, 45 strength appreciated the left lower extremity with hip flexion Reflexes: 2/4 in all UE and LE Negative Veronica's bilaterally. Negative Babinski bilaterally Negative clonus bilaterally - Labs CBC & Chem 7: 01/09/22 11:48 01/09/22 11:48 Labs: Abnormal Lab Results - Last 24 Hours (Table) 01/09/22 01/09/22 Range/Units 11:48 11:48 WBC 11.0 H (3.8-10.6) k/uL RBC 3.82 L (4.30-5.90) m/uL Hgb 10.8 L (13.0-17.5) gm/dL Hct 34.0 L (39.0-53.0) % RDW 15.9 H (11.5-15.5) % Glucose 174 H (74-99) mg/dL Total Protein 5.4 L (6.3-8.2) g/dL Albumin 3.4 L (3.5-5.0) g/dL Assessment and Plan Assessment: Postoperative day #2 status post L3-S1 decompression with stabilize fusion Other medical comorbidities Plan: Pain control, continue with use of oral medication and IV as needed Multiple stool softeners have been ordered, please utilize the patient has history of constipation with narcotics. DVT prophylaxis, mechanical at this time, this to include SCDs and compression stockings Wound care, continue to monitor her surgical dressing along with drain. Possible removal of drain on 01/11/2022 Encourage incentive spirometer Weight-bear as tolerated, patient did mention he has a brace that he has been waiting to get delivered. Recommend use of this brace when up and ambulating. Recommend use of a walker. PT/OT evaluation Other medical research assistant and recommendations Discharge planning: Anticipate discharge in the next 24-48 hours Time with Patient: Less than 30
[2022-01-10 10:24] LABS: HCT 31.4 % (39.6-50.0); HGB 10.3 g/dL (13.0-17.0); MCH 29.2 pg (27.0-32.0); MCHC 32.8 g/dL (32.0-37.0); Mean Platelet Volume 10.8 fL (9.5-12.2); NRBC Per 100 WBC 0 /100 WBCS (0.0-0.0); Platelet Count 164 X 10*3/uL (140-440); RBC 3.53 X 10*6/uL (4.40-5.60); RDW 16.2 % (11.5-14.5); WBC 12.41 X 10*3/uL (4.50-10.00)
[2022-01-10 10:49] LABS: African American GFR (CKD) 102.6 (60.0-200.0); Albumin 3.9 g/dL (3.8-4.9); Albumin/Globulin Ratio 2.05 (1.60-3.17); Anion Gap 6.3 mmol/L (10.00-18.00); BUN/Creat Ratio 24.14 Ratio (12.00-20.00); Blood Urea Nitrogen 16.9 mg/dL (9.0-27.0); Calcium 8.8 mg/dL (8.7-10.3); Carbon Dioxide 28.7 mmol/L (20.0-27.5); Globulin 1.9 g/dL (1.6-3.3); Non-African American GFR(CKD) 88.5 (60.0-200.0); Potassium 4.4 mmol/L (3.5-5.5); Total Bilirubin 0.5 mg/dL (0.30-1.20); Total Protein 5.8 g/dL (6.2-8.2)
--- NOTE | 2022-01-10 17:35 | P.PN ---
Subjective Progress Note Date: 01/10/22 Hospital course: Patient is a very pleasant 81-year-old male with a past medical history of hypertension. He is currently admitted under orthospine surgical team status post L3 through S1 decompression with fusion. We have been consulted for medical management throughout patient's hospitalization. Physical exam: Patient seen and fully evaluated at the bedside this morning. He is postoperative day 2 and appears to be doing well. Patient resting comfortably in bed with legs elevated. He reports nearly full resolution of previously reported right lower extremity paresthesias. Patient with full strength and movement of bilateral upper and lower extremities. Patient reports currently back pain is controlled. Vital signs are unremarkable and morning labs showing no significant abnormalities with a stable hemoglobin of 10.3. Medically, patient is stable for discharge once cleared by primary admitting orthospine surgical team. Vital signs reviewed and stable. General: Nontoxic, no distress and appears stated age. Derm: Skin warm and dry, normal coloration for ethnicity. Head: Atraumatic, normocephalic and symmetric. Eyes: EOMs intact, no lid lag, and anicteric sclera Mouth: no lip lesions, mucus membranes moist Cardiovascular: regular rate and rhythm with normal S1S2, no murmur, positive posterior tibial pulses bilaterally, and cap refill < 2 seconds. Lungs: Respirations even, regular, and unlabored on room air. Lungs CTA bilaterally, no rhonchi, no rales, no wheezing, and no accessory muscle usage. Abdominal: soft, nontender to palpation, no guarding, no appreciable organomegaly Ext: ROM intact. No gross muscle atrophy, no edema, no contractures Neuro: Speech clear, face symmetrical and CN II-XII grossly intact with no noted focal neuro deficits Psych: Alert and oriented to person, place, time, and situation. Appropriate and pleasant affect. Assessment and Plan of Care: Acute postoperative blood loss anemia, stable -Hemoglobin stable at 10.3 this morning. Status post L3 through S1 fusion and decompression -Management per primary admitting orthospine surgical team including DVT prophylaxis, pain management, wound and drain management, weightbearing, and PT/OT. -DVT prophylaxis currently with NINA andino and CHLOÉs Hypertension -Monitor vital signs and continue daily medication regimen with metoprolol. Blood pressures have been controlled on current medication regimen. Thank you for allowing us to participate in the care of this pleasant patient. Do not hesitate to contact us with questions. Someone can be reached from the [facility] hospitalist group all hours of the day at [phone] or via [employer]. Objective - Vital Signs Vital signs: Vital Signs Temp 97.8 F 01/10/22 05:00 Pulse 73 01/10/22 05:00 Resp 18 01/10/22 05:00 BP 142/78 01/10/22 05:00 Pulse Ox 99 01/10/22 05:00 FiO2 Intake & Output 01/09/22 01/10/22 01/10/22 18:59 06:59 18:59 Intake Total 50 500 Output Total 1000 1540 Balance -950 -1040 Intake: Intake, IV Titration 50 Amount ceFAZolin 2 gm In Sodium 50 Chloride 0.9% 50 ml @ 100 mls/hr IVPB Q8HR [facility] Rx# :[id number] Oral 500 Output: Drainage 400 240 Back 400 240 Urine 600 1300 Uretheral (Connolly) 200 Other: Voiding Method Urinal Urinal Urinal # Voids 2 # Bowel Movements 0 - Labs CBC & Chem 7: 01/10/22 07:18 01/10/22 07:18 Labs: Abnormal Lab Results - Last 24 Hours (Table) 01/09/22 01/09/22 01/09/22 Range/Units 05:41 05:41 11:48 WBC 12.65 H 11.0 H (4.50-10.00) X 10*3/uL RBC 3.92 L 3.82 L (4.40-5.60) X 10*6/uL Hgb 11.4 L 10.8 L (13.0-17.0) g/dL Hct 34.6 L 34.0 L (39.6-50.0) % RDW 16.2 H 15.9 H (11.5-14.5) % Immature Gran # 0.08 H (0.00-0.04) X 10*3/uL Neutrophils # 9.58 H (1.80-7.70) X 10*3/uL Monocytes # 1.01 H (0.20-1.00) X 10*3/uL Eosinophils # 0.03 L (0.04-0.35) X 10*3/uL BUN/Creatinine Ratio 24.90 H (12.00-20.00) Ratio Glucose 120 H (70-110) mg/dL Calcium 8.6 L (8.7-10.3) mg/dL Total Protein (6.3-8.2) g/dL Albumin (3.5-5.0) g/dL 01/09/22 Range/Units 11:48 WBC (4.50-10.00) X 10*3/uL RBC (4.40-5.60) X 10*6/uL Hgb (13.0-17.0) g/dL Hct (39.6-50.0) % RDW (11.5-14.5) % Immature Gran # (0.00-0.04) X 10*3/uL Neutrophils # (1.80-7.70) X 10*3/uL Monocytes # (0.20-1.00) X 10*3/uL Eosinophils # (0.04-0.35) X 10*3/uL BUN/Creatinine Ratio (12.00-20.00) Ratio Glucose 174 H (70-110) mg/dL Calcium (8.7-10.3) mg/dL Total Protein 5.4 L (6.3-8.2) g/dL Albumin 3.4 L (3.5-5.0) g/dL
[2022-01-11] MEDS: DEXAMETHASONE SOD PHOSPHATE 4 MG/ML 1 ML VIAL IVP SCH ×3 (00:01→12:28)
[2022-01-11] MEDS: ACETAMINOPHEN TAB 325 MG TAB PO SCH ×3 (00:01→12:28)
[2022-01-11] MEDS: HYDROcodone/APAP 10-325MG 1 EACH TAB PO PRN ×2 (00:50→08:11)
[2022-01-11 04:13] VITALS: BP 115/63; PULSE 72; RESP 16; TEMP 98.2
[2022-01-11] MEDS: HYDROmorphone 0.5 MG/0.5 ML SYRINGE IVP PRN (04:15)
[2022-01-11] MEDS: GABAPENTIN 100 MG CAP PO SCH (08:10)
[2022-01-11] MEDS: METOPROLOL TARTRATE 25 MG TAB PO SCH (08:11)
--- NOTE | 2022-01-11 09:58 | P.OP ---
Date of Procedure: 01/08/22 Preoperative Diagnosis: 1. 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 Mechanical Low back pain 3. LE paresthesias, weakness and radiculopathy 4. s/p ffs Postoperative Diagnosis: 1. 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 Mechanical Low back pain 3. LE paresthesias, weakness and radiculopathy 4. s/p ffs Procedure(s) Performed: Posterior revision midline exposure 1. L3-S1 posteriolateral instrumented fusion (56306, ) 2. L3-S1 bilateral laminectomy medial facetectomy and foraminotomy for extradural decompression (33188, 21978) 3. Open treatment L5 fracture (26980) 4. Segmental instrumentation L3-S1 (02005) THis case took 75% longer than expected due to exhuberent scar tissue, pts age, and multiple comormid conditions (mod 22) 5 Implants: -Globus crew screw/sheryl system -MagnatOs -Zakia -Autograft -Allograft Anesthesia: GETA Surgeon: Luis Antonio Dupree Project Development Manager #1: Arthur Mcgregor (Was present and assised in all aspects of the case including positioning, exposure, hardware, decompression, grafting, closure, dressing placement.) Estimated Blood Loss (ml): 1,000 IV fluids (ml): 2,500 Urine output (ml): 350 Pathology: none sent Condition: stable Disposition: PACU Indications for Procedure: 81 yo male was evaluated at the [facility] [place] his [place] back pain that is severe. He was found to have a L5 vertebral body fracture AOB3 that extended posteriorly through and ankylosed spine. He was having severe pain, inability to take care of his ADLs and LE pain that was severe as well as weakness in his LE. We discussed his imaging, clinical exam and findings at length with himself and his daughter. Due to his debility from this injury and the pain he has elected to undergo fixation with decompression of the lumbar spine. Risks and benefits discussed as outlined in the risk review. He was willing to proceed with surgery. Description of Procedure: The patient was seen and examined in the preoperative area. All preoperative protocols were followed. Informed consent was obtained risks and benefits of the procedure were discussed at length. Risks including bleeding infection damage to the surrounding tissue and risk of reoperation were discussed with the patient. Risk of anesthesia up to and including was a discussed with the patient. These are outlined in the risk review. They were willing to accept these risks and all of the risks of surgery. The patient was given a weight- based dose of antibiotics in the form of 2g Ancef. The patient was seen and evaluated by the anesthesia team who deemed them fit for surgery. The site was marked, the patient was willing to proceed with the procedure. The patient was transferred to the operative suite [facility] They were then drifted off to sleep by the department anesthesia and GETA was performed. The patient tolerated this well. Connolly catheter was placed by nursing staff, atraumatically. Once confirmation of lines and ventilation the patient was transferred to a [prone Jareth table very carefully]. All bony prominences including wrists, elbows, axilla, chest, hips, and thighs, and feet were padded very well. Special attention was paid to the genitalia and these were padded accordingly. SCDs were placed on bilateral lower extremities and were connected. Arms were well padded and placed on arm boards up and out in the 90/90 position. Once in position, again we confirmed good ventilation capabilities and that lines were running appropriately. The patient's Lumbosacral spine was then exposed. 1010s were placed outlining the incision site. Standard alcohol was used to clean the incision site and allowed to dry. C-arm was used to biomark the patient and confirm level for incision which was marked with a skin marker. Operative briefing was performed with all teams and everyone in agreement to proceed. The patient was then prepped and draped in a normal sterile fashion. Timeout was then performed and all parties were in agreement with the procedure to be performed. MIdline skin incsion made over previously biomarked area. Dissection taken down over SP till facia encountered. Midline faciiotomy made and subperiosteal dissection taken down over L2-S1 lamina and TVP which were exposed and decorticated with a rhea. Lateral image confirmed levels for operation. Wound irrigated. SP clamp for [place] [employer] placed on S1 and secured. 3D intraoperative Zhiem spin registered and confirmed to be accurate. Screws then placed b/l at L3-S1 using [place] [employer] in the following fashion: Navigated Rhea used to make forestry pilot hole in pedicle. Awl Tap used to create path and confirmed good path with ball tip probe. Navigated screw fire truck driver then used to place screws. This was repeated at all levels except for the left side of L5 which was left out due to anatomy and fracture. Once screws were in they were tested and all tested safe with IONM. Decompression was then done with high speed rhea, kerrison rongure and curettes. There was exhuberent scar tissue encountered around the L3-4 andf L4-5 levels. B/L laminectomy, medial facetectomy and foraminotomy were performed at these levels. Kerrison rongure used for foraminotomy and for clean up of scar, ligamentous tissue and widening of the decompression. There was good decompression and no injury to dura. Wound irrigated. We then selected rods and bent them to shape. These were placed with set screws and final tightened. Two cross links selected, placed and final tightened. Further decortication then done of the TP and the lateral gutters along with facets. Wound irrigated with 3L ancef irrigation, 3L gentamycin irrigation and 3L NSS. MagnatOs then placed over TVPs b/l and impated into palce. This was followed by autograft, allograft and zakia. This was grated into the gutters as well. Surgicel placed over the dura. Meticulous hemostasis performed. 2g vanco powder placed in wound. Deep drain placed and secured. Wound closed first in facia with 0PDS followed by superficial subq with 0 and 2-0 vicryl followed by skin linda. Wound edges approximated very well. Wound cleaned and dressed sterilly with Optifoam dressing, 4x4 and tegaderm. Drain secured with stitch. The patient was transferred back to their hospital bed atraumatically. Drain continued to hold suction and were in good position. Patient was then awakened and extubated by the department of anesthesia having tolerated the procedure very well with no complications. They were transferred to the postoperative care unit in stable condition.
--- NOTE | 2022-01-11 10:04 | P.PN ---
Subjective Progress Note Date: 01/11/22 Principal diagnosis: 1. L5 AO type B3 fracture (Extention type chance) 2. L3-S1 stenosis 3. Bilateral lower extremity radiculopathy 4. Bilateral lower extremity weakness Patient seen at bedside this morning resting comfortably lying in semirecumbent position. Patient says he has been out of bed a couple times since yesterday walking around the room and hallway using walker. Patient says he is doing much better today than he has been the past couple days. Patient feels that his pain is under much better control and he feels that he is ready to go home. Patient says he has urinated several times since surgery. Patient says he has been passing gas. Patient denies chest pain, fever, shortness of breath, nausea, vomiting, change in vision, loss of/bladder control. Objective - Vital Signs Vital signs: Vital Signs Temp 98.2 F 01/11/22 04:13 Pulse 72 01/11/22 04:13 Resp 16 01/11/22 04:13 BP 115/63 01/11/22 04:13 Pulse Ox 96 01/11/22 04:13 FiO2 Intake & Output 01/10/22 01/11/22 01/11/22 18:59 06:59 18:59 Intake Total 396 410 Output Total 380 495 Balance 16 -85 Intake: Intake, IV Titration 100 50 Amount ceFAZolin 2 gm In Sodium 100 50 Chloride 0.9% 50 ml @ 100 mls/hr IVPB [facility] Rx# :[id number] Oral 296 360 Output: Drainage 80 45 Back 80 45 Urine 300 450 Other: Voiding Method Urinal Urinal Urinal # Voids 1 - Exam Negative for any open fractures, significant erythema/ecchymosis. Negative for any ulcers. Optifoam dressing in place. Dressing removed. Rosalia are well aligned and intact. Incision is clean, dry, intact. Negative for any fluctuance or purulence. Negative for any drainage. Drain removed. A new dressing placed over drain incision with Tegaderm. Sensation is equal, symmetric, and intact throughout the upper and lower extremities. Patient has some mild tenderness to palpation over the incision on his lumbar spine. Nontender to palpation throughout rest of exam. Patient has full range of motion bilateral upper extremities on exam. Patient has some limited range of motion bilateral lower extremities in hip flexion. Patient has full range of motion throughout rest of his lower extremities. Motor exam 4/5 in bilateral lower extremities on hip flexion. 5/5 in all other major motor groups. Radial pulses intact, 2+ bilaterally. Cap refill under 3 seconds in digits of upper extremities. Negative Homans bilaterally. - Labs CBC & Chem 7: 01/10/22 07:18 01/10/22 07:18 Labs: Abnormal Lab Results - Last 24 Hours (Table) 01/10/22 01/10/22 Range/Units 07:18 07:18 WBC 12.41 H (4.50-10.00) X 10*3/uL RBC 3.53 L (4.40-5.60) X 10*6/uL Hgb 10.3 L (13.0-17.0) g/dL Hct 31.4 L (39.6-50.0) % RDW 16.2 H (11.5-14.5) % Carbon Dioxide 28.7 H (20.0-27.5) mmol/L Anion Gap 6.30 L (10.00-18.00) mmol/L BUN/Creatinine Ratio 24.14 H (12.00-20.00) Ratio Glucose 138 H (70-110) mg/dL ALT 9 L (10-49) U/L Alkaline Phosphatase 134 H (41-126) U/L Total Protein 5.8 L (6.2-8.2) g/dL Assessment and Plan Assessment: 1. L5 AO type B3 fracture (Extention type chance) 2. L3-S1 stenosis 3. Bilateral lower extremity radiculopathy 4. Bilateral lower extremity weakness -Postoperative day #3 status post L3-S1 decompression and fusion Plan: 1. L5 AO type B3 fracture (Extention type chance); L3-S1 stenosis; Bilateral lower extremity radiculopathy; Bilateral lower extremity weakness - surgery performed on 01/08/2022 - L3-S1 decompression fusion. Patient stable at bedside this morning. Drain removed. Surgical dressing changed. Plan for discharge home later today with health services 2. Appreciate medical management 3. Pain management - [place]; Gabapentin; Flexeril 4. GI prophylaxis - Senna 5. DVT prophylaxis - mechanical 6. Encourage incentive spirometer use 7. PT/OT - weightbearing as tolerated with walker and LSO brace. 8. Discharge planning - discharge home with health services later today Time with Patient: Less than 30
--- NOTE | 2022-01-11 10:26 | P.DS ---
Providers Date of admission: 01/08/22 10:14 Expected date of discharge: 01/11/22 Attending physician: Luis Antonio Dupree DO Consults: 01/08/22 19:46 Consult Physician Routine Consulting Provider: Glendy Oconnor Consult Reason/Comments: MEdical Management Do you want consulting provider notified?: Yes Primary care physician: Gael York MD Hospital Course: Date of admission: 01/08/2022 Date of discharge: 01/11/2022 Admission diagnosis: 1. L5 AO type B3 fracture (Extention type chance) 2. L3-S1 stenosis 3. Bilateral lower extremity radiculopathy 4. Bilateral lower extremity weakness Discharge diagnosis: Same Attending physician: Dr. Dupree Surgical procedures: L3-S1 decompression fusion Brief history: Patient is a 81-year-old male with a history of L5 AO type BIII fracture; L3-S1 stenosis; bilateral lower extremity radiculopathy/weakness. At this point patient has failed conservative treatment measures and has opted to proceed with a elective L3-S1 decompression fusion. Hospital course: Details of patient's surgery can be found in operative report. Patient tolerated the procedure well and was subsequently transported to orthopedic floor. Patient's orthopeidc and medical care was provided daily. Patient had daily laboratory tests performed for evaluation of overall blood counts. Patient had daily physical therapy to include strengthening range of motion as well as education with walker ambulation. Patient was noted to have a relatively uneventful postoperative course. Patient reported satisfactory pain control with oral pain medications by postoperative day 3. Patient showed satisfactory progress with physical therapy. Patient moved steadily through the program and had no difficulty meeting the goals by postoperative day 3. Given patient's otherwise satisfactory course and having met physical therapy goals, plan is to discharge patient home with health services on postoperative day 3. Discharge condition/disposition: Patient will be discharged home with health services in stable condition. Discharge medications: Instructions are given on resumption of patient's normal daily medications per primary care recommendation, in addition patient will be prescribed [place] 7.5 mg/325 mg; gabapentin; Flexeril; senna; Duricef. Spine Discharge and Recovery Instructions Date of Surgery: 01/08/2022 Diagnosis: 1. L5 AO type B3 fracture (Extention type chance) 2. L3-S1 stenosis 3. Bilateral lower extremity radiculopathy 4. Bilateral lower extremity weakness Procedure: L3-S1 decompression and fusion Medications: See medication list All medication refills should be obtained through your primary care doctor or your clinic spine surgeon. Please discuss prescription refills at your follow up appointment. Do not call the hospital for medication refills. Dressing: Leave your dressing in place for a total of 5 days post operatively. Then you may remove your dressing and leave open to air. Keep the area clean and if not able to keep area clean, then cover with sterile gauze and tape. Showering: You may shower 3 days after your procedure allowing soap and water to run over incision. Do not scrub. Do not soak. Blot dry. Follow up: Please confirm a follow up appointment with your surgeon 3 weeks post operatively. Please make an appointment to follow up with your PCP in 1-2 weeks after surgery for evaluation 3 phase, 3-week plan POST OP WEEKS 1-3 1. Lifting/carrying/pushing/pulling limited to less than 5 pounds. 2. Do not sit for longer than 15 minutes at one time. Get up and walk around. Prolonged sitting is NOT advised. If you lay down, see if you can tolerate laying down on you front (belly side) 3. Walk for periods of 15 minutes = 1 mile but no longer; do it multiple times times each day. 4. Ice your low back after activity. POST OP WEEKS 3-6 1. Lifting limited to less than 20 pounds. 2. Do not sit for longer than 30 minutes at a time. Frequently change positions. Use a sit-to stand workstation or take frequent breaks from sitting if you have returned to work. 3. Walk for 30 minutes each day. If possible, do these three or more times a day POST OP WEEKS 6+ At your 6-week appointment we will give you a physical therapy referral to focus on a core stabilization and strengthening program. You should also work on leg & buttock strengthening, hamstring & quadriceps stretching, and continue a low impact aerobic activity program such as swimming, walking, or riding a stationary bicycle. During the initial 6 weeks after your surgery, you are at the highest risk of re-injuring your spine. You should generally avoid BLTs (bending, lifting and twisting combination motions) and follow the above guidelines to reduce the chance of reinjury. You can anticipate post op appointments in our office at approximately 3 weeks and 6 weeks after your surgery. INCISION CARE: If your incision is not draining you do NOT need to cover it with a dressing. Keep your incision clean, dry and intact. In most cases, we apply skin glue, linda or sutures to the incision at the time of surgery. This will be like a crust or have the appearance of a scab and will fall off in time on its own. The stitches or linda need to be removed at 3 weeks post op appointment. You may begin to shower 3 days after surgery (this allows the glue to talavera well). However, please avoid scrubbing the incision site or peeling off any of the skin glue. This will ensure optimal healing of your incision. Also, during this time avoid soaking the incision area in water - this includes swimming pools, hot tubs or baths. No ointments, lotions or oils on the incision until your surgeon allows. Leave linda, sutures or glue in place. Neurological dysfunction that comes on suddenly can also be a sign of a stroke. Below some common symptoms of a stroke are listed: B - balance difficulty such as sudden onset walking or leaning to one side - NEW E - eye problem such as sudden double vision or trouble seeing on one side - NEW F - Facial weakness or numbness on one side - NEW A - Arm or leg weakness or numbness on one side - NEW S - Slurred speech or difficulty with word finding - NEW T - Time is BRAIN! Call 911 as soon as you recognize these symptoms Diet: Consume a regular diet rich in vegetables and lean protein such as chicken or fish. You should consume in a ratio of approximately 20% fats|40% carbohydrates|40%protein. Vegetables, sweet potatoes, brown rice or quinoa are examples of good carbohydrates. Chips, white bread, cookies and sweets/sugar are examples of bad carbohydrates. Limit your bad carbs, go wild with good carbs. "Life's Simple 7" Guidelines as per [place] [employer] These will help you reclaim your life after surgery and barrow worker helper in your recovery, keeping in mind your restrictions. (1) Get Active. Physical activity can help people lose weight, control high blood pressure and cholesterol, feel emotionally better, and sleep better. (2) Control Cholesterol. Avoid a diet high in saturated fat, trans fat, & cholesterol. Limit whole milk & cream, ice cream, butter, egg yolks, processed meats (like sausage and hot dogs), and fatty meats. Choose healthy foods that are low in saturated fat, trans fat and cholesterol which include: Fruits and vegetables, fiber rich grain products (like whole grain pasta and brown rice), lean meat such as chicken, fish, nuts, seeds, and legumes. (3) Eat Better. Eat small portions. Shop at the grocery with a list and do not stray from it. Tips for a healthy diet include: Limit sodium intake to less than 1500mg daily, avoid prepackaged, processed, and fast foods, choose a diet rich in fruits, vegetables, and whole grain, high fiber foods, and limit saturated & cholesterol in your diet. (4) Manage Blood Pressure. If you have high blood pressure, you should have a cuff at home so that you can check your blood pressure regularly. Be sure you have a good cuff. An arm one is generally better than a wrist one. Bring the cuff to a doctor's appointment to validate that the measurements that your cuff are taking are accurate. Take your blood pressure twice daily when you are sitting down and relaxing. Record the numbers in a log and bring this log with you to your doctors' appointments. (5) Lose Weight if your BMI is above 25. A healthy BMI is between 19-25. To calculate Your BMI, you may use a Standard BMI Calculator on the NIH BMI website: <www.nhlbi.nih.gov/guidelines/obesity/BMI/bmicalc.htm>. Weigh oneself daily. If you are overweight, set a goal to lose weight. A pound a week loss if needed is a good target. (6) Reduce Blood Sugar. Limit foods and liquids with "added sugars." (Added sugars include sucrose, fructose, glucose, maltose, dextrose, high fructose corn syrup, corn syrup, concentrated fruit juice and honey). (7) Stop Smoking. If you smoke, quitting smoking is one of the best things that you can do for your health. Smoking increases your risk of heart attack, stroke, and peripheral vascular disease, which is a build-up of plaque in your arteries. Please discard all the cigarettes and lighters in your house. Have a plan for what you will do when you have the urge to smoke. Direct and second- hand smoke shortens your life as well as the lives of your family, friends and others around you. For your health and the health of those around you, please consider quitting! Proper Bending Body Mechanics: Maintain a wide stance with one foot slightly in front of the other. Keep your back straight. Bend utilizing the strength in your hips and knees. Do not bend at the waist. Maintain the lifted object at your waist-level close to your body. Avoid lifting weight that causes immediately pain or pain anywhere in the body afterwards. Smoking/Nicotine If there was ever one thing that you could do to increase your overall health, decrease your risk of cardiovascular problems by about 39% the second you make the choice, it is to STOP SMOKING. Your body's most instant gratification is the second you stop smoking. We have all heard the studies, read the articles but it is true, smoking is extremely bad for your overall health, and moreover it is detrimental to your bone health. Nicotine, IN ANY FORM, kills bone cells, prevents your body from healing fractures, and significantly prolongs healing after surgery. In spine surgery specifically, it increases your risk of not healing your bones to create a fusion and increases your risk of having a revision surgery due to this up to 60%. I know it is hard. I know it feels impossible. But there are ways. Take control of your life. We are here to help you through it. And when you are ready, ask us and we can direct you to help if you desire. Use the START Plan to Quit Smoking (please visit the Helpguide.org website listed below for more information): S = Set a quit date. Choose a date within the next 2 weeks, so you have enough time to prepare without losing your motivation to quit. If you mainly smoke at work, quit on the weekend, so you have a few days to adjust to the change. T = Tell family, friends, and co-workers that you plan to quit. Let your friends and family in on your plan to quit smoking and tell them you need their support and encouragement to stop. Look for a quit tonie who wants to stop smoking as well. You can help each other get through the rough times. A = Anticipate and plan for the challenges you'll face while quitting. Most people who begin smoking again do so within the first 3 months. You can help yourself make it through by preparing ahead for common challenges, such as nicotine withdrawal and cigarette cravings. R = Remove cigarettes and other tobacco products from your home, car, and work. Throw away all your cigarettes (no emergency pack!), lighters, ashtrays, and matches. Wash your clothes and freshen up anything that smells like smoke. Shampoo your car, clean your drapes and carpet, and steam your furniture. T = Talk to your doctor about getting help to quit. Your doctor can prescribe medication to help with withdrawal and suggest other alternatives. If you can't see a doctor, you can get many products over the counter at your local pharmacy or grocery store, including the nicotine patch, nicotine lozenges, and nicotine gum. Resources for Quitting Smoking: <https://www.[place].gov/documents/[facility]/ Quit_Tobacco_Resources_for_patients_313480_7.pdf> Supplementation: Take recommended dosages of Vitamin D and Calcium to help fortify your bones and help them to heal. See your health maintenance packet for dosages and recommended levels. DVT/VTE prophylaxis: You will be given compression stockings from the hospital. Wear these daily for the first two weeks after surgery. You may take them off at night. You may be prescribed a medication to help thin your blood. Take this as directed. If you are not prescribed this medication, early and frequent ambulation has been shown to be the best prophylaxis to deep vein thrombosis and sequelae related to this event. Assessment: 1. L5 AO type B3 fracture (Extention type chance) 2. L3-S1 stenosis 3. Bilateral lower extremity radiculopathy 4. Bilateral lower extremity weakness Procedures: L3-S1 decompression fusion Patient Condition at Discharge: Good Plan - Discharge Summary Discharge Rx Participant: Yes New Discharge Prescriptions: No Action HYDROcodone/APAP 10-325MG [[place] 10-325] 1 tab PO Q6H PRN PRN Reason: Pain Acetaminophen [Tylenol Arthritis] 650 mg PO DIRECTED PRN PRN Reason: Pain Metoprolol (Unknown Dose) 1 tab PO DAILY Discharge Medication List HYDROcodone/APAP 10-325MG [[place] 10-325] 1 tab PO Q6H PRN 10/01/20 [History] Acetaminophen [Tylenol Arthritis] 650 mg PO DIRECTED PRN 01/05/22 [History] Metoprolol (Unknown Dose) 1 tab PO DAILY 01/05/22 [History] Follow up Appointment(s)/Referral(s): Luis Antonio Dupree DO [Doctor of Osteopathic Medicine] - 2 Weeks Activity/Diet/Wound Care/Special Instructions: Spine Discharge and Recovery Instructions Date of Surgery: 01/08/2022 Diagnosis: 1. L5 AO type B3 fracture (Extention type chance) 2. L3-S1 stenosis 3. Bilateral lower extremity radiculopathy 4. Bilateral lower extremity weakness Procedure: L3-S1 decompression and fusion Medications: See medication list All medication refills should be obtained through your primary care doctor or your clinic spine surgeon. Please discuss prescription refills at your follow up appointment. Do not call the hospital for medication refills. Dressing: Leave your dressing in place for a total of 5 days post operatively. Then you may remove your dressing and leave open to air. Keep the area clean and if not able to keep area clean, then cover with sterile gauze and tape. Showering: You may shower 3 days after your procedure allowing soap and water to run over incision. Do not scrub. Do not soak. Blot dry. Follow up: Please confirm a follow up appointment with your surgeon 3 weeks post operatively. Please make an appointment to follow up with your PCP in 1-2 weeks after surgery for evaluation 3 phase, 3-week plan POST OP WEEKS 1-3 1. Lifting/carrying/pushing/pulling limited to less than 5 pounds. 2. Do not sit for longer than 15 minutes at one time. Get up and walk around. Prolonged sitting is NOT advised. If you lay down, see if you can tolerate laying down on you front (belly side) 3. Walk for periods of 15 minutes = 1 mile but no longer; do it multiple times times each day. 4. Ice your low back after activity. POST OP WEEKS 3-6 1. Lifting limited to less than 20 pounds. 2. Do not sit for longer than 30 minutes at a time. Frequently change positions. Use a sit-to stand workstation or take frequent breaks from sitting if you have returned to work. 3. Walk for 30 minutes each day. If possible, do these three or more times a day POST OP WEEKS 6+ At your 6-week appointment we will give you a physical therapy referral to focus on a core stabilization and strengthening program. You should also work on leg & buttock strengthening, hamstring & quadriceps stretching, and continue a low impact aerobic activity program such as swimming, walking, or riding a stationary bicycle. During the initial 6 weeks after your surgery, you are at the highest risk of re-injuring your spine. You should generally avoid BLTs (bending, lifting and twisting combination motions) and follow the above guidelines to reduce the chance of reinjury. You can anticipate post op appointments in our office at approximately 3 weeks and 6 weeks after your surgery. INCISION CARE: If your incision is not draining you do NOT need to cover it with a dressing. Keep your incision clean, dry and intact. In most cases, we apply skin glue, linda or sutures to the incision at the time of surgery. This will be like a crust or have the appearance of a scab and will fall off in time on its own. The stitches or linda need to be removed at 3 weeks post op appointment. You may begin to shower 3 days after surgery (this allows the glue to talavera well). However, please avoid scrubbing the incision site or peeling off any of the skin glue. This will ensure optimal healing of your incision. Also, during this time avoid soaking the incision area in water - this includes swimming pools, hot tubs or baths. No ointments, lotions or oils on the incision until your surgeon allows. Leave linda, sutures or glue in place. Neurological dysfunction that comes on suddenly can also be a sign of a stroke. Below some common symptoms of a stroke are listed: B - balance difficulty such as sudden onset walking or leaning to one side - NEW E - eye problem such as sudden double vision or trouble seeing on one side - NEW F - Facial weakness or numbness on one side - NEW A - Arm or leg weakness or numbness on one side - NEW S - Slurred speech or difficulty with word finding - NEW T - Time is BRAIN! Call 911 as soon as you recognize these symptoms Diet: Consume a regular diet rich in vegetables and lean protein such as chicken or fish. You should consume in a ratio of approximately 20% fats|40% carbohydrates|40%protein. Vegetables, sweet potatoes, brown rice or quinoa are examples of good carbohydrates. Chips, white bread, cookies and sweets/sugar are examples of bad carbohydrates. Limit your bad carbs, go wild with good carbs. "Life's Simple 7" Guidelines as per [place] [employer] These will help you reclaim your life after surgery and barrow worker helper in your recovery, keeping in mind your restrictions. (1) Get Active. Physical activity can help people lose weight, control high blood pressure and cholesterol, feel emotionally better, and sleep better. (2) Control Cholesterol. Avoid a diet high in saturated fat, trans fat, & cholesterol. Limit whole milk & cream, ice cream, butter, egg yolks, processed meats (like sausage and hot dogs), and fatty meats. Choose healthy foods that are low in saturated fat, trans fat and cholesterol which include: Fruits and vegetables, fiber rich grain products (like whole grain pasta and brown rice), lean meat such as chicken, fish, nuts, seeds, and legumes. (3) Eat Better. Eat small portions. Shop at the grocery with a list and do not stray from it. Tips for a healthy diet include: Limit sodium intake to less than 1500mg daily, avoid prepackaged, processed, and fast foods, choose a diet rich in fruits, vegetables, and whole grain, high fiber foods, and limit saturated & cholesterol in your diet. (4) Manage Blood Pressure. If you have high blood pressure, you should have a cuff at home so that you can check your blood pressure regularly. Be sure you have a good cuff. An arm one is generally better than a wrist one. Bring the cuff to a doctor's appointment to validate that the measurements that your cuff are taking are accurate. Take your blood pressure twice daily when you are sitting down and relaxing. Record the numbers in a log and bring this log with you to your doctors' appointments. (5) Lose Weight if your BMI is above 25. A healthy BMI is between 19-25. To calculate Your BMI, you may use a Standard BMI Calculator on the NIH BMI website: <www.nhlbi.nih.gov/guidelines/obesity/BMI/bmicalc.htm>. Weigh oneself daily. If you are overweight, set a goal to lose weight. A pound a week loss if needed is a good target. (6) Reduce Blood Sugar. Limit foods and liquids with "added sugars." (Added sugars include sucrose, fructose, glucose, maltose, dextrose, high fructose corn syrup, corn syrup, concentrated fruit juice and honey). (7) Stop Smoking. If you smoke, quitting smoking is one of the best things that you can do for your health. Smoking increases your risk of heart attack, stroke, and peripheral vascular disease, which is a build-up of plaque in your arteries. Please discard all the cigarettes and lighters in your house. Have a plan for what you will do when you have the urge to smoke. Direct and second- hand smoke shortens your life as well as the lives of your family, friends and others around you. For your health and the health of those around you, please consider quitting! Proper Bending Body Mechanics: Maintain a wide stance with one foot slightly in front of the other. Keep your back straight. Bend utilizing the strength in your hips and knees. Do not bend at the waist. Maintain the lifted object at your waist-level close to your body. Avoid lifting weight that causes immediately pain or pain anywhere in the body afterwards. Smoking/Nicotine If there was ever one thing that you could do to increase your overall health, decrease your risk of cardiovascular problems by about 39% the second you make the choice, it is to STOP SMOKING. Your body's most instant gratification is the second you stop smoking. We have all heard the studies, read the articles but it is true, smoking is extremely bad for your overall health, and moreover it is detrimental to your bone health. Nicotine, IN ANY FORM, kills bone cells, prevents your body from healing fractures, and significantly prolongs healing after surgery. In spine surgery specifically, it increases your risk of not healing your bones to create a fusion and increases your risk of having a revision surgery due to this up to 60%. I know it is hard. I know it feels impossible. But there are ways. Take control of your life. We are here to help you through it. And when you are ready, ask us and we can direct you to help if you desire. Use the START Plan to Quit Smoking (please visit the Helpguide.org website listed below for more information): S = Set a quit date. Choose a date within the next 2 weeks, so you have enough time to prepare without losing your motivation to quit. If you mainly smoke at work, quit on the weekend, so you have a few days to adjust to the change. T = Tell family, friends, and co-workers that you plan to quit. Let your friends and family in on your plan to quit smoking and tell them you need their support and encouragement to stop. Look for a quit tonie who wants to stop smoking as well. You can help each other get through the rough times. A = Anticipate and plan for the challenges you'll face while quitting. Most people who begin smoking again do so within the first 3 months. You can help yourself make it through by preparing ahead for common challenges, such as nicotine withdrawal and cigarette cravings. R = Remove cigarettes and other tobacco products from your home, car, and work. Throw away all your cigarettes (no emergency pack!), lighters, ashtrays, and matches. Wash your clothes and freshen up anything that smells like smoke. Shampoo your car, clean your drapes and carpet, and steam your furniture. T = Talk to your doctor about getting help to quit. Your doctor can prescribe medication to help with withdrawal and suggest other alternatives. If you can't see a doctor, you can get many products over the counter at your local pharmacy or grocery store, including the nicotine patch, nicotine lozenges, and nicotine gum. Resources for Quitting Smoking: <https://www.[place].gov/documents/[facility]/Quit_Tobacco_Resources_for_patients_313 480_7.pdf> Supplementation: Take recommended dosages of Vitamin D and Calcium to help fortify your bones and help them to heal. See your health maintenance packet for dosages and recommended levels. DVT/VTE prophylaxis: You will be given compression stockings from the hospital. Wear these daily for the first two weeks after surgery. You may take them off at night. You may be prescribed a medication to help thin your blood. Take this as directed. If you are not prescribed this medication, early and frequent ambulation has been shown to be the best prophylaxis to deep vein thrombosis and sequelae related to this event. Discharge Disposition: HOME WITH HOME HEALTH SERVICES
--- NOTE | 2022-01-11 14:37 | P.PN ---
Subjective Progress Note Date: 01/11/22 Hospital course: Patient is a very pleasant 81-year-old male with a past medical history of hypertension. He is currently admitted under orthospine surgical team status post L3 through S1 decompression with fusion. We have been consulted for medical management throughout patient's hospitalization. Physical exam: Patient seen and fully evaluated at the bedside this morning. He is postoperative day 3 and continues to be doing well. He was resting in bed in visiting with . Patient reports complete resolution of previously reported right lower extremity paresthesias and states he has been ambulating in room with walker without any difficulties. Patient is medically stable for discharge at this time. Vital signs reviewed and stable. General: Nontoxic, no distress and appears stated age. Derm: Skin warm and dry, normal coloration for ethnicity. Dressing lower lumbar spine a clean dry and intact. Head: Atraumatic, normocephalic and symmetric. Eyes: EOMs intact, no lid lag, and anicteric sclera Mouth: no lip lesions, mucus membranes moist Cardiovascular: regular rate and rhythm with normal S1S2, no murmur, positive posterior tibial pulses bilaterally, and cap refill < 2 seconds. Lungs: Respirations even, regular, and unlabored on room air. Lungs CTA bilaterally, no rhonchi, no rales, no wheezing, and no accessory muscle usage. Abdominal: soft, nontender to palpation, no guarding, no appreciable organomegaly Ext: ROM intact. No gross muscle atrophy, no edema, no contractures Neuro: Speech clear, face symmetrical and CN II-XII grossly intact with no noted focal neuro deficits Psych: Alert and oriented to person, place, time, and situation. Appropriate and pleasant affect. Assessment and Plan of Care: Acute postoperative blood loss anemia, stable -Hemoglobin stable at 10.3. Status post L3 through S1 fusion and decompression -Management per primary admitting orthospine surgical team including DVT prophylaxis, pain management, wound and drain management, weightbearing, and PT/OT. -DVT prophylaxis currently with NINA adnino and Shelbi Hypertension -Monitor vital signs and continue daily medication regimen with metoprolol. Blood pressures have been controlled on current medication regimen. Thank you for allowing us to participate in the care of this pleasant patient. Do not hesitate to contact us with questions. Someone can be reached from the [facility] hospitalist group all hours of the day at [phone] or via perfect serve. Objective - Vital Signs Vital signs: Vital Signs Temp 98.2 F 01/11/22 04:13 Pulse 72 01/11/22 04:13 Resp 16 01/11/22 04:13 BP 115/63 01/11/22 04:13 Pulse Ox 96 01/11/22 04:13 FiO2 Intake & Output 01/10/22 01/11/22 01/11/22 18:59 06:59 18:59 Intake Total 396 410 Output Total 380 495 Balance Intake: Intake, IV Titration 100 50 Amount ceFAZolin 2 gm In Sodium 100 50 Chloride 0.9% 50 ml @ 100 mls/hr IVPB Q8HR KI Rx# :[id number] Oral 296 360 Output: Drainage 80 45 Back 80 45 Urine 300 450 Other: Voiding Method Urinal Urinal Urinal # Voids 1 - Labs CBC & Chem 7: 01/10/22 07:18 01/10/22 07:18 Labs: Abnormal Lab Results - Last 24 Hours (Table) 01/10/22 01/10/22 Range/Units 07:18 07:18 WBC 12.41 H (4.50-10.00) X 10*3/uL RBC 3.53 L (4.40-5.60) X 10*6/uL Hgb 10.3 L (13.0-17.0) g/dL Hct 31.4 L (39.6-50.0) % RDW 16.2 H (11.5-14.5) % Carbon Dioxide 28.7 H (20.0-27.5) mmol/L Anion Gap 6.30 L (10.00-18.00) mmol/L BUN/Creatinine Ratio 24.14 H (12.00-20.00) Ratio Glucose 138 H (70-110) mg/dL ALT 9 L (10-49) U/L Alkaline Phosphatase 134 H (41-126) U/L Total Protein 5.8 L (6.2-8.2) g/dL
== END 2022-01-11 13:24 | disposition home health service (06) | DRG 460 ==
LOC: 2ORMAIN 10:14 → 5NMEDONC 19:53
PROVIDERS: ADMIT Orthopaedic Surgery; ATTEND Orthopaedic Surgery
PROC: 0SG3071 Fusion of Lumbosacral Joint with Autologous Tissue Substitute, Posterior Approach, Posterior Column, Open Approach (ICD-10-PCS; principal; 2022-01-08 14:30)
PROC: 01NB0ZZ Release Lumbar Nerve, Open Approach (ICD-10-PCS; principal; 2022-01-08 14:30)
PROC: 0SG1071 Fusion of 2 or more Lumbar Vertebral Joints with Autologous Tissue Substitute, Posterior Approach, Posterior Column, Open Approach (ICD-10-PCS; principal; 2022-01-08 14:30)
PROC: 4A11X4G Monitoring of Peripheral Nervous Electrical Activity, Intraoperative, External Approach (ICD-10-PCS; principal; 2022-01-08 14:30)
PROC: 01NR0ZZ Release Sacral Nerve, Open Approach (ICD-10-PCS; principal; 2022-01-08 14:30)
DX: S32.058A Other fracture of fifth lumbar vertebra, initial encounter for closed fracture (principal); I42.9 Cardiomyopathy, unspecified; D62 Acute posthemorrhagic anemia; J44.9 Chronic obstructive pulmonary disease, unspecified; M43.26 Fusion of spine, lumbar region; M48.061 Spinal stenosis, lumbar region without neurogenic claudication; M48.07 Spinal stenosis, lumbosacral region; M54.16 Radiculopathy, lumbar region; G89.29 Other chronic pain; I10 Essential (primary) hypertension; K21.9 Gastro-esophageal reflux disease without esophagitis; N40.0 Benign prostatic hyperplasia without lower urinary tract symptoms; G47.9 Sleep disorder, unspecified; G47.30 Sleep apnea, unspecified; M19.90 Unspecified osteoarthritis, unspecified site; K57.90 Diverticulosis of intestine, part unspecified, without perforation or abscess without bleeding; R26.89 Other abnormalities of gait and mobility; Z79.899 Other long term (current) drug therapy; Z98.1 Arthrodesis status; Z96.643 Presence of artificial hip joint, bilateral; Z87.891 Personal history of nicotine dependence
CPT/HCPCS: 72100; 72131; 80048; 80053; 83735; 85025; 85027; 86850; 86900; 86901; 87070

== ENCOUNTER 2022-08-30 07:33 | Day surgery (SDC) | payer MEDICARE ==
[2022-08-30] MEDS ORDERED: diazePAM 5 MG TAB PO STA (08:50)
[2022-08-30 08:59] VITALS: RESP 16
[2022-08-30] MEDS ORDERED: HYDROcodone/APAP 5-325MG 1 EACH TAB PO PRN (09:58)
--- NOTE | 2022-08-30 12:53 | FL ---
Lumbar puncture and Myelogram. INDICATION: Pain FINDINGS: Fluoroscopy time: 26 seconds. Images obtained: 4. The procedure was explained to the patient. Risks complications and benefits were discussed. Alternat shakeel were discussed. All questions were answered. Informed consent was obtained. A timeout was performed. The L3-L4 level was chosen for access. Maximum barrier sterile technique was utilized. The skin was c leansed with Betadine and the patient sterilely prepped and draped in the usual manner. The skin and deeper tissue was anesthetized with 1% Lidocaine. Utilizing a 22-gauge spinal needle the spinal canal was accessed. Good CSF return was evident. Isovue-300 M was utilized, 11 milliliters was administer ed under fluoroscopic observation. The stylette was replaced and the needle withdrawn. Fluoroscopic spot images were obtained. The patient tolerated the procedure well. Discharge instructions were discussed with the patient. Th e patient was transferred to CT for additional evaluation. Findings: Limited views of the lumbar spinal canal with contrast were obtained. Some narrowing of th e canal is noted at the L2-L3 level. Additional diagnostic information can be obtained from the post contrast myelogram CT. IMPRESSIONS: 1. Successful Lumbar Puncture for myelogram.
--- NOTE | 2022-08-30 13:08 | CT ---
EXAMINATION TYPE: CT lumbar spine w con DATE OF EXAM: 08/30/2022 COMPARISON: 01/08/2022 HISTORY: 82-year-old male M54.10, radiculopathy, low back pain TECHNIQUE: Contiguous axial scanning of the lumbar spine performed with IV Contrast, intrathecal cont rast was administered. Please refer to myelogram injection report of the same day for further details . Coronal and sagittal reconstructions performed. CT DLP: 623.1 mGycm Automated exposure control for dose reduction was used. FINDINGS: Vertebral body heights are preserved. Post surgical change of L3-S1 posterior lumbar fusion with laminectomies. Vertebroplasty change prese nt at L3 and S1 levels. There is mature bridging anterior endplate spondylosis extending off towards the left from L3 through S1 levels. There is fixed grade 1 anterolisthesis L4-L5 impressing on the ventral thecal sac but not causing any significant spinal canal stenosis. There is residual moderate left neural foraminal stenosis at L4-L 5. Above the fusion at L2-L3, there is mild disc bulge and marked ligamentum flavum thickening as well a s facet arthropathy. No malalignment. Changes result in moderate overall spinal canal stenosis at this level with attenuation of the thecal sac especially along the dorsal surface. Changes also result in moderate to severe left and mild rig ht neuroforaminal stenosis. Scattered facet or adenopathy elsewhere in the upper lumbar and lower thoracic spine. On the left, this results in moderate neural foraminal stenosis at L1-L2 and mild from T12 through L2 on the right. Healing of the previous superior vertebral body fracture deformity of L5 seen on 01/08/2022. There are large casting stones within the right renal calyceal system measuring up to 2.8 cm. This ex tends to the level of the pelvis and may cause some partial obstruction to the upper pole calyceal sy stem, refer to coronal image 35. Additional nonobstructive calculi on the left measuring up to 7 mm. 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 IMPRESSION: 1. STATUS POST L3-S1 POSTERIOR LUMBAR FUSION WITH CORRESPONDING LAMINECTOMIES. PREVIOUS VERTEBROPLAST Y AT L3 AND S1 LEVELS. MATURE ANTERIOR ENDPLATE BRIDGING SPONDYLOSIS EXTENDING FROM L3-S1 LEVELS. FIX ED GRADE 1 ANTEROLISTHESIS L4-L5. MODERATE LEFT NEUROFORAMINAL STENOSIS REMAINS HERE AT L4-L5. 2. THE PREVIOUS SUPERIOR VERTEBRAL BODY FRACTURE SEEN ON 01/08/2022 HAS HEALED. 3. ABOVE THE FUSION AT L2-L3, THERE IS MILD DISC BULGE BUT MORE PRONOUNCED DORSAL LIGAMENTUM FLAVUM T HICKENING CAUSING OVERALL MODERATE NARROWING OF THE SPINAL CANAL. MODERATE TO SEVERE LEFT AND MILD RI GHT NEURAL FORAMINAL STENOSIS HERE. 4. ADDITIONAL VARIABLE MILD TO MODERATE NEURAL FORAMINAL NARROWING ELSEWHERE IN THE UPPER AND MID LUM BAR SPINE OUTLINED ABOVE. 5. CASTING STONES WITHIN THE RIGHT RENAL COLLECTING SYSTEM MEASURING UP TO 2.8 CM. THESE LARGELY INVO LVE THE LOWER CALYCES, EXTENDING TO THE RENAL PELVIS AND MAY CAUSE PARTIAL OBSTRUCTION TO THE UPPER P OLE CALYCEAL SYSTEM.
[2022-08-30 13:47] VITALS: BP 153/87; PULSE 76; TEMP 97.5
== END 2022-08-30 14:41 | disposition home or self-care (01) ==
LOC: RADPROMAIN 07:33 → 4SSUR 10:34 → RADPROMAIN 14:41
PROVIDERS: ATTEND Orthopaedic Surgery
DX: M51.16 Intervertebral disc disorders with radiculopathy, lumbar region (principal); M47.26 Other spondylosis with radiculopathy, lumbar region; M43.16 Spondylolisthesis, lumbar region; M99.71 Connective tissue and disc stenosis of intervertebral foramina of cervical region; M48.061 Spinal stenosis, lumbar region without neurogenic claudication; Z98.1 Arthrodesis status; Z87.81 Personal history of (healed) traumatic fracture
CPT/HCPCS: 62304; 72132; Q9967

== ENCOUNTER → 2022-10-07 | Outpatient (CLI) | payer MEDICARE | END | disposition home or self-care (01) | LOC: LABPAT 08:06 | PROVIDERS: ATTEND Orthopaedic Surgery | DX: Z01.812 Encounter for preprocedural laboratory examination (principal); M48.061 Spinal stenosis, lumbar region without neurogenic claudication; Z22.322 Carrier or suspected carrier of Methicillin resistant Staphylococcus aureus | CPT/HCPCS: 87070 ==

== ENCOUNTER 2022-10-11 09:05 | Day surgery (SDC) | payer MEDICARE ==
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
[~2022-10-11 09:05] MED LIST changes: +ACETAMINOPHEN TAB 500 MG TAB PO PRN; -DEXAMETHASONE SOD PHOSPHATE 4 MG/ML 1 ML VIAL IV ONE; -HYDROmorphone 0.5 MG/0.5 ML SYRINGE IVP PRN; -ONDANSETRON 4 MG/2 ML VIAL IVP ONE; +ONDANSETRON 4 MG/2 ML VIAL IVP PRN; +TRANEXAMIC 1,000 MG/100ML-NACL 1,000 MG in SALINE 1 100ML.BAG IVPB PRN; -TRANEXAMIC ACID IN NACL,ISO-OS 1,000 MG in SALINE 1 100ML.BAG IVPB PRN
[2022-10-11] MEDS: LACTATED RINGERS 1,000 ML IV SCH (10:17)
[2022-10-11] MEDS ORDERED: LACTATED RINGERS 1,000 ML IV ONE ×2 (10:17→14:53)
[2022-10-11] MEDS ORDERED: GLYCOPYRROLATE 0.2 MG/ML 2 ML VIAL ONE (13:08)
[2022-10-11] MEDS ORDERED: TRANEXAMIC 1,000 MG/100ML-NACL PREMIX BAG ONE (13:08)
[2022-10-11] MEDS ORDERED: MIDAZOLAM 2 MG/2 ML VIAL ONE (13:08)
[2022-10-11] MEDS ORDERED: PROPOFOL 10 MG/ML 20 ML VIAL IV ONE (13:08)
[2022-10-11] MEDS ORDERED: LIDOCAINE 2% INJ 20 MG/ML (2 ML VIAL) ONE (13:08)
[2022-10-11] MEDS ORDERED: fentaNYL (PF) 50 MCG/ML 2 ML AMP ONE (13:08)
[2022-10-11] MEDS ORDERED: NEOSTIGMINE 1 MG/ML 10 ML VIAL ONE (13:08)
[2022-10-11] MEDS ORDERED: SUCCINYLCHOLINE CHLORIDE 200 MG/10 ML VIAL IV ONE (13:08)
[2022-10-11] MEDS ORDERED: PHENYLEPHRINE-0.9% NACL SYG 1,000 MCG/10 ML SYRINGE ONE (13:08)
[2022-10-11] MEDS ORDERED: ROCURONIUM 10 MG/ML (5 ML VIAL) IV ONE (13:08)
[2022-10-11] MEDS ORDERED: GELATIN SPONGE,ABSORB (LARGE) 1 EACH SPONGE TOPICAL ONE (13:54)
[2022-10-11] MEDS ORDERED: THROMBIN (BOVINE) 5,000 UNIT VIAL TOPICAL ONE (13:55)
[2022-10-11] MEDS ORDERED: BUPIVACAINE (PF) 0.25% 30 ML VIAL MISCELLANE ONE (14:12)
[2022-10-11] MEDS ORDERED: VANCOMYCIN 1,000 MG VIAL MISCELLANE ONE (14:35)
--- NOTE | 2022-10-11 14:56 | XR ---
Fluoroscopy INDICATION: Pain FINDINGS: Fluoroscopy time: 11 seconds. Total dose area product (DAP) in uGy*m?, mGy*cm? (or similar): 1.9160 Images obtained: 5. IMPRESSIONS: 1. Documentation of fluoroscopy.
[2022-10-11] MEDS ORDERED: CYCLOBENZAPRINE 5 MG TAB PO PRN (15:08)
[2022-10-11] MEDS ORDERED: MAGNESIUM HYDROXIDE 2,400 MG/30 ML CUP PO PRN (15:08)
[2022-10-11] MEDS ORDERED: HYDROcodone/APAP 5-325MG 1 EACH TAB PO PRN (15:08)
[2022-10-11] MEDS ORDERED: SENNOSIDES-DOCUSATE SODIUM 1 EACH TAB PO PRN (15:08)
[2022-10-11] MEDS ORDERED: HYDROmorphone 0.5 MG/0.5 ML SYRINGE IVP PRN (15:08)
[2022-10-11] MEDS: HYDROmorphone 0.5 MG/0.5 ML SYRINGE IVP PRN ×2 (15:24→15:33)
[2022-10-11] MEDS: HYDROcodone/APAP 10-325MG 1 EACH TAB PO PRN ×2 (17:45→20:01)
[2022-10-11] MEDS: ACETAMINOPHEN TAB 325 MG TAB PO SCH ×2 (17:45→23:23)
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
[2022-10-11 18:50] VITALS: RESP 19
[2022-10-11] MEDS: HYDROmorphone 1 MG/ML 1 ML SYRINGE IVP PRN (20:01)
[2022-10-12] MEDS: HYDROmorphone 1 MG/ML 1 ML SYRINGE IVP PRN ×2 (00:11→05:33)
[2022-10-12] MEDS: HYDROcodone/APAP 10-325MG 1 EACH TAB PO PRN ×3 (00:49→11:20)
[2022-10-12] MEDS: ACETAMINOPHEN TAB 325 MG TAB PO SCH ×2 (05:20→11:15)
[2022-10-12] MEDS: LACTATED RINGERS 1,000 ML IV SCH (06:15)
[2022-10-12 07:13] LABS: HCT 42.6 % (39.0-53.0); HGB 13.9 gm/dL (13.0-17.5); MCH 29.8 pg (25.0-35.0); MCHC 32.6 g/dL (31.0-37.0); MCV 91.5 fL (80.0-100.0); Platelet Count 127 k/uL (150-450); RBC 4.66 m/uL (4.30-5.90); RDW 15.4 % (11.5-15.5); WBC 6.6 k/uL (3.8-10.6)
[2022-10-12 07:39] LABS: African American GFR (CKD) >90 (>60 ml/min/1.73 sqM); Anion Gap 4 mmol/L; Blood Urea Nitrogen 13 mg/dL (9-20); Calcium 8.5 mg/dL (8.4-10.2); Carbon Dioxide 30 mmol/L (22-30); Chloride 105 mmol/L (98-107); Glucose 99 mg/dL (74-99); Non-African American GFR(CKD) >90 (>60 ml/min/1.73 sqM); Potassium 4.7 mmol/L (3.5-5.1); Sodium 139 mmol/L (137-145)
[2022-10-12 08:32] VITALS: TEMP 98.3
--- NOTE | 2022-10-12 09:12 | P.PN ---
Subjective Progress Note Date: 10/12/22 Principal diagnosis: 1. 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 LE radiculopathywith weakness 3. Low back pain s/p L3-S1 stabilization Patient seen and examined this point. Patient is currently sitting at bedside. Surgical dressing is clean dry and intact, Hemovac drain present with output of 20 mL overnight. Hemovac drain has been removed this morning. Patient reports that his pain is managed on current regimen. Patient reports pain in the bilateral lower extremities has improved since procedure. Patient is looking forward to going home later today. Patient has been afebrile, denies nausea/vomiting, or chest pain. Objective - Vital Signs Vital signs: Vital Signs Temp 97.9 F 10/12/22 01:11 Pulse 64 10/12/22 01:11 Resp 19 10/12/22 01:11 BP 149/80 10/12/22 01:11 Pulse Ox 97 10/12/22 01:11 FiO2 Intake & Output 10/11/22 10/12/22 10/12/22 18:59 06:59 18:59 Intake Total 1950 Output Total 450 870 Balance 1500 -870 Weight 78.2 kg Intake: IV 1950 Output: Drainage 70 Lower Back 70 Urine 350 800 Estimated Blood Loss 100 Other: Voiding Method Urinal - Exam Physical Examination General: The patient is awake and alert, in no acute distress Skin: Skin is warm and dry with no obvious rashes or lesions. Surgical incision to the lumbar spine, dressing is clean dry and intact. Hemovac drain has been removed. Eye: Pupils are equal, round and reactive to light, extra-ocular movements are intact; there is normal conjunctiva bilaterally. Neck: The neck is supple, there is no tenderness and ROM intact. Cardiovascular: There is a regular rate and rhythm. No murmur, rub or gallop is appreciated. Respiratory: Lungs are clear to auscultation, respirations are non-labored, breath sounds are equal. Gastrointestinal: Soft, non-distended, non-tender abdomen. Back: There is no tenderness to palpation in the midline, paralumbar, parathoracic or buttocks region. There is no obvious deformity . Musculoskeletal: ROM limited secondary to pain and stiffness from surgical procedure. Muscle strength in all major muscle groups of bilateral upper extremities 5/5, bilateral lower extremities 4/5. Neurological: CN 2-12 intact. There are no obvious motor or sensory deficits. Movement and coordination equal and intact. Sensory exam to light touch intact C5-T1 and intact from L2-S1. Reflexes 2/4 in bilateral upper and lower extre mities. Negative Hoffmans, babinski, and clonus signs. Psychiatric: Cooperative, appropriate mood & affect, normal judgment. - Labs CBC & Chem 7: 10/12/22 06:40 10/12/22 06:40 Labs: Abnormal Lab Results - Last 24 Hours (Table) 10/12/22 Range/Units 06:40 Plt Count 127 L (150-450) k/uL Assessment and Plan Assessment: Postop day 1: L2-L3 laminectomy 1. 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 LE radiculopathywith weakness 3. Low back pain s/p L3-S1 stabilization Plan: -Appreciate senior market intelligence consultant and team management. -Activity: Ambulate QID, OOB all meals, up and about, limit lifting bending twisting to less than 5 lbs. Use walker or cane if needed for stability. -Daily PT/OT, increase ambulation strength and balance. -Pain control: Adequate at this time -Meds: reviewed -GI ppx: senna, Miralax -DVT PPX: Scds -Hygiene: Shower today. Maintain dressing clean and dry. Meticulous cleaning after BMs away from the incision site -Encourage IS 10x/hr -Dispo: Anticipate discharge home today with homecare *I reviewed and discussed this case with my attending Dr. Dupree, whom has reviewed this chart and films and is in agreement with assessment and plan of care as outlined above. I have personally seen and examined the patient, performed the documentation and the assessment and plan as written. Number of minutes spent on the visit: 20m.
[2022-10-12 10:16] VITALS: BP 135/74; PULSE 73
--- NOTE | 2022-10-12 11:09 | P.OP ---
Date of Procedure: 10/11/22 Preoperative Diagnosis: 1. L2-3 STENOSIS, SEVERE 2. LE RADICULOPATHY 3. LE WEAKNESS 4. S/P L3-S1 STABILIZATION/FUSION Postoperative Diagnosis: 1. L2-3 STENOSIS, SEVERE 2. LE RADICULOPATHY 3. LE WEAKNESS 4. S/P L3-S1 STABILIZATION/FUSION Procedure(s) Performed: 1. L2-3 BILATERAL LAMINECTOMY, PARTIAL MEDIAL FACETECTOMY AND FORAMINOTOMY (11402) Implants: NONE Anesthesia: GETA Surgeon: Luis Antonio Dupree Live Truck Operator #1: Mustapha Hobson (WAS PRESENT AND ASSISTED WITH ALL ASPECTS OF THE CASE) Estimated Blood Loss (ml): 50 IV fluids (ml): 450 Urine output (ml): 0 Pathology: none sent Condition: stable Disposition: PACU Indications for Procedure: Bryan Casarez is a 82 year old male presenting for evaluation of sudden onset of LE pain, weakness, low back pain. It was my pleasure to have seen and examined Mr. Casarez. In our visit today we have had a chance to go over subjective complaints, physical examination findings and treatments, including the natural course history without intervention and various interventional options. The imaging demonstrates L2-3 stenosis, ASD s/p L3-S1 stablization and decompression . On physical exam, Mr. Casarez demonstrates Weakness in b/l LE, pain in b/l thighs in the L2-3 distribution and low back pain . I explained to the patient that as his condition progresses it could cause Continued sx, pain and possibly porgressive symptoms . At this time, based on the patients imaging and physical exam, I recommend surgery in the form or a: L2-3 laminecomty . I discussed the risk and benefits of this procedure at length with Mr. Casarez. The patient agreed to consider pursuing the procedure mentioned above. Plan: 1. L2-L3 laminectomy Description of Procedure: L2-3 open laminectomy Spine Op Note template The patient was seen and examined in the preoperative area. All preoperative protocols were followed. Informed consent was obtained risks and benefits of the procedure were discussed at length. Risks including bleeding infection damage to the surrounding tissue and risk of reoperation were discussed with the patient. Risk of anesthesia up to and including was a discussed with the patient. These are outlined in the risk review. They were willing to accept these risks and all of the risks of surgery. The patient was given a weight- based dose of antibiotics in the form of [Ancef]. The patient was seen and evaluated by the anesthesia team who deemed them fit for surgery. The site was marked, the patient was willing to proceed with the procedure. The patient was transferred to the operative suite by the Department of anesthesia. They were then drifted off to sleep by the department anesthesia and [GETA] was performed. The patient tolerated this well. [Connolly catheter was placed by nursing staff, atraumatically]. Once confirmation of lines and ventilation the patient was transferred to a [prone Jareth table very car efully]. All bony prominences including wrists, elbows, axilla, chest, hips, and thighs, and feet were padded very well. Special attention was paid to the genitalia and these were padded accordingly. SCDs were placed on bilateral lower extremities and were connected. Arms were well padded and placed [on arm boards up and out in the 90/90 position]. Once in position, again we confirmed good ventilation capabilities and that lines were running appropriately. The patient's [Lumbar] spine was then exposed. 1010s were placed outlining the incision site. Standard alcohol was used to clean the incision site and allowed to dry. C-arm was used to biomark the patient and confirm level for incision which was marked with a skin marker. Operative briefing was performed with all teams and everyone in agreement to proceed. The patient was then prepped and draped in a normal sterile fashion. Timeout was then performed and all parties were in agreement with the procedure to be performed. Midline skin incision made and subperiosteal dissection taken down over the lamina of L1-4. Facet joints located and protected. Webb 4 was placed at the pars of L2 to carolina and lateral image taken to confirm levels for operation. Bilateral laminectomy, partial medial facetectomy and foraminotomies were then performed at L2-3 using highspeed rhea, 2-0 upbite curette, 6-0 kerrison and 4-0 kerrison rongures. Ligamentum was removed. Deep facet joints capsule was removed along with cysts that were found deep from the facets. Foraminotomies done with kerrison and checked with a Morrison ball probe. Once decompression completed, meticulous hemostasis was done with floseal, paddies and gel foam. The wound bed was then irrigated with 6 L Abx Anfect and Gen followed by 6L NSS. The wound was inspected. Good decompression noted with no injury. Xray taken AP and lateral with markers to carolina the decompression. Surgicel was placedon the dura. 2g Vanco powder placed in wound. Deep drain placed and secured with a stitch to the skin. We then proceeded with closure. #1 PDS placed in the facia. 0 Vicryl placed in the deep subq and 2-0 in the superficial. Casa placed in the skin. Wound edges approximated very well. The wound was then cleaned and dressed sterilly with Optifoam dressing, drain sponge and tegaderm. The patient was transferred back to their hospital bed atraumatically. [Drain continued to hold suction and were in good position]. Patient was then awakened and extubated by the department of anesthesia having tolerated the procedure very well with no complications. They were transferred to the postoperative care unit in stable condition.
--- NOTE | 2022-10-12 18:51 | P.PN ---
Subjective Progress Note Date: 10/12/22 (delayed charting seen at 0945) Patient is an 82-year-old male with multiple medical comorbidities and being GERD, PVCs, GI bleed, enlarged prostate, and osteoarthritis who presented for L 2/3 laminectomy. He underwent the surgical procedure without any immediate postoperative complications. Patient seen and examined at bedside. He is doing well. Pain is well- controlled. No nausea, no vomiting. He did have some lightheadedness and her chemotherapy today. Vital signs reviewed General: nontoxic, no distress, appears at stated age Cardiovascular: S1S2 reg, no murmur, positive posterior tibial pulse bilateral, Lungs: CTA bilateral, no rhonchi, no rales , no accessory muscle use Abdominal: soft, nontender to palpation, no guarding, no appreciable organomegaly Ext: no gross muscle atrophy, no edema b/l lower extremities, no contractures Neuro: CN II-XI grossly intact, no focal neuro deficits Psych: Alert, oriented, appropriate affect Assessment/Plan: 82-year-old male status post L2/3 laminectomy Orthostatic hypotension based on increased pulse from 69 to 95 - patient to wear compression stockings at home. Given instructions to increase fluid intake, he should also follow-up with Dr. York for further recommendations. He was also given the instructions to stand up for several minutes before propelling himself forward. -Telemetry without abnormality Thrombocytopenia, mild -Anticipated related to surgery -No indication for transfusion GERD - PPI Hx of GI bleed Hx PBH Data Review: Vital signs reviewed temperature 98.3, pulse 68, respirations 19, blood pressure 151/81, O2 sat 98% on room air Laboratory analysis reviewed and remarkable for platelet count of 127 Thank you for allowing us to participate in the care of this pleasant patient. Do not hesitate to contact us with questions. Someone can be reached from the [facility] hospitalist group all hours of the day at [phone] or via [employer]. This dictation was prepared using [employer] voice recognition software. Though every attempt is made to correct errors during dictation some may still exist. Objective - Vital Signs Vital signs: Vital Signs Temp 98.3 F 10/12/22 07:33 Pulse 73 10/12/22 10:13 Resp 19 10/12/22 07:33 BP 135/74 10/12/22 10:13 Pulse Ox 98 10/12/22 07:33 FiO2 Intake & Output 10/11/22 10/12/22 10/12/22 18:59 06:59 18:59 Intake Total 1950 118 Output Total 450 870 Balance 1500 -870 118 Weight 78.2 kg Intake: IV 1950 Oral 118 Output: Drainage 70 Lower Back 70 Urine 350 800 Estimated Blood Loss 100 Other: Voiding Method Urinal Urinal - Labs CBC & Chem 7: 10/12/22 06:40 10/12/22 06:40 Labs: Abnormal Lab Results - Last 24 Hours (Table) 10/12/22 Range/Units 06:40 Plt Count 127 L (150-450) k/uL
== END 2022-10-12 12:30 | disposition home health service (06) ==
LOC: OR 09:05 → 4SSUR 15:05 → OR 10-12 12:30
PROVIDERS: ATTEND Orthopaedic Surgery
DX: M51.16 Intervertebral disc disorders with radiculopathy, lumbar region (principal); M48.061 Spinal stenosis, lumbar region without neurogenic claudication; M47.26 Other spondylosis with radiculopathy, lumbar region; M99.63 Osseous and subluxation stenosis of intervertebral foramina of lumbar region; Z98.1 Arthrodesis status; I49.3 Ventricular premature depolarization; I42.9 Cardiomyopathy, unspecified; K21.9 Gastro-esophageal reflux disease without esophagitis; M19.90 Unspecified osteoarthritis, unspecified site; N40.0 Benign prostatic hyperplasia without lower urinary tract symptoms; Z87.19 Personal history of other diseases of the digestive system; G47.30 Sleep apnea, unspecified; Z87.891 Personal history of nicotine dependence; Z79.52 Long term (current) use of systemic steroids; Z79.899 Other long term (current) drug therapy
CPT/HCPCS: 63047; 93005; 97161; 86900; 86901; 80048; 85027; 86850; 72100; 36415; J3370; J0690 ×2; J2405; J1170 ×3

== ENCOUNTER → 2023-02-03 | Outpatient (CLI) | payer MEDICARE ==
--- NOTE | 2023-02-03 20:46 | MR ---
EXAMINATION TYPE: MR lumbar spine wo con DATE OF EXAM: 02/03/2023 COMPARISON: CT 08/30/2022 HISTORY: 82-year-old male Low back pain into left leg TECHNIQUE: Multiplanar, multisequence images of the lumbar spine were acquired without IV contrast. FINDINGS: Vertebral body heights are preserved. Previous vertebroplasty L3 and S1 levels. Previous L3-S1 calender let off helper ior and interbody fusion changes. There is extensive metal artifact obscuring the spinal canal at the se levels. Ligamentum flavum thickening and disc bulge at L2-L3 above the fusion but without any significant spi nal canal stenosis, decreased from that seen on 08/30/2022. There appears to have been interval jazmine ctomy change here. Some focal fluid within the laminectomy defect measures 2.4 x 1.0 x 1.1 cm and ace ws bright T1 and T2 signal suggesting complicated fluid/chronic hematoma. There is moderate left neur al foraminal stenosis here. Mild on the right. Conus medullaris is normal. No suspicious bone marrow placement. There are mild neural foraminal stenoses on both sides throughout the remainder of the visualized low er thoracic and lumbar spine. Again, assessment of the neuroforamen along the fused levels is very li mited due to the degree of metal hardware artifact. The casting stones within the right renal collecting system not well demonstrated on the current MRI. IMPRESSION: 1. Very limited assessment of the spinal canal and neuroforamen from L3 through S1 due to extensive m etal artifact from the patient's posterior fusion hardware. 2. The previous moderate spinal canal stenosis above the fusion at L2-L3 appears to have improved fro m 08/30/2022 after interval laminectomy. There is similar moderate left and mild right neuroforaminal stenosis. A small 2.4 x 1.1 cm seroma seroma or chronic hematoma is located at the laminectomy bed.
== END | disposition home or self-care (01) ==
LOC: RADMRIMAIN 06:20
PROVIDERS: ATTEND Orthopaedic Surgery
DX: M43.26 Fusion of spine, lumbar region (principal); M99.73 Connective tissue and disc stenosis of intervertebral foramina of lumbar region; M48.061 Spinal stenosis, lumbar region without neurogenic claudication; Z98.1 Arthrodesis status
CPT/HCPCS: 72148

== ENCOUNTER → 2023-04-05 | Outpatient (CLI) | payer MEDICARE ==
--- NOTE | 2023-04-12 12:54 | CT ---
EXAMINATION TYPE: CT lumbar spine wo con CT DLP: 942.20 mGycm, Automated exposure control for dose reduction was used. DATE OF EXAM: 04/05/2023 3:14 PM COMPARISON: Multiple prior studies including CT myelogram lumbar spine 08/30/2022. CLINICAL INDICATION:Male, 82 years old with history of M54.50 LOW BACK PAIN M47.26 SPONDYLOSIS; PHH, low back pain, hx of lumbar sx TECHNIQUE: Multiple axial images were obtained from the midportion of T11 through the sacroiliac manny nts. Soft tissue and bone windows in coronal and sagittal planes were obtained and reviewed. 3-D ref ormats of the bones were created on a separate workstation and submitted for review. Contrast used: mL of , none. Oral contrast used: none. FINDINGS: Osseous mineralization appears somewhat diminished. Vertebral body heights are preserved. No evidence of fracture or osseous destructive process. Stable sclerotic density in T12. Redemonstration of bilateral pedicle screws with posterior fixation rods L3 and L4, unilateral right pedicular screw at L5, and bilateral screws at S1; hardware appears intact and unchanged. Vertebral a ugmentation cement again noted within L3 bilaterally and S1 bilaterally. Status post multilevel regis ectomies with removal of the spinous processes L2-L5; the L2 level laminectomy appears to be new. Straightening of the normal lumbar lordosis again seen, with unchanged mild grade 1 anterolisthesis L 4 on L5 of up to 5 mm. No significant scoliosis. There is mild to moderate multilevel degenerative di sc disease and facet arthrosis. Again seen are relatively large bridging anterior osteophytes, predom inantly anterior and to the left. Near-complete interbody fusion at L5-S1, and developing interbody f usion L4-L5. Evaluation of the canal and contents is limited on CT, especially without intrathecal contrast. At T1 2-L1, there appears to be mild canal and bilateral neural foraminal stenosis. At L1-L2, moderate bila teral neural foraminal stenoses and mild canal stenosis. L2-L3 and L3-L4, mild to moderate bilateral neural foraminal stenoses and mild canal stenosis. L4-5, moderate bilateral neural foraminal stenoses and mild canal stenosis. At L5-S1, mild canal and bilateral neural foraminal stenoses. Degenerative changes of the SI joints with near complete fusion, right more pronounced than left. 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 Moderate to severe diffuse calcifications of the abdominal aorta and major branches. An infrarenal AA A is present, slightly saccular in shape. This measures up to 3.7 cm AP and 2.8 cm transverse at the L3-L4 level, similar to previous. Mild narrowing of the proximal celiac and superior mesenteric arter ies. Mild narrowing of the proximal renal arteries bilaterally, left greater than right. PILO appears patent with mild disease. Calcifications at the aortic bifurcation and iliac arteries bilaterally. Re demonstration of multiple calculi in both kidneys, right larger and more numerous than left. The larg est is a staghorn calculus within the right renal pelvis extending to the lower pole calyx measuring about 27 x 15 mm axially and extending up to 13 mm craniocaudally. Again the upper pole calyx above t his is mildly dilated, and there may be a partial obstruction of the upper pole calyx. Renal parenchy ma is incompletely seen bilaterally. Ureters do not appear dilated. Visualized portion of the bladder is unremarkable. There are multiple sigmoid region diverticula. Artifact from the hip arthroplasties limits evaluation of the pelvis. No mass of the visualized adrenals. Possible duodenal diverticulum. Partially seen postoperative rao ges involving bowel in the left lower quadrant anteriorly. IMPRESSION: 1. Postoperative changes including posterior hardware fusion L3-S1, and multilevel laminectomies L2- L5. Bilateral L3 and S1 vertebral augmentation cement. 2. No evidence of hardware complication or acute bony abnormality. 3. Multilevel lumbar spondylosis, with various degrees of canal and neural foraminal stenosis, detai led above 4. Bilateral renal collecting system calculi again seen, larger and more numerous on the right. The largest calculus in the right renal pelvis again may cause partial obstruction of the upper pole kamran ceal system. 5. 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
== END | disposition home or self-care (01) ==
LOC: RADCTMAIN 14:29
PROVIDERS: ATTEND Orthopaedic Surgery
DX: M47.26 Other spondylosis with radiculopathy, lumbar region (principal); M99.73 Connective tissue and disc stenosis of intervertebral foramina of lumbar region; I71.43 Infrarenal abdominal aortic aneurysm, without rupture; N20.0 Calculus of kidney; M48.061 Spinal stenosis, lumbar region without neurogenic claudication; M43.27 Fusion of spine, lumbosacral region
CPT/HCPCS: 72131

== ENCOUNTER → 2024-03-17 | Outpatient (CLI) | payer MEDICARE ==
--- NOTE | 2024-03-17 12:02 | MR ---
EXAMINATION TYPE: MR Prostate wo/w con DATE OF EXAM: 03/17/2024 9:15 AM COMPARISON: 05/27/2021. 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 IV Contrast: 9 mL Gadavist Interpretive Criteria: PI-RADS v2.1 SERUM PSA: 02/2024 PSA=20 SURGICAL PATHOLOGY: No data available. FINDINGS: Prostatic dimensions: 4.0 x 3.5 x 2.5 cm. "Bullet" Volume:22.91 (PSA density=0.87 ng/mL/mL) CENTRAL GLAND (Central and Transition Zones/CZ+TZ): Heterogenous gland tissue suspected left-sided calcifications. Low T1/T2 signal areas within the pros sullivan gland compatible with desiccation seen on CT. Also on the left near the base of the bladder as i t low T2 signal area measuring 6 x 12 mm no abnormal DWI or ADC signal identified there is arterial e nhancement in this region.. . (PI-RADS 5) PERIPHERAL ZONE (PZ): Bilateral hip arthroplasties limit evaluation on diffusion-weighted imaging whi ch is basically nondiagnostic.(PI-RADS 2) SEMINAL VESICLES (SV): Symmetric and unremarkable. PERIPROSTATIC TISSUES: Unremarkable. LYMPH NODES: No enlarged pelvic lymph node. REMAINING PELVIS: Bladder wall is within normal limits given distention. No abnormal free or organized intrapelvic fluid collection. No pathologic bowel dilation or mural thickening. Colonic diverticula are present there is fat strand ing changes around the sigmoid colon diverticula with wall thickening. No hernia visualized, fatty changes of the right inguinal hernia. OSSEOUS STRUCTURES: No suspicious osseous abnormality. Bilateral hip arthroplasties with susceptibility artifact. IMPRESSION: Evaluation limited due to DWI sequence being nondiagnostic from hip arthroplasties. 1. Low T2 signal area within the left prostate gland base measuring 27 x 12 mm with enhancement. PIR ADS 5 2. No suspicious osseous lesion. No lymphadenopathy. No evidence of prostate adenocarcinoma involving the periprostatic tissues. 3. Colonic diverticula with inflammation changes around the colon correlate for diverticulitis. Follo w-up CT after treatment may be of benefit.e [facility], , 03/17/2024 11:59 AM
== END | disposition home or self-care (01) ==
LOC: RADMRIMAIN 08:04
PROVIDERS: ATTEND Family Medicine
DX: C60.1 Malignant neoplasm of glans penis (principal); K57.30 Diverticulosis of large intestine without perforation or abscess without bleeding; R97.20 Elevated prostate specific antigen [PSA]
CPT/HCPCS: 72197; A9585

== ENCOUNTER → 2024-05-04 | Outpatient (CLI) | payer MEDICARE ==
[2024-05-04 09:30] LABS: African American GFR (CKD) >90 (>60 ml/min/1.73 sqM); Blood Urea Nitrogen 23 mg/dL (9-20); Non-African American GFR(CKD) 86 (>60 ml/min/1.73 sqM)
--- NOTE | 2024-05-04 22:12 | CT ---
EXAMINATION TYPE: CT angio chest DATE OF EXAM: 05/04/2024 10:16 AM COMPARISON: None. CLINICAL INDICATION: Male, 83 years old with history of I71.20 THORACIC AORTIC ANEURYSM, thoracic aor tic aneurysm, dizziness/ body sweats TECHNIQUE: CT of the chest is performed on a spiral scan at 2 mm thick sections. Study is performed with intravenous contrast timed for evaluation for thoracic aortic aneurysm. This will limit additio nal portions of the evaluation. 3-D MIP images reconstructed by the technologist are reviewed on the computer in the coronal and sagittal planes. Contrast used:100 mL of Isovue 370 with IV Contrast, (none if empty) Oral contrast used: (none if empty) CT DLP: 830.8 mGycm, Automated exposure control for dose reduction was used. FINDINGS: No persistent filling defects are evident to suggest an acute pulmonary embolism. No mediastinal or hilar adenopathy enlarged by CT criteria is evident. Aortic root is 4.1 cm. The ascending aorta diameter at the level of the main pulmonary artery is 4.8 cm. The main pulmonary artery diameter at the bifurcation is 3.0 cm. Aortic arch is 3.5 cm transver se dimension. Descending thoracic aorta at the diaphragm measures 2.5 cm. Multiple scattered calcifications are present bilaterally. There is a 0.6 cm nodule which may contai n central calcification in the peripheral right midlung. Series [address] sections were through the upper abdomen. There is a 4.5 cm anterior right mid renal cyst. Peripelvic cyst is likely present on the right. IMPRESSION: 1. Ascending thoracic aortic aneurysm measuring 4.8 cm. Previous measurement 5.0 cm. 2. Multiple stable appearing punctate calcifications bilateral lung nolen. [facility], , 05/04/2024 10:09 PM
== END | disposition home or self-care (01) ==
LOC: RADCTMAIN 08:56
PROVIDERS: ATTEND Family Medicine
DX: I71.21 Aneurysm of the ascending aorta, without rupture (principal)
CPT/HCPCS: 82565; 84520; 71275; 36415; Q9967